=== PATIENT | male | born 1940 | race Caucasian/White ===

== ENCOUNTER → 2018-11-25 19:00 | Outpatient (REF) | payer MEDICARE, SELFPAY ==
[2018-11-26 09:03] LABS: Color, Urine Yellow (Yellow); Glucose, Dipstick Normal (Normal); Ketone-Dipstick Negative (Negative); Leukocyte Esterase-Dipstick 100 /ul (Negative); Nitrite-Dipstick Negative (Negative); Occult Blood-Urine 25 /ul (Negative); Protein-Dipstick 15 mg/dl (Negative); Urine Bilirubin Dipstick Negative (Negative); Urine Clarity Sl. Cloudy (Clear); Urine Urobilinogen Normal (Normal)
== END ==
LOC: OLS.DANBUR 19:00
PROVIDERS: Visit Provider Family Medicine
DX: N40.0 Benign prostatic hyperplasia without lower urinary tract symptoms (principal); I10 Essential (primary) hypertension; R73.03 Prediabetes
CPT/HCPCS: 81002; 87077; 87086; 87088; 87186

== ENCOUNTER 2018-11-27 10:45 | Inpatient (IN) | payer MEDICARE, SELFPAY ==
[2018-11-27] VITALS (15 sets, daily range): BP systolic 103–140; BP diastolic 56–79; PULSE 64–86; RESP 15–30; TEMP 36.7–37.3; O2SAT 91–95; BMI 39.3; BMI 37.3; BMI 37.4
--- NOTE | 2018-11-27 11:10 | EKG12_ITS ---
Test Reason : SOB Blood Pressure : / mmHG Vent. Rate : 075 BPM Atrial Rate : 088 BPM P-R Int : 000 ms QRS Dur : 078 ms QT Int : 382 ms P-R-T Axes : 000 009 034 degrees QTc Int : 426 ms Sinus vs. Ectopic Atrial Rhythm Low voltage QRS Borderline ECG Confirmed by NITA GLEASON, DAYSI ([id number]), supervising editor news reel AZAM MONTALVO [id number]) on 11/29/2018 3:05:07 PM Referred By: Mae Galan Confirmed By:DAYSI MOYA MD
--- NOTE | 2018-11-27 11:10 | RAD_ITS ---
STUDY: X-RAY CHEST REASON FOR EXAM: Male, 78 years old. Cough. TECHNIQUE: AP upright portable view. COMPARISON: None. FINDINGS: Markedly limited inspiratory effort. No suspicious pulmonary nodules or infiltrates. There is no demonstrated pleural abnormality. Mild cardiomegaly. Normal mediastinum and latoya. Normal visualized pulmonary arteries. Normal visualized aortic arch and descending thoracic aorta. Normal visualized thoracic spine. Normal visualized ribs, clavicles, and shoulders. There is no demonstrated abnormality of the visualized soft tissue structures of the upper abdomen. RAD/Chest 1 View (Portable) IMPRESSION: No acute cardiopulmonary pathology despite markedly limited inspiratory effort. Electronically Signed: Grzegorz Alfaro MD at 12:21 EDT , Service support ,
[2018-11-27] MEDS: 0.9% Normal Saline 1,000 ML 999 ML IV (11:25)
[2018-11-27 11:31] LABS: Absolute Lymphocyte Count 0.83 X10^3/uL (0.83-4.51); Absolute Neutrophil Count 6.9 X10^3/uL (2.0-7.7); Basophil# 0.03 X10^3/uL; Basophil% 0.3 % (0-1); Eosinophil# 0.05 X10^3/uL; Eosinophils% 0.5 % (0-5); Hematocrit 40.3 % (40-54); Hemoglobin 12.3 g/dL (13.0-16.5); Lymphocyte # 0.83 X10^3/ul (4.0); Lymphocyte % 9.1 % (19-41); Mean Corp Hgb Conc 30.5 g/dL (32-36); Mean Corpuscular Hgb 32.3 pg (27.0-32.0); Mean Corpuscular Volume 105.8 fL (80-94); Mean Platelet Vol. 11.3 fl (6.2-12.0); Monocyte# 1.32 X10^3/uL; Monocyte% 14.4 % (0-10); NRBC Flagged by Analyzer 0 % (0-5); Neutrophil # 6.87 X10^3/uL (2.7-7.7); Platelet Count 192 K/mm3 (150-450); RBC Distribution Width CV 12.4 % (11.6-14.6); RBC Distribution Width SD 48.8 fl (35.1-43.9); Red Blood Count 3.81 M/mm3 (4.6-6.2); White Blood Count 9.2 K/mm3 (4.4-11.0)
[2018-11-27 11:36] LABS: International Normalized Ratio 2.1; Prothrombin Time (Protime)PT. 23.5 SECONDS (11.7-14.9)
[2018-11-27 11:37] LABS: Partial Thromboplast Time 44.3 Seconds (24.1-36.2)
[2018-11-27 11:46] LABS: ALB/GLOB Ratio 0.5 RATIO (0.9-2.4); AST(SGOT) 17 U/L (15-37); Alanine Aminotransfer ALT/SGPT 11 U/L (16-61); Albumin, Serum 2.8 g/dL (3.2-5.0); Alkaline Phosphatase 123 U/L (45-117); Anion Gap 4 (5-15); BUN 34 mg/dL (7-18); BUN/Creat Ratio 16.6 RATIO (10-20); Calcium,Total 8.9 mg/dL (8.5-10.1); Chloride 109 mmol/L (98-107); Creatinine, Serum 2.05 mg/dL (0.70-1.30); EST Glomerular Filtration Rate 34 mL/min (>60); Est Glom Filt Rate - Afr Amer 41 mL/min (>60); Estimated Creatinine Clearance 31.63 ml/min; Globulin 5.2 g/dL (2.2-4.2); Glucose 108 mg/dL (74-106); Lactic Acid 1.1 mmol/L (0.4-2.0); Potassium 4.7 mmol/L (3.5-5.1); Sodium Level 144 mmol/L (136-145)
[2018-11-27] MEDS: 0.9% Normal Saline 1,000 ML 150 ML IV ×2 (12:22→17:02)
[2018-11-27 12:27] LABS: Mucous, Urine 0 SEEN /hpf (<or=2+)
[2018-11-27 12:28] LABS: Color, Urine Yellow (Yellow); Glucose, Dipstick Normal (Normal); Ketone-Dipstick Negative (Negative); Leukocyte Esterase-Dipstick 100 /ul (Negative); Nitrite-Dipstick Negative (Negative); Occult Blood-Urine 25 /ul (Negative); Protein-Dipstick 30 mg/dl (Negative); Urine Bilirubin Dipstick Negative (Negative); Urine Clarity Clear (Clear); Urine Urobilinogen Normal (Normal)
--- NOTE | 2018-11-27 12:28 | CT_ITS ---
STUDY: CT BRAIN WITHOUT CONTRAST REASON FOR EXAM: Male, 78 years old. Confusion RADIATION DOSAGE (If Supplied By Facility): CTDIvol = ( 44.99 ) mGy, DLP = ( 829.85 ) mGycm TECHNIQUE: Transaxial CT imaging of the brain was performed without administration of intravenous contrast material. Individualized dose optimization techniques were used for this CT. COMPARISON: 04/10/2016 FINDINGS: There are stable postsurgical changes from a right posterior parietal craniotomy with subjacent encephalomalacia. There is no acute bleed or infarct. There are stable chronic ischemic and atrophic changes. There is stable ex vacuo dilatation of the ventricles. The visualized paranasal sinuses are clear. The mastoid air cells are well aerated. There is no skull fracture. CT/Brain/Head without Contrast IMPRESSION: Stable postsurgical changes from a right posterior parietal craniotomy with subjacent encephalomalacia. Stable chronic ischemic and atrophic changes. No acute intracranial abnormality. Electronically Signed: Marcelino Madera, at 13:15 EDT Tel , Service support ,
[2018-11-27 12:36] LABS: Bacteria 1+ /hpf (None Seen); Red Blood Cells-Urine 0-5 SEEN /hpf (0-5); Squamous Epithelial Cells - UA 0-5 SEEN /hpf (0-5); White Blood Cells 0-5 SEEN /hpf (0-5)
--- NOTE | 2018-11-27 13:35 | CT_ITS ---
STUDY: CT CHEST WITHOUT CONTRAST REASON FOR EXAM: Male, 78 years old. Cough. Dementia. RADIATION DOSAGE (If Supplied By Facility): CTDIvol = ( 20.15 ) mGy, DLP = ( 704.86 ) mGycm TECHNIQUE: Transaxial imaging was performed without the administration of intravenous contrast material. Coronal and sagittal reformatted images were created. Individualized dose optimization techniques were used for this CT. COMPARISON: None FINDINGS: The study is limited by patient motion, lack of contrast and streak artifact due to the patient's arms being at his sides. There is elevation of the left hemidiaphragm. There are trace bilateral pleural effusions. There is bibasilar consolidation which is likely due to a combination of the infiltrate and atelectasis. The upper lung kenny are clear. There is no pneumothorax. The heart and pericardium are within normal limits. There are coronary artery calcifications. There is no thoracic lymphadenopathy. There is no evidence of thoracic aortic aneurysm. Images through the upper abdomen demonstrate no significant abnormality. There are no destructive osseous lesions. CT/Chest without Contrast IMPRESSION: Limited study. Trace bilateral pleural effusions. Bibasilar consolidation which is likely due to a combination of atelectasis and infiltrate. Coronary artery disease. Electronically Signed: Marcelino Madera, at 14:58 EDT Tel , Service support ,
--- NOTE | 2018-11-27 13:41 | NURSING ---
DR ALEXIA FRANCIS
--- NOTE | 2018-11-27 13:47 | NURSING ---
PCU ALTERED MENTAL STATUS, ACUTE RESP INSUFFICIENCY SEMENTI
--- NOTE | 2018-11-27 15:56 | HP.PCM_ITS ---
Problem List (1) HCAP (healthcare-associated pneumonia) Status: Acute (2) Lewy body dementia Status: Chronic (3) Obesity Status: Chronic (4) Parkinsons disease Status: Chronic (5) HTN (hypertension) Status: Chronic (6) BPH (benign prostatic hyperplasia) Status: Chronic (7) Hx of recurrent transient ischemic attacks Status: Chronic (8) Chronic renal failure, stage 3 (moderate) Status: Chronic (9) Chronic anticoagulation Status: Chronic (10) Macrocytic anemia Status: Chronic History of Present Illness Date of Admission: 11/27/18 Chief Complaint: cough for 2 weeks, lethargy, no appetite The patient is a 78 year old M who resides at [facility] and has a past medical history of Lewy body dementia, obesity, Parkinson's disease, hypertension, BPH, history of transient ischemic attacks, chronic renal failure stage III, chronic anticoagulation with Xarelto and macrocytic anemia who presented to the emergency department at [facility] on 11/27/2018 with a cough for the preceding 2 weeks associated with increased lethargy, increased confusion and poor appetite. Vital signs in the emergency department were temperature 99.1, pulse rate 72, blood pressure 103/79, respiratory rate 30 and he was 94% saturated on a 4 L nasal cannula. White blood cell count was 9.2 with 75% neutrophils. Hemoglobin was low at 12.3 with an MCV of 105.8. Platelets were within normal limits. PT and PTT are inaccurate due to the fact that he is on Xarelto. The BUN was 34 and the creatinine was 2.05 with an estimated creatinine clearance of 31. Troponin was less than 0.015. LFTs were unremarkable. UA showed 0-5 WBCs per high-power field with 1+ bacteria and it was nitrite negative. Chest x-ray was poor due to a poor inspiratory effort. CT of the chest was obtained and showed trace bilateral pleural effusions and bibasilar consolidation. He is being admitted to the hospital with a diagnosis of healthcare acquired pneumonia due to the fact that he lives in a [facility]. He gets a rash with penicillin so will treat with meropenem and vancomycin. Family tells me he is unable to swallow pills although they feel that he swallows otherwise okay. Bedside swallowing evaluation failed secondary to gurgling in the back of his throat. Cannot rule out aspiration at this point. Past Medical History Past Medical History (Chronic Problems): Chronic Problems Lewy body dementia (Chronic) Obesity (Chronic) Parkinsons disease (Chronic) HTN (hypertension) (Chronic) BPH (benign prostatic hyperplasia) (Chronic) Hx of recurrent transient ischemic attacks (Chronic) Chronic renal failure, stage 3 (moderate) (Chronic) Chronic anticoagulation (Chronic) Macrocytic anemia (Chronic) Allergies Penicillins Allergy (Verified 11/27/18 10:53) Rash Home Medications: Ambulatory Orders Medication Instructions Recorded Albuterol IH (ProAir) [Proair Hfa 2 puff INHALATION Q4H PRN PRN 11/27/18 (SP)Vent Pts] Carbidopa/Levodopa 50/200 [Sinemet 2 tab PO DAILY 11/27/18 CR 50/200] Cholecalciferol (Vitamin D3) 5,000 unit PO DAILY 11/27/18 [Vitamin D3] Cyanocobalamin (Vitamin B-12) 1,000 mcg PO DAILY 11/27/18 [Vitamin B-12] Finasteride [Proscar] 5 mg PO DAILY 11/27/18 Furosemide [Lasix] 20 mg PO DAILY 11/27/18 Gabapentin [Neurontin] 400 mg PO TID 11/27/18 Glucosamine/D3/Boswellia Brenda 1 ea PO DAILY 11/27/18 [Glucosamine Complex-Vit D3 Cpt] Lidocaine [Lidocaine Pain Relief] 1 ea TP Q12H PRN PRN 11/27/18 Lisinopril 40 mg PO DAILY 11/27/18 Memantine HCl [Namenda] 20 mg PO DAILY 11/27/18 Oxybutynin Chloride [Oxybutynin 10 mg PO DAILY 11/27/18 Chloride ER] Potassium Citrate [Potassium 30 meq PO BID 11/27/18 Citrate ER] Rivaroxaban [Xarelto] 20 mg PO DAILY 11/27/18 Sennosides/Docusate Sodium 2 ea PO BID 11/27/18 [Senna-S Tablet] Tamsulosin HCl [Flomax] 0.8 mg PO DAILY 11/27/18 Verapamil HCl [Verapamil ER] 240 mg PO DAILY 11/27/18 traMADol [Ultram] 50 mg PO TID 11/27/18 Surgical History: noncontributory Psychiatric History: No pertinent psych hx Lives: Senior Living Smoking Status: Former smoker Tobacco Use: Non-smoker Alcohol: None Drugs: None - *Family History Maternal History Items: No pertinent history Paternal History Items: No pertinent history Review of Systems Constitutional: Reports: Malaise, Weakness, - - increased confusion. Denies: Chills, Fever, Weight Change HEENT: Reports: Difficulty Swallowing - pills.....must be ground and mixed with applesauce. Meats must be chopped or ground, Nasal Congestion. Denies: Head Aches, Sinus Congestion, Sinus Drainage, Sore Throat Cardiovascular: Denies: Chest Pain, Edema, Palpitations Respiratory: Reports: Shortness of breath at rest, Shortness of breath upon exertion. Denies: Cough, Sputum production Gastrointestinal: Denies: Abdominal Pain, Diarrhea, Nausea, Vomiting Genitourinary: Denies: Dysuria Musculoskeletal: Denies: Joint Pain, Joint Tenderness Skin: Denies: Rash, Wounds Neurological: Reports: Confusion, - - Generalized weakness. Denies: Focal weakness, Numbness, Tingling Psychiatric: Denies: Anxiety, Depression, Homicidal Ideations, Suicidal Ideations Endocrine: Denies: Change in Body Habitus Hematologic/ Lymphatic: Reports: Hx of blood clot. Denies: Easy Bruising, Easy Bleeding VTE Information - Inpt Only VTE Present on Admission: No VTE Mechan Device Prophylaxis: None - his is anticoagulated with Xarelto VTE Pharm Prophylaxis ordered?: Yes Patient Problems: Active and Suspected Problems HCAP (healthcare-associated pneumonia) (Acute) - Physical Exam General: Alert, Cooperative, - - he is having a lot of respiratory sounds/gurgling HEENT: Atraumatic, PERRLA, EOMI, Normocephalic Oral: Dry Mucosa Neck: Supple, No Nodes, Trachea Midline, - - very thick neck. He has brisk carotid upstroke and good pulse volume Lungs: No wheeze, No rales - in the bases, Diminished, Rhonchi, Tachypneic, - - no accessory muscle use Cardiovascular: Regular rate, Regular Rhythm, Normal S1, Normal S2, - - systolic MM at the apex, soft. Distant heart sounds Abdomen: Bowel Sounds Present, Soft, Non Tender, Non-Distended Extremities: No clubbing, No cyanosis, No edema, Peripheral Pulses Normal Skin: No rashes, - - small scab on the medial left ankle.....no erythema and no increased warmth to touch Neurological: Cranial nerves II-XII grossly intact, - - he is non-ambulatory Psych/Mental Status: Appropriate Vital Signs Temp Pulse Resp BP Pulse Ox 98.8 F 86 20 H 140/65 H 94 11/27/18 14:52 11/27/18 14:52 11/27/18 14:52 11/27/18 14:52 11/27/18 14:52 Oxygen Flow Rate (L/min) 4 Oxygen Delivery Method Nasal Cannula Weight: 275 lb 9.245 oz Body Mass Index (BMI) 37.3 Intake and Output for Last 24 Hours 11/25/18 11/26/18 11/27/18 23:59 23:59 23:59 Intake Total 1000 / 1000 Balance 1000 / 1000 Laboratory Tests Past 24 Hrs 11/27/18 11/27/18 11/27/18 10:55 10:55 10:55 WBC 9.2 RBC 3.81 L Hgb 12.3 L Hct 40.3 MCV 105.8 H MCH 32.3 H MCHC 30.5 L RDW Std Deviation 48.8 H RDW Coeff of [place] 12.4 Plt Count 192 MPV 11.3 Immature Gran % (Auto) 0.700 Neut % (Auto) 75.0 H Lymph % (Auto) 9.1 L [place] % (Auto) 14.4 H Eos % (Auto) 0.5 Baso % (Auto) 0.3 Absolute Neuts (auto) 6.9 Absolute Lymphs (auto) 0.83 Nucleated RBC % 0 PT 23.5 H INR 2.1 APTT 44.3 H Sodium 144 Potassium 4.7 Chloride 109 H Carbon Dioxide 31.0 Anion Gap 4 L BUN 34 H Creatinine 2.05 H Estim Creat Clear Calc 31.63 Est GFR (MDRD) Af Amer 41 L Est GFR (MDRD) Non-Af 34 L BUN/Creatinine Ratio 16.6 Glucose 108 H Lactic Acid Calcium 8.9 Total Bilirubin 0.50 AST 17 ALT 11 L Alkaline Phosphatase 123 H Troponin I < 0.015 Total Protein 8.0 Albumin 2.8 L Globulin 5.2 H Albumin/Globulin Ratio 0.5 L Urine Color Urine Clarity Urine pH Ur Specific [place] Urine Protein Urine Glucose (UA) Urine Ketones Urine Occult Blood Urine Nitrite Urine Bilirubin Urine Urobilinogen Ur Leukocyte Esterase Urine RBC Urine WBC Ur Squamous Epith Cells Urine Bacteria Urine Mucus 11/27/18 11/27/18 10:55 12:20 WBC RBC Hgb Hct MCV MCH MCHC RDW Std Deviation RDW Coeff of [place] Plt Count MPV Immature Gran % (Auto) Neut % (Auto) Lymph % (Auto) [place] % (Auto) Eos % (Auto) Baso % (Auto) Absolute Neuts (auto) Absolute Lymphs (auto) Nucleated RBC % PT INR APTT Sodium Potassium Chloride Carbon Dioxide Anion Gap BUN Creatinine Estim Creat Clear Calc Est GFR (MDRD) Af Amer Est GFR (MDRD) Non-Af BUN/Creatinine Ratio Glucose Lactic Acid 1.1 Calcium Total Bilirubin AST ALT Alkaline Phosphatase Troponin I Total Protein Albumin Globulin Albumin/Globulin Ratio Urine Color Yellow Urine Clarity Clear Urine pH 7.0 Ur Specific [place] 1.010 Urine Protein 30 H Urine Glucose (UA) Normal Urine Ketones Negative Urine Occult Blood 25 H Urine Nitrite Negative Urine Bilirubin Negative Urine Urobilinogen Normal Ur Leukocyte Esterase 100 H Urine RBC 0-5 SEEN Urine WBC 0-5 SEEN Ur Squamous Epith Cells 0-5 SEEN Urine Bacteria 1+ Urine Mucus 0 SEEN Assessment/Plan All Active Problems HCAP (healthcare-associated pneumonia) (Acute) Impressions 1. HCAP - lives at [facility]. Has dysphagia with bread, meat, pilss. Failed swallowing eval at the bedside. Will start broad spectrum antibiotics. Check MRSA and if it is negative can likely DC the Vanco. 2. acute respiratory insufficiency - requiring 4 LPM of nasal O2 at this time. Likely due to the combined effects of atelectasis and PNA 3. Hx of recurrent DVT's and PE's. On Xarelto but the creat clearance is only 31.......will use Eliquis for now since the CREAT is increased in case the renal function worsens with infection.....if it improves he can go back to Xarelto 4. SAMMI - suspect due to poor intake and dehydration. IV fluids ordered. Will recheck the lab in the AM 5. macrocytic anemia - etiology unclear. Will check a TSH, folate, B12 and retic count. Also check a hemoccult stool 6. Lewy body dementia, Parkinson's disease, hypertension, BPH, history of TIAs complicate care, management and prognosis. Continue his home medications. Code Visit Inpatient E&M: 09240 Init Hosp L3
--- NOTE | 2018-11-27 16:27 | ED.DCSUM_ITS ---
- ER Visit Summary Date of Service: 11/27/18 Chief Complaint: Altered mental status History of Present Illness: The patient is a 78 M who has a history of Lewy body dementia as well as pulmonary embolism is on Coumadin. [facility]. His brings a man telling me that on Thursday she noticed that he seemed a little bit more confused than normal. By Thursday this was significantly more pronounced and she was worried he was getting a urinary tract infection. On she tells me that a urine specimen was obtained which she was told on Thursday that it was positive for infection. She tells me that he really has not been eating or drinking much he has not been as responsive as he normally is. She also notes a cough for the past 2 weeks but not producing any phlegm. Physical Examination: Afebrile vital signs are stable Gen: Well-nourished well-developed Head: Normocephalic atraumatic Eyes: Perrl EOMI ENT: TMs clear no rhinorrhea moist mucous membranes Neck: Supple no lymphadenopathy no JVD nontender CVS: Regular rate rhythm no murmurs normal S1-S2 Respiratory: No distress I hear rhonchi but this could be upper airway. Chest nontender Abdomen: Soft nontender nondistended normal bowel sounds no masses Back: Nontender Extremity: Nontender no edema Skin: Normal color no rash Neuro: Patient is lethargic he will respond with simple words. Test Results: White count 9.2. Creatinine 2.05 BUN is 34. INR 2.1. Urinalysis 1+ bacteria but overtly infected negative nitrates. Troponin is negative. CT brain negative. Chest x-ray showed chronic changes. Emergency Department Course and Treatment: She received IV fluids. I completely agree with that the patient deftly does not seem at his baseline. Our plan would be admission. I spoke with Dr. Galan who is requested a noncontrasted chest CT to help further evaluate the lungs. Patient was transferred to the floor before the findings of the CT were obtained. This showed probable pneumonia which would go along with his altered mental status and his [address] Galan has ordered antibiotics. Impression: 1. Altered mental status This note was generated with [employer] dictation software. It may contain incorrect words, spelling, and punctuation that were not noted in review of the chart prior to signing ED Disposition - Plan for ED Patient: Disposition: Acute Care Hospital [facility]
[2018-11-27 16:52] LABS: Platelet Count 194 K/mm3 (150-450); RET-HE 29.5 pg (30-35); Reticulocyte Count 0.86 % (0.5-1.5)
[2018-11-27 17:09] LABS: Magnesium 2.4 mg/dL (1.6-2.6); Phosphorus 4.1 mg/dL (2.5-4.9); Thyroid Stim Hormone (TSH) 0.95 uIU/mL (0.358-3.74)
--- NOTE | 2018-11-27 17:51 | PCM.RX.CS ---
Consult Pharmacy has been consulted to manage selected antiobiotic: Vancomycin Type of Consult: New start Suspected Infection: Pneumonia Prior Doses of Antibiotics Received/Current Regimen: none Labs: Sodium 144 mmol/L (136-145) 11/27/18 10:55 Potassium 4.7 mmol/L (3.5-5.1) 11/27/18 10:55 Chloride 109 mmol/L (98-107) H 11/27/18 10:55 Carbon Dioxide 31.0 mmol/L (21.0-32.0) 11/27/18 10:55 Anion Gap 4 (5-15) L 11/27/18 10:55 BUN 34 mg/dL (7-18) H 11/27/18 10:55 Creatinine 2.05 mg/dL (0.70-1.30) H 11/27/18 10:55 Est GFR (MDRD) Af Amer 41 mL/min (>60) L 11/27/18 10:55 Est GFR (MDRD) Non-Af 34 mL/min (>60) L 11/27/18 10:55 BUN/Creatinine Ratio 16.6 RATIO (10-20) 11/27/18 10:55 Glucose 108 mg/dL (74-106) H 11/27/18 10:55 Microbiology: Microbiology 11/27/18 12:20 Urine, Clean Catch Legionella Antigen - Final 11/27/18 12:20 Urine, Clean Catch Streptococcus pneumoniae Antigen (M - Final Weight used for dosin kg Estimated Creatinine Clearance: 40ml/min Goal Trough: 15-20 mcg/mL Pharmacy Plan for Drug Dosing: Pt admitted for HCAP. New start of Vancomycin ordered trough of 15-20. Pt will be loaded with 2000mg IV x1 to start 11/27/18 at 1830. Initial recommendation is for pt to receive Vancomycin 1000mg IV q12h starting 12 hours after the loading dose. CrCl is estimated to be 40ml/min based off an adjusted body weight of 96kg Pharmacy Service will continue to monitor and adjust dosing as required. Follow-Up Labs: Trough Vancomycin - before 4th total dose
[2018-11-27 18:08] LABS: M R Staph aureus DNA By PCR Negative (Negative); Probe Check PASS; Specimen Processing Control PASS
[2018-11-27] MEDS: Ipratropium/Albuterol Sulfate 3 ML AMPUL.NEB INHALATION (20:31)
[2018-11-28] VITALS (13 sets, daily range): BP systolic 121–148; BP diastolic 47–84; PULSE 66–94; RESP 16–20; TEMP 36.6–37; O2SAT 94–96
[2018-11-28] MEDS: 0.9% Normal Saline 1,000 ML 100 ML IV ×3 (00:54→23:26)
[2018-11-28] MEDS: Ipratropium/Albuterol Sulfate 3 ML AMPUL.NEB INHALATION ×4 (01:06→19:16)
[2018-11-28 05:48] LABS: Absolute Lymphocyte Count 0.89 X10^3/uL (0.83-4.51); Basophil# 0.02 X10^3/uL; Basophil% 0.3 % (0-1); Eosinophil# 0.06 X10^3/uL; Eosinophils% 0.9 % (0-5); Hematocrit 33.5 % (40-54); Lymphocyte # 0.89 X10^3/ul (4.0); Lymphocyte % 12.8 % (19-41); Mean Corp Hgb Conc 29.9 g/dL (32-36); Mean Corpuscular Hgb 31.7 pg (27.0-32.0); Mean Corpuscular Volume 106.3 fL (80-94); Mean Platelet Vol. 11.5 fl (6.2-12.0); Monocyte% 14.3 % (0-10); NRBC Flagged by Analyzer 0 % (0-5); Neutrophil # 4.96 X10^3/uL (2.7-7.7); Neutrophil % 71.1 % (47-70); Platelet Count 158 K/mm3 (150-450); RBC Distribution Width CV 12.4 % (11.6-14.6); RBC Distribution Width SD 48.9 fl (35.1-43.9); Red Blood Count 3.15 M/mm3 (4.6-6.2)
[2018-11-28 06:03] LABS: Anion Gap 7 (5-15); BUN 24 mg/dL (7-18); BUN/Creat Ratio 18.3 RATIO (10-20); Calcium,Total 8.5 mg/dL (8.5-10.1); Chloride 116 mmol/L (98-107); Creatinine, Serum 1.31 mg/dL (0.70-1.30); EST Glomerular Filtration Rate 56 mL/min (>60); Est Glom Filt Rate - Afr Amer 68 mL/min (>60); Estimated Creatinine Clearance 51.01 ml/min; Glucose 96 mg/dL (74-106); Potassium 4.3 mmol/L (3.5-5.1); Sodium Level 148 mmol/L (136-145)
[2018-11-28] MEDS: Vancomycin IV 1,000 MG/200 ML BAG 200 MG IV (06:54)
[2018-11-28] MEDS: Cyanocobalamin 500 MCG Tablet 1000 MCG PO (10:25)
[2018-11-28] MEDS: guaiFENesin 1,200 MG Tablet 1200 MG PO ×2 (10:26→21:49)
[2018-11-28] MEDS: CARBIDOPA/LEVODOPA CR 50/200 Tablet PO (10:26)
[2018-11-28] MEDS: Lisinopril 40 MG Tablet PO (10:26)
[2018-11-28] MEDS: Tolterodine Tartrate 2 MG CAP.SA PO ×2 (10:26→10:27)
[2018-11-28] MEDS: Memantine Hydrochloride 10 MG Tablet 20 MG PO (10:26)
[2018-11-28] MEDS: APIXABAN 5 MG TABLET PO ×2 (10:26→21:49)
[2018-11-28] MEDS: Finasteride 5 MG Tablet PO (10:26)
[2018-11-28] MEDS: Verapamil SR 240 MG Tablet PO (10:26)
[2018-11-28] MEDS: Senna/Docusate Sodium 1 Tablet 2 TABLET PO ×2 (10:26→21:49)
[2018-11-28] MEDS: Menthol/Lanolin/Calamine/Znox 113 GM Tube 1 APPLIC TOPICAL ×2 (10:27→21:50)
[2018-11-28] MEDS: Tamsulosin HCl 0.4 MG Capsule 0.8 MG PO (10:27)
--- NOTE | 2018-11-28 11:06 | PN_ITS ---
Patient Problems: Active and Suspected Problems HCAP (healthcare-associated pneumonia) (Acute) Subjective: Feeling a little bit better today, but still confused Vitals/I&O's: Vital Signs Temp Pulse Resp BP Pulse Ox 98.0 F 86 18 148/84 H 94 11/28/18 08:50 11/28/18 08:50 11/28/18 08:50 11/28/18 08:50 11/28/18 08:50 Oxygen Flow Rate (L/min) 4 Oxygen Delivery Method Nasal Cannula Weight: 275 lb 9.245 oz Body Mass Index (BMI) 37.3 Intake and Output for Last 24 Hours 11/26/18 11/27/18 11/28/18 23:59 23:59 23:59 Intake Total 3140 / 3140 1138.33 / 1138.33 Balance 3140 / 3140 1138.33 / 1138.33 General: Alert, Cooperative, No apparent distress HEENT: Atraumatic, PERRLA, EOMI, Normocephalic Oral: Dry Mucosa Neck: Supple, No JVD Lungs: Normal air movement, Diminished, - - Basilar crackles Cardiovascular: Regular rate, Regular Rhythm, Normal S1, Normal S2, No murmurs Abdomen: Soft, Non Tender, Non-Distended, No Hepato-splenomegaly Extremities: No edema, Capillary Refill Less than 3 Seconds Skin: No rashes, No breakdown Neurological: Neuro grossly intact, Sensory exam intact to light touch and pain Psych/Mental Status: Normal Affect, Appropriate Microbiology Past 72 Hours 11/27/18 12:20 Urine, Clean Catch Legionella Antigen - Final 11/27/18 12:20 Urine, Clean Catch Streptococcus pneumoniae Antigen (M - Final Laboratory Results 11/27/18 10:55: WBC 9.2, RBC 3.81 L, Hgb 12.3 L, Hct 40.3, MCV 105.8 H, MCH 32.3 H, MCHC 30.5 L, RDW Std Deviation 48.8 H, RDW Coeff of [place] 12.4, Plt Count 192, MPV 11.3, Immature Gran % (Auto) 0.700, Neut % (Auto) 75.0 H, Lymph % (Auto) 9.1 L, Meagher % (Auto) 14.4 H, Eos % (Auto) 0.5, Baso % (Auto) 0.3, Absolute Neuts (auto) 6.9, Absolute Lymphs (auto) 0.83, Nucleated RBC % 0 11/27/18 10:55: PT 23.5 H, INR 2.1, APTT 44.3 H 11/27/18 10:55: Sodium 144, Potassium 4.7, Chloride 109 H, Carbon Dioxide 31.0, Anion Gap 4 L, BUN 34 H, Creatinine 2.05 H, Estim Creat Clear Calc 31.63, Est GF R (MDRD) Af Amer 41 L, Est GFR (MDRD) Non-Af 34 L, BUN/Creatinine Ratio 16.6, Glucose 108 H, Calcium 8.9, Total Bilirubin 0.50, AST 17, ALT 11 L, Alkaline Phosphatase 123 H, Troponin I < 0.015, Total Protein 8.0, Albumin 2.8 L, Globulin 5.2 H, Albumin/Globulin Ratio 0.5 L 11/27/18 10:55: Lactic Acid 1.1 11/27/18 10:55: Phosphorus 4.1, Magnesium 2.4, Folate 19.10, TSH 0.95 11/27/18 10:55: Retic Count 0.86, Immature Retic Fraction 13.00, Retic Hgb Equivalent 29.5 L 11/27/18 12:20: Urine Color Yellow, Urine Clarity Clear, Urine pH 7.0, Ur Specific [place] 1.010, Urine Protein 30 H, Urine Glucose (UA) Normal, Urine Ketones Negative, Urine Occult Blood 25 H, Urine Nitrite Negative, Urine Bilirubin Negative, Urine Urobilinogen Normal, Ur Leukocyte Esterase 100 H, Urine RBC 0-5 SEEN, Urine WBC 0-5 SEEN, Ur Squamous Epith Cells 0-5 SEEN, Urine Bacteria 1+, Urine Mucus 0 SEEN 11/27/18 16:30: MRSA (PCR) Negative 11/28/18 05:15: WBC 7.0, RBC 3.15 L, Hgb 10.0 L, Hct 33.5 L, MCV 106.3 H, MCH 31.7, MCHC 29.9 L, RDW Std Deviation 48.9 H, RDW Coeff of [place] 12.4, Plt Count 158, MPV 11.5, Immature Gran % (Auto) 0.600, Neut % (Auto) 71.1 H, Lymph % (Auto) 12.8 L, Meagher % (Auto) 14.3 H, Eos % (Auto) 0.9, Baso % (Auto) 0.3, Absolute Neuts (auto) 5.0, Absolute Lymphs (auto) 0.89, Nucleated RBC % 0 11/28/18 05:15: Sodium 148 H, Potassium 4.3, Chloride 116 H, Carbon Dioxide 25.0, Anion Gap 7, BUN 24 H, Creatinine 1.31 H, Estim Creat Clear Calc 51.01, Est GFR (MDRD) Af Amer 68, Est GFR (MDRD) Non-Af 56 L, BUN/Creatinine Ratio 18.3, Glucose 96, Calcium 8.5 11/28/18 05:15: Vitamin B12 Pending Current Medications Acetaminophen (Tylenol) 650 mg PO Q6H PRN PRN PRN Reason: Mild pain 1-3/Temp > 100.7 F Albuterol Sulfate (Ventolin Aerosols) 2.5 mg INHALATION Q2H PRN PRN PRN Reason: SHORTNESS OF BREATH Albuterol/Ipratropium (Duoneb) 3 ml INHALATION Q6H.RT [facility] Last Admin: 11/28/18 07:08 Dose: 3 ml Documented by: Apixaban (Eliquis) 5 mg PO BID [facility] Last Admin: 11/28/18 10:26 Dose: 5 mg Documented by: Calamine/Phenol (Calmoseptine Ointment) 1 applic TOPICAL BID [facility]; Protocol Last Admin: 11/28/18 10:27 Dose: 1 applicatio Documented by: Carbidopa/Levodopa (Sinemet Cr) 2 tablet PO DAILY [facility] Last Admin: 11/28/18 10:26 Dose: 2 tablet Documented by: Cholecalciferol (Vitamin D) 5,000 unit PO DAILY [facility] Last Admin: 11/28/18 10:25 Dose: 5,000 unit Documented by: Cyanocobalamin (Vitamin B12) 1,000 mcg PO DAILY [facility] Last Admin: 11/28/18 10:25 Dose: 1,000 mcg Documented by: Finasteride (Proscar) 5 mg PO DAILY [facility] Last Admin: 11/28/18 10:26 Dose: 5 mg Documented by: Gabapentin (Neurontin) 400 mg PO TID [facility] Last Admin: 11/28/18 05:13 Dose: Not Given Documented by: Guaifenesin (Mucinex) 1,200 mg PO BID [facility] Last Admin: 11/28/18 10:26 Dose: 1,200 mg Documented by: Hydralazine HCl (Apresoline Iv) 10 mg IV Q4H PRN PRN PRN Reason: sys>150 diast>85 Sodium Chloride () 1,000 mls @ 100 mls/hr IV .Q10H [facility] Last Infusion: 11/28/18 10:18 Dose: 0 mls/hr Documented by: Vancomycin IV Pharmacy to Dose (1 ea/ Sodium Chloride) 500 mls @ 250 mls/hr IV X1 PRN; Protocol PRN Reason: Rx to Dose Meropenem 1 gm/ Sodium (Chloride) 120 mls @ 100 mls/hr IV Q12 [facility] Last Admin: 11/28/18 10:18 Dose: 100 mls/hr Documented by: Vancomycin HCl (Vancomycin) 1,000 mg in 200 mls @ 200 mls/hr IV Q12H [facility] Last Infusion: 11/28/18 08:00 Dose: Infused Documented by: Lidocaine (Lidoderm Patch) 1 patch TOPICAL Q12H PRN [facility] Lisinopril (Zestril) 40 mg PO DAILY [facility] Last Admin: 11/28/18 10:26 Dose: 40 mg Documented by: Memantine (Namenda) 20 mg PO DAILY [facility] Last Admin: 11/28/18 10:26 Dose: 20 mg Documented by: Ondansetron HCl (Zofran) 4 mg IV Q8H PRN PRN PRN Reason: NAUSEA/VOMITING Senna/Docusate Sodium (Senokot-S, Chela-Colace) 2 tablet PO BID [facility] Last Admin: 11/28/18 10:26 Dose: 2 tablet Documented by: Sodium Chloride () 10 - 40 ml IV UD PRN PRN Reason: SALINE FLUSH Tamsulosin HCl (Flomax) 0.8 mg PO DAILY [facility] Last Admin: 11/28/18 10:27 Dose: 0.8 mg Documented by: Tolterodine Tartrate (Detrol La) 2 mg PO DAILY [facility] Last Admin: 11/28/18 10:27 Dose: 2 mg Documented by: Tramadol HCl (Ultram) 50 mg PO TID PRN PRN PRN Reason: Pain Score 1-10/10 Verapamil HCl (Calan Sr) 240 mg PO DAILY [facility] Last Admin: 11/28/18 10:26 Dose: 240 mg Documented by: Medical Necessity - Tobacco Use Smoking Status: Former smoker Assessment/Plan All Active Problems HCAP (healthcare-associated pneumonia) (Acute) 1. Community-acquired pneumonia from gram-positive organism/metabolic encephalopathy from pneumonia -We will continue with IV antibiotics he is on meropenem and vancomycin, will discontinue the vancomycin since he is MRSA negative and start Rocephin and azithromycin -Encephalopathy does appear to be improving -Strep and Legionella antigens are negative -Blood cultures are pending -We will wean oxygen as able, he is not on any home O2 2. Macrocytic anemia -He has had a macrocytic anemia since about 2014 -No signs or folate or B12 level in his past -B12 is pending however folic acid was 19.10, he is currently on B12 supplementation -TSH is 0.95 3. Lewy body dementia/Parkinson's -Continue with Sinemet and Namenda -Stable 4. HTN -Blood pressures have been stable -Continue with his lisinopril, verapamil, and Lasix 5. History of PE -He is maintained on Xarelto for his anticoagulation -Transition to Oliva here on admission, but will discharge him back on his Xarelto 6. BPH/urinary incontinence -Continue with his Flomax -He is on Detrol LA here in the hospital on discharge we will resume his home medications DVT: Oliva Code Visit Inpatient E&M: 59219 Subs Hosp L2
[2018-11-28] MEDS: Gabapentin 400 MG Capsule PO ×2 (12:41→21:49)
[2018-11-29] VITALS (13 sets, daily range): BP systolic 139–146; BP diastolic 56–65; PULSE 67–81; RESP 16–20; TEMP 36.5–37.3; O2SAT 93–97
[2018-11-29] MEDS: Gabapentin 400 MG Capsule PO ×3 (05:42→22:37)
[2018-11-29 06:51] LABS: Vancomycin, Trough Level 9.4 ug/mL (5.0-15.0)
[2018-11-29] MEDS: Ipratropium/Albuterol Sulfate 3 ML AMPUL.NEB INHALATION ×3 (07:01→19:33)
[2018-11-29 08:26] LABS: Vitamin B12 979 pg/mL (211-911)
[2018-11-29] MEDS: 0.9% Normal Saline 1,000 ML 100 ML IV ×2 (09:00→18:27)
--- NOTE | 2018-11-29 09:24 | PN_ITS ---
Patient Problems: Active and Suspected Problems HCAP (healthcare-associated pneumonia) (Acute) Subjective: States that he is feeling a little bit better, knows that he is in [facility] but thinks it is 2008 Vitals/I&O's: Vital Signs Temp Pulse Resp BP Pulse Ox 98.6 F 73 16 146/56 H 97 11/29/18 08:40 11/29/18 08:40 11/29/18 08:40 11/29/18 08:40 11/29/18 08:40 Oxygen Flow Rate (L/min) 4 Oxygen Delivery Method Nasal Cannula Weight: 275 lb 9.245 oz Body Mass Index (BMI) 37.3 Intake and Output for Last 24 Hours 11/27/18 11/28/18 11/29/18 23:59 23:59 23:59 Intake Total 3140 / 3140 3585.00 / 3585.00 1076.67 / 1076.67 Output Total 300 / 300 Balance 3140 / 3140 3285.00 / 3285.00 1076.67 / 1076.67 General: Alert, Cooperative, No apparent distress HEENT: Atraumatic, PERRLA, EOMI, Normocephalic Oral: Dry Mucosa Neck: Supple, No JVD Lungs: Normal air movement, Diminished, - - Basilar crackles Cardiovascular: Regular rate, Regular Rhythm, Normal S1, Normal S2, No murmurs Abdomen: Soft, Non Tender, Non-Distended, No Hepato-splenomegaly Extremities: No edema, Capillary Refill Less than 3 Seconds Skin: No rashes, No breakdown Neurological: Neuro grossly intact, Sensory exam intact to light touch and pain Psych/Mental Status: Normal Affect, Appropriate Microbiology Past 72 Hours 11/27/18 12:20 Urine Catheter - Catheter Urine Culture - Final Enterococcus faecalis 11/28/18 10:55 Stool Stool Occult Blood (MICHELLE) - Final 11/27/18 12:20 Urine, Clean Catch Legionella Antigen - Final 11/27/18 12:20 Urine, Clean Catch Streptococcus pneumoniae Antigen (M - Final Laboratory Results 11/28/18 05:15: Vitamin B12 979 H 11/29/18 06:12: Vancomycin Trough 9.4 Current Medications Acetaminophen (Tylenol) 650 mg PO Q6H PRN PRN PRN Reason: Mild pain 1-3/Temp > 100.7 F Albuterol Sulfate (Ventolin Aerosols) 2.5 mg INHALATION Q2H PRN PRN PRN Reason: SHORTNESS OF BREATH Albuterol/Ipratropium (Duoneb) 3 ml INHALATION Q6H.RT [facility] Last Admin: 11/29/18 07:01 Dose: 3 ml Documented by: Apixaban (Eliquis) 5 mg PO BID [facility] Last Admin: 11/28/18 21:49 Dose: 5 mg Documented by: Calamine/Phenol (Calmoseptine Ointment) 1 applic TOPICAL BID [facility]; Protocol Last Admin: 11/28/18 21:50 Dose: 1 applicatio Documented by: Carbidopa/Levodopa (Sinemet Cr) 2 tablet PO DAILY [facility] Last Admin: 11/28/18 10:26 Dose: 2 tablet Documented by: Cholecalciferol (Vitamin D) 5,000 unit PO DAILY [facility] Last Admin: 11/28/18 10:25 Dose: 5,000 unit Documented by: Cyanocobalamin (Vitamin B12) 1,000 mcg PO DAILY [facility] Last Admin: 11/28/18 10:25 Dose: 1,000 mcg Documented by: Finasteride (Proscar) 5 mg PO DAILY [facility] Last Admin: 11/28/18 10:26 Dose: 5 mg Documented by: Gabapentin (Neurontin) 400 mg PO TID [facility] Last Admin: 11/29/18 05:42 Dose: 400 mg Documented by: Guaifenesin (Mucinex) 1,200 mg PO BID [facility] Last Admin: 11/28/18 21:49 Dose: 1,200 mg Documented by: Hydralazine HCl (Apresoline Iv) 10 mg IV Q4H PRN PRN PRN Reason: sys>150 diast>85 Sodium Chloride () 1,000 mls @ 100 mls/hr IV .Q10H [facility] Last Admin: 11/29/18 09:00 Dose: 100 mls/hr Documented by: Azithromycin 500 mg/ Dextrose 255 mls @ 250 mls/hr IV Q24 [facility] Ceftriaxone Sodium 2 gm/ (Sodium Chloride) 50 mls @ 100 mls/hr IV Q24 [facility] Lidocaine (Lidoderm Patch) 1 patch TOPICAL Q12H PRN [facility] Lisinopril (Zestril) 40 mg PO DAILY [facility] Last Admin: 11/28/18 10:26 Dose: 40 mg Documented by: Memantine (Namenda) 20 mg PO DAILY [facility] Last Admin: 11/28/18 10:26 Dose: 20 mg Documented by: Nutritional Formula (Lactose Free) (Ensure Enlive) 120 ml PO 4X/DAY [facility] Ondansetron HCl (Zofran) 4 mg IV Q8H PRN PRN PRN Reason: NAUSEA/VOMITING Senna/Docusate Sodium (Senokot-S, Chela-Colace) 2 tablet PO BID [facility] Last Admin: 11/28/18 21:49 Dose: 2 tablet Documented by: Sodium Chloride () 10 - 40 ml IV UD PRN PRN Reason: SALINE FLUSH Tamsulosin HCl (Flomax) 0.8 mg PO DAILY [facility] Last Admin: 11/28/18 10:27 Dose: 0.8 mg Documented by: Tolterodine Tartrate (Detrol La) 2 mg PO DAILY [facility] Last Admin: 11/28/18 10:27 Dose: 2 mg Documented by: Tramadol HCl (Ultram) 50 mg PO TID PRN PRN PRN Reason: Pain Score 1-10/10 Verapamil HCl (Calan Sr) 240 mg PO DAILY [facility] Last Admin: 11/28/18 10:26 Dose: 240 mg Documented by: Medical Necessity - Tobacco Use Smoking Status: Former smoker Tobacco Use: Non-smoker Assessment/Plan All Active Problems HCAP (healthcare-associated pneumonia) (Acute) 1. Community-acquired pneumonia from gram-positive organism/metabolic encephalopathy from pneumonia and UTI -We will continue with IV antibiotics Rocephin and azithromycin -Encephalopathy does appear to be improving -Strep and Legionella antigens are negative -Blood cultures are pending -We will wean oxygen as able, he is not on any home O2 -Urine culture with gram-positive cocci, will continue to monitor and adjust antibiotics as necessary 2. Macrocytic anemia -He has had a macrocytic anemia since about 2014 -No signs of folate or B12 level in his past -B12 is pending however folic acid was 19.10, he is currently on B12 supplementation -TSH is 0.95 3. Lewy body dementia/Parkinson's -Continue with Sinemet and Namenda -Stable 4. HTN -Blood pressures have been stable -Continue with his lisinopril, verapamil, and Lasix 5. History of PE -He is maintained on Xarelto for his anticoagulation -Transition to [facility] here on admission, but will discharge him back on his Xarelto 6. BPH/urinary incontinence -Continue with his Flomax -He is on Detrol LA here in the hospital on discharge we will resume his home m edications DVT: Eliquis Code Visit Inpatient E&M: 30026 Subs Hosp L2
[2018-11-29] MEDS: Verapamil SR 240 MG Tablet PO (10:00)
[2018-11-29] MEDS: Tamsulosin HCl 0.4 MG Capsule 0.8 MG PO (10:02)
[2018-11-29] MEDS: APIXABAN 5 MG TABLET PO ×2 (10:02→22:36)
[2018-11-29] MEDS: Memantine Hydrochloride 10 MG Tablet 20 MG PO (10:03)
[2018-11-29] MEDS: guaiFENesin 1,200 MG Tablet 1200 MG PO ×2 (10:03→22:37)
[2018-11-29] MEDS: Finasteride 5 MG Tablet PO (10:04)
[2018-11-29] MEDS: Cyanocobalamin 500 MCG Tablet 1000 MCG PO (10:05)
[2018-11-29] MEDS: Senna/Docusate Sodium 1 Tablet 2 TABLET PO ×2 (10:05→22:37)
[2018-11-29] MEDS: CARBIDOPA/LEVODOPA CR 50/200 Tablet PO (10:06)
[2018-11-29] MEDS: Lisinopril 40 MG Tablet PO (10:07)
[2018-11-29] MEDS: Menthol/Lanolin/Calamine/Znox 113 GM Tube 1 APPLIC TOPICAL ×2 (10:08→23:28)
--- NOTE | 2018-11-29 11:14 | CASEMGMT ---
SANJANA noted patient is from [place]. SANJANA met with patient, introduced self and role at [facility]. Patient said he is from [place] and he plans to return there at discharge. SANJANA called Liliana at [place] and she said patient is normally a total assist for them at the facility. SANJANA faxed her updates. Cady LARSEN MSW
[2018-11-29] MEDS: Nitrofurantoin Macrocrystals 100 MG Capsule PO ×2 (12:35→22:37)
[2018-11-30] VITALS (16 sets, daily range): BP systolic 143–166; BP diastolic 71–86; PULSE 62–82; RESP 14–24; TEMP 36.6–37.2; O2SAT 92–96
[2018-11-30] MEDS: Ipratropium/Albuterol Sulfate 3 ML AMPUL.NEB INHALATION ×4 (00:32→18:54)
[2018-11-30] MEDS: 0.9% Normal Saline 1,000 ML 100 ML IV ×2 (04:35→15:26)
[2018-11-30] MEDS: Gabapentin 400 MG Capsule PO ×2 (05:35→21:25)
[2018-11-30 05:43] LABS: Absolute Lymphocyte Count 1.09 X10^3/uL (0.83-4.51); Absolute Neutrophil Count 4.8 X10^3/uL (2.0-7.7); Basophil# 0.01 X10^3/uL; Basophil% 0.1 % (0-1); Eosinophils% 1.5 % (0-5); Hematocrit 31.9 % (40-54); Lymphocyte # 1.09 X10^3/ul (4.0); Lymphocyte % 15.9 % (19-41); Mean Corp Hgb Conc 31.3 g/dL (32-36); Mean Corpuscular Hgb 32.3 pg (27.0-32.0); Mean Corpuscular Volume 102.9 fL (80-94); Mean Platelet Vol. 11.4 fl (6.2-12.0); Monocyte# 0.79 X10^3/uL; Monocyte% 11.5 % (0-10); NRBC Flagged by Analyzer 0 % (0-5); Neutrophil # 4.79 X10^3/uL (2.7-7.7); Neutrophil % 69.8 % (47-70); Platelet Count 169 K/mm3 (150-450); RBC Distribution Width CV 12.3 % (11.6-14.6); RBC Distribution Width SD 46.3 fl (35.1-43.9); White Blood Count 6.9 K/mm3 (4.4-11.0)
[2018-11-30 06:09] LABS: Anion Gap 5 (5-15); BUN 16 mg/dL (7-18); Calcium,Total 7.9 mg/dL (8.5-10.1); Chloride 115 mmol/L (98-107); Creatinine, Serum 0.94 mg/dL (0.70-1.30); EST Glomerular Filtration Rate 83 mL/min (>60); Est Glom Filt Rate - Afr Amer 100 mL/min (>60); Estimated Creatinine Clearance 71.09 ml/min; Glucose 100 mg/dL (74-106); Potassium 3.9 mmol/L (3.5-5.1); Sodium Level 148 mmol/L (136-145)
[2018-11-30] MEDS: predniSONE 20 MG Tablet 40 MG PO (08:22)
[2018-11-30] MEDS: APIXABAN 5 MG TABLET PO ×2 (08:23→21:24)
[2018-11-30] MEDS: Lisinopril 40 MG Tablet PO (08:23)
[2018-11-30] MEDS: Nitrofurantoin Macrocrystals 100 MG Capsule PO ×2 (08:23→21:25)
[2018-11-30] MEDS: Senna/Docusate Sodium 1 Tablet 2 TABLET PO ×2 (08:23→21:25)
[2018-11-30] MEDS: Cyanocobalamin 500 MCG Tablet 1000 MCG PO (08:23)
[2018-11-30] MEDS: Memantine Hydrochloride 10 MG Tablet 20 MG PO (08:23)
[2018-11-30] MEDS: CARBIDOPA/LEVODOPA CR 50/200 Tablet PO (08:23)
[2018-11-30] MEDS: Tolterodine Tartrate 2 MG CAP.SA PO (08:23)
[2018-11-30] MEDS: Tamsulosin HCl 0.4 MG Capsule 0.8 MG PO (08:23)
[2018-11-30] MEDS: guaiFENesin 1,200 MG Tablet 1200 MG PO ×2 (08:23→21:25)
[2018-11-30] MEDS: Verapamil SR 240 MG Tablet PO (08:23)
[2018-11-30] MEDS: Finasteride 5 MG Tablet PO (08:23)
[2018-11-30] MEDS: Menthol/Lanolin/Calamine/Znox 113 GM Tube 1 APPLIC TOPICAL ×2 (08:23→21:59)
--- NOTE | 2018-11-30 11:30 | PCM.PN.HOSP ---
Patient Problems: Active and Suspected Problems HCAP (healthcare-associated pneumonia) (Acute) Subjective: States that he had a bloody nose today, though it stopped very quickly. No issues overnight Vitals/I&O's: Vital Signs Temp Pulse Resp BP Pulse Ox 98.4 F 66 18 166/86 H 93 11/30/18 08:30 11/30/18 08:30 11/30/18 08:38 11/30/18 08:30 11/30/18 08:38 Oxygen Flow Rate (L/min) 2 Oxygen Delivery Method Room Air Weight: 275 lb 9.245 oz Body Mass Index (BMI) 37.3 Intake and Output for Last 24 Hours 11/28/18 11/29/18 11/30/18 23:59 23:59 23:59 Intake Total 3585.00 / 3585.00 2566.67 / 2566.67 1728.34 / 1728.34 Output Total 300 / 300 Balance 3285.00 / 3285.00 2566.67 / 2566.67 1728.34 / 1728.34 General: Alert, Cooperative, No apparent distress HEENT: Atraumatic, PERRLA, EOMI, Normocephalic Oral: Dry Mucosa Neck: Supple, No JVD Lungs: Normal air movement, clear to auscultation bilaterally, diminished, no wheezes, no rales, no rhonchi Cardiovascular: Regular rate, Regular Rhythm, Normal S1, Normal S2, No murmurs Abdomen: Soft, Non Tender, Non-Distended, No Hepato-splenomegaly Extremities: No edema, Capillary Refill Less than 3 Seconds Skin: No rashes, No breakdown Neurological: Neuro grossly intact, Sensory exam intact to light touch and pain Psych/Mental Status: Normal Affect, Appropriate Microbiology Past 72 Hours 11/27/18 11:23 Blood Culture (Wb) - Anticubital Right Blood Culture - Preliminary No growth in 48 hours. 11/27/18 10:55 Blood Culture (Wb) - Anticubital Left Blood Culture - Preliminary No growth in 48 hours. 11/27/18 12:20 Urine Catheter - Catheter Urine Culture - Final Enterococcus faecalis 11/28/18 10:55 Stool Stool Occult Blood (MICHELLE) - Final 11/27/18 12:20 Urine, Clean Catch Legionella Antigen - Final 11/27/18 12:20 Urine, Clean Catch Streptococcus pneumoniae Antigen (M - Final Laboratory Results 11/30/18 05:16: WBC 6.9, RBC 3.10 L, Hgb 10.0 L, Hct 31.9 L, MCV 102.9 H, MCH 32.3 H, MCHC 31.3 L, RDW Std Deviation 46.3 H, RDW Coeff of [place] 12.3, Plt Count 169, MPV 11.4, Immature Gran % (Auto) 1.200 H, Neut % (Auto) 69.8, Lymph % (Auto) 15.9 L, [place] % (Auto) 11.5 H, Eos % (Auto) 1.5, Baso % (Auto) 0.1, Absolute Neuts (auto) 4.8, Absolute Lymphs (auto) 1.09, Nucleated RBC % 0 11/30/18 05:16: Sodium 148 H, Potassium 3.9, Chloride 115 H, Carbon Dioxide 28.0, Anion Gap 5, BUN 16, Creatinine 0.94, Estim Creat Clear Calc 71.09, Est GFR (MDRD) Af Amer 100, Est GFR (MDRD) Non-Af 83, BUN/Creatinine Ratio 17.0, Glucose 100, Calcium 7.9 L Current Medications Acetaminophen (Tylenol) 650 mg PO Q6H PRN PRN PRN Reason: Mild pain 1-3/Temp > 100.7 F Albuterol Sulfate (Ventolin Aerosols) 2.5 mg INHALATION Q2H PRN PRN PRN Reason: SHORTNESS OF BREATH Albuterol/Ipratropium (Duoneb) 3 ml INHALATION Q6H.RT [facility] Last Admin: 11/30/18 07:12 Dose: 3 ml Documented by: Apixaban (Eliquis) 5 mg PO BID [facility] Last Admin: 11/30/18 08:23 Dose: 5 mg Documented by: Calamine/Phenol (Calmoseptine Ointment) 1 applic TOPICAL BID [facility]; Protocol Last Admin: 11/30/18 08:23 Dose: 1 applicatio Documented by: Carbidopa/Levodopa (Sinemet Cr) 2 tablet PO DAILY [facility] Last Admin: 11/30/18 08:23 Dose: 2 tablet Documented by: Cholecalciferol (Vitamin D) 5,000 unit PO DAILY [facility] Last Admin: 11/30/18 08:22 Dose: 5,000 unit Documented by: Cyanocobalamin (Vitamin B12) 1,000 mcg PO DAILY [facility] Last Admin: 11/30/18 08:23 Dose: 1,000 mcg Documented by: Finasteride (Proscar) 5 mg PO DAILY [facility] Last Admin: 11/30/18 08:23 Dose: 5 mg Documented by: Gabapentin (Neurontin) 400 mg PO TID [facility] Last Admin: 11/30/18 05:35 Dose: 400 mg Documented by: Guaifenesin (Mucinex) 1,200 mg PO BID [facility] Last Admin: 11/30/18 08:23 Dose: 1,200 mg Documented by: Hydralazine HCl (Apresoline Iv) 10 mg IV Q4H PRN PRN PRN Reason: sys>150 diast>85 Sodium Chloride () 1,000 mls @ 100 mls/hr IV .Q10H [facility] Last Infusion: 11/30/18 10:45 Dose: 100 mls/hr Documented by: Azithromycin 500 mg/ Dextrose 255 mls @ 250 mls/hr IV Q24 [facility] Last Infusion: 11/30/18 09:23 Dose: Infused Documented by: Ceftriaxone Sodium 2 gm/ (Sodium Chloride) 50 mls @ 100 mls/hr IV Q24 [facility] Last Infusion: 11/30/18 10:45 Dose: Infused Documented by: Lidocaine (Lidoderm Patch) 1 patch TOPICAL Q12H PRN [facility] Lisinopril (Zestril) 40 mg PO DAILY [facility] Last Admin: 11/30/18 08:23 Dose: 40 mg Documented by: Memantine (Namenda) 20 mg PO DAILY [facility] Last Admin: 11/30/18 08:23 Dose: 20 mg Documented by: Nitrofurantoin Macrocrystals (Macrobid) 100 mg PO BID [facility] Stop: 12/03/18 22:01 Last Admin: 11/30/18 08:23 Dose: 100 mg Documented by: Nutritional Formula (Lactose Free) (Ensure Enlive) 120 ml PO 4X/DAY [facility] Last Admin: 11/30/18 08:31 Dose: Not Given Documented by: Ondansetron HCl (Zofran) 4 mg IV Q8H PRN PRN PRN Reason: NAUSEA/VOMITING Prednisone () 40 mg PO DAILY@0800 [facility] Last Admin: 11/30/18 08:22 Dose: 40 mg Documented by: Senna/Docusate Sodium (Senokot-S, Chela-Colace) 2 tablet PO BID [facility] Last Admin: 11/30/18 08:23 Dose: 2 tablet Documented by: Sodium Chloride () 10 - 40 ml IV UD PRN PRN Reason: SALINE FLUSH Tamsulosin HCl (Flomax) 0.8 mg PO DAILY [facility] Last Admin: 11/30/18 08:23 Dose: 0.8 mg Documented by: Tolterodine Tartrate (Detrol La) 2 mg PO DAILY [facility] Last Admin: 11/30/18 08:23 Dose: 2 mg Documented by: Tramadol HCl (Ultram) 50 mg PO TID PRN PRN PRN Reason: Pain Score 1-12/09 Verapamil HCl (Calan Sr) 240 mg PO DAILY [facility] Last Admin: 11/30/18 08: Dose: 240 mg Documented by: Medical Necessity - Tobacco Use Smoking Status: Former smoker Tobacco Use: Non-smoker Assessment/Plan All Active Problems HCAP (healthcare-associated pneumonia) (Acute) 1. Community-acquired pneumonia from gram-positive organism/metabolic encephalopathy from pneumonia and UTI -We will continue with IV antibiotics Rocephin and azithromycin -Encephalopathy does appear to be improving -Strep and Legionella antigens are negative -Blood cultures are negative -We will wean oxygen as able, he is currently off of O2 but his pulse ox tends to be around 90-91, therefore will start oral steroid therapy -Urine culture with enterococcus, we will continue with Macrobid for 5 days total 2. 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 Lewy body dementia/Parkinson's -Continue with Sinemet and Namenda -Stable 4. HTN -Blood pressures have been stable -Continue with his lisinopril, verapamil, and Lasix 5. History of PE -He is maintained on Xarelto for his anticoagulation -Transition to Eliquis here on admission, but will discharge him back on his Xarelto 6. BPH/urinary incontinence -Continue with his Flomax -He is on Detrol LA here in the hospital on discharge we will resume his home medications DVT: Oliva Code Visit Inpatient E&M: 79725 Subs Hosp L2
--- NOTE | 2018-11-30 15:24 | CASEMGMT ---
SW spoke with patient's . Introduced self and role at [facility]. SW asked if the plan is to return to [place]. She said she would like patient to go somewhere for rehab. SW offered her a list of SNF's and she said she wants him to go to [facility] [place]. SW told her SW will work on this. SW called [facility] with referral and also faxed over information. Await response. Plan: [facility] pending their acceptance and insurance approval. Cady LARSEN MSW
[2018-11-30] MEDS: Ondansetron 4 MG/2 ML Vial IV (17:08)
[2018-12-01] VITALS (18 sets, daily range): BP systolic 138–175; BP diastolic 72–89; PULSE 64–83; RESP 16–22; TEMP 36.4–36.7; O2SAT 88–93
[2018-12-01] MEDS: Gabapentin 400 MG Capsule PO ×2 (05:46→22:38)
[2018-12-01] MEDS: Ipratropium/Albuterol Sulfate 3 ML AMPUL.NEB INHALATION ×3 (06:43→19:22)
--- NOTE | 2018-12-01 07:23 | CASEMGMT ---
SANJANA received a message from [facility]. She said they can accept patient. She asked when to start the pre-cert. SANJANA will call her back and let her know to start the pre-cert. Plan: [facility] pending insurance approval. Cady SANCHEZ
[2018-12-01] MEDS: Menthol/Lanolin/Calamine/Znox 113 GM Tube 1 APPLIC TOPICAL ×2 (08:26→22:33)
[2018-12-01] MEDS: CARBIDOPA/LEVODOPA CR 50/200 Tablet PO (08:27)
[2018-12-01] MEDS: Nitrofurantoin Macrocrystals 100 MG Capsule PO ×2 (08:27→22:35)
[2018-12-01] MEDS: Memantine Hydrochloride 10 MG Tablet 20 MG PO (08:27)
[2018-12-01] MEDS: Senna/Docusate Sodium 1 Tablet 2 TABLET PO ×2 (08:28→22:38)
[2018-12-01] MEDS: guaiFENesin 1,200 MG Tablet 1200 MG PO ×2 (08:28→22:37)
[2018-12-01] MEDS: Finasteride 5 MG Tablet PO (08:28)
[2018-12-01] MEDS: APIXABAN 5 MG TABLET PO ×2 (08:28→22:34)
[2018-12-01] MEDS: Tolterodine Tartrate 2 MG CAP.SA PO (08:29)
[2018-12-01] MEDS: Tamsulosin HCl 0.4 MG Capsule 0.8 MG PO (08:29)
[2018-12-01] MEDS: Cyanocobalamin 500 MCG Tablet 1000 MCG PO (08:29)
[2018-12-01] MEDS: Verapamil SR 240 MG Tablet PO (08:30)
[2018-12-01] MEDS: Lisinopril 40 MG Tablet PO (08:30)
[2018-12-01] MEDS: predniSONE 20 MG Tablet 40 MG PO (08:32)
--- NOTE | 2018-12-01 08:57 | CASEMGMT ---
LW/POA forms in james, Almita Cisneros listed as POA. SW printed forms and will be placed in paper chart to be scanned into summary tab of e-chart by medical records upon discharge. DARRICK Garcia
--- NOTE | 2018-12-01 09:16 | PCM.PN.HOSP ---
Patient Problems: Active and Suspected Problems HCAP (healthcare-associated pneumonia) (Acute) Subjective: No issues overnight, he was on room air all day yesterday and he was placed on oxygen last night while sleeping. Vitals/I&O's: Vital Signs Temp Pulse Resp BP Pulse Ox 97.6 F L 79 22 H 175/89 H 92 12/01/18 08:24 12/01/18 08:24 12/01/18 08:24 12/01/18 08:24 12/01/18 08:24 Oxygen Flow Rate (L/min) 2 Oxygen Delivery Method Room Air Weight: 275 lb 9.245 oz Body Mass Index (BMI) 37.3 Intake and Output for Last 24 Hours 11/29/18 11/30/18 12/01/18 23:59 23:59 23:59 Intake Total 2566.67 / 2566.67 3398.34 / 3398.34 Output Total 200 / 200 Balance 2566.67 / 2566.67 3198.34 / 3198.34 General: Alert, Cooperative, No apparent distress HEENT: Atraumatic, PERRLA, EOMI, Normocephalic Oral: Dry Mucosa Neck: Supple, No JVD Lungs: Normal air movement, clear to auscultation bilaterally, diminished, no wheezes, no rales, no rhonchi Cardiovascular: Regular rate, Regular Rhythm, Normal S1, Normal S2, No murmurs Abdomen: Soft, Non Tender, Non-Distended, No Hepato-splenomegaly Extremities: No edema, Capillary Refill Less than 3 Seconds Skin: No rashes, No breakdown Neurological: Neuro grossly intact, Sensory exam intact to light touch and pain Psych/Mental Status: Normal Affect, Appropriate Microbiology Past 72 Hours 11/27/18 11:23 Blood Culture (Wb) - Anticubital Right Blood Culture - Preliminary No growth in 48 hours. 11/27/18 10:55 Blood Culture (Wb) - Anticubital Left Blood Culture - Preliminary No growth in 48 hours. 11/27/18 12:20 Urine Catheter - Catheter Urine Culture - Final Enterococcus faecalis 11/28/18 10:55 Stool Stool Occult Blood (MICHELLE) - Final Current Medications Acetaminophen (Tylenol) 650 mg PO Q6H PRN PRN PRN Reason: Mild pain 1-3/Temp > 100.7 F Albuterol Sulfate (Ventolin Aerosols) 2.5 mg INHALATION Q2H PRN PRN PRN Reason: SHORTNESS OF BREATH Albuterol/Ipratropium (Duoneb) 3 ml INHALATION Q6H.RT [facility] Last Admin: 12/01/18 06:43 Dose: 3 ml Documented by: Apixaban (Eliquis) 5 mg PO BID [facility] Last Admin: 12/01/18 08:28 Dose: 5 mg Documented by: Calamine/Phenol (Calmoseptine Ointment) 1 applic TOPICAL BID [facility]; Protocol Last Admin: 12/01/18 08:26 Dose: 1 applicatio Documented by: Carbidopa/Levodopa (Sinemet Cr) 2 tablet PO DAILY [facility] Last Admin: 12/01/18 08:27 Dose: 2 tablet Documented by: Cholecalciferol (Vitamin D) 5,000 unit PO DAILY [facility] Last Admin: 12/01/18 08:27 Dose: 5,000 unit Documented by: Cyanocobalamin (Vitamin B12) 1,000 mcg PO DAILY [facility] Last Admin: 12/01/18 08:29 Dose: 1,000 mcg Documented by: Finasteride (Proscar) 5 mg PO DAILY [facility] Last Admin: 12/01/18 08:28 Dose: 5 mg Documented by: Gabapentin (Neurontin) 400 mg PO TID [facility] Last Admin: 12/01/18 05:46 Dose: 400 mg Documented by: Guaifenesin (Mucinex) 1,200 mg PO BID [facility] Last Admin: 12/01/18 08:28 Dose: 1,200 mg Documented by: Hydralazine HCl (Apresoline Iv) 10 mg IV Q4H PRN PRN PRN Reason: sys>150 diast>85 Azithromycin 500 mg/ Dextrose 255 mls @ 250 mls/hr IV Q24 [facility] Last Infusion: 11/30/18 09:23 Dose: Infused Documented by: Ceftriaxone Sodium 2 gm/ (Sodium Chloride) 50 mls @ 100 mls/hr IV Q24 [facility] Last Infusion: 11/30/18 10:45 Dose: Infused Documented by: Lidocaine (Lidoderm Patch) 1 patch TOPICAL Q12H PRN [facility] Lisinopril (Zestril) 40 mg PO DAILY [facility] Last Admin: 12/01/18 08:30 Dose: 40 mg Documented by: Memantine (Namenda) 20 mg PO DAILY [facility] Last Admin: 12/01/18 08:27 Dose: 20 mg Documented by: Nitrofurantoin Macrocrystals (Macrobid) 100 mg PO BID [facility] Stop: 12/03/18 22:01 Last Admin: 12/01/18 08:27 Dose: 100 mg Documented by: Nutritional Formula (Lactose Free) (Ensure Enlive) 120 ml PO 4X/DAY [facility] Last Admin: 12/01/18 08:14 Dose: Not Given Documented by: Ondansetron HCl (Zofran) 4 mg IV Q8H PRN PRN PRN Reason: NAUSEA/VOMITING Last Admin: 11/30/18 17:08 Dose: 4 mg Documented by: Prednisone () 40 mg PO DAILY@0800 [facility] Last Admin: 12/01/18 08:32 Dose: 40 mg Documented by: Senna/Docusate Sodium (Senokot-S, Chela-Colace) 2 tablet PO BID [facility] Last Admin: 12/01/18 08:28 Dose: 2 tablet Documented by: Sodium Chloride () 10 - 40 ml IV UD PRN PRN Reason: SALINE FLUSH Tamsulosin HCl (Flomax) 0.8 mg PO DAILY [facility] Last Admin: 12/01/18 08:29 Dose: 0.8 mg Documented by: Tolterodine Tartrate (Detrol La) 2 mg PO DAILY [facility] Last Admin: 12/01/18 08:29 Dose: 2 mg Documented by: Tramadol HCl (Ultram) 50 mg PO TID PRN PRN PRN Reason: Pain Score 1-10/10 Verapamil HCl (Calan Sr) 240 mg PO DAILY [facility] Last Admin: 12/01/18 08:30 Dose: 240 mg Documented by: Medical Necessity - Tobacco Use Smoking Status: Former smoker Tobacco Use: Non-smoker Assessment/Plan All Active Problems HCAP (healthcare-associated pneumonia) (Acute) 1. Community-acquired pneumonia from gram-positive organism/metabolic encephalopathy from pneumonia and UTI -We will continue with IV antibiotics Rocephin and azithromycin -Encephalopathy is resolved -Strep and Legionella antigens are negative -Blood cultures are negative -We will wean oxygen as able, he is currently off of O2 but his pulse ox tends to be around 90-91, continue with steroids -Urine culture with enterococcus, we will continue with Macrobid for 5 days total 2. 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 Lewy body dementia/Parkinson's -Continue with Sinemet and Namenda -Stable 4. HTN -Blood pressures have been stable -Continue with his lisinopril, verapamil, and Lasix 5. History of PE -He is maintained on Xarelto for his anticoagulation -Transition to [facility] here on admission, but will discharge him back on his Xarelto 6. BPH/urinary incontinence -Continue with his Flomax -He is on Detrol LA here in the hospital on discharge we will resume his home medications DVT: Oliva Code Visit Inpatient E&M: 49984 Subs Hosp L2
[2018-12-01] MEDS: traMADol 50 MG Tablet PO ×2 (09:42→17:50)
--- NOTE | 2018-12-01 10:43 | CASEMGMT ---
SW received a call from patient's granddaughter. She said she knows SW sent a referral to [facility], but if something happens and that does not work out they would like [facility]. SW told her [facility] can take patient and they started the pre-cert. Cady LARSEN MSW
[2018-12-01] MEDS: hydrALAZINE 20 MG/ML Vial 10 MG IV (14:50)
[2018-12-01] MEDS: 0.9% NaCl Peripheral Flush Adult/Peds IV (14:51)
--- NOTE | 2018-12-01 19:25 | CPS ---
pt sleeping breathing shallow, spo2 88%while sleeping aerosol tx given via mask
[2018-12-02] VITALS (8 sets, daily range): BP systolic 141–153; BP diastolic 74–88; PULSE 70–90; RESP 16–20; TEMP 36.6–37; O2SAT 92–96
--- NOTE | 2018-12-02 01:02 | NURSING ---
Handoff given to Sneha Ochoa RN she is now continuing care for patient
[2018-12-02] MEDS: Gabapentin 400 MG Capsule PO ×2 (05:10→13:23)
[2018-12-02] MEDS: Ipratropium/Albuterol Sulfate 3 ML AMPUL.NEB INHALATION ×2 (07:21→13:08)
[2018-12-02] MEDS: predniSONE 20 MG Tablet 40 MG PO (09:03)
[2018-12-02] MEDS: Senna/Docusate Sodium 1 Tablet 2 TABLET PO (09:03)
[2018-12-02] MEDS: Finasteride 5 MG Tablet PO (09:03)
[2018-12-02] MEDS: guaiFENesin 1,200 MG Tablet 1200 MG PO (09:03)
[2018-12-02] MEDS: Tolterodine Tartrate 2 MG CAP.SA PO (09:04)
[2018-12-02] MEDS: Cyanocobalamin 500 MCG Tablet 1000 MCG PO (09:04)
[2018-12-02] MEDS: CARBIDOPA/LEVODOPA CR 50/200 Tablet PO (09:04)
[2018-12-02] MEDS: Lisinopril 40 MG Tablet PO (09:04)
[2018-12-02] MEDS: Verapamil SR 240 MG Tablet PO (09:04)
[2018-12-02] MEDS: Memantine Hydrochloride 10 MG Tablet 20 MG PO (09:04)
[2018-12-02] MEDS: Nitrofurantoin Macrocrystals 100 MG Capsule PO (09:05)
[2018-12-02] MEDS: Menthol/Lanolin/Calamine/Znox 113 GM Tube 1 APPLIC TOPICAL (09:05)
[2018-12-02] MEDS: Tamsulosin HCl 0.4 MG Capsule 0.8 MG PO (09:05)
[2018-12-02] MEDS: APIXABAN 5 MG TABLET PO (09:05)
--- NOTE | 2018-12-02 09:57 | CASEMGMT ---
Received call from Vicki at [facility] and patient was approved. SW notified physician, patient's RN, and left a message for patient's . Cady SANCHEZ
--- NOTE | 2018-12-02 11:06 | PCM.TXEXTCAR ---
- Diet 12/02/18 10:23 Diet: Regular Diet Food consistency:: Soft Liquid Consistency:: Regular/Thin Is pt able to select menu?: No Diet Comments: regular-soft diet; supervised - Routine Orders/Code Status Code Status: [facility] - Wound(s) right ankle Wound Type: scabbed over Left inner ankle Wound Type: scabbed area right buttock Wound Type: Abrasion - Therapies Physical Therapy: Eval and Treat Occupational Therapy: Eval and Treat - Allergies/Procedures Done in Hospital Allergies/Adverse Reactions: Allergies Penicillins Allergy (Verified 11/27/18 10:53) Rash - Type of Care/Length of Stay Estimated LOS: Convalescent Care Less Than 30 days Type of Care Needed: Skilled Rehab Potential: Good Prognosis: Good - Additional Orders/Day of Discharge Day of Discharge: 12/02/18 - Dietary and Speech Recommendations Dietitian Recommendations/Changes: Continue regular diet- consistency per [employer] PRO[employer]NAGER. Will provide ONS w/ meals as pt does not like Ensure Enlive. - Follow Up Care Primary Care Physician: Omar Peña MD [Primary Care Provider] - Please follow up with your Primary Care Physician in: 3-5 days
--- NOTE | 2018-12-02 11:12 | DS.PCM_ITS ---
Discharge Date and Diagnosis - Problem List Patient Problems: Active and Suspected Problems HCAP (healthcare-associated pneumonia) (Acute) Date of Admission: 11/27/18 Date of Discharge: 12/02/18 - Primary Discharge Diagnosis Active and Suspected Problems HCAP (healthcare-associated pneumonia) (Acute) - Secondary Discharge Diagnosis Chronic Problems Lewy body dementia (Chronic) Obesity (Chronic) Parkinsons disease (Chronic) HTN (hypertension) (Chronic) BPH (benign prostatic hyperplasia) (Chronic) Hx of recurrent transient ischemic attacks (Chronic) Chronic renal failure, stage 3 (moderate) (Chronic) Chronic anticoagulation (Chronic) Macrocytic anemia (Chronic) Hospital Course and Treatment Imaging Results: CXR: IMPRESSION: No acute cardiopulmonary pathology despite markedly limited inspiratory effort CT Brain: IMPRESSION: Stable postsurgical changes from a right posterior parietal craniotomy with subjacent encephalomalacia. Stable chronic ischemic and atrophic changes. No acute intracranial abnormality. CT Chest: IMPRESSION: Limited study. Trace bilateral pleural effusions. Bibasilar consolidation which is likely due to a combination of atelectasis and infiltrate. Coronary artery disease. Consults: None Operations: None Procedures: None Summary of Care Provided: Per HPI: The patient is a 78 year old M who resides at [facility] and has a past medical history of Lewy body dementia, obesity, Parkinson's disease, hypertension, BPH, history of transient ischemic attacks, chronic renal failure stage III, chronic anticoagulation with Xarelto and macrocytic anemia who presented to the emergency department at [facility] on 11/27/2018 with a cough for the preceding 2 weeks associated with increased lethargy, increased confusion and poor appetite. Vital signs in the emergency department were temperature 99.1, pulse rate 72, blood pressure 103/79, respiratory rate 30 and he was 94% saturated on a 4 L nasal cannula. White blood cell count was 9.2 with 75% neutrophils. Hemoglobin was low at 12.3 with an MCV of 105.8. Platelets were within normal limits. PT and PTT are inaccurate due to the fact that he is on Xarelto. The BUN was 34 and the creatinine was 2.05 with an estimated creatinine clearance of 31. Troponin was less than 0.015. LFTs were unremarkable. UA showed 0-5 WBCs per high-power field with 1+ bacteria and it was nitrite negative. Chest x-ray was poor due to a poor inspiratory effort. CT of the chest was obtained and showed trace bilateral pleural effusions and bibasilar consolidation. He is being admitted to the hospital with a diagnosis of healthcare acquired pneumonia due to the fact that [facility] [place]. He gets a rash with penicillin so will treat with meropenem and vancomycin. Family tells me he is unable to swallow pills although they feel that he swallows otherwise okay. Bedside swallowing evaluation failed secondary to gurgling in the back of his throat. Cannot rule out aspiration at this point. Hospital Course: 1. Community-acquired pneumonia from gram-positive organism/metabolic encephalopathy from pneumonia and BTV-46-ppan-old male with a history of Lewy body dementia and Parkinson's presented with increased confusion, cough for about 2 weeks as well as lethargy and a decrease in appetite from his assisted living in [facility]. On admission he was found to have pneumonia as well as a UA that was somewhat indicative of a UTI. He was started on vancomycin and meropenem and switched to than Rocephin and azithromycin for a more community- acquired coverage. Also his GONZALO urine culture ended up coming back with an enterococcus and he was started on Macrobid as well. With continuation of these 3 antibiotics he improved significantly in both appetite and cognition. And appeared to be back to baseline on the day of discharge. His had seen him and felt that he might need to go to a detention facility which she was discharged to. He will need to take 1 more dose of azithromycin as well as 2 more days of Omnicef twice daily for his pneumonia and he has 3 doses total left of his Macrobid for a 5-day course. He has remained afebrile without a leukocytosis since admission, he was continued on oxygen during his stay because his oxygenation was borderline and he was not on oxygen at home. Because we had some difficulty weaning him he was started on steroids a few days ago and he has since been able to be maintained on room air with sats in the low 90s. He will he also be discharged on prednisone daily for 5 more days to hopefully assure that he does not need to be on oxygen at the detention facility. 2. Macrocytic anemia-this appears to be chronic, his hemoglobin stable around 10. Folic acid level was obtained which was 19.10 and his B12 was obtained which was also very high. He is continued on his B12 supplementation. Of note TSH was also obtained and that was normal at 0.95. 3. His other medical diagnoses were evaluated and his home medications were continued where appropriate Patient Problems: Active and Suspected Problems HCAP (healthcare-associated pneumonia) (Acute) Objective: General: Alert, Cooperative, No apparent distress HEENT: Atraumatic, PERRLA, EOMI, Normocephalic Oral: Dry Mucosa Neck: Supple, No JVD Lungs: Normal air movement, clear to auscultation bilaterally, diminished, no wheezes, no rales, no rhonchi Cardiovascular: Regular rate, Regular Rhythm, Normal S1, Normal S2, No murmurs Abdomen: Soft, Non Tender, Non-Distended, No Hepato-splenomegaly Extremities: No edema, Capillary Refill Less than 3 Seconds Skin: No rashes, No breakdown Neurological: Neuro grossly intact, Sensory exam intact to light touch and pain Psych/Mental Status: Normal Affect, Appropriate - Physical Exam Vital Signs Temp Pulse Resp BP Pulse Ox 98.6 F 83 18 153/88 H 94 12/02/18 08:05 12/02/18 08:05 12/02/18 08:05 12/02/18 08:05 12/02/18 08:05 Oxygen Flow Rate (L/min) 2 Oxygen Delivery Method Room Air Weight: 275 lb 9.245 oz Body Mass Index (BMI) 37.3 Intake and Output for Last 24 Hours 11/30/18 12/01/18 12/02/18 23:59 23:59 23:59 Intake Total 3398.34 / 3398.34 1055 / 1055 425 / 425 Output Total 200 / 200 Balance 3198.34 / 3198.34 1055 / 1055 425 / 425 Microbiology Past 72 Hours 11/27/18 11:23 Blood Culture - Preliminary Blood Culture (Wb) - Anticubital Right No growth in 48 hours. 11/27/18 10:55 Blood Culture - Preliminary Blood Culture (Wb) - Anticubital Left No growth in 48 hours. 11/27/18 12:20 Urine Culture - Final Urine Catheter - Catheter Enterococcus faecalis Home Medications: Medications to take at Discharge Albuterol IH (ProAir) [Proair Hfa] 2 puff INHALATION Q4H PRN PRN 11/27/18 Carbidopa/Levodopa 50/200 [Sinemet CR 50/200] 2 tab PO DAILY 11/27/18 Cholecalciferol (Vitamin D3) [Vitamin D3] 5,000 unit PO DAILY 11/27/18 Cyanocobalamin (Vitamin B-12) [Vitamin B-12] 1,000 mcg PO DAILY 11/27/18 Finasteride [Proscar] 5 mg PO DAILY 11/27/18 Furosemide [Lasix] 20 mg PO DAILY 11/27/18 Gabapentin [Neurontin] 400 mg PO TID 11/27/18 Glucosamine/D3/Boswellia Brenda [Glucosamine Complex-Vit D3 Cpt] 1 ea PO DAILY 11/27/18 Lidocaine [Lidocaine Pain Relief] 1 ea TP Q12H PRN PRN 11/27/18 Lisinopril 40 mg PO DAILY 11/27/18 Memantine HCl [Namenda] 20 mg PO DAILY 11/27/18 Oxybutynin Chloride [Oxybutynin Chloride ER] 10 mg PO DAILY 11/27/18 Potassium Citrate [Potassium Citrate ER] 30 meq PO BID 11/27/18 Rivaroxaban [Xarelto] 20 mg PO DAILY 11/27/18 Sennosides/Docusate Sodium [Senna-S Tablet] 2 ea PO BID 11/27/18 Tamsulosin HCl [Flomax] 0.8 mg PO DAILY 11/27/18 Verapamil HCl [Verapamil ER] 240 mg PO DAILY 11/27/18 traMADol [Ultram] 50 mg PO TID 11/27/18 Azithromycin 500 mg PO DAILY #1 tab 12/02/18 Cefdinir [Omnicef [equiv]] 300 mg PO Q12H #4 cap 12/02/18 Nitrofurantoin Macrocrystals [Macrobid] 100 mg PO BID #0 cap 12/02/18 predniSONE tablet 40 mg PO DAILY@0800 tab 12/02/18 Following Prescrptions Were Given to Patient: Azithromycin 500 mg PO DAILY #1 tab Cefdinir [Omnicef [equiv]] 300 mg PO Q12H #4 cap Primary Care Physician: Omar Peña MD [Primary Care Provider] - Please follow up with your Primary Care Physician in: 3-5 days Disposition: Group Home facility Minutes spent on discharge:: 35 Patient Condition:: Stable Medical Necessity - Tobacco Use Smoking Status: Former smoker Tobacco Use: Non-smoker Meaningful Use Info Meaningful Use Diagnoses (Choose all that apply): None applicable Code Visit Inpatient E&M: 79842 Disch Hosp
--- NOTE | 2018-12-02 12:04 | CASEMGMT ---
SANJANA called [facility] and arranged for patient to get picked up at 2p. SANJANA called patient's and left her a message letting her know. SANJANA faxed orders to [facility]. SANJANA completed convalescent on HENS. SANJANA notified patient, RN, nursing secretary, and Vicki at [facility] of olive picker time. Patient's did show up so SANJANA was able to let her know in person. SANJANA also called [facility] and let them know patient's plan. Plan: d/c to [facility] under skilled level of care on a convalescent stay. [facility] transported patient via cot. Cady LARSEN VELOCITY SHOOTER
--- NOTE | 2018-12-02 13:15 | NURSING ---
Called report to Saadia PEREZ at [facility]
== END 2018-12-02 14:11 | disposition skilled nursing facility (03) | DRG 193 ==
LOC: ED 11:31 → PCU 14:15
PROVIDERS: Admitting Provider Internal Medicine; Emergency Provider Emergency Medicine; Family Provider Family Medicine; PCP Family Medicine; Referring Provider Internal Medicine; Visit Provider Family Medicine
DX: J15.9 Unspecified bacterial pneumonia (principal); G93.41 Metabolic encephalopathy; N17.9 Acute kidney failure, unspecified; N39.0 Urinary tract infection, site not specified; R06.89 Other abnormalities of breathing; D53.9 Nutritional anemia, unspecified; Y95 Nosocomial condition; N40.1 Benign prostatic hyperplasia with lower urinary tract symptoms; N39.498 Other specified urinary incontinence; B95.2 Enterococcus as the cause of diseases classified elsewhere; G31.83 Neurocognitive disorder with Lewy bodies; F02.80 Dementia in other diseases classified elsewhere, unspecified severity, without behavioral disturbance, psychotic disturbance, mood disturbance, and anxiety; G20 Parkinson's disease; I12.9 Hypertensive chronic kidney disease with stage 1 through stage 4 chronic kidney disease, or unspecified chronic kidney disease; N18.3 Chronic kidney disease, stage 3 (moderate); E66.9 Obesity, unspecified; Z68.37 Body mass index [BMI] 37.0-37.9, adult; Z86.711 Personal history of pulmonary embolism; Z87.891 Personal history of nicotine dependence; Z79.01 Long term (current) use of anticoagulants; Z86.73 Personal history of transient ischemic attack (TIA), and cerebral infarction without residual deficits
CPT/HCPCS: 36415; 70450; 71045; 71250; 80048; 80053; 80202; 81001; 81002; 82274; 82607; 82746; 83605; 83735; 84100; 84443; 84484; 85025; 85045; 85610; 85730; 87040; 87077; 87086; 87088; 87186; 87449; 87641; 92526; 92610; 93005; 94640; 94667; 94668; 94762; 97162; 97166; 97530; 97535; 97802; 99285; J2185; J7030; J7040; P9612; A4216; J0696; J2405

== ENCOUNTER → 2019-10-31 14:54 | Outpatient (CLI) | payer MEDICARE, SELFPAY ==
[2018-11-27 14:47] VITALS: BMI 37.3
--- NOTE | 2019-10-31 14:59 | RAD_ITS ---
STUDY: X-RAY - LUMBAR SPINE REASON FOR EXAM: Male, 79 years old. Lower back pain on and off x many years TECHNIQUE: 3 view(s) of the lumbar spine were obtained. COMPARISON: None FINDINGS: Normal lumbar lordosis. There is no substantial scoliosis. There is a normal alignment of the vertebrae. Degenerative changes of the vertebral bodies with spurring at the endplates. Narrowed disc space heights with vacuum phenomenon. Gaseous distended bowel loops are noted. Calcified aorta. There is a left hip prosthesis. RAD/Lumbar Spine 2 or 3 Views IMPRESSION: Degenerative changes of the lumbar spine. Gaseous distended bowel loops. Electronically Signed: Roberto Gonzalez DO at 23:11 EDT Tel [phone], Service support ,
--- NOTE | 2019-10-31 14:59 | RAD_ITS ---
STUDY: X-RAY - LEFT SHOULDER REASON FOR EXAM: Male, 79 years old. Left shoulder pain on and off x many years TECHNIQUE: 4 view(s) of the shoulder. COMPARISON: None. FINDINGS: Mild degenerative changes at the glenohumeral articulation. Degenerative hypertrophy at the acromioclavicular joint. Normal acromion. Normal humeral head and visualized proximal humerus. The soft tissue structures are unremarkable. Normal visualized pulmonary apex. RAD/Shoulder min 2 Views IMPRESSION: Degenerative changes of the shoulder. Electronically Signed: Roberto Gonzalez DO at 22:58 EDT Tel [phone], Service support ,
--- NOTE | 2019-10-31 15:05 | RAD_ITS ---
STUDY: X-RAY - RIGHT SHOULDER REASON FOR EXAM: Male, 79 years old. Right shoulder pain worse on and off x many years TECHNIQUE: 4 view(s) of the shoulder. COMPARISON: None. FINDINGS: Degenerative changes and narrowing at the glenohumeral articulation. Degenerative hypertrophy at the acromioclavicular joint. Normal acromion. Normal humeral head and visualized proximal humerus. The soft tissue structures are unremarkable. Normal visualized pulmonary apex. RAD/Shoulder min 2 Views IMPRESSION: Degenerative changes of the shoulder. Electronically Signed: Roberto Gonzalez DO at 23:03 EDT Tel [phone], Service support ,
== END ==
PROVIDERS: PCP Family Medicine; Referring Provider Anesthesiology Pain Medicine; Visit Provider Anesthesiology Pain Medicine
DX: M54.9 Dorsalgia, unspecified (principal); M25.519 Pain in unspecified shoulder
CPT/HCPCS: 72100; 73030

== ENCOUNTER → 2019-11-28 14:47 | Outpatient (CLI) | payer MEDICARE, SELFPAY ==
[2018-11-27 14:47] VITALS: BMI 37.3
--- NOTE | 2019-11-28 14:52 | RAD_ITS ---
STUDY: X-RAY - RIGHT SHOULDER REASON FOR EXAM: Constant right shoulder pain for 2 years. TECHNIQUE: 2 view(s) of the shoulder. COMPARISON: Radiographs 10/31/2019. FINDINGS: There is joint space narrowing and subchondral sclerosis of the glenohumeral articulation. There is joint space narrowing of the acromioclavicular joint. Normal acromion. Normal humeral head and visualized proximal humerus. The soft tissue structures are unremarkable. Normal visualized pulmonary apex. RAD/Shoulder min 2 Views IMPRESSION: Glenohumeral arthrosis. Acromioclavicular arthrosis. Electronically Signed: Guillermo Marsh MD at 15:16 EDT Tel , Service support ,
== END ==
PROVIDERS: PCP Family Medicine; Referring Provider Anesthesiology Pain Medicine; Visit Provider Anesthesiology Pain Medicine
DX: M25.511 Pain in right shoulder (principal)
CPT/HCPCS: 73030

== ENCOUNTER 2020-01-16 21:24 | Inpatient (IN) | payer MEDICARE, SELFPAY ==
[2018-11-27 14:47] VITALS: BMI 37.3
[2020-01-16 21:25] VITALS: BP 135/118; PULSE 71; RESP 16; TEMP 37.1; O2SAT 95; BMI 40.4
--- NOTE | 2020-01-16 21:46 | EKG12_ITS ---
Test Reason : DYSRHYTHMIA Blood Pressure : / mmHG Vent. Rate : 073 BPM Atrial Rate : 073 BPM P-R Int : 172 ms QRS Dur : 080 ms QT Int : 378 ms P-R-T Axes : 110 -03 036 degrees QTc Int : 416 ms Sinus rhythm with marked sinus arrhythmia Low voltage QRS Borderline ECG Confirmed by NITA GLEASON, DAYSI ([id number]), photograph editor AGUSTIN FUNES ([id number]) on 01/17/2020 1:09:05 PM Referred By: LG Confirmed By:DAYSI MOYA MD
--- NOTE | 2020-01-16 21:46 | ED.VIS.GEN ---
History of Present Illness Chief Complaint: Abn Labs Detail of Chief Complaint: High potassium Informant: SNF Onset: Today Narrative: Patient sent in from the [facility] secondary to high potassium. Patient has no complaints he does not know why he is here. - Past Medical History (1) BPH (benign prostatic hyperplasia) Status: Chronic (2) Chronic anticoagulation Status: Chronic (3) Chronic renal failure, stage 3 (moderate) Status: Chronic (4) HTN (hypertension) Status: Chronic (5) Hx of recurrent transient ischemic attacks Status: Chronic (6) Lewy body dementia Status: Chronic (7) Parkinsons disease Status: Chronic Past Medical History - Allergies and Home Meds Allergies/Adverse Reactions: Allergies Penicillins Allergy (Verified 01/16/20 21:30) Rash Primary Care Physician: Omar Peña MD [Primary Care Provider] - Surgical History: noncontributory Smoking Status: Former smoker - Family History Maternal Family History: Reports: No pertinent history Paternal Family History: Reports: No pertinent history Review of Systems ROS: Unable to Obtain - Patient does have dementia at baseline. He has no current complaints. Physical Exam Vital Signs/Narrative: Vital Signs Temp Pulse Resp BP Pulse Ox 01/16/20 21:25 98.7 F 71 16 135/118 H 95 Inital Vital Signs reviewed: Yes General: Well nourished, Well developed Head: Normocephalic ENT: Moist mucous membranes Neck: Supple Cardiovascular: Irregular Respiratory: No distress, CTA bilaterally Abdomen: Soft, Nontender Extremities: Nontender Skin: Normal color Neurological: Alert Psychological: Normal affect Diagnostic/Tx/Re-eval Laboratory Results 01/16/20 01/16/20 22:30 22:30 WBC 4.9 RBC 3.47 L Hgb 11.3 L Hct 38.0 L MCV 109.5 H MCH 32.6 H MCHC 29.7 L RDW Std Deviation 51.9 H RDW Coeff of [place] 12.9 Plt Count 187 MPV 11.6 Immature Gran % (Auto) 0.200 Neut % (Auto) 57.3 Lymph % (Auto) 23.1 [place] % (Auto) 12.3 H Eos % (Auto) 6.7 H Baso % (Auto) 0.4 Absolute Neuts (auto) 2.8 Absolute Lymphs (auto) 1.14 Nucleated RBC % 0 Sodium 146 H Potassium 5.9 H Chloride 111 H Carbon Dioxide 32.0 Anion Gap 3 L BUN 54 H Creatinine 3.15 H Estim Creat Clear Calc 18.40 Est GFR (MDRD) Af Amer 25 L Est GFR (MDRD) Non-Af 20 L BUN/Creatinine Ratio 17.1 Glucose 97 Calcium 9.1 - EKG Initial EKG Interpretation: Sinus Rhythm - Sinus at 73 with no acute ischemia. - Medical Decision Making Patient was observed on site monitor throughout his ED stay. Lab work is reviewed. Potassium is elevated at 5.9. Creatinine is 3.15 tonight. Labs from 13 months ago here at the hospital showed creatinine 1.94. Labs obtained earlier today at the [facility] indicated a creatinine of 2.8. I do not know what his creatinine function has been like over the past year. It is noted that the patient is currently on Bactrim twice daily for urinary tract infection. At this time patient be given insulin and glucose along with Kayexalate. We will speak with hospitalist regarding admission. ED Disposition - Plan for ED Patient: Disposition: Acute Care Hospital [facility] Diagnosis: Hyperkalemia Referrals: Omar Peña MD [Primary Care Provider] -
[2020-01-16 22:50] LABS: Absolute Lymphocyte Count 1.14 X10^3/uL (0.83-4.51); Absolute Neutrophil Count 2.8 X10^3/uL (2.0-7.7); Basophil# 0.02 X10^3/uL; Basophil% 0.4 % (0-1); Eosinophil# 0.33 X10^3/uL; Eosinophils% 6.7 % (0-5); Hemoglobin 11.3 g/dL (13.0-16.5); Lymphocyte # 1.14 X10^3/ul (4.0); Lymphocyte % 23.1 % (19-41); Mean Corp Hgb Conc 29.7 g/dL (32-36); Mean Corpuscular Hgb 32.6 pg (27.0-32.0); Mean Corpuscular Volume 109.5 fL (80-94); Mean Platelet Vol. 11.6 fl (6.2-12.0); Monocyte# 0.61 X10^3/uL; Monocyte% 12.3 % (0-10); NRBC Flagged by Analyzer 0 % (0-5); Neutrophil # 2.83 X10^3/uL (2.7-7.7); Neutrophil % 57.3 % (47-70); Platelet Count 187 K/mm3 (150-450); RBC Distribution Width CV 12.9 % (11.6-14.6); RBC Distribution Width SD 51.9 fl (35.1-43.9); Red Blood Count 3.47 M/mm3 (4.6-6.2); White Blood Count 4.9 K/mm3 (4.4-11.0)
[2020-01-16 23:05] LABS: Anion Gap 3 (5-15); BUN 54 mg/dL (7-18); BUN/Creat Ratio 17.1 RATIO (10-20); Calcium,Total 9.1 mg/dL (8.5-10.1); Chloride 111 mmol/L (98-107); Creatinine, Serum 3.15 mg/dL (0.70-1.30); EST Glomerular Filtration Rate 20 mL/min (>60); Est Glom Filt Rate - Afr Amer 25 mL/min (>60); Glucose 97 mg/dL (74-106); Potassium 5.9 mmol/L (3.5-5.1); Sodium Level 146 mmol/L (136-145)
--- NOTE | 2020-01-16 23:22 | PCM.HP.STD ---
Problem List (1) Hyperkalemia Status: Acute (2) Acute kidney injury superimposed on CKD Status: Acute (3) History of venous thromboembolism Status: Chronic (4) Lewy body dementia Status: Chronic Qualifiers: Dementia behavioral disturbance: without behavioral disturbance Qualified Code(s): G31.83 - Dementia with Lewy bodies; F02.80 - Dementia in other diseases classified elsewhere without behavioral disturbance (5) Obesity Status: Chronic Qualifiers: Obesity type: due to excess calories Obesity classification: adult class 1 (BMI 30 - 34.9) Serious obesity comorbidity presence: unspecified whether serious comorbidity present Body mass index: BMI 34.0-34.9 Qualified Code(s): E66.09 - Other obesity due to excess calories; Z68.34 - Body mass index [BMI] 34.0-34.9, adult (6) Parkinsons disease Status: Chronic (7) HTN (hypertension) Status: Chronic Qualifiers: Hypertension type: essential hypertension Qualified Code(s): I10 - Essential (primary) hypertension (8) BPH (benign prostatic hyperplasia) Status: Chronic Qualifiers: Lower urinary tract symptom presence: unspecified whether lower urinary tract symptoms present Qualified Code(s): N40.0 - Benign prostatic hyperplasia without lower urinary tract symptoms (9) Hx of recurrent transient ischemic attacks Status: Chronic (10) Chronic renal failure, stage 3 (moderate) Status: Chronic Qualifiers: Chronic kidney disease stage 3 subtype: unspecified whether 3a or 3b Qualified Code(s): N18.30 - Chronic kidney disease, stage 3 unspecified (11) Macrocytic anemia Status: Chronic History of Present Illness Date of Admission: 01/16/20 Chief Complaint: Abnormal labs, sent per SNF The patient is a 79 y/o M living in SNF care home w/ PMHx: Hx DVT/PE, Depression, BPH, Chronic anemia, HTN, HLD, Hx TIA/CVA, CKD stage III, Lewy Body Dementia, Parkinson's disease who presents to the [facility] ED on 01/16/20 with history of K 6.2 at facility with worsening renal function concurrently with recent diagnosis per records of UTI with culture obtained on 01/08 and resulted on 01/11 with noted greater than 100,000 Proteus and 50-100,000 Morganella, unclear if patient was symptomatic or not but per records was placed on twice daily Bactrim with only noted susceptibilities including Unasyn, Zosyn and Bactrim is the only oral option prompting skilled facility transfer to ED for evaluation. Patient denies any dysuria, frequency, urgency but he is a poor historian. He denies any suprapubic discomfort or difficulties urinating. Work-up in the ED included T 98.7, heart rate 71, BP 135/118, respiratory rate 16, 95% on 2 L nasal cannula, CBC with WC 4.9, hemoglobin 11.3, platelet 187 without marked shift, BMP with sodium 146, potassium 5.9, chloride 111, BUN/creatinine 54/3.18 with noted Cr at facility 2.8, glucose 97. In the ED patient administered Kayexalate 30 g p.o. x1, 5 unit IV insulin x1, dextrose 25 g IV x1. Past Medical History Past Medical History (Chronic Problems): Chronic Problems Lewy body dementia (Chronic) Obesity (Chronic) Parkinsons disease (Chronic) HTN (hypertension) (Chronic) BPH (benign prostatic hyperplasia) (Chronic) Hx of recurrent transient ischemic attacks (Chronic) Chronic renal failure, stage 3 (moderate) (Chronic) Chronic anticoagulation (Chronic) Macrocytic anemia (Chronic) History of venous thromboembolism (Chronic) Allergies Penicillins Allergy (Verified 01/16/20 21:30) Rash Home Medications: Ambulatory Orders Medication Instructions Recorded Albuterol IH (ProAir) [Proair Hfa] 2 puff INHALATION Q4H PRN PRN 11/27/18 Carbidopa/Levodopa 50/200 [Sinemet 2 tab PO DAILY 11/27/18 CR 50/200] Cholecalciferol (Vitamin D3) 5,000 unit PO DAILY 11/27/18 [Vitamin D3] Cyanocobalamin (Vitamin B-12) 1,000 mcg PO DAILY 11/27/18 [Vitamin B-12] Finasteride [Proscar] 5 mg PO DAILY 11/27/18 Furosemide [Lasix] 20 mg PO DAILY 11/27/18 Gabapentin [Neurontin] 400 mg PO TID 11/27/18 Glucosamine/D3/Boswellia Brenda 1 ea PO DAILY 11/27/18 [Glucosamine Complex-Vit D3 Cpt] Lidocaine [Lidocaine Pain Relief] 1 ea TP Q12H 11/27/18 Lisinopril 40 mg PO DAILY 11/27/18 Memantine HCl [Namenda] 20 mg PO DAILY 11/27/18 Oxybutynin Chloride [Oxybutynin 10 mg PO QHS 11/27/18 Chloride ER] Potassium Citrate [Potassium 30 meq PO BID 11/27/18 Citrate ER] Rivaroxaban [Xarelto] 20 mg PO DAILY 11/27/18 Sennosides/Docusate Sodium 2 ea PO BID PRN 11/27/18 [Senna-S Tablet] Tamsulosin HCl [Flomax] 0.8 mg PO DAILY 11/27/18 Verapamil HCl [Verapamil ER] 240 mg PO DAILY 11/27/18 Nitrofurantoin Macrocrystals 100 mg PO BID #0 cap 12/02/18 [Macrobid] predniSONE tablet 40 mg PO DAILY@0800 tab 12/02/18 traMADol [Ultram] 50 mg PO TID 3 Days #10 tab 12/02/18 Bisacodyl 10 mg RC DAILY PRN PRN 01/16/20 Smz/Tmp Ds [Bactrim Ds] 1 tab PO DAILY 01/16/20 Polyethylene Glycol 3350 [Miralax] 17 gm PO DAILY PRN 01/17/20 Surgical History: - - Status post craniotomy. Psychiatric History: Depression Lives: Retirement Smoking Status: Former smoker Tobacco Use: Non-smoker Alcohol: None Drugs: None - *Family History Maternal History Items: - - Patient with severe underlying dementia, unable to give any maternal or paternal family history. Paternal History Items: - - Patient with severe underlying dementia, unable to give any maternal or paternal family history. Review of Systems Constitutional: Denies: Chills, Fever, Weight Change HEENT: Reports: Difficulty Hearing. Denies: Head Aches, Sinus Congestion, Sinus Drainage Cardiovascular: Denies: Chest Pain, Palpitations Respiratory: Denies: Cough, Shortness of breath at rest, Sputum production Gastrointestinal: Denies: Abdominal Pain, Nausea, Vomiting Genitourinary: Denies: Dysuria, Frequency, Retention Musculoskeletal: Reports: Joint Pain. Denies: Joint Tenderness Skin: Denies: Rash, Wounds Neurological: Reports: Confusion. Denies: Focal weakness, Numbness, Tingling Psychiatric: Reports: Depression. Denies: Anxiety, Homicidal Ideations, Suicidal Ideations Hematologic/ Lymphatic: Reports: Anemia, Easy Bruising, Easy Bleeding Unable to obtain accurate/complete ROS d/t: Patient has severe dementia and is not best historian. VTE Information - Inpt Only VTE Present on Admission: No VTE Mechan Device Prophylaxis: SCD's VTE Pharm Prophylaxis ordered?: No Reason prophylaxis not ordered:: Treatment Not Indicated - Patient will be continued on his home Xarelto regimen, altered to renal dose. Patient Problems: Active and Suspected Problems Hyperkalemia (Acute) Hyperkalemia (Acute) Acute kidney injury superimposed on CKD (Acute) Subjective: Patient seated upright in ED bed, mildly fatigued parents otherwise no acute distress, denies any acute complaints, not know why he is here at the hospital and states he feels well. Objective: Physical Examination: General: awake, alert, oriented to self, states place as the avenues, unable to give year, month, president, remains cooperative, seated upright in the ED bed in no apparent distress. Skin: normal color, turgor, no icterus, cyanosis. HEENT: AT/NC, EOMI, PERRLA, MMM, no carotid bruits or JVD noted. Lungs: CTA bilaterally, moderate effort, mild decrease BL bases, no rales, ronchi or wheezing. Heart: Regular rate and rhythm; no gallop, rub audible. Abdomen: soft, obese, NTTP, ND, normal BS, no HSM. Extremities: no cyanosis, clubbing, or edema. Neurological: patient awake, alert, oriented as noted; cognitive function significantly reduced baseline with severe dementia, suspect currently baseline intact; pupils equally reactive to light and accomodation; cranial nerves II-XII grossly normal, moving all 4 extremities, no focal deficits, strength mildly to moderately global decrease. Psychiatric: affect appears normal, no acute evidence of depressive or anxiety feelings. - Physical Exam Vitals/I&O's: Vital Signs Temp Pulse Resp BP Pulse Ox 98.7 F 71 16 135/118 H 95 01/16/20 21:25 01/16/20 21:25 01/16/20 21:25 01/16/20 21:25 01/16/20 21:25 Oxygen Flow Rate (L/min) 2 Oxygen Delivery Method Nasal Cannula Weight: 266 lb 5.094 oz Body Mass Index (BMI) 40.4 Laboratory Results 01/16/20 22:30: WBC 4.9, RBC 3.47 L, Hgb 11.3 L, Hct 38.0 L, MCV 109.5 H, MCH 32.6 H, MCHC 29.7 L, RDW Std Deviation 51.9 H, RDW Coeff of [place] 12.9, Plt Count 187, MPV 11.6, Immature Gran % (Auto) 0.200, Neut % (Auto) 57.3, Lymph % (Auto) 23.1, [place] % (Auto) 12.3 H, Eos % (Auto) 6.7 H, Baso % (Auto) 0.4, Absolute Neuts (auto) 2.8, Absolute Lymphs (auto) 1.14, Nucleated RBC % 0 01/16/20 22:30: Sodium 146 H, Potassium 5.9 H, Chloride 111 H, Carbon Dioxide 32.0, Anion Gap 3 L, BUN 54 H, Creatinine 3.15 H, Estim Creat Clear Calc 18.40, Est GFR (MDRD) Af Amer 25 L, Est GFR (MDRD) Non-Af 20 L, BUN/Creatinine Ratio 17.1, Glucose 97, Calcium 9.1 Assessment/Plan All Active Problems HCAP (healthcare-associated pneumonia) (Acute) Hyperkalemia (Acute) Hyperkalemia (Acute) Acute kidney injury superimposed on CKD (Acute) The patient is a 79 y/o M living in SNF care home w/ PMHx: BPH, Chronic anemia, HTN, HLD, Hx TIA, CKD stage III, Lewy Body Dementia, Parkinson's disease who presents to the [facility] ED on 01/16/20 with history of K 6.2 at facility with worsening renal function concurrently with recent diagnosis per records of UTI placed on twice daily Bactrim. 1. Hyperkalemia, unclear etiology: Admission potassium 5.9, referred from intermediate facility secondary to elevated level, administered Kayexalate, insulin, dextrose in the emergency room, will admit to PCU, maintain on cardiac telemetry, holding patient potassium supplementation, trend EKG as needed, repeat BMP serially as needed to assure levels improving 2. Acute kidney injury on CKD stage III: Secondary to unclear etiology with associated hyperkalemia as noted. Admission BUN/Cr 54/3.15, prior baseline creatinine noted to be 0.9 on 11/30/2018 thus unclear renal function in between. Will judiciously hydrate, hold nephrotoxic medications and repeat chemistry as noted serially for elevated potassium concurrently, obtain FeNa assessment in addition to renal ultrasound and nephrology consultation. 3. Recent Acute complicated Proteus and Morganella UTI versus possible chronic colonization, unclear history: Unclear if patient had been symptomatic or specifically what prompted urinalysis to be obtained, currently on bactrim BID which was initiated per records on 01/13/2020, likely contributing to his acute renal failure, will obtain UA/UCx, assure no retention and if appropriate we will add back antibiotic therapies although patient does of note have penicillin allergy but only listed reaction is rash. May need assist per pharmacy. 4. Chronic macrocytic anemia: Admission hemoglobin 11.3, prior baseline noted 12-10, will obtain TSh, folace, B12 levels. 5. Parkinson's disease: We will maintain on fall precautions, will continue patient home Sinemet regimen. 6. Lewy Body Dementia: Unclear if lights out phenomenon associated, maintain on fall precautions, continue Namenda regimen. 7. Hypertension: Continue home regimen including verapamil, holding lisinopril and Lasix given SAMMI, PRN hydralazine. 8. BPH: We will continue patient home Flomax and Proscar regimen. 9. Chronic back pain: Given current renal function will need to reduce patient chronic gabapentin regimen, maintain on fall precautions, frequent positional changes. 10. History of PE and DVTs: We will hold patient Xarelto regimen given renal function changes, transition to renally dosed Eliquis in interim given significantly reduced creatinine clearance. 11. History of CVA/TIA: We will transition to Eliquis regimen given renal function changes, continue verapamil, holding lisinopril and Lasix given SAMMI, not on statin regimen. Possibly prediabetic, monitor blood sugars and add insulin sliding scale and Accu-Cheks if appropriate. 12. DVT prophylaxis: Given severity of renal function will transition to Eliquis renally dosed regimen. 13. CODE STATUS: DNR CCA, no intubation status. Inpatient E&M: 45961 Init Hosp L3
[2020-01-16] MEDS: Sodium Polystyrene Sulfonate 15 GM/60 ML UDC 30 GM PO (23:37)
[2020-01-16] MEDS: Dextrose 50%-Water 25 GM/50 ML DISP.SYRIN IV (23:37)
[2020-01-16] MEDS: Insulin Lispro 5 UNIT in Syringe 0 ML 3 UNIT IV (23:38)
[2020-01-16 23:42] VITALS: BP 167/101; PULSE 74; RESP 17; TEMP 36.8; O2SAT 94
[2020-01-17] VITALS (17 sets, daily range): BP systolic 88–140; BP diastolic 50–108; PULSE 69–77; RESP 16–20; TEMP 36.7–37.2; O2SAT 91–96; BMI 34.4
--- NOTE | 2020-01-17 00:09 | US_ITS ---
STUDY: RENAL ULTRASOUND - COMPLETE REASON FOR EXAM: Male, 79 years old. SAMMI ON CKD TECHNIQUE: Ultrasound evaluation of the kidneys was performed with real-time and static ward-scale imaging. The study is limited due to the patient''s condition and obesity. COMPARISON: None. FINDINGS: RIGHT KIDNEY: Normal location of the right kidney, which is normal in size. The right kidney measures 11.5 cm x 5.4 cm x 7.2 cm. There is a normal cortex of the right kidney. The renal cortex measures 1.3 cm. Multiple cysts are seen. The largest measures 6.8 cm by 5.5 cm x 6.2 cm. There are no right renal calculi. There is no right hydronephrosis. DISTAL RIGHT URETER: There is non-visualization of the distal right ureter. There is no demonstrated right ureterovesical junction calculus. There is no demonstrated right ureteral jet. LEFT KIDNEY: Normal location of the left kidney, which is normal in size. The left kidney measures 13 cm x 6.1 cm x 7.0 cm. There is a normal cortex of the left kidney. The renal cortex measures 1.9 cm. Multiple cysts are seen. The largest measures 9.4 cm x 6.9 cm x 7.7 cm. There are no left renal calculi. There is no left hydronephrosis. DISTAL LEFT URETER: There is non-visualization of the distal left ureter. There is no demonstrated left ureterovesical junction calculus. There is no demonstrated left ureteral jet. BLADDER: The bladder is not adequately distended for assessment at this time. US/Kidney and Bladder IMPRESSION: Multiple bilateral renal cysts. Electronically Signed: Richard Verma, at 8:27 EST , Service support ,
[2020-01-17] MEDS: 0.9% Normal Saline 1,000 ML 125 ML IV ×2 (00:21→08:31)
[2020-01-17 01:33] LABS: Mucous, Urine 0 SEEN /hpf (<or=2+); Red Blood Cells-Urine 0 SEEN /hpf (0-5)
[2020-01-17 01:34] LABS: Color, Urine Yellow (Yellow); Glucose, Dipstick Normal (Normal); Ketone-Dipstick Negative (Negative); Leukocyte Esterase-Dipstick 500 /ul (Negative); Nitrite-Dipstick Negative (Negative); Occult Blood-Urine 10 /ul (Negative); Protein-Dipstick 30 mg/dl (Negative); Urine Bilirubin Dipstick Negative (Negative); Urine Clarity Sl. Cloudy (Clear); Urine Urobilinogen Normal (Normal)
[2020-01-17 01:45] LABS: Urine Sodium 53 mmol/L (Not Establ.)
[2020-01-17 01:58] LABS: White Blood Cells >100 SEEN /hpf (0-5)
[2020-01-17 01:59] LABS: Bacteria RARE /hpf (None Seen); Squamous Epithelial Cells - UA 0-5 SEEN /hpf (0-5); Transitional Epithelial - Ur 0-5 SEEN /hpf (0-5)
[2020-01-17 03:28] LABS: Anion Gap 3 (5-15); BUN 54 mg/dL (7-18); BUN/Creat Ratio 17.6 RATIO (10-20); Calcium,Total 8.7 mg/dL (8.5-10.1); Chloride 113 mmol/L (98-107); Creatinine, Serum 3.07 mg/dL (0.70-1.30); EST Glomerular Filtration Rate 21 mL/min (>60); Est Glom Filt Rate - Afr Amer 25 mL/min (>60); Estimated Creatinine Clearance 21.42 ml/min; Glucose 94 mg/dL (74-106); Potassium 5.3 mmol/L (3.5-5.1); Sodium Level 146 mmol/L (136-145)
[2020-01-17] MEDS: Sodium Polystyrene Sulfonate 15 GM/60 ML UDC 30 GM PO (04:09)
[2020-01-17 06:18] LABS: Absolute Lymphocyte Count 1.05 X10^3/uL (0.83-4.51); Basophil# 0.03 X10^3/uL; Basophil% 0.6 % (0-1); Eosinophils% 5.9 % (0-5); Hematocrit 36.3 % (40-54); Hemoglobin 10.8 g/dL (13.0-16.5); Lymphocyte # 1.05 X10^3/ul (4.0); Lymphocyte % 20.6 % (19-41); Mean Corp Hgb Conc 29.8 g/dL (32-36); Mean Corpuscular Hgb 32.4 pg (27.0-32.0); Mean Platelet Vol. 11.5 fl (6.2-12.0); Monocyte# 0.68 X10^3/uL; Monocyte% 13.4 % (0-10); NRBC Flagged by Analyzer 0 % (0-5); Neutrophil # 3.02 X10^3/uL (2.7-7.7); Neutrophil % 59.3 % (47-70); Platelet Count 178 K/mm3 (150-450); RBC Distribution Width CV 12.9 % (11.6-14.6); RBC Distribution Width SD 52.4 fl (35.1-43.9); Red Blood Count 3.33 M/mm3 (4.6-6.2); White Blood Count 5.1 K/mm3 (4.4-11.0)
[2020-01-17 06:56] LABS: ALB/GLOB Ratio 0.8 RATIO (0.9-2.4); AST(SGOT) 19 U/L (15-37); Alanine Aminotransfer ALT/SGPT 11 U/L (16-61); Alkaline Phosphatase 117 U/L (45-117); Anion Gap 3 (5-15); BUN 52 mg/dL (7-18); BUN/Creat Ratio 17.6 RATIO (10-20); Calcium,Total 8.3 mg/dL (8.5-10.1); Chloride 113 mmol/L (98-107); Creatinine, Serum 2.95 mg/dL (0.70-1.30); EST Glomerular Filtration Rate 22 mL/min (>60); Est Glom Filt Rate - Afr Amer 27 mL/min (>60); Estimated Creatinine Clearance 22.29 ml/min; Globulin 3.9 g/dL (2.2-4.2); Glucose 83 mg/dL (74-106); Protein, Total 6.9 g/dL (6.4-8.2); Sodium Level 145 mmol/L (136-145)
[2020-01-17] MEDS: Gabapentin 100 MG Capsule PO ×2 (08:25→16:25)
[2020-01-17] MEDS: Tolterodine Tartrate 2 MG CAP.SA PO (08:25)
[2020-01-17] MEDS: APIXABAN 2.5 MG TABLET PO ×2 (08:26→22:45)
[2020-01-17] MEDS: Verapamil SR 240 MG Tablet PO (08:26)
[2020-01-17] MEDS: CARBIDOPA/LEVODOPA CR 50/200 Tablet PO (08:27)
[2020-01-17] MEDS: Senna/Docusate Sodium 1 Tablet 2 TABLET PO ×2 (08:32→22:45)
[2020-01-17] MEDS: Finasteride 5 MG Tablet PO (08:32)
[2020-01-17] MEDS: Memantine Hydrochloride 10 MG Tablet PO ×2 (08:38→22:45)
--- NOTE | 2020-01-17 09:47 | CASEMGMT ---
Addendum entered by Cady Hunt 01/17/20 10:50: SANJANA spoke with Vicki at [facility] and patient is there private pay so he does not need a pre-cert to return. They will probably try and skill him, but it will not hold up his discharge. Cady SANCHEZ Original Note: Patient is from [facility] at [place]. SANJANA faxed information to [facility]. SANJANA also called Vicki at [facility] and left her a voice mail requesting a return call. Cady LARSEN MSW
[2020-01-17] MEDS: Tamsulosin HCl 0.4 MG Capsule 0.8 MG PO (10:09)
[2020-01-17] MEDS: traMADol 50 MG Tablet PO ×2 (11:43→22:46)
--- NOTE | 2020-01-17 11:47 | PN_ITS ---
Patient Problems: Active and Suspected Problems Hyperkalemia (Acute) Hyperkalemia (Acute) Acute kidney injury superimposed on CKD (Acute) Reason for Visit: Worsening renal function, abnormal labs Subjective: Pt A/Ox1. Denies pain, nausea, vomiting, sob/cough, fever chills, SOB, CP, palp. Vitals/I&O's: Vital Signs Temp Pulse Resp BP Pulse Ox 98.1 F 69 18 103/62 94 01/17/20 10:12 01/17/20 11:42 01/17/20 11:42 01/17/20 11:42 01/17/20 11:42 Oxygen Flow Rate (L/min) 2 Oxygen Delivery Method Nasal Cannula Weight: 256 lb 6.362 oz Body Mass Index (BMI) 34.4 Intake and Output for Last 24 Hours 01/15/20 01/16/20 01/17/20 23:59 23:59 23:59 Intake Total 0.05 / 0.05 1162.09 / 1162.09 Output Total 250 / 250 Balance 0.05 / 0.05 912.09 / 912.09 General: Alert, Confused, Disoriented HEENT: Atraumatic, PERRLA, EOMI, Normocephalic Neck: Supple, No JVD, Negative Carotid Bruits Lungs: Clear to auscultation, Normal air movement Cardiovascular: Regular rate, No murmurs Abdomen: Bowel Sounds Present, Soft, Non Tender, Obese Extremities: No edema, Capillary Refill Less than 3 Seconds Skin: No rashes, No breakdown Musculoskeletal: No Tenderness to Palpation of Joints or Extremities Neurological: Cranial nerves II-XII grossly intact Psych/Mental Status: Restless Laboratory Results 01/16/20 22:30: WBC 4.9, RBC 3.47 L, Hgb 11.3 L, Hct 38.0 L, MCV 109.5 H, MCH 32.6 H, MCHC 29.7 L, RDW Std Deviation 51.9 H, RDW Coeff of [place] 12.9, Plt Count 187, MPV 11.6, Immature Gran % (Auto) 0.200, Neut % (Auto) 57.3, Lymph % (Auto) 23.1, [place] % (Auto) 12.3 H, Eos % (Auto) 6.7 H, Baso % (Auto) 0.4, Absolute Neuts (auto) 2.8, Absolute Lymphs (auto) 1.14, Nucleated RBC % 0 01/16/20 22:30: Sodium 146 H, Potassium 5.9 H, Chloride 111 H, Carbon Dioxide 32.0, Anion Gap 3 L, BUN 54 H, Creatinine 3.15 H, Estim Creat Clear Calc 18.40, Est GFR (MDRD) Af Amer 25 L, Est GFR (MDRD) Non-Af 20 L, BUN/Creatinine Ratio 17.1, Glucose 97, Calcium 9.1 01/17/20 01:20: Urine Color Yellow, Urine Clarity Sl. Cloudy, Urine pH 8.0, Ur Specific [place] 1.010, Urine Protein 30 H, Urine Glucose (UA) Normal, Urine Ketones Negative, Urine Occult Blood 10 H, Urine Nitrite Negative, Urine Bilirubin Negative, Urine Urobilinogen Normal, Ur Leukocyte Esterase 500 H, Urine RBC 0 SEEN, Urine WBC >100 SEEN, Ur Squamous Epith Cells 0-5 SEEN, Ur Transition Epith Cell 0-5 SEEN, Urine Bacteria RARE, Urine Mucus 0 SEEN 01/17/20 01:20: Ur Random Sodium 53, Urine Creatinine 104.00 01/17/20 03:08: Sodium 146 H, Potassium 5.3 H, Chloride 113 H, Carbon Dioxide 30.0, Anion Gap 3 L, BUN 54 H, Creatinine 3.07 H, Estim Creat Clear Calc 21.42, Est GFR (MDRD) Af Amer 25 L, Est GFR (MDRD) Non-Af 21 L, BUN/Creatinine Ratio 17.6, Glucose 94, Calcium 8.7 01/17/20 05:52: WBC 5.1, RBC 3.33 L, Hgb 10.8 L, Hct 36.3 L, MCV 109.0 H, MCH 32.4 H, MCHC 29.8 L, RDW Std Deviation 52.4 H, RDW Coeff of [place] 12.9, Plt Count 178, MPV 11.5, Immature Gran % (Auto) 0.200, Neut % (Auto) 59.3, Lymph % (Auto) 20.6, [place] % (Auto) 13.4 H, Eos % (Auto) 5.9 H, Baso % (Auto) 0.6, Absolute Neuts (auto) 3.0, Absolute Lymphs (auto) 1.05, Nucleated RBC % 0 01/17/20 05:52: Sodium 145, Potassium 5.0, Chloride 113 H, Carbon Dioxide 29.0, Anion Gap 3 L, BUN 52 H, Creatinine 2.95 H, Estim Creat Clear Calc 22.29, Est GFR (MDRD) Af Amer 27 L, Est GFR (MDRD) Non-Af 22 L, BUN/Creatinine Ratio 17.6, Glucose 83, Calcium 8.3 L, Total Bilirubin 0.30, AST 19, ALT 11 L, Alkaline Phosphatase 117, Total Protein 6.9, Albumin 3.0 L, Globulin 3.9, Albumin/Globulin Ratio 0.8 L Current Medications Acetaminophen (Acetaminophen 325 Mg Tablet) 650 mg PO Q6H PRN PRN PRN Reason: Pain Score 1-10/Temp > 100.7 F Apixaban (Apixaban 2.5 Mg Tablet) 2.5 mg PO BID [facility] Last Admin: 01/17/20 08:26 Dose: 2.5 mg Documented by: Carbidopa/Levodopa (Carbidopa/Levodopa Cr 50/200 Tablet) 2 tablet PO DAILY [facility] Last Admin: 01/17/20 08:27 Dose: 2 tablet Documented by: Finasteride (Finasteride 5 Mg Tablet) 5 mg PO DAILY [facility] Last Admin: 01/17/20 08:32 Dose: 5 mg Documented by: Gabapentin (Gabapentin 100 Mg Capsule) 100 mg PO BIDCM [facility] Last Admin: 01/17/20 08:25 Dose: 100 mg Documented by: Sodium Chloride () 1,000 mls @ 125 mls/hr IV .Q8H [facility] Last Admin: 01/17/20 08:31 Dose: 125 mls/hr Documented by: Sodium Chloride () 250 mls @ 15 mls/hr IV .[id number] PRN PRN Reason: Saline Flush Sodium Chloride () 250 mls @ 15 mls/hr IV .[id number] PRN PRN Reason: Additional IVPB Infusion Lidocaine (Lidocaine 5% Patch) 1 patch TOPICAL DAILY PRN PRN PRN Reason: rt shoulder pain Memantine (Memantine Hydrochloride 10 Mg Tablet) 10 mg PO BID [facility] Last Admin: 01/17/20 08:38 Dose: 10 mg Documented by: Ondansetron HCl (Ondansetron 4 Mg/2 Ml Vial) 4 mg IV Q8H PRN PRN PRN Reason: NAUSEA/VOMITING Polyethylene Glycol (Polyethylene Glycol 3350 17 Gm Packet) 17 gm PO DAILY PRN PRN PRN Reason: CONSTIPATION Senna/Docusate Sodium (Senna/Docusate Sodium 1 Tablet) 2 tablet PO BID [facility] Last Admin: 01/17/20 08:32 Dose: 2 tablet Documented by: Sodium Chloride (0.9% Saline Lock 10 Ml Syringe) 10 - 40 ml IV UD PRN PRN Reason: SALINE FLUSH Tamsulosin HCl (Tamsulosin Hcl 0.4 Mg Capsule) 0.8 mg PO DAILY [facility] Last Admin: 01/17/20 10:09 Dose: 0.8 mg Documented by: Tolterodine Tartrate (Tolterodine Tartrate 2 Mg Cap.Sa) 2 mg PO DAILY [facility] Last Admin: 01/17/20 08:25 Dose: 2 mg Documented by: Tramadol HCl (Tramadol 50 Mg Tablet) 50 mg PO BID [facility] Last Admin: 01/17/20 11:43 Dose: 50 mg Documented by: Verapamil HCl (Verapamil Sr 240 Mg Tablet) 240 mg PO DAILY [facility] Last Admin: 01/17/20 08:26 Dose: 240 mg Documented by: STROKE Vital Signs/Narrative: Vital Signs Temp Pulse Resp BP BP Pulse Ox 01/17/20 11:42 69 18 103/62 94 01/17/20 10:12 98.1 F 72 18 98/62 96 01/17/20 08:09 74 Medical Necessity - Tobacco Use Smoking Status: Former smoker Tobacco Use: Non-smoker Assessment/Plan All Active Problems HCAP (healthcare-associated pneumonia) (Resolved) Hyperkalemia (Acute) Hyperkalemia (Acute) Acute kidney injury superimposed on CKD (Acute) 1. SAMMI on CKDIII - nephro consulted. requested SNF prior labs for comparison. hyperkalemia resolved. BUN/Cr improved slightly. Renal US with multiple BL cysts. Recently on bactrim for UTI. UA negative for infectious process. Li sinopril, lasix, potassium held. 2. Dementia with lewy bodies, parkinson disease - significant confusion and weakness at baseline. will need to return to SNF at [place]. History obtained from pt is not reliable. Continue namenda, sinemet 3. Hx TIA - not on asa/statin 4. Hx DVT - xarelto changed to eliquis given worsening renal function 5. BPH - flomax 6. HTN - verapamil [place] planning: return to SNF. This patient was seen by Tomer Roe PA-C under the supervision of Doctor Wetzel.
--- NOTE | 2020-01-17 11:51 | PCM.CONS.R ---
Consultation - Renal 01/17/20 PCP/ Referring MD: Requesting physician: Yoly Fofana MD Primary care physician: Dr. Omar Peña MD Reason for Consultation:: SAMMI, hyperkalemia - History of Present Illness History of Present Illness: The patient is a 79 year old M [facility] resident with history of Lewy Body dementia, parkinson's disease, HTN, HLD, CVA, BPH, depression and Hx DVT/PE admitted for SAMMI, hyperkalemia. Creatinine 3.15 on admit with baseline 0.9 in November 2018. Creatinine 2.9 today with iv hydration overnight. Potassium 6.2 on admit improved with medical management to 5.0 today. Patient is a poor historian. Chart reviewed. He is on diuretics, potassium supplements at [facility]. He was on bactrim for UTI. Patient denies any dysuria, frequency, urgency but he is a poor historian with dysarthria. Work-up in the ED included T 98.7, heart rate 71, BP 135/118, respiratory rate 16, 95% on 2 L nasal cannula, CBC with WC 4.9, hemoglobin 11.3. Urine sodium 53 urine creatinine 104. - Allergies Allergies: Allergies Penicillins Allergy (Verified 01/17/20 00:14) Rash - Current Medications Current Medications: Current Medications Acetaminophen (Acetaminophen 325 Mg Tablet) 650 mg PO Q6H PRN PRN PRN Reason: Pain Score 1-10/Temp > 100.7 F Apixaban (Apixaban 2.5 Mg Tablet) 2.5 mg PO BID [facility] Last Admin: 01/17/20 08:26 Dose: 2.5 mg Documented by: Carbidopa/Levodopa (Carbidopa/Levodopa Cr 50/200 Tablet) 2 tablet PO DAILY [facility] Last Admin: 01/17/20 08:27 Dose: 2 tablet Documented by: Finasteride (Finasteride 5 Mg Tablet) 5 mg PO DAILY [facility] Last Admin: 01/17/20 08:32 Dose: 5 mg Documented by: Gabapentin (Gabapentin 100 Mg Capsule) 100 mg PO BIDCM [facility] Last Admin: 01/17/20 08:25 Dose: 100 mg Documented by: Sodium Chloride () 1,000 mls @ 125 mls/hr IV .Q8H [facility] Last Admin: 01/17/20 08:31 Dose: 125 mls/hr Documented by: Sodium Chloride () 250 mls @ 15 mls/hr IV .[id number] PRN PRN Reason: Saline Flush Sodium Chloride () 250 mls @ 15 mls/hr IV .[id number] PRN PRN Reason: Additional IVPB Infusion Lidocaine (Lidocaine 5% Patch) 1 patch TOPICAL DAILY PRN PRN PRN Reason: rt shoulder pain Memantine (Memantine Hydrochloride 10 Mg Tablet) 10 mg PO BID [facility] Last Admin: 01/17/20 08:38 Dose: 10 mg Documented by: Ondansetron HCl (Ondansetron 4 Mg/2 Ml Vial) 4 mg IV Q8H PRN PRN PRN Reason: NAUSEA/VOMITING Polyethylene Glycol (Polyethylene Glycol 3350 17 Gm Packet) 17 gm PO DAILY PRN PRN PRN Reason: CONSTIPATION Senna/Docusate Sodium (Senna/Docusate Sodium 1 Tablet) 2 tablet PO BID [facility] Last Admin: 01/17/20 08:32 Dose: 2 tablet Documented by: Sodium Chloride (0.9% Saline Lock 10 Ml Syringe) 10 - 40 ml IV UD PRN PRN Reason: SALINE FLUSH Tamsulosin HCl (Tamsulosin Hcl 0.4 Mg Capsule) 0.8 mg PO DAILY [facility] Last Admin: 01/17/20 10:09 Dose: 0.8 mg Documented by: Tolterodine Tartrate (Tolterodine Tartrate 2 Mg Cap.Sa) 2 mg PO DAILY [facility] Last Admin: 01/17/20 08:25 Dose: 2 mg Documented by: Tramadol HCl (Tramadol 50 Mg Tablet) 50 mg PO BID [facility] Last Admin: 01/17/20 11:43 Dose: 50 mg Documented by: Verapamil HCl (Verapamil Sr 240 Mg Tablet) 240 mg PO DAILY [facility] Last Admin: 01/17/20 08:26 Dose: 240 mg Documented by: - Past Medical History Past Medical History (Chronic Problems): Chronic Problems Lewy body dementia (Chronic) Obesity (Chronic) Parkinsons disease (Chronic) HTN (hypertension) (Chronic) BPH (benign prostatic hyperplasia) (Chronic) Hx of recurrent transient ischemic attacks (Chronic) Chronic renal failure, stage 3 (moderate) (Chronic) Chronic anticoagulation (Chronic) Macrocytic anemia (Chronic) History of venous thromboembolism (Chronic) - Past Surgical History Surgical History: - - Status post craniotomy. - Social History Smoking Status: Former smoker Alcohol: None Drugs: None - Family History Maternal History Items: - - Patient with severe underlying dementia, unable to give any maternal or paternal family history. Paternal History Items: - - Patient with severe underlying dementia, unable to give any maternal or paternal family history. Review of Systems Constitutional: Reports: - - thirst Cardiovascular: Denies: Chest Pain Respiratory: Denies: Cough, Shortness of Breath Gastrointestinal: Denies: Nausea, Vomiting Unable to obtain accurate/complete ROS d/t: poor historian, dysarthric, confused with dementia Patient Problems: Active and Suspected Problems Hyperkalemia (Acute) Hyperkalemia (Acute) Acute kidney injury superimposed on CKD (Acute) - Physical Exam Vitals/I&O's: Vital Signs Temp Pulse Resp BP Pulse Ox 98.1 F 69 18 103/62 94 01/17/20 10:12 01/17/20 11:42 01/17/20 11:42 01/17/20 11:42 01/17/20 11:42 Oxygen Flow Rate (L/min) 2 Oxygen Delivery Method Nasal Cannula Weight: 116.3 kg Body Mass Index (BMI) 34.4 Intake and Output for Last 24 Hours 01/15/20 01/16/20 01/17/20 23:59 23:59 23:59 Intake Total 0.05 / 0.05 1162.09 / 1162.09 Output Total 250 / 250 Balance 0.05 / 0.05 912.09 / 912.09 General: Confused, Disoriented Oral: Dry Mucosa Neck: No JVD Lungs: Clear to auscultation Cardiovascular: Regular rate, No rub noted Abdomen: Bowel Sounds Present, Soft, Non Tender, Obese Extremities: No edema Skin: No rashes Musculoskeletal: - - debilitated, Parkinsons, ECF resident Neurological: - - resting tremor Psych/Mental Status: - - confused, poor historian Laboratory Results 01/16/20 22:30: WBC 4.9, RBC 3.47 L, Hgb 11.3 L, Hct 38.0 L, MCV 109.5 H, MCH 32.6 H, MCHC 29.7 L, RDW Std Deviation 51.9 H, RDW Coeff of [place] 12.9, Plt Count 187, MPV 11.6, Immature Gran % (Auto) 0.200, Neut % (Auto) 57.3, Lymph % (Auto) 23.1, [place] % (Auto) 12.3 H, Eos % (Auto) 6.7 H, Baso % (Auto) 0.4, Absolute Neuts (auto) 2.8, Absolute Lymphs (auto) 1.14, Nucleated RBC % 0 01/16/20 22:30: Sodium 146 H, Potassium 5.9 H, Chloride 111 H, Carbon Dioxide 32.0, Anion Gap 3 L, BUN 54 H, Creatinine 3.15 H, Estim Creat Clear Calc 18.40, Est GFR (MDRD) Af Amer 25 L, Est GFR (MDRD) Non-Af 20 L, BUN/Creatinine Ratio 17.1, Glucose 97, Calcium 9.1 01/17/20 01:20: Urine Color Yellow, Urine Clarity Sl. Cloudy, Urine pH 8.0, Ur Specific [place] 1.010, Urine Protein 30 H, Urine Glucose (UA) Normal, Urine Ketones Negative, Urine Occult Blood 10 H, Urine Nitrite Negative, Urine Bilirubin Negative, Urine Urobilinogen Normal, Ur Leukocyte Esterase 500 H, Urine RBC 0 SEEN, Urine WBC >100 SEEN, Ur Squamous Epith Cells 0-5 SEEN, Ur Transition Epith Cell 0-5 SEEN, Urine Bacteria RARE, Urine Mucus 0 SEEN 01/17/20 01:20: Ur Random Sodium 53, Urine Creatinine 104.00 01/17/20 03:08: Sodium 146 H, Potassium 5.3 H, Chloride 113 H, Carbon Dioxide 30.0, Anion Gap 3 L, BUN 54 H, Creatinine 3.07 H, Estim Creat Clear Calc 21.42, Est GFR (MDRD) Af Amer 25 L, Est GFR (MDRD) Non-Af 21 L, BUN/Creatinine Ratio 17.6, Glucose 94, Calcium 8.7 01/17/20 05:52: WBC 5.1, RBC 3.33 L, Hgb 10.8 L, Hct 36.3 L, MCV 109.0 H, MCH 32.4 H, MCHC 29.8 L, RDW Std Deviation 52.4 H, RDW Coeff of [place] 12.9, Plt Count 178, MPV 11.5, Immature Gran % (Auto) 0.200, Neut % (Auto) 59.3, Lymph % (Auto) 20.6, [place] % (Auto) 13.4 H, Eos % (Auto) 5.9 H, Baso % (Auto) 0.6, Absolute Neuts (auto) 3.0, Absolute Lymphs (auto) 1.05, Nucleated RBC % 0 01/17/20 05:52: Sodium 145, Potassium 5.0, Chloride 113 H, Carbon Dioxide 29.0, Anion Gap 3 L, BUN 52 H, Creatinine 2.95 H, Estim Creat Clear Calc 22.29, Est GFR (MDRD) Af Amer 27 L, Est GFR (MDRD) Non-Af 22 L, BUN/Creatinine Ratio 17.6, Glucose 83, Calcium 8.3 L, Total Bilirubin 0.30, AST 19, ALT 11 L, Alkaline Phosphatase 117, Total Protein 6.9, Albumin 3.0 L, Globulin 3.9, Albumin/Globulin Ratio 0.8 L Clinical Impression(s) from Imaging Studies Renal Ultrasound 01/17/20 00:09 IMPRESSION: Multiple bilateral renal cysts. Electronically Signed: Richard Bayron, at 8:27 EST , Service support , Current Medications Acetaminophen (Acetaminophen 325 Mg Tablet) 650 mg PO Q6H PRN PRN PRN Reason: Pain Score 1-10/Temp > 100.7 F Apixaban (Apixaban 2.5 Mg Tablet) 2.5 mg PO BID [facility] Last Admin: 01/17/20 08:26 Dose: 2.5 mg Documented by: Carbidopa/Levodopa (Carbidopa/Levodopa Cr 50/200 Tablet) 2 tablet PO DAILY [facility] Last Admin: 01/17/20 08:27 Dose: 2 tablet Documented by: Finasteride (Finasteride 5 Mg Tablet) 5 mg PO DAILY [facility] Last Admin: 01/17/20 08:32 Dose: 5 mg Documented by: Gabapentin (Gabapentin 100 Mg Capsule) 100 mg PO BIDCM [facility] Last Admin: 01/17/20 08:25 Dose: 100 mg Documented by: Sodium Chloride () 1,000 mls @ 125 mls/hr IV .Q8H [facility] Last Admin: 01/17/20 08:31 Dose: 125 mls/hr Documented by: Sodium Chloride () 250 mls @ 15 mls/hr IV .[id number] PRN PRN Reason: Saline Flush Sodium Chloride () 250 mls @ 15 mls/hr IV .[id number] PRN PRN Reason: Additional IVPB Infusion Lidocaine (Lidocaine 5% Patch) 1 patch TOPICAL DAILY PRN PRN PRN Reason: rt shoulder pain Memantine (Memantine Hydrochloride 10 Mg Tablet) 10 mg PO BID [facility] Last Admin: 01/17/20 08:38 Dose: 10 mg Documented by: Ondansetron HCl (Ondansetron 4 Mg/2 Ml Vial) 4 mg IV Q8H PRN PRN PRN Reason: NAUSEA/VOMITING Polyethylene Glycol (Polyethylene Glycol 3350 17 Gm Packet) 17 gm PO DAILY PRN PRN PRN Reason: CONSTIPATION Senna/Docusate Sodium (Senna/Docusate Sodium 1 Tablet) 2 tablet PO BID [facility] Last Admin: 01/17/20 08:32 Dose: 2 tablet Documented by: Sodium Chloride (0.9% Saline Lock 10 Ml Syringe) 10 - 40 ml IV UD PRN PRN Reason: SALINE FLUSH Tamsulosin HCl (Tamsulosin Hcl 0.4 Mg Capsule) 0.8 mg PO DAILY [facility] Last Admin: 01/17/20 10:09 Dose: 0.8 mg Documented by: Tolterodine Tartrate (Tolterodine Tartrate 2 Mg Cap.Sa) 2 mg PO DAILY [facility] Last Admin: 01/17/20 08:25 Dose: 2 mg Documented by: Tramadol HCl (Tramadol 50 Mg Tablet) 50 mg PO BID [facility] Last Admin: 01/17/20 11:43 Dose: 50 mg Documented by: Verapamil HCl (Verapamil Sr 240 Mg Tablet) 240 mg PO DAILY [facility] Last Admin: 01/17/20 08:26 Dose: 240 mg Documented by: Assessment/Plan All Active Problems HCAP (healthcare-associated pneumonia) (Resolved) Hyperkalemia (Acute) Hyperkalemia (Acute) Acute kidney injury superimposed on CKD (Acute) 1. Acute kidney injury with creatinine 3.1 to 2.95 today due to diuretics, ACEI, sulfa drug, UTI. Baseline creatinine 0.9 in November 2018. COntinue with iv hydration. Agree with holding bactrim, lasix, ACEI. Renal US no hydronephrosis. Needs strict I/O's with browning if creatinine does not improve with iv fluids. Hx BPH 2. Acute hyperkalemia due to SAMMI, supplements, ACEI. 3. UTI urine c/s sent 4. Dementia 5. Parkinsons disease 6. ECF resident 7. HTN stable BP, hold BP meds for hypotension. 8. Hypernatremia may need to change to 1/2NSS
--- NOTE | 2020-01-17 15:36 | CASEMGMT ---
SANJANA faxed PT/OT evaluations and progress notes to [facility]. Plan: Return to [facility] at [facility] LARSEN MSW
[2020-01-17] MEDS: Dext 5%-0.45% NS 1,000 ML 125 ML IV (16:23)
[2020-01-18] VITALS (10 sets, daily range): BP systolic 96–141; BP diastolic 55–87; PULSE 64–77; RESP 18–19; TEMP 36.5–37.3; O2SAT 92–97
[2020-01-18] MEDS: Dext 5%-0.45% NS 1,000 ML 125 ML IV ×3 (00:02→16:27)
[2020-01-18 05:57] LABS: Absolute Lymphocyte Count 1.03 X10^3/uL (0.83-4.51); Absolute Neutrophil Count 2.3 X10^3/uL (2.0-7.7); Basophil# 0.02 X10^3/uL; Basophil% 0.5 % (0-1); Eosinophil# 0.42 X10^3/uL; Eosinophils% 9.7 % (0-5); Hemoglobin 9.8 g/dL (13.0-16.5); Lymphocyte # 1.03 X10^3/ul (4.0); Lymphocyte % 23.8 % (19-41); Mean Corp Hgb Conc 30.6 g/dL (32-36); Mean Corpuscular Hgb 33.2 pg (27.0-32.0); Mean Corpuscular Volume 108.5 fL (80-94); Mean Platelet Vol. 11.5 fl (6.2-12.0); Monocyte# 0.53 X10^3/uL; Monocyte% 12.3 % (0-10); NRBC Flagged by Analyzer 0 % (0-5); Neutrophil # 2.31 X10^3/uL (2.7-7.7); Neutrophil % 53.5 % (47-70); Platelet Count 170 K/mm3 (150-450); RBC Distribution Width CV 12.9 % (11.6-14.6); RBC Distribution Width SD 51.4 fl (35.1-43.9); Red Blood Count 2.95 M/mm3 (4.6-6.2); White Blood Count 4.3 K/mm3 (4.4-11.0)
[2020-01-18 06:27] LABS: Anion Gap 4 (5-15); BUN 34 mg/dL (7-18); Calcium,Total 8.4 mg/dL (8.5-10.1); Chloride 114 mmol/L (98-107); EST Glomerular Filtration Rate 34 mL/min (>60); Est Glom Filt Rate - Afr Amer 42 mL/min (>60); Estimated Creatinine Clearance 32.87 ml/min; Glucose 101 mg/dL (74-106); Potassium 4.4 mmol/L (3.5-5.1); Sodium Level 145 mmol/L (136-145)
[2020-01-18] MEDS: Menthol/Lanolin/Calamine/Znox 113 GM Tube 1 APPLIC TOPICAL (07:10)
--- NOTE | 2020-01-18 08:55 | PCM.PN.REN ---
Patient Problems: Active and Suspected Problems Hyperkalemia (Acute) Hyperkalemia (Acute) Acute kidney injury superimposed on CKD (Acute) Subjective: remains confused, disoriented. Poor historian. Renal fxn improving with iv fluids. - Physical Exam Vitals/I&O's: Vital Signs Temp Pulse Resp BP Pulse Ox 97.7 F L 64 18 109/64 94 01/18/20 03:55 01/18/20 07:03 01/18/20 03:55 01/18/20 03:55 01/18/20 07:48 Oxygen Flow Rate (L/min) 2 Oxygen Delivery Method Nasal Cannula Weight: 117.6 kg Body Mass Index (BMI) 34.4 Intake and Output for Last 24 Hours 01/16/20 01/17/20 01/18/20 23:59 23:59 23:59 Intake Total 0.05 / 0.05 2945.42 / 2945.42 1955. / 1955. Output Total 250 / 250 Balance 0.05 / 0.05 2695.42 / 2695.42 1955. / General: Confused, Disoriented Lungs: Clear to auscultation Cardiovascular: Regular rate Abdomen: Bowel Sounds Present, Soft, Non Tender, Non-Distended Extremities: No edema Laboratory Results 01/18/20 05:30: WBC 4.3 L, RBC 2.95 L, Hgb 9.8 L, Hct 32.0 L, MCV 108.5 H, MCH 33.2 H, MCHC 30.6 L, RDW Std Deviation 51.4 H, RDW Coeff of [place] 12.9, Plt Count 170, MPV 11.5, Immature Gran % (Auto) 0.200, Neut % (Auto) 53.5, Lymph % (Auto) 23.8, [place] % (Auto) 12.3 H, Eos % (Auto) 9.7 H, Baso % (Auto) 0.5, Absolute Neuts (auto) 2.3, Absolute Lymphs (auto) 1.03, Nucleated RBC % 0 01/18/20 05:30: Sodium 145, Potassium 4.4, Chloride 114 H, Carbon Dioxide 27.0, Anion Gap 4 L, BUN 34 H, Creatinine 2.00 H, Estim Creat Clear Calc 32.87, Est GFR (MDRD) Af Amer 42 L, Est GFR (MDRD) Non-Af 34 L, BUN/Creatinine Ratio 17.0, Glucose 101, Calcium 8.4 L Current Medications Acetaminophen (Acetaminophen 325 Mg Tablet) 650 mg PO Q6H PRN PRN PRN Reason: Pain Score 1-10/Temp > 100.7 F Apixaban (Apixaban 2.5 Mg Tablet) 2.5 mg PO BID [facility] Last Admin: 01/17/20 22:45 Dose: 2.5 mg Documented by: Calamine/Phenol (Menthol/Lanolin/Calamine/Znox 113 Gm Tube) 1 applic TOPICAL BID PRN; Protocol PRN Reason: Diaper Rash Last Admin: 01/18/20 07:10 Dose: 1 applicatio Documented by: Carbidopa/Levodopa (Carbidopa/Levodopa Cr 50/200 Tablet) 2 tablet PO DAILY [facility] Last Admin: 01/17/20 08:27 Dose: 2 tablet Documented by: Finasteride (Finasteride 5 Mg Tablet) 5 mg PO DAILY [facility] Last Admin: 01/17/20 08:32 Dose: 5 mg Documented by: Gabapentin (Gabapentin 100 Mg Capsule) 100 mg PO BIDCM [facility] Last Admin: 01/17/20 16:25 Dose: 100 mg Documented by: Sodium Chloride () 250 mls @ 15 mls/hr IV .[id number] PRN PRN Reason: Saline Flush Sodium Chloride () 250 mls @ 15 mls/hr IV .[id number] PRN PRN Reason: Additional IVPB Infusion Dextrose/Sodium Chloride () 1,000 mls @ 125 mls/hr IV .Q8H [facility] Last Admin: 01/18/20 08:08 Dose: 125 mls/hr Documented by: Lidocaine (Lidocaine 5% Patch) 1 patch TOPICAL DAILY PRN PRN PRN Reason: rt shoulder pain Memantine (Memantine Hydrochloride 10 Mg Tablet) 10 mg PO BID [facility] Last Admin: 01/17/20 22:45 Dose: 10 mg Documented by: Ondansetron HCl (Ondansetron 4 Mg/2 Ml Vial) 4 mg IV Q8H PRN PRN PRN Reason: NAUSEA/VOMITING Polyethylene Glycol (Polyethylene Glycol 3350 17 Gm Packet) 17 gm PO DAILY PRN PRN PRN Reason: CONSTIPATION Senna/Docusate Sodium (Senna/Docusate Sodium 1 Tablet) 2 tablet PO BID [facility] Last Admin: 01/17/20 22:45 Dose: 2 tablet Documented by: Sodium Chloride (0.9% Saline Lock 10 Ml Syringe) 10 - 40 ml IV UD PRN PRN Reason: SALINE FLUSH Tamsulosin HCl (Tamsulosin Hcl 0.4 Mg Capsule) 0.8 mg PO DAILY [facility] Last Admin: 01/17/20 10:09 Dose: 0.8 mg Documented by: Tolterodine Tartrate (Tolterodine Tartrate 2 Mg Cap.Sa) 2 mg PO DAILY [facility] Last Admin: 01/17/20 08:25 Dose: 2 mg Documented by: Tramadol HCl (Tramadol 50 Mg Tablet) 50 mg PO BID [facility] Last Admin: 01/17/20 22:46 Dose: 50 mg Documented by: Verapamil HCl (Verapamil Sr 240 Mg Tablet) 240 mg PO DAILY [facility] Last Admin: 01/17/20 08:26 Dose: 240 mg Documented by: Medical Necessity - Tobacco Use Smoking Status: Former smoker Tobacco Use: Non-smoker Assessment/Plan All Active Problems HCAP (healthcare-associated pneumonia) (Resolved) Hyperkalemia (Acute) Hyperkalemia (Acute) Acute kidney injury superimposed on CKD (Acute) 1. Acute kidney injury with creatinine improved to 2.0. continue to hold diuretics, ACEI, sulfa drug, UTI. Baseline creatinine 0.9 in November 2018. COntinue with iv hydration. Needs strict I/O's 2. Acute hyperkalemia due to SAMMI, supplements, ACEI. replaced 3. UTI urine c/s sent 4. Dementia 5. Parkinsons disease 6. ECF resident 7. HTN stable BP, hold BP meds for hypotension. 8. Hypernatremia may need to change to D51/2NSS
[2020-01-18] MEDS: Tamsulosin HCl 0.4 MG Capsule 0.8 MG PO (09:23)
[2020-01-18] MEDS: CARBIDOPA/LEVODOPA CR 50/200 Tablet PO (09:23)
[2020-01-18] MEDS: Gabapentin 100 MG Capsule PO ×2 (09:23→16:27)
[2020-01-18] MEDS: Senna/Docusate Sodium 1 Tablet 2 TABLET PO ×2 (09:23→21:16)
[2020-01-18] MEDS: Tolterodine Tartrate 2 MG CAP.SA PO (09:23)
[2020-01-18] MEDS: Memantine Hydrochloride 10 MG Tablet PO ×2 (09:23→21:16)
[2020-01-18] MEDS: Finasteride 5 MG Tablet PO (09:23)
[2020-01-18] MEDS: Verapamil SR 240 MG Tablet 120 MG PO (09:23)
[2020-01-18] MEDS: APIXABAN 2.5 MG TABLET PO ×2 (09:23→21:16)
[2020-01-18] MEDS: traMADol 50 MG Tablet PO ×2 (09:23→21:18)
--- NOTE | 2020-01-18 13:18 | PN_ITS ---
Patient Problems: Active and Suspected Problems Hyperkalemia (Acute) Hyperkalemia (Acute) Acute kidney injury superimposed on CKD (Acute) Reason for Visit: SAMMI Subjective: Pt had >300 cc in bladder on bladder scan and has been incontinent with hx BPH. Browning started for retention. Pt is pleasantly confused, A/Ox1. No complaints at this time. Denies fever/chills, abdominal discomfort, dysuria, SOB/cough. Vitals/I&O's: Vital Signs Temp Pulse Resp BP Pulse Ox 98.0 F 65 18 96/55 L 96 01/18/20 09:20 01/18/20 09:20 01/18/20 09:20 01/18/20 09:20 01/18/20 09:20 Oxygen Flow Rate (L/min) 2 Oxygen Delivery Method Nasal Cannula Weight: 259 lb 4.218 oz Body Mass Index (BMI) 34.4 Intake and Output for Last 24 Hours 01/16/20 01/17/20 01/18/20 23:59 23:59 23:59 Intake Total 0.05 / 0.05 2945.42 / 2945.42 2196.25 / 2196.25 Output Total 250 / 250 300 / 300 Balance 0.05 / 0.05 2695.42 / 2695.42 1896.25 / 1896.25 General: Alert, Cooperative, Confused HEENT: Atraumatic, PERRLA, EOMI, Normocephalic Neck: Supple, No JVD, Negative Carotid Bruits Lungs: Clear to auscultation, Normal air movement Cardiovascular: Regular rate, No murmurs Abdomen: Bowel Sounds Present, Soft, Non Tender, Obese Extremities: No edema, Capillary Refill Less than 3 Seconds Skin: No rashes, No breakdown Musculoskeletal: No Tenderness to Palpation of Joints or Extremities Neurological: Cranial nerves II-XII grossly intact Psych/Mental Status: Normal Affect, Appropriate, Alert and oriented to time, place, person, mood and affect Microbiology Past 72 Hours 01/17/20 01:20 Urine, Clean Catch Urine Culture - Preliminary GNR 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 Poss Enterococcus sp Laboratory Results 01/18/20 05:30: WBC 4.3 L, RBC 2.95 L, Hgb 9.8 L, Hct 32.0 L, MCV 108.5 H, MCH 33.2 H, MCHC 30.6 L, RDW Std Deviation 51.4 H, RDW Coeff of [place] 12.9, Plt Count 170, MPV 11.5, Immature Gran % (Auto) 0.200, Neut % (Auto) 53.5, Lymph % (Auto) 23.8, [place] % (Auto) 12.3 H, Eos % (Auto) 9.7 H, Baso % (Auto) 0.5, Absolute Neuts (auto) 2.3, Absolute Lymphs (auto) 1.03, Nucleated RBC % 0 01/18/20 05:30: Sodium 145, Potassium 4.4, Chloride 114 H, Carbon Dioxide 27.0, Anion Gap 4 L, BUN 34 H, Creatinine 2.00 H, Estim Creat Clear Calc 32.87, Est GFR (MDRD) Af Amer 42 L, Est GFR (MDRD) Non-Af 34 L, BUN/Creatinine Ratio 17.0, Glucose 101, Calcium 8.4 L Current Medications Acetaminophen (Acetaminophen 325 Mg Tablet) 650 mg PO Q6H PRN PRN PRN Reason: Pain Score 1-10/Temp > 100.7 F Apixaban (Apixaban 2.5 Mg Tablet) 2.5 mg PO BID [facility] Last Admin: 01/18/20 09:23 Dose: 2.5 mg Documented by: Calamine/Phenol (Menthol/Lanolin/Calamine/Znox 113 Gm Tube) 1 applic TOPICAL BID PRN; Protocol PRN Reason: Diaper Rash Last Admin: 01/18/20 07:10 Dose: 1 applicatio Documented by: Carbidopa/Levodopa (Carbidopa/Levodopa Cr 50/200 Tablet) 2 tablet PO DAILY [facility] Last Admin: 01/18/20 09:23 Dose: 2 tablet Documented by: Finasteride (Finasteride 5 Mg Tablet) 5 mg PO DAILY [facility] Last Admin: 01/18/20 09:23 Dose: 5 mg Documented by: [facility] ([facility] Last Admin: 01/18/20 09:23 Dose: 100 mg Documented by: Sodium Chloride () 250 mls @ 15 mls/hr IV .[id number] PRN PRN Reason: Saline Flush Sodium Chloride () 250 mls @ 15 mls/hr IV .[id number] PRN PRN Reason: Additional IVPB Infusion Dextrose/Sodium Chloride () 1,000 mls @ 125 mls/hr IV .Q8H [facility] Last Admin: 01/18/20 08:08 Dose: 125 mls/hr Documented by: Lidocaine (Lidocaine 5% Patch) 1 patch TOPICAL DAILY PRN PRN PRN Reason: rt shoulder pain Memantine (Memantine Hydrochloride 10 Mg Tablet) 10 mg PO BID [facility] Last Admin: 01/18/20 09:23 Dose: 10 mg Documented by: Ondansetron HCl (Ondansetron 4 Mg/2 Ml Vial) 4 mg IV Q8H PRN PRN PRN Reason: NAUSEA/VOMITING Polyethylene Glycol (Polyethylene Glycol 3350 17 Gm Packet) 17 gm PO DAILY PRN PRN PRN Reason: CONSTIPATION Senna/Docusate Sodium (Senna/Docusate Sodium 1 Tablet) 2 tablet PO BID [facility] Last Admin: 01/18/20 09:23 Dose: 2 tablet Documented by: Sodium Chloride (0.9% Saline Lock 10 Ml Syringe) 10 - 40 ml IV UD PRN PRN Reason: SALINE FLUSH Tamsulosin HCl (Tamsulosin Hcl 0.4 Mg Capsule) 0.8 mg PO DAILY [facility] Last Admin: 01/18/20 09:23 Dose: 0.8 mg Documented by: Tolterodine Tartrate (Tolterodine Tartrate 2 Mg Cap.Sa) 2 mg PO DAILY [facility] Last Admin: 01/18/20 09:23 Dose: 2 mg Documented by: Tramadol HCl (Tramadol 50 Mg Tablet) 50 mg PO BID [facility] Last Admin: 01/18/20 09:23 Dose: 50 mg Documented by: Verapamil HCl (Verapamil Sr 240 Mg Tablet) 120 mg PO DAILY [facility] Last Admin: 01/18/20 09:23 Dose: 120 mg Documented by: STROKE Vital Signs/Narrative: Vital Signs Temp Pulse Resp BP Pulse Ox 01/18/20 09:20 98.0 F 65 18 96/55 L 96 Medical Necessity - Tobacco Use Smoking Status: Former smoker Tobacco Use: Non-smoker Assessment/Plan All Active Problems HCAP (healthcare-associated pneumonia) (Resolved) Hyperkalemia (Acute) Hyperkalemia (Acute) Acute kidney injury superimposed on CKD (Acute) 1. SAMMI on CKDIII - nephro following. continue IVF. Renal function is markedly improving. Likely 2/2 diuretic, melchor-i, bactrim as well as some retention from BPH. Browning placed and will continue flomax. 2. Dementia with lewy bodies, parkinson disease - significant confusion and weakness at baseline. will need to return to SNF at [place]. History obtained from pt is not reliable. Continue namenda, sinemet 3. Hx TIA - not on asa/statin 4. Hx DVT - xarelto changed to eliquis given worsening renal function 5. BPH - flomax. will maintain browning and attempt voiding trial later this week. 6. HTN - verapamil - decreased for low bp. DC planning: return to SNF when appropriate. This patient was seen by Tomer Roe PA-C under the supervision of Doctor Wetzel.
--- NOTE | 2020-01-18 13:45 | CASEMGMT ---
Updates faxed to [facility] and SANJANA also wrote on fax face sheet that patient may be discharged tomorrow. Cady LARSEN MSW
[2020-01-19] VITALS (10 sets, daily range): BP systolic 128–155; BP diastolic 64–74; PULSE 62–69; RESP 12–19; TEMP 36.5–37; O2SAT 91–97
[2020-01-19] MEDS: Dext 5%-0.45% NS 1,000 ML 125 ML IV ×2 (00:32→07:42)
[2020-01-19 05:41] LABS: Anion Gap 3 (5-15); BUN 25 mg/dL (7-18); BUN/Creat Ratio 16.1 RATIO (10-20); Calcium,Total 8.3 mg/dL (8.5-10.1); Chloride 110 mmol/L (98-107); Creatinine, Serum 1.55 mg/dL (0.70-1.30); EST Glomerular Filtration Rate 46 mL/min (>60); Est Glom Filt Rate - Afr Amer 56 mL/min (>60); Estimated Creatinine Clearance 42.42 ml/min; Glucose 103 mg/dL (74-106); Potassium 4.1 mmol/L (3.5-5.1); Sodium Level 140 mmol/L (136-145)
[2020-01-19] MEDS: Gabapentin 100 MG Capsule PO (07:41)
--- NOTE | 2020-01-19 08:57 | NURSING ---
mg within normal range at 2.0, will notify dr cash
[2020-01-19] MEDS: CARBIDOPA/LEVODOPA CR 50/200 Tablet PO (09:33)
[2020-01-19] MEDS: traMADol 50 MG Tablet PO (09:33)
[2020-01-19] MEDS: Senna/Docusate Sodium 1 Tablet 2 TABLET PO (09:33)
[2020-01-19] MEDS: Memantine Hydrochloride 10 MG Tablet PO (09:33)
[2020-01-19] MEDS: Verapamil SR 240 MG Tablet 120 MG PO (09:33)
[2020-01-19] MEDS: Tolterodine Tartrate 2 MG CAP.SA PO (09:33)
[2020-01-19] MEDS: Tamsulosin HCl 0.4 MG Capsule 0.8 MG PO (09:33)
[2020-01-19] MEDS: Finasteride 5 MG Tablet PO (09:34)
[2020-01-19] MEDS: APIXABAN 2.5 MG TABLET PO (09:34)
--- NOTE | 2020-01-19 10:12 | PCM.EXTCARCO ---
- Diet 01/17/20 00:10 Diet: Cardiac - Heart Healthy Food consistency:: Regular Liquid Consistency:: Regular/Thin Is pt able to select menu?: No - Routine Orders/Code Status Enema Type: Fleetz Enema Frequency: Daily PRN Suppository Type: Dulcolax 10mg Suppository Frequency: Daily PRN O2 Liters per Minute: 2 O2 Frequency: PRN Keep PO Greater than or Equal to (%): 90 Routine Lab Work: CBC, BMP, - - In 3 days then Q Week Code Status: DNRCC-A - No intubation - Suggestions for Active Care Change Position every (hours): 2 Times a day to sit in chair: 3 - Therapies Physical Therapy: Eval and Treat Occupational Therapy: Eval and Treat - Problem/Diagnosis (1) Lewy body dementia Status: Chronic (2) Obesity Status: Chronic (3) HTN (hypertension) Status: Chronic (4) BPH (benign prostatic hyperplasia) Status: Chronic (5) Hx of recurrent transient ischemic attacks Status: Chronic (6) Chronic anticoagulation Status: Chronic (7) Macrocytic anemia Status: Chronic (8) Hyperkalemia Status: Acute (9) Acute kidney injury superimposed on CKD Status: Acute - Allergies/Procedures Done in Hospital Allergies/Adverse Reactions: Allergies Penicillins Allergy (Verified 01/17/20 00:14) Rash Procedures: None - Type of Care/Length of Stay Estimated LOS: More Than 30 Days Type of Care Needed: Intermediate Rehab Potential: Fair Prognosis: Fair - Additional Orders/Day of Discharge H&P will serve as current which was dated: 01/16/20 Day of Discharge: 01/19/20 - Dietary and Speech Recommendations Dietitian Recommendations/Changes: Continue cardiac diet. - Follow Up Care Primary Care Physician: Omar Peña MD [Primary Care Provider] - Please follow up with your Primary Care Physician in: 1 Week
--- NOTE | 2020-01-19 10:17 | CASEMGMT ---
SANJANA spoke with Vicki at [facility] and let her know patient will be returning today. A COVID test was ordered. Await orders. Cady LARSEN MSW
--- NOTE | 2020-01-19 10:17 | PCM.DC.SUM ---
Discharge Date and Diagnosis - Problem List Patient Problems: Active and Suspected Problems Hyperkalemia (Acute) Hyperkalemia (Acute) Acute kidney injury superimposed on CKD (Acute) Date of Admission: 01/16/20 Date of Discharge: 01/19/20 - Primary Discharge Diagnosis Acute Problems: Active Problems 1. Acute kidney injury with hyperkalemia on chronic kidney disease stage III 2. Recent UTI-resolved 3. Dementia with Lewy bodies, Parkinson's disease 4. History of recurrent TIA 5. History of DVT 6. BPH 7. Hypertension - Secondary Discharge Diagnosis Chronic Problems: Chronic Problems Lewy body dementia (Chronic) Obesity (Chronic) Parkinsons disease (Chronic) HTN (hypertension) (Chronic) BPH (benign prostatic hyperplasia) (Chronic) Hx of recurrent transient ischemic attacks (Chronic) Chronic renal failure, stage 3 (moderate) (Chronic) Chronic anticoagulation (Chronic) Macrocytic anemia (Chronic) History of venous thromboembolism (Chronic) Hospital Course and Treatment Imaging Results: Diagnostic Data Renal Ultrasound 01/17/20 00:09 IMPRESSION: Multiple bilateral renal cysts. Electronically Signed: Richard Verma, at 8:27 EST , Service support , Dr. Vernon- Nephrology Operations: None Procedures: None Summary of Care Provided: The patient is a 79 year old M admitted 01/16/2020 due to abnormal labs. 1. Acute kidney injury with hyperkalemia on chronic kidney disease stage III-hyperkalemia resolved. SAMMI improved. Suspect secondary to diuretic, VIANNEY inhibitor and Bactrim as well as urinary retention from BPH. Mays placed, will need voiding trial at [facility]. Continue Flomax and Proscar. Continue to hold diuretic and VIANNEY inhibitor at discharge. Repeat BMP in 3 days at [facility]. Follow-up with primary care physician in 1 week. 2. Recent UTI-resolved. Recently on Bactrim which was discontinued. Repeat urine culture shows GNR less than thousand colony count. Further antibiotics discontinued. 3. Dementia with Lewy bodies, Parkinson's disease-resides at [facility]. 4. History of recurrent TIA-not on aspirin, statin. Continue anticoagulation. 5. History of DVT-transitioned from Xarelto to Eliquis due to worsening renal function. 6. BPH-continue Proscar, Flomax. Patient was noted to have retention during admission. Mays placed 01/18/2020. Recommend removing Mays catheter at SNF in the next 24 to 48 hours and monitoring for further retention. 7. Hypertension-lisinopril, Lasix discontinued. Continue verapamil regimen. Patient seen and examined prior to discharge. Physical assessment as noted below. Patient is stable for discharge with follow up recommendations as noted above. This patient was seen by JARVIS Fernandez under the supervision of Dr. Wetzel. Patient Problems: Active and Suspected Problems Hyperkalemia (Acute) Hyperkalemia (Acute) Acute kidney injury superimposed on CKD (Acute) - Physical Exam Vitals/I&O's: Vital Signs Temp Pulse Resp BP Pulse Ox 98.0 F 65 12 137/64 H 94 01/19/20 08:38 01/19/20 08:38 01/19/20 08:38 01/19/20 08:38 01/19/20 10:03 Oxygen Flow Rate (L/min) 2 Oxygen Delivery Method Room Air Weight: 263 lb 0.183 oz Body Mass Index (BMI) 34.4 Intake and Output for Last 24 Hours 01/17/20 01/18/20 01/19/20 23:59 23:59 23:59 Intake Total 2945.42 / 2945.42 3436.25 / 3436.25 1895.83 / 1895.83 Output Total 250 / 250 750 / 1150 850 / 850 Balance 2695.42 / 2695.42 2686.25 / 2286.25 1045.83 / 1045.83 General: Alert, Cooperative, No apparent distress HEENT: Atraumatic, PERRLA, EOMI, Normocephalic Neck: Supple, No JVD, Negative Carotid Bruits Lungs: Clear to auscultation, Normal air movement Cardiovascular: Regular rate, No murmurs Abdomen: Bowel Sounds Present, Soft, Non Tender Extremities: No clubbing, No cyanosis, No edema, Capillary Refill Less than 3 Seconds Skin: No rashes, No breakdown Musculoskeletal: No Tenderness to Palpation of Joints or Extremities Neurological: Cranial nerves II-XII grossly intact, Neuro grossly intact Psych/Mental Status: Normal Affect, Appropriate Microbiology Past 72 Hours 01/17/20 01:20 Urine, Clean Catch 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 [facility] Poss Enterococcus sp Laboratory Results 01/19/20 05:04: Sodium 140, Potassium 4.1, Chloride 110 H, Carbon Dioxide 27.0, Anion Gap 3 L, BUN 25 H, Creatinine 1.55 H, Estim Creat Clear Calc 42.42, Est GFR (MDRD) Af Amer 56 L, Est GFR (MDRD) Non-Af 46 L, BUN/Creatinine Ratio 16.1, Glucose 103, Calcium 8.3 L 01/19/20 05:04: Magnesium 2.0 Current Medications Acetaminophen (Acetaminophen 325 Mg Tablet) 650 mg PO Q6H PRN PRN PRN Reason: Pain Score 1-10/Temp > 100.7 F Apixaban (Apixaban 2.5 Mg Tablet) 2.5 mg PO BID [facility] Last Admin: 01/19/20 09:34 Dose: 2.5 mg Documented by: Calamine/Phenol (Menthol/Lanolin/Calamine/Znox 113 Gm Tube) 1 applic TOPICAL BID PRN; Protocol PRN Reason: Diaper Rash Last Admin: 01/18/20 07:10 Dose: 1 applicatio Documented by: Carbidopa/Levodopa (Carbidopa/Levodopa Cr 50/200 Tablet) 2 tablet PO DAILY [facility] Last Admin: 01/19/20 09:33 Dose: 2 tablet Documented by: Finasteride (Finasteride 5 Mg Tablet) 5 mg PO DAILY [facility] Last Admin: 01/19/20 09:34 Dose: 5 mg Documented by: Gabapentin (Gabapentin 100 Mg Capsule) 100 mg PO BIDCM [facility] Last Admin: 01/19/20 07:41 Dose: 100 mg Documented by: Sodium Chloride () 250 mls @ 15 mls/hr IV .[id number] PRN PRN Reason: Saline Flush Sodium Chloride () 250 mls @ 15 mls/hr IV .[id number] PRN PRN Reason: Additional IVPB Infusion Dextrose/Sodium Chloride () 1,000 mls @ 125 mls/hr IV .Q8H [facility] Last Admin: 01/19/20 07:42 Dose: 125 mls/hr Documented by: Lidocaine (Lidocaine 5% Patch) 1 patch TOPICAL DAILY PRN PRN PRN Reason: rt shoulder pain Memantine (Memantine Hydrochloride 10 Mg Tablet) 10 mg PO BID [facility] Last Admin: 01/19/20 09:33 Dose: 10 mg Documented by: Ondansetron HCl (Ondansetron 4 Mg/2 Ml Vial) 4 mg IV Q8H PRN PRN PRN Reason: NAUSEA/VOMITING Polyethylene Glycol (Polyethylene Glycol 3350 17 Gm Packet) 17 gm PO DAILY PRN PRN PRN Reason: CONSTIPATION Senna/Docusate Sodium (Senna/Docusate Sodium 1 Tablet) 2 tablet PO BID [facility] Last Admin: 01/19/20 09:33 Dose: 2 tablet Documented by: Sodium Chloride (0.9% Saline Lock 10 Ml Syringe) 10 - 40 ml IV UD PRN PRN Reason: SALINE FLUSH Tamsulosin HCl (Tamsulosin Hcl 0.4 Mg Capsule) 0.8 mg PO DAILY [facility] Last Admin: 01/19/20 09:33 Dose: 0.8 mg Documented by: Tolterodine Tartrate (Tolterodine Tartrate 2 Mg Cap.Sa) 2 mg PO DAILY [facility] Last Admin: 01/19/20 09:33 Dose: 2 mg Documented by: Tramadol HCl (Tramadol 50 Mg Tablet) 50 mg PO BID [facility] Last Admin: 01/19/20 09:33 Dose: 50 mg Documented by: Verapamil HCl (Verapamil Sr 240 Mg Tablet) 120 mg PO DAILY [facility] Last Admin: 01/19/20 09:33 Dose: 120 mg Documented by: Home Medications: Medications to take at Discharge Albuterol IH (ProAir) [Proair Hfa] 2 puff INHALATION Q4H PRN PRN 11/27/18 Carbidopa/Levodopa 50/200 [Sinemet CR 50/200] 2 tab PO DAILY 11/27/18 Cholecalciferol (Vitamin D3) [Vitamin D3] 5,000 unit PO DAILY 11/27/18 Cyanocobalamin (Vitamin B-12) [Vitamin B-12] 1,000 mcg PO DAILY 11/27/18 Finasteride [Proscar] 5 mg PO DAILY 11/27/18 Gabapentin [Neurontin] 400 mg PO TID 11/27/18 Glucosamine/D3/Boswellia Brenda [Glucosamine Complex-Vit D3 Cpt] 1 ea PO DAILY 11/27/18 Lidocaine [Lidocaine Pain Relief] 1 ea TP Q12H 11/27/18 Oxybutynin Chloride [Oxybutynin Chloride ER] 10 mg PO QHS 11/27/18 Sennosides/Docusate Sodium [Senna-S Tablet] 2 ea PO BID PRN 11/27/18 Tamsulosin HCl [Flomax] 0.8 mg PO DAILY 11/27/18 Verapamil HCl [Verapamil ER] 240 mg PO DAILY 11/27/18 traMADol [Ultram] 50 mg PO TID 3 Days #10 tab 12/02/18 Bisacodyl 10 mg RC DAILY PRN PRN 01/16/20 Polyethylene Glycol 3350 [Miralax] 17 gm PO DAILY PRN 01/17/20 Apixaban [Eliquis] 2.5 mg PO BID tab 01/19/20 Memantine Hydrochloride [Namenda] 10 mg PO BID tab 01/19/20 Primary Care Physician: Omar Peña MD [Primary Care Provider] - Please follow up with your Primary Care Physician in: 1 Week Disposition: Halfway facility Minutes spent on discharge:: 35 Patient Condition:: Stable Medical Necessity - Tobacco Use Smoking Status: Former smoker Tobacco Use: Non-smoker Meaningful Use Info Meaningful Use Diagnoses (Choose all that apply): None applicable
--- NOTE | 2020-01-19 11:11 | PHA.DC.MR ---
Pharmacy Service has performed discharge medication reconciliation for this patient. The patient's discharge medication list was reviewed for discrepancies and discrepancies were resolved. Home Medications Albuterol IH (ProAir) [Proair Hfa] 2 puff INHALATION Q4H PRN PRN 11/27/18 Carbidopa/Levodopa 50/200 [Sinemet CR 50/200] 2 tab PO DAILY 11/27/18 Cholecalciferol (Vitamin D3) [Vitamin D3] 5,000 unit PO DAILY 11/27/18 Cyanocobalamin (Vitamin B-12) [Vitamin B-12] 1,000 mcg PO DAILY 11/27/18 Finasteride [Proscar] 5 mg PO DAILY 11/27/18 Glucosamine/D3/Boswellia Brenda [Glucosamine Complex-Vit D3 Cpt] 1 ea PO DAILY 11/27/18 Lidocaine [Lidocaine Pain Relief] 1 ea TP Q12H 11/27/18 Oxybutynin Chloride [Oxybutynin Chloride ER] 10 mg PO QHS 11/27/18 Sennosides/Docusate Sodium [Senna-S Tablet] 2 ea PO BID PRN 11/27/18 Tamsulosin HCl [Flomax] 0.8 mg PO DAILY 11/27/18 Verapamil HCl [Verapamil ER] 240 mg PO DAILY 11/27/18 traMADol [Ultram] 50 mg PO TID 3 Days #10 tab 12/02/18 Bisacodyl 10 mg RC DAILY PRN PRN 01/16/20 Polyethylene Glycol 3350 [Miralax] 17 gm PO DAILY PRN 01/17/20 Apixaban [Eliquis] 5 mg PO BID tab 01/19/20 Gabapentin [Neurontin] 100 mg PO BIDCM cap 01/19/20 Memantine Hydrochloride [Namenda] 10 mg PO BID tab 01/19/20
--- NOTE | 2020-01-19 11:29 | CASEMGMT ---
Patient is ready for discharge back to [facility]. He had a COVID test today and it was negative. SANJANA faxed orders and the negative COVID test to [facility]. SANJANA called [facility] and arranged for patient to get picked up at via cot. SW notified patient's , RN, medical secretary receptionist, and Vicki at [facility]. Patient has Dementia. All in agreement with d/c plan. Plan: d/c back to [facility] under intermediate level of care. [facility] transported patient via cot. Cady LARSEN MSW
== END 2020-01-19 13:16 | disposition skilled nursing facility (03) | DRG 683 ==
LOC: ED 23:14 → PCU 01-17 01:24
PROVIDERS: Physician Assistant; Admitting Provider Family Medicine; Emergency Provider Emergency Medicine; PCP Family Medicine; Visit Provider Internal Medicine
DX: N17.9 Acute kidney failure, unspecified (principal); E87.0 Hyperosmolality and hypernatremia; E87.5 Hyperkalemia; I12.9 Hypertensive chronic kidney disease with stage 1 through stage 4 chronic kidney disease, or unspecified chronic kidney disease; N18.30 Chronic kidney disease, stage 3 unspecified; N40.1 Benign prostatic hyperplasia with lower urinary tract symptoms; R33.8 Other retention of urine; N39.498 Other specified urinary incontinence; I95.9 Hypotension, unspecified; G31.83 Neurocognitive disorder with Lewy bodies; F02.80 Dementia in other diseases classified elsewhere, unspecified severity, without behavioral disturbance, psychotic disturbance, mood disturbance, and anxiety; E78.5 Hyperlipidemia, unspecified; T46.4X5A Adverse effect of angiotensin-converting-enzyme inhibitors, initial encounter; T50.2X5A Adverse effect of carbonic-anhydrase inhibitors, benzothiadiazides and other diuretics, initial encounter; T37.0X5A Adverse effect of sulfonamides, initial encounter; Y92.9 Unspecified place or not applicable; F32.9 Major depressive disorder, single episode, unspecified; E66.09 Other obesity due to excess calories; Z68.34 Body mass index [BMI] 34.0-34.9, adult; Z79.01 Long term (current) use of anticoagulants; Z79.899 Other long term (current) drug therapy; Z86.73 Personal history of transient ischemic attack (TIA), and cerebral infarction without residual deficits; Z87.440 Personal history of urinary (tract) infections; Z86.718 Personal history of other venous thrombosis and embolism; Z87.891 Personal history of nicotine dependence; Z86.711 Personal history of pulmonary embolism
CPT/HCPCS: 36415; 76770; 80048; 80053; 81001; 82570; 83735; 84300; 85025; 87086; 87088; 87426; 93005; 97110; 97162; 97166; 97530; 97535; 99251; 99285; J7030; A4216; G0463; J7799

== ENCOUNTER 2020-02-29 14:48 | Inpatient (IN) | payer MEDICARE, SELFPAY ==
[2020-01-17 00:12] VITALS: BMI 34.4
[2020-02-29] VITALS (7 sets, daily range): BP systolic 101–132; BP diastolic 62–86; PULSE 68–80; RESP 18–24; TEMP 2.2–36.5; O2SAT 91–97; BMI 35.6; BMI 33.7
--- NOTE | 2020-02-29 15:03 | EKG12_ITS ---
Test Reason : Blood Pressure : / mmHG Vent. Rate : 071 BPM Atrial Rate : 071 BPM P-R Int : 142 ms QRS Dur : 066 ms QT Int : 400 ms P-R-T Axes : 025 017 -07 degrees QTc Int : 434 ms Normal sinus rhythm Cannot rule out Inferior infarct , age undetermined Abnormal ECG Confirmed by UZIEL GLEASON, CHRISTIE ([id number]), editor publications AGUSTIN FUNES ([id number]) on 03/05/2020 9:28:39 AM Referred By: ISHAN Confirmed By:SANJUANITA TRIPLETT MD
[2020-02-29 15:16] LABS: Bacteria 0 SEEN /hpf (None Seen); Mucous, Urine 0 SEEN /hpf (<or=2+); Red Blood Cells-Urine 0 SEEN /hpf (0-5); Squamous Epithelial Cells - UA 0 SEEN /hpf (0-5)
[2020-02-29 15:18] LABS: Color, Urine Brown (Yellow); Glucose, Dipstick Normal (Normal); Ketone-Dipstick 5 mg/dl (Negative); Leukocyte Esterase-Dipstick 500 /ul (Negative); Nitrite-Dipstick Positive (Negative); Occult Blood-Urine 250 /ul (Negative); Protein-Dipstick 100 mg/dl (Negative); Specific Gravity, Urine 1.025 (1.002-1.030); Urine Bilirubin Dipstick 1 mg/dL (Negative); Urine Clarity Turbid (Clear); Urine Urobilinogen Normal (Normal)
[2020-02-29] MEDS: Ceftriaxone 1 GM/50 ML BAG IV (15:19)
[2020-02-29] MEDS: 0.9% Normal Saline 1,000 ML 150 ML IV ×2 (15:20→21:07)
--- NOTE | 2020-02-29 15:25 | RAD_ITS ---
STUDY: X-RAY CHEST REASON FOR EXAM: Male, 79 years old. urinary retention, catheter inserted. pt has increased confusion since onset of sx TECHNIQUE: Single AP portable view of the chest. COMPARISON: None. FINDINGS: The lungs are underexpanded. There is no demonstrated pleural abnormality. Normal size heart. Normal mediastinum and latoya. Normal visualized pulmonary arteries. Normal visualized aortic arch and descending thoracic aorta. There are diffuse degenerative changes of the visualized thoracic spine. There is degenerative osteoarthritis of the bilateral shoulders. There is no demonstrated abnormality of the visualized soft tissue structures of the upper abdomen. RAD/Chest 1 View (Portable) IMPRESSION: Degenerative changes, as described above. No demonstrated acute cardiopulmonary process. Electronically Signed: Efrain Frye, at 15:37 EST Tel , Service support ,
--- NOTE | 2020-02-29 15:38 | ED.DCSUM_ITS ---
History of Present Illness Chief Complaint: Complaint Informant: Patient Narrative: 79-year-old male from [place] long-term presents with increased confusion. Apparently he had urinary retention yesterday and a Mays catheter was placed. He was started on Cipro. Today was noted to be more confused and was sent to the hospital. Patient is responsive and answers questions. Chart reports code status is [id number] no intubation. - Past Medical History (1) BPH (benign prostatic hyperplasia) Status: Chronic (2) Chronic anticoagulation Status: Chronic (3) Chronic renal failure, stage 3 (moderate) Status: Chronic (4) HTN (hypertension) Status: Chronic (5) History of venous thromboembolism Status: Chronic (6) Hx of recurrent transient ischemic attacks Status: Chronic (7) Lewy body dementia Status: Chronic (8) Macrocytic anemia Status: Chronic (9) Obesity Status: Chronic (10) Parkinsons disease Status: Chronic (11) HCAP (healthcare-associated pneumonia) Status: Resolved Past Medical History - Allergies and Home Meds Allergies/Adverse Reactions: Allergies Penicillins Allergy (Verified 01/17/20 00:14) Rash Surgical History: - - Status post craniotomy. Lives: Intermediate Smoking Status: Former smoker Drugs: None - Family History Maternal Family History: Reports: - - Patient with severe underlying dementia, unable to give any maternal or paternal family history. Paternal Family History: Reports: - - Patient with severe underlying dementia, unable to give any maternal or paternal family history. Review of Systems General: Reports: Chills, Malaise. Denies: Fever, Sweats Eyes: Denies: Visual changes - bilaterally, Diplopia ENT: Denies: Rhinorrhea, Sore throat Cardiovascular: Denies: Chest pain, Palpitations Respiratory: Denies: Dyspnea, Cough, Dyspnea on exertion Gastrointestinal: Reports: Abdominal pain, Nausea. Denies: Vomiting, Diarrhea, Melena, Hematochezia Genitourinary: Reports: - - Urinary retention. Denies: Dysuria, Hematuria, Frequency Musculoskeletal: Denies: Back pain, Extremity Pain Skin: Denies: Rash, Wounds Neurological: Denies: Headache, Weakness, Numbness Physical Exam Vital Signs/Narrative: Vital Signs Temp Pulse Resp BP Pulse Ox 02/29/20 15:34 36 F L 02/29/20 15:07 91 02/29/20 14:50 97.7 F L 79 21 H 132/76 H 92 Inital Vital Signs reviewed: Yes General: Well nourished, Well developed, Obese, No Acute Distress Head: Normocephalic, Atraumatic Eyes: Perrl, EOMI ENT: Moist mucous membranes, No rhinorrhea Neck: Supple, Nontender Cardiovascular: Regular rate, Regular rhythm, No murmurs Respiratory: No distress, CTA bilaterally, Chest nontender Abdomen: Soft, Nontender, Nondistended, Normal bowel sounds : - - The drainage from the Mays looks like a light shade of mud Back: Nontender, Normal Inspection Extremities: Nontender, No edema Skin: Normal color, No rash Neurological: Alert, Oriented x3, Cranial nerves II-XII grossly intact, Normal Strength, Normal Sensation Psychological: Normal affect, Normal Mood Diagnostic/Tx/Re-eval Laboratory Last Values WBC 6.0 K/mm3 (4.4-11.0) 02/29/20 15:10 RBC 3.35 M/mm3 (4.6-6.2) L 02/29/20 15:10 Hgb 10.8 g/dL (13.0-16.5) L 02/29/20 15:10 Hct 35.3 % (40-54) L 02/29/20 15:10 MCV 105.4 fL (80-94) H 02/29/20 15:10 MCH 32.2 pg (27.0-32.0) H 02/29/20 15:10 MCHC 30.6 g/dL (32-36) L 02/29/20 15:10 RDW Std Deviation 52.3 fl (35.1-43.9) H 02/29/20 15:10 RDW Coeff of [place] 13.7 % (11.6-14.6) 02/29/20 15:10 Plt Count 211 K/mm3 (150-450) 02/29/20 15:10 MPV 12.3 fl (6.2-12.0) H 02/29/20 15:10 Immature Gran % (Auto) 0.500 % (0.0-0.9) 02/29/20 15:10 Neut % (Auto) 77.5 % (47-70) H 02/29/20 15:10 Lymph % (Auto) 11.2 % (19-41) L 02/29/20 15:10 [place] % (Auto) 9.4 % (0-10) 02/29/20 15:10 Eos % (Auto) 1.2 % (0-5) 02/29/20 15:10 Baso % (Auto) 0.2 % (0-1) 02/29/20 15:10 Absolute Neuts (auto) 4.6 X10^3/uL (2.0-7.7) 02/29/20 15:10 Absolute Lymphs (auto) 0.67 X10^3/uL (0.83-4.51) L 02/29/20 15:10 Nucleated RBC % 0 % (0-5) 02/29/20 15:10 PT 22.2 SECONDS (11.7-14.9) H 02/29/20 15:10 INR 2.0 02/29/20 15:10 APTT 43.4 Seconds (24.1-36.2) H 02/29/20 15:10 Sodium 146 mmol/L (136-145) H 02/29/20 15:10 Potassium 5.2 mmol/L (3.5-5.1) H 02/29/20 15:10 Chloride 117 mmol/L (98-107) H 02/29/20 15:10 Carbon Dioxide 24.0 mmol/L (21.0-32.0) 02/29/20 15:10 Anion Gap 5 (5-15) 02/29/20 15:10 BUN 82 mg/dL (7-18) H 02/29/20 15:10 Creatinine 8.29 mg/dL (0.70-1.30) H* 02/29/20 15:10 Estim Creat Clear Calc 7.46 ml/min 02/29/20 15:10 Est GFR (MDRD) Af Amer 8 mL/min (>60) L 02/29/20 15:10 Est GFR (MDRD) Non-Af 7 mL/min (>60) L 02/29/20 15:10 BUN/Creatinine Ratio 9.9 RATIO (10-20) L 02/29/20 15:10 Glucose 110 mg/dL (74-106) H 02/29/20 15:10 Lactic Acid 1.6 mmol/L (0.4-1.9) 02/29/20 15:10 Calcium 8.4 mg/dL (8.5-10.1) L 02/29/20 15:10 Total Bilirubin 0.40 mg/dL (0.20-1.00) 02/29/20 15:10 AST 7 U/L (15-37) L 02/29/20 15:10 ALT < 6 U/L (16-61) L 02/29/20 15:10 Alkaline Phosphatase 128 U/L (45-117) H 02/29/20 15:10 Troponin I < 0.015 ng/mL (<0.045) 02/29/20 15:10 Total Protein 7.2 g/dL (6.4-8.2) 02/29/20 15:10 Albumin 3.2 g/dL (3.2-5.0) 02/29/20 15:10 Globulin 4.0 g/dL (2.2-4.2) 02/29/20 15:10 Albumin/Globulin Ratio 0.8 RATIO (0.9-2.4) L 02/29/20 15:10 Urine Color Brown (Yellow) 02/29/20 14:55 Urine Clarity Turbid (Clear) 02/29/20 14:55 Urine pH 5.0 (5.0 - 8.0) 02/29/20 14:55 Ur Specific [place] 1.025 (1.002-1.030) 02/29/20 14:55 Urine Protein 100 mg/dl (Negative) H 02/29/20 14:55 Urine Glucose (UA) Normal mg/dl (Normal) 02/29/20 14:55 Urine Ketones 5 mg/dl (Negative) H 02/29/20 14:55 Urine Occult Blood 250 /ul (Negative) H 02/29/20 14:55 Urine Nitrite Positive (Negative) H 02/29/20 14:55 Urine Bilirubin 1 mg/dL (Negative) H 02/29/20 14:55 Urine Urobilinogen Normal mg/dl (Normal) 02/29/20 14:55 Ur Leukocyte Esterase 500 /ul (Negative) H 02/29/20 14:55 Urine RBC 0 SEEN /hpf (0-5) 02/29/20 14:55 Urine WBC >100 SEEN /hpf (0-5) 02/29/20 14:55 Ur Squamous Epith Cells 0 SEEN /hpf (0-5) 02/29/20 14:55 Urine Bacteria 0 SEEN /hpf (None Seen) 02/29/20 14:55 Urine Mucus 0 SEEN /hpf (<or=2+) 02/29/20 14:55 Clinical Impression(s) from Imaging Studies Chest X-Ray 02/29/20 15:25 IMPRESSION: Degenerative changes, as described above. No demonstrated acute cardiopulmonary process. Electronically Signed: Efrain Davidan, at 15:37 EST Tel , Service support , Abdomen/Pelvis CT 02/29/20 15:59 IMPRESSION: Bilateral abnormal kidney showing numerous renal cysts and renal stones but no evidence for hydronephrosis. No gross acute abnormalities. Electronically Signed: Rosales Rankin MD at 17:02 EST , Service support , - EKG Initial EKG Interpretation: Sinus Rhythm - EKG demonstrates a normal sinus rhythm at a rate of 71. Baseline is limited due to his Parkinson's. I do not see any obvious hyperkalemic changes. - Medical Decision Making My interpretation of the single view portable chest x-ray is no acute disease. Later read by radiology with concurrence. Patient received IV fluids. His creatinine is substantially elevated represent acute renal failure. Potassium 5.2. No obvious EKG changes associated with hyperkalemia. Rapid Covid antigen negative. Urinalysis is grossly infected. Cultures were obtained and the patient received Rocephin. A CT of the abdomen pelvis was performed to rule out obstructive uropathy. Please see radiologist read above for details. Plan is admission into the hospital. ED Disposition - Plan for ED Patient: Disposition: Acute Care Hospital [facility] Diagnosis: Acute renal failure, Acute urinary retention, UTI (urinary tract infection), Hyperkalemia
[2020-02-29 15:39] LABS: White Blood Cells >100 SEEN /hpf (0-5)
[2020-02-29 15:40] LABS: Absolute Lymphocyte Count 0.67 X10^3/uL (0.83-4.51); Absolute Neutrophil Count 4.6 X10^3/uL (2.0-7.7); Basophil# 0.01 X10^3/uL; Basophil% 0.2 % (0-1); Eosinophil# 0.07 X10^3/uL; Eosinophils% 1.2 % (0-5); Hematocrit 35.3 % (40-54); Hemoglobin 10.8 g/dL (13.0-16.5); Lymphocyte # 0.67 X10^3/ul (4.0); Lymphocyte % 11.2 % (19-41); Mean Corp Hgb Conc 30.6 g/dL (32-36); Mean Corpuscular Hgb 32.2 pg (27.0-32.0); Mean Corpuscular Volume 105.4 fL (80-94); Mean Platelet Vol. 12.3 fl (6.2-12.0); Monocyte# 0.56 X10^3/uL; Monocyte% 9.4 % (0-10); NRBC Flagged by Analyzer 0 % (0-5); Neutrophil # 4.63 X10^3/uL (2.7-7.7); Neutrophil % 77.5 % (47-70); Platelet Count 211 K/mm3 (150-450); RBC Distribution Width CV 13.7 % (11.6-14.6); RBC Distribution Width SD 52.3 fl (35.1-43.9); Red Blood Count 3.35 M/mm3 (4.6-6.2)
[2020-02-29 15:56] LABS: Lactic Acid 1.6 mmol/L (0.4-1.9)
[2020-02-29 15:58] LABS: ALB/GLOB Ratio 0.8 RATIO (0.9-2.4); AST(SGOT) 7 U/L (15-37); Alanine Aminotransfer ALT/SGPT < 6 U/L (16-61); Albumin, Serum 3.2 g/dL (3.2-5.0); Alkaline Phosphatase 128 U/L (45-117); Anion Gap 5 (5-15); BUN 82 mg/dL (7-18); BUN/Creat Ratio 9.9 RATIO (10-20); Calcium,Total 8.4 mg/dL (8.5-10.1); Chloride 117 mmol/L (98-107); Creatinine, Serum 8.29 mg/dL (0.70-1.30); EST Glomerular Filtration Rate 7 mL/min (>60); Est Glom Filt Rate - Afr Amer 8 mL/min (>60); Estimated Creatinine Clearance 7.46 ml/min; Glucose 110 mg/dL (74-106); Potassium 5.2 mmol/L (3.5-5.1); Protein, Total 7.2 g/dL (6.4-8.2); Sodium Level 146 mmol/L (136-145)
--- NOTE | 2020-02-29 15:59 | CT_ITS ---
STUDY: CT ABDOMEN AND PELVIS WITHOUT CONTRAST REASON FOR EXAM: Male, 79 years old. ACUTE RENAL FAILURE. CKD. HISTORY OF TBI/LEWY BODY DEMENTIA / PARKINSONS. CURRENT UTI RADIATION DOSAGE (If Supplied By Facility): CTDIvol = ( 32.56 ) mGy, DLP = ( 1850.63 ) mGycm TECHNIQUE: Transaxial images were obtained from the dome of the diaphragm to the symphysis pubis without oral contrast, and without intravenous contrast. Sagittal and coronal images were reconstructed. Individualized dose optimization techniques were used for this CT. COMPARISON: None. FINDINGS: Elevated left hemidiaphragm. Atelectasis and/or scarring in the adjacent right lung base. Images through the abdomen and pelvis are limited by improper positioning of the arms. This causes streak artifact. Normal liver. Normal gallbladder and extrahepatic biliary system. Normal spleen. There is diffuse atrophy of the pancreas. Normal bilateral adrenal glands. Numerous bilateral renal cysts are seen measuring as much as 9 cm. Numerous bilateral renal calcifications are seen some which are nonobstructing renal stones including a 3 cm staghorn calculus in the left upper pole. Other calcifications appear to be parenchymal in nature. No hydronephrosis. Evaluation of the GI tract is limited by absence of oral contrast. Cannot exclude stomach wall thickening. No dilated loops of bowel or evidence for obstruction. Cannot exclude segmental thickening of the miranda of the small or large bowel. Cannot exclude enteritis or colitis. Moderate diffuse fecal retention. Appendix within normal limits. There is diffuse atherosclerotic calcification of the abdominal aorta, without a demonstrated aneurysm. Normal inferior vena cava. Normal retroperitoneum. There is a Mays catheter emptying the bladder. Normal abdominal wall. There are diffuse degenerative changes of the visualized lumbar spine. CT/Abdomen/Pelvis without Cont IMPRESSION: Bilateral abnormal kidney showing numerous renal cysts and renal stones but no evidence for hydronephrosis. No gross acute abnormalities. Electronically Signed: Rosales Rankin MD at 17:02 EST , Service support ,
[2020-02-29 16:04] LABS: Prothrombin Time (Protime)PT. 22.2 SECONDS (11.7-14.9)
[2020-02-29 16:05] LABS: Partial Thromboplast Time 43.4 Seconds (24.1-36.2)
[2020-02-29] MEDS: 0.9% Normal Saline 1,000 ML 999 ML IV (16:42)
--- NOTE | 2020-02-29 17:24 | PCS.PANDOC ---
PANDEMIC DOCUMENTATION INITIATED: Date: 02/29/2020 Time: 0664
--- NOTE | 2020-02-29 17:30 | HP.PCM_ITS ---
<Tomer Roe - Last Filed: 02/29/20 17:30> Problem List (1) UTI (urinary tract infection) Status: Acute (2) Acute renal failure Status: Acute (3) Acute urinary retention Status: Acute (4) Hyperkalemia Status: Acute (5) BPH (benign prostatic hyperplasia) Status: Chronic Qualifiers: Lower urinary tract symptom presence: unspecified whether lower urinary tract symptoms present Qualified Code(s): N40.0 - Benign prostatic hyperplasia without lower urinary tract symptoms (6) Chronic renal failure, stage 3 (moderate) Status: Chronic Qualifiers: Chronic kidney disease stage 3 subtype: unspecified whether 3a or 3b Qualified Code(s): N18.30 - Chronic kidney disease, stage 3 unspecified (7) HTN (hypertension) Status: Chronic Qualifiers: Hypertension type: essential hypertension Qualified Code(s): I10 - Essential (primary) hypertension (8) History of venous thromboembolism Status: Chronic (9) Hx of recurrent transient ischemic attacks Status: Chronic (10) Lewy body dementia Status: Chronic Qualifiers: Dementia behavioral disturbance: without behavioral disturbance Qualified Code(s): G31.83 - Dementia with Lewy bodies; F02.80 - Dementia in other diseases classified elsewhere without behavioral disturbance (11) Hyperkalemia Status: Acute History of Present Illness Date of Admission: 02/29/20 Chief Complaint: confusion The patient is a 79 year old M with pmhx of dementia with lewy bodies, parkinsons, CKDIII, HTN, BPH, DVTs on eliquis, who presented to the ER from assisted living. Yesterday he had urinary retention and found to have UTI. A browning was placed and he was started on cipro. Reportedly he had increased confusion and was sent to the hospital. He has a browning currently that has brown urine in it. The patient does not remember why he is in the ER or recent events. He does answer questions. He denies flank pain, abd pain, fever, chills, cough, sob, nausea, vomiting, diarrhea. He is resting comfortably in bed NAD. He has constant upper ext movements likely 2/2 parkinsons. [] Past Medical History Past Medical History (Chronic Problems): Chronic Problems Lewy body dementia (Chronic) Obesity (Chronic) Parkinsons disease (Chronic) HTN (hypertension) (Chronic) BPH (benign prostatic hyperplasia) (Chronic) Hx of recurrent transient ischemic attacks (Chronic) Chronic renal failure, stage 3 (moderate) (Chronic) Chronic anticoagulation (Chronic) Macrocytic anemia (Chronic) History of venous thromboembolism (Chronic) Allergies Penicillins Allergy (Verified 01/17/20 00:14) Rash Home Medications: Ambulatory Orders Medication Instructions Recorded Cholecalciferol (Vitamin D3) 5,000 unit PO DAILY 11/27/18 [Vitamin D3] Cyanocobalamin (Vitamin B-12) 1,000 mcg PO DAILY 11/27/18 [Vitamin B-12] Finasteride [Proscar] 5 mg PO DAILY 11/27/18 Glucosamine/D3/Boswellia Brenda 1 ea PO DAILY 11/27/18 [Glucosamine Complex-Vit D3 Cpt] Lidocaine [Lidocaine Pain Relief] 1 ea TP Q12H 11/27/18 Tamsulosin HCl [Flomax] 0.8 mg PO DAILY 11/27/18 Verapamil HCl [Verapamil ER] 240 mg PO DAILY 11/27/18 traMADol [Ultram] 50 mg PO TID 3 Days #10 tab 12/02/18 Apixaban [Eliquis] 5 mg PO BID 02/29/20 Carbidopa/Levodopa/Entacapone 2 tab PO DAILY 02/29/20 [Carbidopa-Levodopa 200 mg-Enta] Ciprofloxacin [Cipro] 500 mg PO BID 02/29/20 Gabapentin [Neurontin] 100 mg PO BIDCM 02/29/20 Lactose-Reduced Food [Boost Breeze] 237 ml PO TID 02/29/20 Memantine Hydrochloride [Namenda] 10 mg PO BID 02/29/20 Oxybutynin Chloride [Oxybutynin 10 mg PO QHS 02/29/20 Chloride ER] Surgical History: - - Status post craniotomy. Psychiatric History: Depression Lives: Correction Smoking Status: Former smoker Drugs: None - *Family History Maternal History Items: - - Patient with severe underlying dementia, unable to give any maternal or paternal family history. Paternal History Items: - - Patient with severe underlying dementia, unable to give any maternal or paternal family history. Review of Systems Constitutional: Denies: Chills, Fever, Weight Change HEENT: Denies: Head Aches, Sinus Congestion, Sinus Drainage Cardiovascular: Denies: Chest Pain, Palpitations Respiratory: Denies: Cough, Shortness of breath at rest, Sputum production Gastrointestinal: Denies: Abdominal Pain, Nausea, Vomiting Genitourinary: Reports: Retention. Denies: Dysuria, Frequency Musculoskeletal: Denies: Joint Pain, Joint Tenderness, Muscle pain Skin: Denies: Lesions, Rash, Wounds Neurological: Reports: Confusion. Denies: Focal weakness, Numbness, Tingling Psychiatric: Denies: Anxiety, Depression, Homicidal Ideations, Suicidal Ideations Hematologic/ Lymphatic: Denies: Easy Bruising, Easy Bleeding VTE Information - Inpt Only VTE Present on Admission: No VTE Mechan Device Prophylaxis: None VTE Pharm Prophylaxis ordered?: Yes Patient Problems: Active and Suspected Problems Acute renal failure (Acute) Acute urinary retention (Acute) UTI (urinary tract infection) (Acute) Hyperkalemia (Acute) Hyperkalemia (Acute) - Physical Exam Vitals/I&O's: Vital Signs Temp Pulse Resp BP Pulse Ox 96.4 F L 78 24 H 101/62 93 02/29/20 17:24 02/29/20 17:24 02/29/20 17:24 02/29/20 17:24 02/29/20 17:24 Oxygen Flow Rate (L/min) 2 Oxygen Delivery Method Nasal Cannula Weight: 248 lb 3.848 oz Body Mass Index (BMI) 35.6 Intake and Output for Last 24 Hours 02/27/20 02/28/20 02/29/20 23:59 23:59 23:59 Intake Total 50 / 50 Balance 50 / 50 General: Alert, Cooperative HEENT: Atraumatic, PERRLA, EOMI, Normocephalic Neck: Supple, No JVD, Negative Carotid Bruits Lungs: Clear to auscultation, Normal air movement Cardiovascular: Regular rate, No murmurs Abdomen: Bowel Sounds Present, Soft, Non Tender Extremities: No edema, Capillary Refill Less than 3 Seconds Skin: No rashes, No breakdown Musculoskeletal: No Tenderness to Palpation of Joints or Extremities Neurological: Cranial nerves II-XII grossly intact, - - upper extremity tremor, constant movement Psych/Mental Status: Normal Affect, Appropriate Comment: browning brown cloudy urine Laboratory Results 02/29/20 14:55: Urine Color Brown, Urine Clarity Turbid, Urine pH 5.0, Ur Specific [place] 1.025, Urine Protein 100 H, Urine Glucose (UA) Normal, Urine Ketones 5 H, Urine Occult Blood 250 H, Urine Nitrite Positive H, Urine Bilirubin 1 H, Urine Urobilinogen Normal, Ur Leukocyte Esterase 500 H, Urine RBC 0 SEEN, Urine WBC >100 SEEN, Ur Squamous Epith Cells 0 SEEN, Urine Bacteria 0 SEEN, Urine Mucus 0 SEEN 02/29/20 15:10: WBC 6.0, RBC 3.35 L, Hgb 10.8 L, Hct 35.3 L, MCV 105.4 H, MCH 32.2 H, MCHC 30.6 L, RDW Std Deviation 52.3 H, RDW Coeff of [place] 13.7, Plt Count 211, MPV 12.3 H, Immature Gran % (Auto) 0.500, Neut % (Auto) 77.5 H, Lymph % (Auto) 11.2 L, [place] % (Auto) 9.4, Eos % (Auto) 1.2, Baso % (Auto) 0.2, Absolute Neuts (auto) 4.6, Absolute Lymphs (auto) 0.67 L, Nucleated RBC % 0 02/29/20 15:10: PT 22.2 H, INR 2.0, APTT 43.4 H 02/29/20 15:10: Sodium 146 H, Potassium 5.2 H, Chloride 117 H, Carbon Dioxide 24.0, Anion Gap 5, BUN 82 H, Creatinine 8.29 H*, Estim Creat Clear Calc 7.46, Est GFR (MDRD) Af Amer 8 L, Est GFR (MDRD) Non-Af 7 L, BUN/Creatinine Ratio 9.9 L, Glucose 110 H, Calcium 8.4 L, Total Bilirubin 0.40, AST 7 L, ALT < 6 L, Alkaline Phosphatase 128 H, Troponin I < 0.015, Total Protein 7.2, Albumin 3.2, Globulin 4.0, Albumin/Globulin Ratio 0.8 L 02/29/20 15:10: Lactic Acid 1.6 02/29/20 15:10: Total Creatine Kinase Pending Current Medications Sodium Chloride () 1,000 mls @ 150 mls/hr IV .Q6H40M HARDIK Last Admin: 02/29/20 15:20 Dose: 150 mls/hr Documented by: Sodium Chloride () 1,000 mls @ 999 mls/hr IV .Q1H1M ONE Stop: 02/29/20 17:41 Last Admin: 02/29/20 16:42 Dose: 999 mls/hr Documented by: Sodium Chloride (0.9% Saline Lock 10 Ml Syringe) 10 - 40 ml IV UD PRN PRN Reason: SALINE FLUSH Assessment/Plan All Active Problems Acute renal failure (Acute) Acute urinary retention (Acute) UTI (urinary tract infection) (Acute) HCAP (healthcare-associated pneumonia) (Resolved) Hyperkalemia (Acute) Hyperkalemia (Acute) Acute kidney injury superimposed on CKD (Acute) 1. UTI - recurrent - hx Enterococcus faecalis UTI. Susceptible to ampicillin, zyvox, vanco, macrobid, tetracycline. stop cipro. start vanco/cefepime while awaiting cx results. Lactate neg, afebrile. CT abdomen with renal stones and cysts, no hydronephrosis, no flank tenderness or abd pain. CXR negative. Culture blood and urine. 2. SAMMI 2/2 above, dehydration, and urinary retention - markedly elevated BUN/Cr. Bun/Cr ration low, will check FeNa. Urine very dark brown initially. Mild hyperkalemia - hydrate with IVF and recheck. Will also check CPK, may have some degree of rhabdo contributing. 3. Acute metabolic encephalopathy - reportedly increased confusion at assisted living, however he is also very confused at baseline. This is likely related to SAMMI and UTI. Hold gabapentin 4. Dementia with lewy bodies - continue namenda 5. Hx DVT - eliquis --> renal dose 6. Chronic macrocytic anemia - not significantly below baseline - trend. 7. Chronic hypernatremia - unclear etiology - hydrate with IVF, if this remains increased switch to hypotonic crystalloid. 8. Hx BPH - continue flomax and proscar. 9. Parkinson - upper extremity tremor. continue carbidopa/levodopa/entacapone. 10. HTN - verapamil DVT ppx: eliquis, also inr is 2.0 for unclear reasons. platelets normal DC planning: SNF vs return to [place] This patient was seen by Tomer Roe PA-C under the supervision of Dr. Vernon <Radha Vernon - Last Filed: 02/29/20 20:39> History of Present Illness I agree with the above and the following is a reflection of my independent history and exam Mr Cisneros is a 79 year old M presented to the ED from the [facility] today with increased confusion. He had urinary retention yesterday and a browning was placed. He was started on CIPRO at that time. Today he was more confused so he was sent to the ED. He has a browning in place that is putting out very concentrated murky urine. He is not able to give much history and answers no to all ROS. COVID was negative in the ED. His VS are stable. His lab show a chronic stable macrocytic anemia, and INR of 2 an Na of 146, K of 5.2, Cl of 117 with a normal AG and HCO3 but a sCr of 8.29. His baseline sCr is 1.5-2 per review of lab work. CT of his abdomen does not show hydro on pyelo. UA shows + nitrites and leuk esterase with > 100 WBC noted. Past Medical History Allergies Penicillins Allergy (Verified 01/17/20 00:14) Rash Alcohol: None Review of Systems Unable to obtain accurate/complete ROS d/t: pt unable to give a reliable history and answers no to all questions asked VTE Information - Inpt Only VTE Pharm Prophylaxis ordered?: Yes - Physical Exam Vitals/I&O's: Vital Signs Temp Pulse Resp BP Pulse Ox 96.4 F L 80 24 H 101/62 93 02/29/20 17:24 02/29/20 18:26 02/29/20 17:24 02/29/20 17:24 02/29/20 17:24 Oxygen Flow Rate (L/min) 2 Oxygen Delivery Method Room Air Weight: 106.8 kg Body Mass Index (BMI) 33.7 Intake and Output for Last 24 Hours 02/27/20 02/28/20 02/29/20 23:59 23:59 23:59 Intake Total 1050 / 1050 Output Total 500 / 500 Balance 550 / 550 General: Alert, Oriented x3, Cooperative, No apparent distress, Well developed, Well nourished HEENT: Atraumatic, PERRLA, EOMI, Normocephalic Oral: No Gingival or Mucosal Lesions/ Ulcerations, Dry Mucosa Neck: Supple, No JVD, Negative Carotid Bruits, Trachea Midline, Thyroid Normal Size and Texture Lungs: Clear to auscultation, Normal air movement, No rhonchi, No wheeze, No rales Cardiovascular: Regular rate, Regular Rhythm, Normal S1, Normal S2, No murmurs, No Ectopic Activity, No rub noted, No Gallop Abdomen: Bowel Sounds Present, Soft, Non Tender, Non-Distended Extremities: No clubbing, No cyanosis, No edema, Capillary Refill Less than 3 Seconds, Peripheral Pulses Normal Skin: No rashes, No breakdown, - - pale Musculoskeletal: No Tenderness to Palpation of Joints or Extremities, Muscle Wasting Neurological: Deep Tendon Reflexes 2+/4 and Symmetrical, - - upper extremity tremor, constant movement, difficult to do a good eval 2/2 MS Microbiology Past 72 Hours 02/29/20 16:25 Mucosa - Nasopharyngeal SARS-CoV-2 Antigen (Rapid) - Final Laboratory Results 02/29/20 14:55: Urine Color Brown, Urine Clarity Turbid, Urine pH 5.0, Ur Specific [place] 1.025, Urine Protein 100 H, Urine Glucose (UA) Normal, Urine Ketones 5 H, Urine Occult Blood 250 H, Urine Nitrite Positive H, Urine Bilirubin 1 H, Urine Urobilinogen Normal, Ur Leukocyte Esterase 500 H, Urine RBC 0 SEEN, Urine WBC >100 SEEN, Ur Squamous Epith Cells 0 SEEN, Urine Bacteria 0 SEEN, Urine Mucus 0 SEEN 02/29/20 15:10: WBC 6.0, RBC 3.35 L, Hgb 10.8 L, Hct 35.3 L, MCV 105.4 H, MCH 32.2 H, MCHC 30.6 L, RDW Std Deviation 52.3 H, RDW Coeff of [place] 13.7, Plt Count 211, MPV 12.3 H, Immature Gran % (Auto) 0.500, Neut % (Auto) 77.5 H, Lymph % (Auto) 11.2 L, [place] % (Auto) 9.4, Eos % (Auto) 1.2, Baso % (Auto) 0.2, Absolute Neuts (auto) 4.6, Absolute Lymphs (auto) 0.67 L, Nucleated RBC % 0 02/29/20 15:10: PT 22.2 H, INR 2.0, APTT 43.4 H 02/29/20 15:10: Sodium 146 H, Potassium 5.2 H, Chloride 117 H, Carbon Dioxide 24.0, Anion Gap 5, BUN 82 H, Creatinine 8.29 H*, Estim Creat Clear Calc 7.46, Est GFR (MDRD) Af Amer 8 L, Est GFR (MDRD) Non-Af 7 L, BUN/Creatinine Ratio 9.9 L, Glucose 110 H, Calcium 8.4 L, Total Bilirubin 0.40, AST 7 L, ALT < 6 L, Alkaline Phosphatase 128 H, Troponin I < 0.015, Total Protein 7.2, Albumin 3.2, Globulin 4.0, Albumin/Globulin Ratio 0.8 L 02/29/20 15:10: Lactic Acid 1.6 02/29/20 15:10: Total Creatine Kinase 86 Current Medications Calamine/Phenol (Menthol/Lanolin/Calamine/Znox 113 Gm Tube) 1 applic TOPICAL BID HARDIK; Protocol Sodium Chloride () 1,000 mls @ 150 mls/hr IV .Q6H40M HARDIK Last Admin: 02/29/20 15:20 Dose: 150 mls/hr Documented by: Nutritional Formula (Lactose Free) (Ensure Enlive 120 Ml Liquid) 120 ml PO 4X/DAY HARDIK Sodium Chloride (0.9% Saline Lock 10 Ml Syringe) 10 - 40 ml IV UD PRN PRN Reason: SALINE FLUSH Assessment/Plan ASSESSMENT UTI Metabolic Encephalopathy-multifactorial SAMMI on CKD stage 3 Dehydration H/O DVT Chronic Macrocytic Anemia Hypernatremia Hyperchloremia Parkinson's Lewy Body Dementia BPH HTN Obesity PLAN Admit to [place] Cefepime and Vanc x 1 dose since from [facility] -random vanc level in am IVF at 150 cc/hr -if renal function not improving with hydration would work up further and consult Nephro Urine cx/Blood cx pending D/C eliquis--> will use heparin ggt for now with h/o DVT until renal function is better Maintain Browning MS should return to baseline once infection improved and sCr improved DNR-CCA no ETT Inpatient E&M: [id number] Init Hosp L3
[2020-02-29 18:08] LABS: CPK Total, Creatine Kinase 86 U/L (39-308)
[2020-02-29] MEDS: Menthol/Lanolin/Calamine/Znox 113 GM Tube 1 APPLIC TOPICAL (21:43)
[2020-02-29] MEDS: 0.9% Saline Lock 10 ML Syringe IV ×2 (22:13→22:26)
[2020-02-29] MEDS: Heparin Injection (Vial) 5,000 UNIT/ML VIAL 8000 UNIT IV (22:21)
[2020-02-29] MEDS: HEPARIN/D5w 25,000 UNITS 25,000 UNITS/250 ML IV.SOLN. 15 UNITS IV (22:22)
[2020-02-29] MEDS: Memantine Hydrochloride 10 MG Tablet PO (22:37)
[2020-02-29] MEDS: Tolterodine Tartrate 2 MG CAP.SA PO (22:37)
[2020-03-01] VITALS (7 sets, daily range): BP systolic 97–123; BP diastolic 58–71; PULSE 63–72; RESP 16–18; TEMP 36.6; O2SAT 94–97
[2020-03-01 04:48] LABS: Absolute Lymphocyte Count 0.98 X10^3/uL (0.83-4.51); Absolute Neutrophil Count 3.5 X10^3/uL (2.0-7.7); Basophil# 0.02 X10^3/uL; Basophil% 0.4 % (0-1); Eosinophil# 0.26 X10^3/uL; Eosinophils% 4.8 % (0-5); Hematocrit 32.2 % (40-54); Hemoglobin 9.8 g/dL (13.0-16.5); Lymphocyte # 0.98 X10^3/ul (4.0); Lymphocyte % 17.9 % (19-41); Mean Corp Hgb Conc 30.4 g/dL (32-36); Mean Corpuscular Hgb 31.8 pg (27.0-32.0); Mean Corpuscular Volume 104.5 fL (80-94); Monocyte# 0.73 X10^3/uL; Monocyte% 13.4 % (0-10); NRBC Flagged by Analyzer 0 % (0-5); Neutrophil # 3.45 X10^3/uL (2.7-7.7); Neutrophil % 63.1 % (47-70); Platelet Count 183 K/mm3 (150-450); RBC Distribution Width CV 13.7 % (11.6-14.6); RBC Distribution Width SD 52.9 fl (35.1-43.9); Red Blood Count 3.08 M/mm3 (4.6-6.2); White Blood Count 5.5 K/mm3 (4.4-11.0)
[2020-03-01 05:12] LABS: Partial Thromboplast Time > 250.0 Seconds (24.1-36.2)
[2020-03-01 05:16] LABS: Vancomycin, Random Level 18.7 ug/mL (0.0-15.0)
[2020-03-01 05:32] LABS: ALB/GLOB Ratio 0.8 RATIO (0.9-2.4); AST(SGOT) 10 U/L (15-37); Alanine Aminotransfer ALT/SGPT < 6 U/L (16-61); Albumin, Serum 2.7 g/dL (3.2-5.0); Alkaline Phosphatase 106 U/L (45-117); Anion Gap 4 (5-15); BUN 75 mg/dL (7-18); BUN/Creat Ratio 11.1 RATIO (10-20); Calcium,Total 7.7 mg/dL (8.5-10.1); Chloride 123 mmol/L (98-107); Creatinine, Serum 6.75 mg/dL (0.70-1.30); EST Glomerular Filtration Rate 8 mL/min (>60); Est Glom Filt Rate - Afr Amer 10 mL/min (>60); Estimated Creatinine Clearance 9.16 ml/min; Globulin 3.5 g/dL (2.2-4.2); Glucose 76 mg/dL (74-106); Magnesium 2.4 mg/dL (1.6-2.6); Phosphorus 4.6 mg/dL (2.5-4.9); Potassium 4.7 mmol/L (3.5-5.1); Protein, Total 6.2 g/dL (6.4-8.2); Sodium Level 148 mmol/L (136-145)
--- NOTE | 2020-03-01 08:48 | CASEMGMT ---
Addendum entered by Alexandra Louis 03/01/20 16:22: SANJANA updated Charge Nurse that pt's COVID test will need to be done within 72 hours of discharge. Pt had COVID test done yesterday. Addendum entered by Alexandra Louis 03/01/20 12:20: Pt has increased confusion, confused at baseline. SANJANA placed a call to pt's Almita. Almita confirms pt is from [facility] and plan is for pt to return at discharge. SANJANA updated Almita that pt is not medically ready for discharge today. SANJANA faxed updated clinicals to [facility], wrote on fax coversheet pt is not ready for discharge today. SANJANA placed green sheet, COVID screening tool and transport form on pt's chart. Plan: Return to [facility] when medically cleared Original Note: Social Work Note Pt is listed as being from [facility]. SANJANA placed a call to Annika at [facility]. 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 Plan: Return to [facility] Alexandra Louis VERIFICATION SPECIALIST, SUPERVISING CHEF
[2020-03-01] MEDS: Menthol/Lanolin/Calamine/Znox 113 GM Tube 1 APPLIC TOPICAL ×2 (09:38→21:57)
[2020-03-01] MEDS: Lidocaine 5% Patch 1 PATCH TOPICAL (12:26)
[2020-03-01] MEDS: 0.9% Saline Lock 10 ML Syringe IV ×2 (12:27→13:57)
[2020-03-01] MEDS: 0.9% Normal Saline 1,000 ML 150 ML IV (13:50)
[2020-03-01 14:24] LABS: Partial Thromboplast Time 176.2 Seconds (24.1-36.2)
--- NOTE | 2020-03-01 16:18 | PCM.PN.HOSP ---
Patient Problems: Active and Suspected Problems Acute renal failure (Acute) Acute urinary retention (Acute) UTI (urinary tract infection) (Acute) Hyperkalemia (Acute) Hyperkalemia (Acute) Reason for Visit: Follow-up for confusion, hypernatremia and acute kidney injury. Objective: Seen and examined. Patient has history of Lewy body dementia and alertness and awareness level fluctuates. To me he seems on his baseline mental function but as per nursing staff he was confused in the morning and yesterday. Patient said he is admitted with Mays catheter. Physical exam General: Mild lethargic, disoriented to date but aware of month, place, person. HEENT: Atraumatic, PERRLA, EOMI, Normocephalic Oral: No Gingival or Mucosal Lesions/ Ulcerations Neck: Supple, No JVD, Negative Carotid Bruits Lungs: Air entry diminished in bilateral lung bases. No crepitation/rhonchi Cardiovascular: Regular rate, Regular Rhythm, Normal S1, Normal S2, No murmurs Abdomen: Bowel Sounds Present, Soft, Non Tender, Non-Distended : Indwelling Mays catheter. Urine is dark yellow. No renal angle tenderness. No suprapubic tenderness. Extremities: No edema, Capillary Refill Less than 3 Seconds Skin: No rashes, No breakdown Musculoskeletal: No Tenderness to Palpation of Joints or Extremities Neurological: Cranial nerves II-XII grossly intact, Deep Tendon Reflexes 2+/4 and Symmetrical, Neuro grossly intact Psych/Mental Status: Normal Affect, Appropriate. Vitals/I&O's: Vital Signs Temp Pulse Resp BP Pulse Ox 97.9 F 70 16 97/63 94 03/01/20 14:03 03/01/20 14:07 03/01/20 14:03 03/01/20 14:03 03/01/20 14:03 Oxygen Flow Rate (L/min) 2 Oxygen Delivery Method Nasal Cannula Weight: 235 lb 7.259 oz Body Mass Index (BMI) 33.7 Intake and Output for Last 24 Hours 02/28/20 02/29/20 03/01/20 23:59 23:59 23:59 Intake Total 2267.5 / 2267.5 1648.95 / 1648.95 Output Total 500 / 500 1175 / 1175 Balance 1767.5 / 1767.5 473.95 / 473.95 Microbiology Past 72 Hours 02/29/20 14:55 Urine Catheter - Mays Urine Culture - Preliminary GNR lactose ornament setter 02/29/20 16:25 Mucosa - Nasopharyngeal SARS-CoV-2 Antigen (Rapid) - Final Laboratory Results 02/29/20 14:55: Urine Color Brown, Urine Clarity Turbid, Urine pH 5.0, Ur Specific [place] 1.025, Urine Protein 100 H, Urine Glucose (UA) Normal, Urine Ketones 5 H, Urine Occult Blood 250 H, Urine Nitrite Positive H, Urine Bilirubin 1 H, Urine Urobilinogen Normal, Ur Leukocyte Esterase 500 H, Urine RBC 0 SEEN, Urine WBC >100 SEEN, Ur Squamous Epith Cells 0 SEEN, Urine Bacteria 0 SEEN, Urine Mucus 0 SEEN 02/29/20 15:10: Total Creatine Kinase 86 03/01/20 04:26: WBC 5.5, RBC 3.08 L, Hgb 9.8 L, Hct 32.2 L, MCV 104.5 H, MCH 31.8, MCHC 30.4 L, RDW Std Deviation 52.9 H, RDW Coeff of [place] 13.7, Plt Count 183, MPV 12.0, Immature Gran % (Auto) 0.400, Neut % (Auto) 63.1, Lymph % (Auto) 17.9 L, [place] % (Auto) 13.4 H, Eos % (Auto) 4.8, Baso % (Auto) 0.4, Absolute Neuts (auto) 3.5, Absolute Lymphs (auto) 0.98, Nucleated RBC % 0 03/01/20 04:26: Sodium 148 H, Potassium 4.7, Chloride 123 H, Carbon Dioxide 21.0, Anion Gap 4 L, BUN 75 H, Creatinine 6.75 H, Estim Creat Clear Calc 9.16, Est GFR (MDRD) Af Amer 10 L, Est GFR (MDRD) Non-Af 8 L, BUN/Creatinine Ratio 11.1, Glucose 76, Calcium 7.7 L, Phosphorus 4.6, Magnesium 2.4, Total Bilirubin 0.40, AST 10 L, ALT < 6 L, Alkaline Phosphatase 106, Total Protein 6.2 L, Albumin 2.7 L, Globulin 3.5, Albumin/Globulin Ratio 0.8 L 03/01/20 04:26: Random Vancomycin 18.7 H 03/01/20 04:26: APTT > 250.0 H* 03/01/20 14:05: APTT 176.2 H* Current Medications Acetaminophen (Acetaminophen 325 Mg Tablet) 650 mg PO Q6H PRN PRN PRN Reason: Pain Score 1-10/Temp > 100.7 F Calamine/Phenol (Menthol/Lanolin/Calamine/Znox 113 Gm Tube) 1 applic TOPICAL BID [facility]; Protocol Last Admin: 03/01/20 09:38 Dose: 1 applic Documented by: Carbidopa/Levodopa/Entacapone (Carbidopa/Levodopa/Entacapone 200) 2 tab PO DAILY [facility] Last Admin: 03/01/20 09:39 Dose: Not Given Documented by: Finasteride (Finasteride 5 Mg Tablet) 5 mg PO DAILY [facility] Last Admin: 03/01/20 09:39 Dose: Not Given Documented by: Gabapentin (Gabapentin 100 Mg Capsule) 100 mg PO BIDCM [facility] Last Admin: 03/01/20 09:08 Dose: Not Given Documented by: Heparin Sodium (Porcine) (Heparin Injection (Vial) 5,000 Unit/Ml Vial) 0 unit IV UD PRN; Protocol PRN Reason: dose adjustment Cefepime HCl 2 gm/ Sodium (Chloride) 100 mls @ 200 mls/hr IV QHS [facility] Last Infusion: 02/29/20 22:41 Dose: Infused Documented by: Heparin Sodium/Dextrose () 25,000 units in 250 mls @ 15 mls/hr IV .[id number] [facility]; Protocol Last Admin: 03/01/20 14:40 Dose: Not Given Documented by: Sodium Chloride () 1,000 mls @ 150 mls/hr IV .[id number] [facility] Stop: 03/01/20 19:39 Last Admin: 03/01/20 13:50 Dose: 150 mls/hr Documented by: Lidocaine (Lidocaine 5% Patch) 1 patch TOPICAL DAILY [facility]; Protocol Last Admin: 03/01/20 12:26 Dose: 1 patch Documented by: Memantine (Memantine Hydrochloride 10 Mg Tablet) 10 mg PO BID [facility] Last Admin: 03/01/20 09:39 Dose: Not Given Documented by: Nutritional Formula (Lactose Free) (Ensure Enlive 120 Ml Liquid) 120 ml PO 4X/DAY [facility] Last Admin: 03/01/20 13:57 Dose: Not Given Documented by: Ondansetron HCl (Ondansetron 4 Mg/2 Ml Vial) 4 mg IV Q8H PRN PRN PRN Reason: NAUSEA/VOMITING Sodium Chloride (0.9% Saline Lock 10 Ml Syringe) 10 - 40 ml IV UD PRN PRN Reason: SALINE FLUSH Last Admin: 03/01/20 13:57 Dose: 10 ml Documented by: Tamsulosin HCl (Tamsulosin Hcl 0.4 Mg Capsule) 0.8 mg PO DAILY [facility] Last Admin: 03/01/20 09:39 Dose: Not Given Documented by: Tolterodine Tartrate (Tolterodine Tartrate 2 Mg Cap.Sa) 2 mg PO QHS [facility] Last Admin: 02/29/20 22:37 Dose: 2 mg Documented by: Verapamil HCl (Verapamil Sr 240 Mg Tablet) 240 mg PO DAILY [facility] Last Admin: 03/01/20 09:38 Dose: Not Given Documented by: STROKE Vital Signs/Narrative: Vital Signs Temp Pulse Resp BP Pulse Ox 03/01/20 14:07 70 03/01/20 14:03 97.9 F 63 16 97/63 94 Medical Necessity - Tobacco Use Smoking Status: Former smoker Assessment/Plan All Active Problems Acute renal failure (Acute) Acute urinary retention (Acute) UTI (urinary tract infection) (Acute) HCAP (healthcare-associated pneumonia) (Resolved) Hyperkalemia (Acute) Hyperkalemia (Acute) Acute kidney injury superimposed on CKD (Acute) This is a 79-year-old with history of dementia with Lewy body, Parkinson's disease, CKD stage III, hypertension of BPH and DVT on Eliquis was admitted from assisted living for urine retention, confusion, labs consistent with SAMMI on CKD stage III. 1. Bacterial colonization- hx Enterococcus faecalis UTI. Patient is being admitted on MedSurg floor. Previous urine culture reviewed patient has history of Enterococcus faecalis UTI in October 2018 and then GNR lactose ornament setter and Enterococcus colonization. This time urine culture preliminary shows gram-negative amirah lactose ornament setter 50,000 20,000 colonies. She does not have fever chills, nausea, vomiting or diarrhea. UA shows more than a WBC, pyuria and LE 500, positive nitrite. Prickly patient on antibiotic cefepime and will wait for final culture. Her score with 2 antigen negative. Blood cultures x2 are pending. Patient was on Cipro in assisted facility. 2. SAMMI on CKD stage III secondary to dehydration urine retention. Patient has indwelling Mays catheter. Dark urine./Creatinine shows improvement. Continue IV fluid normal saline. Repeat BMP in the evening and adjust IV fluid accordingly. Clinically, patient is still dehydrated. CT abdomen shows bilateral abnormal kidneys showing numerous cysts, largest mid measuring 9 cm and bilateral nephrolithiasis, nonobstructive renal stone, 3 cm staghorn calculus in left upper pole but no evidence of hydronephrosis. Allergy consult. 3. Acute metabolic encephalopathy -seems most likely metabolic encephalopathy. Continue IV fluid hydration and treat the underlying disorder. 4. Dementia with lewy bodies - continue namenda 5. Hx DVT -currently patient is on IV heparin drip secondary to kidney failure. When kidney function returns normal will be back on Eliquis. 6. Chronic macrocytic anemia - not significantly below baseline - trend. 7. Chronic hypernatremia, unclear etiology was most likely dehydration. 8. Hx BPH - continue flomax and proscar. 9. Parkinson - upper extremity tremor. continue carbidopa/levodopa/entacapone. 10. HTN - verapamil DVT ppx: As mentioned above DC planning: SNF vs return to assisted living Inpatient E&M: [id number] Subs Hosp L2
--- NOTE | 2020-03-01 16:36 | NURSING ---
Heparin rate change verified by Nicole Quintero RN.
[2020-03-01] MEDS: Gabapentin 100 MG Capsule PO (17:19)
--- NOTE | 2020-03-01 18:14 | CON.PCM_ITS ---
Consultation - Renal 03/01/20 PCP/ Referring MD: Requesting physician: [] Primary care physician: Dr. Omar Peña MD Reason for Consultation:: sammi - History of Present Illness History of Present Illness: The patient is a 79 year old M with a past medical history of dementia with Lewy bodies Parkinson CKD stage III hypertension BPH DVTs on Eliquis who presented to the emergency room from the assisted living facilities. He also had some urinary retention and was started on treatment for UTI with ciprofloxacin and a Mays catheter was placed. The patient is mumbling and we cannot obtain any review of systems. The Mays catheter is in place. The patient serum creatinine was 1.55 in December from initial creatinine of 3 on that admission. His serum creatinine yesterday was 8.2 but it improved to 6 range with IV fluids. - Allergies Allergies: Allergies Penicillins Allergy (Verified 01/17/20 00:14) Rash - Current Medications Current Medications: Current Medications Acetaminophen (Acetaminophen 325 Mg Tablet) 650 mg PO Q6H PRN PRN PRN Reason: Pain Score 1-10/Temp > 100.7 F Calamine/Phenol (Menthol/Lanolin/Calamine/Znox 113 Gm Tube) 1 applic TOPICAL BID [facility]; Protocol Last Admin: 03/01/20 09:38 Dose: 1 applic Documented by: Carbidopa/Levodopa/Entacapone (Carbidopa/Levodopa/Entacapone 200) 2 tab PO DAILY [facility] Last Admin: 03/01/20 09:39 Dose: Not Given Documented by: Finasteride (Finasteride 5 Mg Tablet) 5 mg PO DAILY [facility] Last Admin: 03/01/20 09:39 Dose: Not Given Documented by: Gabapentin (Gabapentin 100 Mg Capsule) 100 mg PO BIDCM [facility] Last Admin: 03/01/20 17:19 Dose: 100 mg Documented by: Heparin Sodium (Porcine) (Heparin Injection (Vial) 5,000 Unit/Ml Vial) 0 unit IV UD PRN; Protocol PRN Reason: dose adjustment Cefepime HCl 2 gm/ Sodium (Chloride) 100 mls @ 200 mls/hr IV QHS [facility] Last Infusion: 02/29/20 22:41 Dose: Infused Documented by: Heparin Sodium/Dextrose () 25,000 units in 250 mls @ 15 mls/hr IV .[id number] [facility]; Protocol Last Titration: 03/01/20 16:32 Dose: 900 units/hr, 9 mls/hr Documented by: Sodium Chloride () 1,000 mls @ 150 mls/hr IV .[id number] [facility] Stop: 03/01/20 19:39 Last Admin: 03/01/20 13:50 Dose: 150 mls/hr Documented by: Lidocaine (Lidocaine 5% Patch) 1 patch TOPICAL DAILY [facility]; Protocol Last Admin: 03/01/20 12:26 Dose: 1 patch Documented by: Memantine (Memantine Hydrochloride 10 Mg Tablet) 10 mg PO BID [facility] Last Admin: 03/01/20 09:39 Dose: Not Given Documented by: Nutritional Formula (Lactose Free) (Ensure Enlive 120 Ml Liquid) 120 ml PO 4X/DAY [facility] Last Admin: 03/01/20 17:41 Dose: 120 ml Documented by: Ondansetron HCl (Ondansetron 4 Mg/2 Ml Vial) 4 mg IV Q8H PRN PRN PRN Reason: NAUSEA/VOMITING Sodium Chloride (0.9% Saline Lock 10 Ml Syringe) 10 - 40 ml IV UD PRN PRN Reason: SALINE FLUSH Last Admin: 03/01/20 13:57 Dose: 10 ml Documented by: Tamsulosin HCl (Tamsulosin Hcl 0.4 Mg Capsule) 0.8 mg PO DAILY [facility] Last Admin: 03/01/20 09:39 Dose: Not Given Documented by: Tolterodine Tartrate (Tolterodine Tartrate 2 Mg Cap.Sa) 2 mg PO QHS [facility] Last Admin: 02/29/20 22:37 Dose: 2 mg Documented by: Verapamil HCl (Verapamil Sr 240 Mg Tablet) 240 mg PO DAILY [facility] Last Admin: 03/01/20 09:38 Dose: Not Given Documented by: - Past Medical History Past Medical History (Chronic Problems): Chronic Problems Lewy body dementia (Chronic) Obesity (Chronic) Parkinsons disease (Chronic) HTN (hypertension) (Chronic) BPH (benign prostatic hyperplasia) (Chronic) Hx of recurrent transient ischemic attacks (Chronic) Chronic renal failure, stage 3 (moderate) (Chronic) Chronic anticoagulation (Chronic) Macrocytic anemia (Chronic) History of venous thromboembolism (Chronic) - Past Surgical History Surgical History: - - Status post craniotomy. - Social History Smoking Status: Former smoker Alcohol: None Drugs: None - Family History Maternal History Items: - - Patient with severe underlying dementia, unable to give any maternal or paternal family history. Paternal History Items: - - Patient with severe underlying dementia, unable to give any maternal or paternal family history. Patient Problems: Active and Suspected Problems Acute renal failure (Acute) Acute urinary retention (Acute) UTI (urinary tract infection) (Acute) Hyperkalemia (Acute) Hyperkalemia (Acute) - Physical Exam Vitals/I&O's: Vital Signs Temp Pulse Resp BP Pulse Ox 97.9 F 70 16 97/63 94 03/01/20 14:03 03/01/20 14:07 03/01/20 14:03 03/01/20 14:03 03/01/20 17:33 Oxygen Flow Rate (L/min) 2 Oxygen Delivery Method Nasal Cannula Weight: 106.8 kg Body Mass Index (BMI) 33.7 Intake and Output for Last 24 Hours 02/28/20 02/29/20 03/01/20 23:59 23:59 23:59 Intake Total 2267.5 / 2267.5 1648.95 / 1648.95 Output Total 500 / 500 1175 / 1175 Balance 1767.5 / 1767.5 473.95 / 473.95 General: No apparent distress, Well developed HEENT: Atraumatic, Normocephalic Neck: Supple, Trachea Midline Lungs: Clear to auscultation, Normal air movement Cardiovascular: Regular rate, Regular Rhythm, Normal S1, Normal S2 Abdomen: Bowel Sounds Present, Obese Extremities: No edema Microbiology Past 72 Hours 02/29/20 14:55 Urine Catheter - Mays Urine Culture - Preliminary GNR lactose care transition mgr 02/29/20 16:25 Mucosa - Nasopharyngeal SARS-CoV-2 Antigen (Rapid) - Final Laboratory Results 02/29/20 14:55: Urine Color Brown, Urine Clarity Turbid, Urine pH 5.0, Ur Specific [place] 1.025, Urine Protein 100 H, Urine Glucose (UA) Normal, Urine Ketones 5 H, Urine Occult Blood 250 H, Urine Nitrite Positive H, Urine Bilirubin 1 H, Urine Urobilinogen Normal, Ur Leukocyte Esterase 500 H, Urine RBC 0 SEEN, Urine WBC >100 SEEN, Ur Squamous Epith Cells 0 SEEN, Urine Bacteria 0 SEEN, Urine Mucus 0 SEEN 03/01/20 04:26: WBC 5.5, RBC 3.08 L, Hgb 9.8 L, Hct 32.2 L, MCV 104.5 H, MCH 31.8, MCHC 30.4 L, RDW Std Deviation 52.9 H, RDW Coeff of [place] 13.7, Plt Count 183, MPV 12.0, Immature Gran % (Auto) 0.400, Neut % (Auto) 63.1, Lymph % (Auto) 17.9 L, [place] % (Auto) 13.4 H, Eos % (Auto) 4.8, Baso % (Auto) 0.4, Absolute Neuts (auto) 3.5, Absolute Lymphs (auto) 0.98, Nucleated RBC % 0 03/01/20 04:26: Sodium 148 H, Potassium 4.7, Chloride 123 H, Carbon Dioxide 21.0, Anion Gap 4 L, BUN 75 H, Creatinine 6.75 H, Estim Creat Clear Calc 9.16, Est GFR (MDRD) Af Amer 10 L, Est GFR (MDRD) Non-Af 8 L, BUN/Creatinine Ratio 11.1, Glucose 76, Calcium 7.7 L, Phosphorus 4.6, Magnesium 2.4, Total Bilirubin 0.40, AST 10 L, ALT < 6 L, Alkaline Phosphatase 106, Total Protein 6.2 L, Albumin 2.7 L, Globulin 3.5, Albumin/Globulin Ratio 0.8 L 03/01/20 04:26: Random Vancomycin 18.7 H 03/01/20 04:26: APTT > 250.0 H* 03/01/20 14:05: APTT 176.2 H* Current Medications Acetaminophen (Acetaminophen 325 Mg Tablet) 650 mg PO Q6H PRN PRN PRN Reason: Pain Score 1-10/Temp > 100.7 F Calamine/Phenol (Menthol/Lanolin/Calamine/Znox 113 Gm Tube) 1 applic TOPICAL BID [facility]; Protocol Last Admin: 03/01/20 09:38 Dose: 1 applic Documented by: Carbidopa/Levodopa/Entacapone (Carbidopa/Levodopa/Entacapone 200) 2 tab PO DAILY [facility] Last Admin: 03/01/20 09:39 Dose: Not Given Documented by: Finasteride (Finasteride 5 Mg Tablet) 5 mg PO DAILY [facility] Last Admin: 03/01/20 09:39 Dose: Not Given Documented by: [facility] ([facility]) [facility] Last Admin: 03/01/20 17:19 Dose: 100 mg Documented by: Heparin Sodium (Porcine) (Heparin Injection (Vial) 5,000 Unit/Ml Vial) 0 unit IV UD PRN; Protocol PRN Reason: dose adjustment Cefepime HCl 2 gm/ Sodium (Chloride) 100 mls @ 200 mls/hr IV QHS [facility] Last Infusion: 02/29/20 22:41 Dose: Infused Documented by: Heparin Sodium/Dextrose () 25,000 units in 250 mls @ 15 mls/hr IV .[id number] [facility]; Protocol Last Titration: 03/01/20 16:32 Dose: 900 units/hr, 9 mls/hr Documented by: Sodium Chloride () 1,000 mls @ 150 mls/hr IV .Q6H40M [facility] Stop: 03/01/20 19:39 Last Admin: 03/01/20 13:50 Dose: 150 mls/hr Documented by: Lidocaine (Lidocaine 5% Patch) 1 patch TOPICAL DAILY [facility]; Protocol Last Admin: 03/01/20 12:26 Dose: 1 patch Documented by: Memantine (Memantine Hydrochloride 10 Mg Tablet) 10 mg PO BID [facility] Last Admin: 03/01/20 09:39 Dose: Not Given Documented by: Nutritional Formula (Lactose Free) (Ensure Enlive 120 Ml Liquid) 120 ml PO 4X/DAY [facility] Last Admin: 03/01/20 17:41 Dose: 120 ml Documented by: Ondansetron HCl (Ondansetron 4 Mg/2 Ml Vial) 4 mg IV Q8H PRN PRN PRN Reason: NAUSEA/VOMITING Sodium Chloride (0.9% Saline Lock 10 Ml Syringe) 10 - 40 ml IV UD PRN PRN Reason: SALINE FLUSH Last Admin: 03/01/20 13:57 Dose: 10 ml Documented by: Tamsulosin HCl (Tamsulosin Hcl 0.4 Mg Capsule) 0.8 mg PO DAILY [facility] Last Admin: 03/01/20 09:39 Dose: Not Given Documented by: Tolterodine Tartrate (Tolterodine Tartrate 2 Mg Cap.Sa) 2 mg PO QHS [facility] Last Admin: 02/29/20 22:37 Dose: 2 mg Documented by: Verapamil HCl (Verapamil Sr 240 Mg Tablet) 240 mg PO DAILY [facility] Last Admin: 03/01/20 09:38 Dose: Not Given Documented by: Assessment/Plan All Active Problems Acute renal failure (Acute) Acute urinary retention (Acute) UTI (urinary tract infection) (Acute) HCAP (healthcare-associated pneumonia) (Resolved) Hyperkalemia (Acute) Hyperkalemia (Acute) Acute kidney injury superimposed on CKD (Acute) SAMMI likely prerenal Hypernatremia CKD Bilateral multiple renal cysts Nephrolithiasis The patient will need evaluation by urology for staghorn calculus and bilateral nephrolithiasis After the holidays will order renal ultrasound Serum creatinine is improving continue IV fluids but switch to half-normal saline Follow-up sensitivities dose vancomycin per pharmacy. check bmp in am Thanks for consult.Will f/u.
[2020-03-01] MEDS: 0.45% Normal Saline 1,000 ML 125 ML IV (19:04)
[2020-03-01 21:13] LABS: Anion Gap 2 (5-15); BUN 66 mg/dL (7-18); BUN/Creat Ratio 11.7 RATIO (10-20); Chloride 122 mmol/L (98-107); Creatinine, Serum 5.63 mg/dL (0.70-1.30); EST Glomerular Filtration Rate 10 mL/min (>60); Est Glom Filt Rate - Afr Amer 13 mL/min (>60); Estimated Creatinine Clearance 10.99 ml/min; Glucose 112 mg/dL (74-106); Sodium Level 147 mmol/L (136-145)
[2020-03-01] MEDS: Memantine Hydrochloride 10 MG Tablet PO (21:56)
[2020-03-01] MEDS: Tolterodine Tartrate 2 MG CAP.SA PO (21:56)
[2020-03-01 22:16] LABS: Partial Thromboplast Time 54.6 Seconds (24.1-36.2)
--- NOTE | 2020-03-01 22:50 | NURSING ---
Spoke to pharmacist Manish about PTT result of 54.6. Stated to round up to 55 for protocol.
[2020-03-01] MEDS: HEPARIN/D5w 25,000 UNITS 25,000 UNITS/250 ML IV.SOLN. 9 UNITS IV (22:56)
[2020-03-02 02:50] VITALS: BP 140/78; PULSE 72; RESP 18; TEMP 37.1; O2SAT 98
[2020-03-02 03:00] LABS: Absolute Lymphocyte Count 0.72 X10^3/uL (0.83-4.51); Absolute Neutrophil Count 2.5 X10^3/uL (2.0-7.7); Basophil# 0.02 X10^3/uL; Basophil% 0.5 % (0-1); Eosinophil# 0.15 X10^3/uL; Eosinophils% 3.9 % (0-5); Hematocrit 31.2 % (40-54); Hemoglobin 9.6 g/dL (13.0-16.5); Lymphocyte # 0.72 X10^3/ul (4.0); Lymphocyte % 18.7 % (19-41); Mean Corp Hgb Conc 30.8 g/dL (32-36); Monocyte# 0.46 X10^3/uL; Monocyte% 11.9 % (0-10); NRBC Flagged by Analyzer 0 % (0-5); Neutrophil # 2.49 X10^3/uL (2.7-7.7); Neutrophil % 64.7 % (47-70); Platelet Count 161 K/mm3 (150-450); RBC Distribution Width CV 13.7 % (11.6-14.6); RBC Distribution Width SD 52.3 fl (35.1-43.9); White Blood Count 3.9 K/mm3 (4.4-11.0)
[2020-03-02 03:08] LABS: Partial Thromboplast Time 66.4 Seconds (24.1-36.2)
[2020-03-02 03:36] LABS: Anion Gap 3 (5-15); BUN 64 mg/dL (7-18); BUN/Creat Ratio 12.7 RATIO (10-20); Calcium,Total 7.9 mg/dL (8.5-10.1); Chloride 120 mmol/L (98-107); Creatinine, Serum 5.04 mg/dL (0.70-1.30); EST Glomerular Filtration Rate 12 mL/min (>60); Est Glom Filt Rate - Afr Amer 14 mL/min (>60); Estimated Creatinine Clearance 12.27 ml/min; Glucose 97 mg/dL (74-106); Potassium 4.4 mmol/L (3.5-5.1); Sodium Level 147 mmol/L (136-145)
[2020-03-02] MEDS: 0.45% Normal Saline 1,000 ML 125 ML IV (05:56)
[2020-03-02 09:10] VITALS: BP 117/52; PULSE 69; RESP 18; TEMP 36.7; O2SAT 99
[2020-03-02 09:16] LABS: Partial Thromboplast Time 65.4 Seconds (24.1-36.2)
[2020-03-02] MEDS: Tamsulosin HCl 0.4 MG Capsule 0.8 MG PO (09:36)
[2020-03-02] MEDS: Lidocaine 5% Patch 1 PATCH TOPICAL (09:36)
[2020-03-02] MEDS: Verapamil SR 240 MG Tablet PO (09:37)
[2020-03-02] MEDS: Gabapentin 100 MG Capsule PO ×2 (09:37→18:44)
[2020-03-02] MEDS: Menthol/Lanolin/Calamine/Znox 113 GM Tube 1 APPLIC TOPICAL ×2 (09:37→23:05)
[2020-03-02] MEDS: Memantine Hydrochloride 10 MG Tablet PO ×2 (09:37→23:07)
[2020-03-02] MEDS: Carbidopa/Levodopa/Entacapone 200 2 TAB PO (09:38)
[2020-03-02] MEDS: Finasteride 5 MG Tablet PO (09:38)
[2020-03-02 14:50] VITALS: BP 126/51; PULSE 74; RESP 16; TEMP 36.3; O2SAT 100
--- NOTE | 2020-03-02 15:20 | PCM.PN.HOSP ---
Patient Problems: Active and Suspected Problems Acute renal failure (Acute) Acute urinary retention (Acute) UTI (urinary tract infection) (Acute) Hyperkalemia (Acute) Hyperkalemia (Acute) Reason for Visit: Follow-up for hypernatremia and acute kidney injury Objective: And heart rate and blood pressure controlled. Sodium still high, 147. BUN/creatinine 64/5.04. Positive fluid balance of about 3 L. Urine output 1500 normal yesterday and 1850 mL today since midnight. Physical exam General: Awake, Oriented x3, Cooperative. HEENT: Atraumatic, PERRLA, EOMI, Normocephalic Oral: No Gingival or Mucosal Lesions/ Ulcerations Neck: Supple, No JVD, Negative Carotid Bruits Lungs: Air entry diminished in bilateral lung bases. No crepitation/rhonchi Cardiovascular: Regular rate, Regular Rhythm, Normal S1, Normal S2, No murmurs Abdomen: Bowel Sounds Present, Soft, Non Tender, Non-Distended : No renal angle tenderness. No suprapubic tenderness. Extremities: Mild ankle edema, Capillary Refill Less than 3 Seconds Skin: No rashes, No breakdown Musculoskeletal: No Tenderness to Palpation of Joints or Extremities Neurological: Cranial nerves II-XII grossly intact, Deep Tendon Reflexes 2+/4 and Symmetrical, Neuro grossly intact Psych/Mental Status: Flat affect. Vitals/I&O's: Vital Signs Temp Pulse Resp BP Pulse Ox 98.0 F 69 18 117/52 L 99 03/02/20 09:10 03/02/20 09:10 03/02/20 09:10 03/02/20 09:10 03/02/20 09:10 Oxygen Flow Rate (L/min) 2 Oxygen Delivery Method Nasal Cannula Weight: 235 lb 7.259 oz Body Mass Index (BMI) 33.7 Intake and Output for Last 24 Hours 02/29/20 03/01/20 03/02/20 23:59 23:59 23:59 Intake Total 2267.5 / 2267.5 2591.55 / 2591.55 2178.37 / 2178.37 Output Total 500 / 500 1525 / 1525 1850 / 1850 Balance 1767.5 / 1767.5 1066.55 / 1066.55 328.37 / 328.37 Microbiology Past 72 Hours 02/29/20 15:10 Blood Culture (Wb) - Left Forearm Blood Culture - Preliminary No growth in 48 hours. 02/29/20 14:55 Urine Catheter - Mays Urine Culture - Preliminary Klebsiella pneumoniae sp pneum 02/29/20 16:25 Mucosa - Nasopharyngeal SARS-CoV-2 Antigen (Rapid) - Final Laboratory Results 03/01/20 20:43: Sodium 147 H, Potassium 5.0, Chloride 122 H, Carbon Dioxide 23.0, Anion Gap 2 L, BUN 66 H, Creatinine 5.63 H, Estim Creat Clear Calc 10.99, Est GFR (MDRD) Af Amer 13 L, Est GFR (MDRD) Non-Af 10 L, BUN/Creatinine Ratio 11.7, Glucose 112 H, Calcium 8.0 L 03/01/20 20:43: APTT 54.6 H 03/02/20 02:50: WBC 3.9 L, RBC 3.00 L, Hgb 9.6 L, Hct 31.2 L, MCV 104.0 H, MCH 32.0, MCHC 30.8 L, RDW Std Deviation 52.3 H, RDW Coeff of [place] 13.7, Plt Count 161, MPV 12.0, Immature Gran % (Auto) 0.300, Neut % (Auto) 64.7, Lymph % (Auto) 18.7 L, [place] % (Auto) 11.9 H, Eos % (Auto) 3.9, Baso % (Auto) 0.5, Absolute Neuts (auto) 2.5, Absolute Lymphs (auto) 0.72 L, Nucleated RBC % 0 03/02/20 02:50: Sodium 147 H, Potassium 4.4, Chloride 120 H, Carbon Dioxide 24.0, Anion Gap 3 L, BUN 64 H, Creatinine 5.04 H, Estim Creat Clear Calc 12.27, Est GFR (MDRD) Af Amer 14 L, Est GFR (MDRD) Non-Af 12 L, BUN/Creatinine Ratio 12.7, Glucose 97, Calcium 7.9 L 03/02/20 02:50: APTT 66.4 H 03/02/20 08:50: APTT 65.4 H Current Medications Acetaminophen (Acetaminophen 325 Mg Tablet) 650 mg PO Q6H PRN PRN PRN Reason: Pain Score 1-10/Temp > 100.7 F Calamine/Phenol (Menthol/Lanolin/Calamine/Znox 113 Gm Tube) 1 applic TOPICAL BID [facility]; Protocol Last Admin: 03/02/20 09:37 Dose: 1 applic Documented by: Carbidopa/Levodopa/Entacapone (Carbidopa/Levodopa/Entacapone 200) 2 tab PO DAILY [facility] Last Admin: 03/02/20 09:38 Dose: 2 tab Documented by: Finasteride (Finasteride 5 Mg Tablet) 5 mg PO DAILY [facility] Last Admin: 03/02/20 09:38 Dose: 5 mg Documented by: Gabapentin (Gabapentin 100 Mg Capsule) 100 mg PO BIDCM [facility] Last Admin: 03/02/20 09:37 Dose: 100 mg Documented by: Heparin Sodium (Porcine) (Heparin Injection (Vial) 5,000 Unit/Ml Vial) 0 unit IV UD PRN; Protocol PRN Reason: dose adjustment Cefepime HCl 2 gm/ Sodium (Chloride) 100 mls @ 200 mls/hr IV QHS [facility] Last Infusion: 03/01/20 22:30 Dose: Infused Documented by: Heparin Sodium/Dextrose () 25,000 units in 250 mls @ 15 mls/hr IV .[id number] [facility]; Protocol Last Titration: 03/02/20 09:49 Dose: 900 units/hr, 9 mls/hr Documented by: Sodium Chloride () 1,000 mls @ 50 mls/hr IV .Q20H [facility] Last Infusion: 03/02/20 10:25 Dose: 50 mls/hr Documented by: Lidocaine (Lidocaine 5% Patch) 1 patch TOPICAL DAILY [facility]; Protocol Last Admin: 03/02/20 09:36 Dose: 1 patch Documented by: Memantine (Memantine Hydrochloride 10 Mg Tablet) 10 mg PO BID [facility] Last Admin: 03/02/20 09:37 Dose: 10 mg Documented by: Nutritional Formula (Lactose Free) (Ensure Enlive 120 Ml Liquid) 120 ml PO 4X/DAY [facility] Last Admin: 03/02/20 14:52 Dose: 120 ml Documented by: Ondansetron HCl (Ondansetron 4 Mg/2 Ml Vial) 4 mg IV Q8H PRN PRN PRN Reason: NAUSEA/VOMITING Sodium Chloride (0.9% Saline Lock 10 Ml Syringe) 10 - 40 ml IV UD PRN PRN Reason: SALINE FLUSH Last Admin: 03/01/20 13:57 Dose: 10 ml Documented by: Tamsulosin HCl (Tamsulosin Hcl 0.4 Mg Capsule) 0.8 mg PO DAILY [facility] Last Admin: 03/02/20 09:36 Dose: 0.8 mg Documented by: Tolterodine Tartrate (Tolterodine Tartrate 2 Mg Cap.Sa) 2 mg PO QHS [facility] Last Admin: 03/01/20 21:56 Dose: 2 mg Documented by: Verapamil HCl (Verapamil Sr 240 Mg Tablet) 240 mg PO DAILY [facility] Last Admin: 03/02/20 09:37 Dose: 240 mg Documented by: Medical Necessity - Tobacco Use Smoking Status: Former smoker Assessment/Plan All Active Problems Acute renal failure (Acute) Acute urinary retention (Acute) UTI (urinary tract infection) (Acute) HCAP (healthcare-associated pneumonia) (Resolved) Hyperkalemia (Acute) Hyperkalemia (Acute) Acute kidney injury superimposed on CKD (Acute) This is a 79-year-old with history of dementia with Lewy body, Parkinson's disease, CKD stage III, hypertension of BPH and DVT on Eliquis was admitted from assisted living for urine retention, confusion, labs consistent with SAMMI on CKD stage III. 1. Bacterial colonization- hx Enterococcus faecalis UTI. Patient is being admitted on MedSurg floor. Previous urine culture reviewed patient has history of Enterococcus faecalis UTI in October 2018 and then GNR lactose supervisor looping and Enterococcus colonization. This time urine culture preliminary shows gram-negative amirah lactose supervisor looping 50,000 20,000 colonies. She does not have fever chills, nausea, vomiting or diarrhea. UA shows more than a WBC, pyuria and LE 500, positive nitrite. Patient was on Cipro in assisted facility. 03/02: Urine culture shows [id number] colonies of Klebsiella pneumoniae, ESBL producing organism. The patient does not have fever. No leukocytosis. It is sensitive to cefepime will continue. SARS-CoV-2 antigen is negative. Blood cultures negative for more than 48 hours. 2. SAMMI on CKD stage III secondary to dehydration urine retention. Patient has indwelling Mays catheter. Dark urine./Creatinine shows improvement. Continue IV fluid normal saline. Repeat BMP in the evening and adjust IV fluid accordingly. Clinically, patient is still dehydrated. CT abdomen shows bilateral abnormal kidneys showing numerous cysts, largest mid measuring 9 cm and bilateral nephrolithiasis, nonobstructive renal stone, 3 cm staghorn calculus in left upper pole but no evidence of hydronephrosis. 03/02: Discussed with the computer game programmer. Sodium is stable at 147. Change IV fluid to D5 W at 60 mill per hour. Patient is +3 L fluid balance and has good urine output. Patient BUN/creatinine still elevated 64/5.04 3. Acute metabolic encephalopathy -seems most likely metabolic encephalopathy. 03/02: Acute encephalopathy has resolved. Patient on baseline mental status 4. Dementia with lewy bodies - continue namenda 5. Hx DVT -currently patient is on IV heparin drip secondary to kidney failure. When kidney function returns normal will be back on Eliquis. 6. Chronic macrocytic anemia - not significantly below baseline - trend. 7. Chronic hypernatremia, unclear etiology. 03/02: Patient still hyponatremic even though dehydration is corrected 8. Hx BPH - continue flomax and proscar. 9. Parkinson - upper extremity tremor. continue carbidopa/levodopa/entacapone. 10. HTN - verapamil DVT ppx: As mentioned above DC planning: SNF vs return to assisted living Inpatient E&M: [id number] Subs Hosp L2
--- NOTE | 2020-03-02 16:11 | PCM.PN.REN ---
Patient Problems: Active and Suspected Problems Acute renal failure (Acute) Acute urinary retention (Acute) UTI (urinary tract infection) (Acute) Hyperkalemia (Acute) Hyperkalemia (Acute) Subjective: nonverbal - Physical Exam Vitals/I&O's: Vital Signs Temp Pulse Resp BP Pulse Ox 97.4 F L 74 16 126/51 H 100 03/02/20 14:50 03/02/20 14:50 03/02/20 14:50 03/02/20 14:50 03/02/20 14:50 Oxygen Flow Rate (L/min) 2 Oxygen Delivery Method Nasal Cannula Weight: 106.8 kg Body Mass Index (BMI) 33.7 Intake and Output for Last 24 Hours 02/29/20 03/01/20 03/02/20 23:59 23:59 23:59 Intake Total 2267.5 / 2267.5 2591.55 / 2591.55 2178.37 / 2178.37 Output Total 500 / 500 1525 / 1525 1850 / 1850 Balance 1767.5 / 1767.5 1066.55 / 1066.55 328.37 / 328.37 General: Alert HEENT: Atraumatic, Normocephalic Neck: Supple Lungs: Clear to auscultation, Normal air movement Cardiovascular: Normal S1, Normal S2 Abdomen: Bowel Sounds Present, Soft Extremities: No edema Microbiology Past 72 Hours 02/29/20 15:10 Blood Culture (Wb) - Left Forearm Blood Culture - Preliminary No growth in 48 hours. 02/29/20 14:55 Urine Catheter - Mays Urine Culture - Preliminary Klebsiella pneumoniae sp pneum 02/29/20 16:25 Mucosa - Nasopharyngeal SARS-CoV-2 Antigen (Rapid) - Final Laboratory Results 03/01/20 20:43: Sodium 147 H, Potassium 5.0, Chloride 122 H, Carbon Dioxide 23.0, Anion Gap 2 L, BUN 66 H, Creatinine 5.63 H, Estim Creat Clear Calc 10.99, Est GFR (MDRD) Af Amer 13 L, Est GFR (MDRD) Non-Af 10 L, BUN/Creatinine Ratio 11.7, Glucose 112 H, Calcium 8.0 L 03/01/20 20:43: APTT 54.6 H 03/02/20 02:50: WBC 3.9 L, RBC 3.00 L, Hgb 9.6 L, Hct 31.2 L, MCV 104.0 H, MCH 32.0, MCHC 30.8 L, RDW Std Deviation 52.3 H, RDW Coeff of [place] 13.7, Plt Count 161, MPV 12.0, Immature Gran % (Auto) 0.300, Neut % (Auto) 64.7, Lymph % (Auto) 18.7 L, [place] % (Auto) 11.9 H, Eos % (Auto) 3.9, Baso % (Auto) 0.5, Absolute Neuts (auto) 2.5, Absolute Lymphs (auto) 0.72 L, Nucleated RBC % 0 03/02/20 02:50: Sodium 147 H, Potassium 4.4, Chloride 120 H, Carbon Dioxide 24.0, Anion Gap 3 L, BUN 64 H, Creatinine 5.04 H, Estim Creat Clear Calc 12.27, Est GFR (MDRD) Af Amer 14 L, Est GFR (MDRD) Non-Af 12 L, BUN/Creatinine Ratio 12.7, Glucose 97, Calcium 7.9 L 03/02/20 02:50: APTT 66.4 H 03/02/20 08:50: APTT 65.4 H Current Medications Acetaminophen (Acetaminophen 325 Mg Tablet) 650 mg PO Q6H PRN PRN PRN Reason: Pain Score 1-10/Temp > 100.7 F Calamine/Phenol (Menthol/Lanolin/Calamine/Znox 113 Gm Tube) 1 applic TOPICAL BID [facility]; Protocol Last Admin: 03/02/20 09:37 Dose: 1 applic Documented by: Carbidopa/Levodopa/Entacapone (Carbidopa/Levodopa/Entacapone 200) 2 tab PO DAILY [facility] Last Admin: 03/02/20 09:38 Dose: 2 tab Documented by: Finasteride (Finasteride 5 Mg Tablet) 5 mg PO DAILY [facility] Last Admin: 03/02/20 09:38 Dose: 5 mg Documented by: Gabapentin (Gabapentin 100 Mg Capsule) 100 mg PO BIDCM [facility] Last Admin: 03/02/20 09:37 Dose: 100 mg Documented by: Heparin Sodium (Porcine) (Heparin Injection (Vial) 5,000 Unit/Ml Vial) 0 unit IV UD PRN; Protocol PRN Reason: dose adjustment Cefepime HCl 2 gm/ Sodium (Chloride) 100 mls @ 200 mls/hr IV QHS [facility] Last Infusion: 03/01/20 22:30 Dose: Infused Documented by: Heparin Sodium/Dextrose () 25,000 units in 250 mls @ 15 mls/hr IV .[id number] [facility]; Protocol Last Titration: 03/02/20 09:49 Dose: 900 units/hr, 9 mls/hr Documented by: Dextrose () 1,000 mls @ 60 mls/hr IV .[id number] [facility] Lidocaine (Lidocaine 5% Patch) 1 patch TOPICAL DAILY [facility]; Protocol Last Admin: 03/02/20 09:36 Dose: 1 patch Documented by: Memantine (Memantine Hydrochloride 10 Mg Tablet) 10 mg PO BID [facility] Last Admin: 03/02/20 09:37 Dose: 10 mg Documented by: Nutritional Formula (Lactose Free) (Ensure Enlive 120 Ml Liquid) 120 ml PO 4X/DAY [facility] Last Admin: 03/02/20 14:52 Dose: 120 ml Documented by: Ondansetron HCl (Ondansetron 4 Mg/2 Ml Vial) 4 mg IV Q8H PRN PRN PRN Reason: NAUSEA/VOMITING Sodium Chloride (0.9% Saline Lock 10 Ml Syringe) 10 - 40 ml IV UD PRN PRN Reason: SALINE FLUSH Last Admin: 03/01/20 13:57 Dose: 10 ml Documented by: Tamsulosin HCl (Tamsulosin Hcl 0.4 Mg Capsule) 0.8 mg PO DAILY [facility] Last Admin: 03/02/20 09:36 Dose: 0.8 mg Documented by: Tolterodine Tartrate (Tolterodine Tartrate 2 Mg Cap.Sa) 2 mg PO QHS [facility] Last Admin: 03/01/20 21:56 Dose: 2 mg Documented by: Verapamil HCl (Verapamil Sr 240 Mg Tablet) 240 mg PO DAILY [facility] Last Admin: 03/02/20 09:37 Dose: 240 mg Documented by: Medical Necessity - Tobacco Use Smoking Status: Former smoker Assessment/Plan All Active Problems Acute renal failure (Acute) Acute urinary retention (Acute) UTI (urinary tract infection) (Acute) HCAP (healthcare-associated pneumonia) (Resolved) Hyperkalemia (Acute) Hyperkalemia (Acute) Acute kidney injury superimposed on CKD (Acute) SAMMI likely prerenal Hypernatremia CKD Bilateral multiple renal cysts Nephrolithiasis The patient will need evaluation by urology for staghorn calculus and bilateral nephrolithiasis After the holidays will order renal ultrasound Serum creatinine is improving continue IV fluids but switch to d5w SNa 147 should improve with ivf Scr 5.04 improving Follow-up sensitivities dose vancomycin per pharmacy. check bmp in am
--- NOTE | 2020-03-02 20:04 | NURSING ---
Covid 19 emergency charting in effect.
[2020-03-02 20:19] VITALS: BP 157/86; PULSE 74; RESP 16; TEMP 37; O2SAT 99
[2020-03-02] MEDS: Tolterodine Tartrate 2 MG CAP.SA PO (23:06)
[2020-03-03 02:42] VITALS: BP 132/45; PULSE 79; RESP 18; TEMP 36.4; O2SAT 94
[2020-03-03] MEDS: HEPARIN/D5w 25,000 UNITS 25,000 UNITS/250 ML IV.SOLN. 9 UNITS IV (02:56)
[2020-03-03 07:02] LABS: Absolute Lymphocyte Count 1.02 X10^3/uL (0.83-4.51); Basophil# 0.02 X10^3/uL; Basophil% 0.4 % (0-1); Eosinophil# 0.19 X10^3/uL; Eosinophils% 3.9 % (0-5); Hematocrit 33.1 % (40-54); Hemoglobin 10.3 g/dL (13.0-16.5); Lymphocyte # 1.02 X10^3/ul (4.0); Mean Corp Hgb Conc 31.1 g/dL (32-36); Mean Corpuscular Hgb 31.9 pg (27.0-32.0); Mean Corpuscular Volume 102.5 fL (80-94); Mean Platelet Vol. 12.3 fl (6.2-12.0); Monocyte# 0.55 X10^3/uL; Monocyte% 11.3 % (0-10); NRBC Flagged by Analyzer 0 % (0-5); Neutrophil # 3.04 X10^3/uL (2.7-7.7); Neutrophil % 62.8 % (47-70); Platelet Count 168 K/mm3 (150-450); RBC Distribution Width CV 13.3 % (11.6-14.6); RBC Distribution Width SD 50.2 fl (35.1-43.9); Red Blood Count 3.23 M/mm3 (4.6-6.2); White Blood Count 4.9 K/mm3 (4.4-11.0)
[2020-03-03 07:05] VITALS: O2SAT 97
[2020-03-03 07:35] LABS: Anion Gap 4 (5-15); BUN 54 mg/dL (7-18); BUN/Creat Ratio 16.2 RATIO (10-20); Calcium,Total 8.2 mg/dL (8.5-10.1); Chloride 117 mmol/L (98-107); Creatinine, Serum 3.33 mg/dL (0.70-1.30); EST Glomerular Filtration Rate 19 mL/min (>60); Est Glom Filt Rate - Afr Amer 23 mL/min (>60); Estimated Creatinine Clearance 18.57 ml/min; Glucose 112 mg/dL (74-106); Potassium 4.1 mmol/L (3.5-5.1); Sodium Level 145 mmol/L (136-145)
[2020-03-03 08:45] VITALS: BP 142/76; PULSE 68; RESP 16; TEMP 37; O2SAT 97
[2020-03-03 09:30] VITALS: PULSE 72
--- NOTE | 2020-03-03 09:47 | CT_ITS ---
STUDY: CT BRAIN WITHOUT CONTRAST REASON FOR EXAM: Male, 79 years old. ALTERED MENTAL STATUS, ACUTE RENAL FAILURE, UTI, HX-CRF STAGE 3, HTN, TIA''S, S/P CRANIOTOMY D/T RT TEMPORAL BRAIN TRAUMA, HX-PARKINSONS, LEWY BODY DEMENTIA RADIATION DOSAGE (If Supplied By Facility): CTDIvol = ( 44.99 ) mGy, DLP = ( 796.11 ) mGycm TECHNIQUE: Transaxial CT imaging of the brain was performed without administration of intravenous contrast material. Individualized dose optimization techniques were used for this CT. COMPARISON: 11/27/2018 FINDINGS: Normal soft tissue structures. Healed right parietal craniotomy with subjacent encephalomalacia. There is moderate cerebral atrophy with widening of the extra-axial spaces and ventricular dilatation. There are areas of decreased attenuation within the white matter tracts of the supratentorial brain, consistent with microvascular disease changes. Normal basal ganglia and thalami. Normal brainstem. Normal cerebellum. There is no intracranial hemorrhage. There are no findings of an acute ischemic infarction. Normal visualized paranasal sinuses. CT/Brain/Head without Contrast IMPRESSION: Chronic involutional changes of the brain. Electronically Signed: Gianni Reyes MD at 11:25 EST Tel , Service support ,
--- NOTE | 2020-03-03 10:04 | PCM.PN.HOSP ---
Patient Problems: Active and Suspected Problems Acute renal failure (Acute) Acute urinary retention (Acute) UTI (urinary tract infection) (Acute) Hyperkalemia (Acute) Hyperkalemia (Acute) Reason for Visit: Follow-up for hypernatremia, altered mental status, dementia and acute kidney injury Objective: Patient seems more sleepy and lethargic in the morning today. He hardly opens eyes and closes it. Discussed with the nursing staff and reported the same. CT head without contrast ordered. No fever or chills. Pulse ox 94% on room air. Physical exam General: Sleepy and lethargic. Confused HEENT: Atraumatic, PERRLA, EOMI, Normocephalic Oral: No Gingival or Mucosal Lesions/ Ulcerations Neck: Supple, No JVD, Negative Carotid Bruits Lungs: Air entry diminished in bilateral lung bases. No crepitation/rhonchi Cardiovascular: Regular rate, Regular Rhythm, Normal S1, Normal S2, No murmurs Abdomen: Bowel Sounds Present, Soft, Non Tender, Non-Distended : Mays catheter with turbid urine. No renal angle tenderness. No suprapubic tenderness. Extremities: Mild ankle edema, Capillary Refill Less than 3 Seconds Skin: No rashes, No breakdown Musculoskeletal: No Tenderness to Palpation of Joints or Extremities Neurological: Cranial nerves II-XII grossly intact, Deep Tendon Reflexes 2+/4 and Symmetrical, Neuro grossly intact Psych/Mental Status: Flat affect. Vitals/I&O's: Vital Signs Temp Pulse Resp BP Pulse Ox 98.6 F 68 16 142/76 H 97 03/03/20 08:45 03/03/20 08:45 03/03/20 08:45 03/03/20 08:45 03/03/20 08:45 Oxygen Flow Rate (L/min) 1 Oxygen Delivery Method Nasal Cannula Weight: 235 lb 7.259 oz Body Mass Index (BMI) 33.7 Intake and Output for Last 24 Hours 03/01/20 03/02/20 03/03/20 23:59 23:59 23:59 Intake Total 2591.55 / 2591.55 2708.70 / 3008.70 1650.05 / 1650.05 Output Total 1525 / 1525 2450 / 3100 1300 / 1300 Balance 1066.55 / 1066.55 258.70 / -91.30 350.05 / 350.05 Microbiology Past 72 Hours 02/29/20 14:55 Urine Catheter - Mays Urine Culture - Final Klebsiella pneumoniae sp pneum 02/29/20 15:10 Blood Culture (Wb) - Left Forearm Blood Culture - Preliminary No growth in 48 hours. 02/29/20 16:25 Mucosa - Nasopharyngeal SARS-CoV-2 Antigen (Rapid) - Final Laboratory Results 03/03/20 06:25: WBC 4.9, RBC 3.23 L, Hgb 10.3 L, Hct 33.1 L, MCV 102.5 H, MCH 31.9, MCHC 31.1 L, RDW Std Deviation 50.2 H, RDW Coeff of [place] 13.3, Plt Count 168, MPV 12.3 H, Immature Gran % (Auto) 0.600, Neut % (Auto) 62.8, Lymph % (Auto) 21.0, [place] % (Auto) 11.3 H, Eos % (Auto) 3.9, Baso % (Auto) 0.4, Absolute Neuts (auto) 3.0, Absolute Lymphs (auto) 1.02, Nucleated RBC % 0 03/03/20 06:25: Sodium 145, Potassium 4.1, Chloride 117 H, Carbon Dioxide 24.0, Anion Gap 4 L, BUN 54 H, Creatinine 3.33 H, Estim Creat Clear Calc 18.57, Est GFR (MDRD) Af Amer 23 L, Est GFR (MDRD) Non-Af 19 L, BUN/Creatinine Ratio 16.2, Glucose 112 H, Calcium 8.2 L 03/03/20 06:25: APTT 57.0 H Current Medications Acetaminophen (Acetaminophen 325 Mg Tablet) 650 mg PO Q6H PRN PRN PRN Reason: Pain Score 1-10/Temp > 100.7 F Calamine/Phenol (Menthol/Lanolin/Calamine/Znox 113 Gm Tube) 1 applic TOPICAL BID [facility]; Protocol Last Admin: 03/02/20 23:05 Dose: 1 applic Documented by: Carbidopa/Levodopa/Entacapone (Carbidopa/Levodopa/Entacapone 200) 2 tab PO DAILY [facility] Last Admin: 03/02/20 09:38 Dose: 2 tab Documented by: Finasteride (Finasteride 5 Mg Tablet) 5 mg PO DAILY [facility] Last Admin: 03/02/20 09:38 Dose: 5 mg Documented by: Gabapentin (Gabapentin 100 Mg Capsule) 100 mg PO BIDCM [facility] Last Admin: 03/02/20 18:44 Dose: 100 mg Documented by: Heparin Sodium (Porcine) (Heparin Injection (Vial) 5,000 Unit/Ml Vial) 0 unit IV UD PRN; Protocol PRN Reason: dose adjustment Heparin Sodium/Dextrose () 25,000 units in 250 mls @ 15 mls/hr IV .[id number] [facility]; Protocol Last Admin: 03/03/20 02:56 Dose: 900 units/hr, 9 mls/hr Documented by: Dextrose () 1,000 mls @ 75 mls/hr IV .[id number] [facility] Last Admin: 03/03/20 08:21 Dose: 75 mls/hr Documented by: Lidocaine (Lidocaine 5% Patch) 1 patch TOPICAL DAILY [facility]; Protocol Last Admin: 03/02/20 09:36 Dose: 1 patch Documented by: Memantine (Memantine Hydrochloride 10 Mg Tablet) 10 mg PO BID [facility] Last Admin: 03/02/20 23:07 Dose: 10 mg Documented by: Nutritional Formula (Lactose Free) (Ensure Enlive 120 Ml Liquid) 120 ml PO 4X/DAY [facility] Last Admin: 03/02/20 23:05 Dose: 120 ml Documented by: Ondansetron HCl (Ondansetron 4 Mg/2 Ml Vial) 4 mg IV Q8H PRN PRN PRN Reason: NAUSEA/VOMITING Sodium Chloride (0.9% Saline Lock 10 Ml Syringe) 10 - 40 ml IV UD PRN PRN Reason: SALINE FLUSH Last Admin: 03/01/20 13:57 Dose: 10 ml Documented by: Tamsulosin HCl (Tamsulosin Hcl 0.4 Mg Capsule) 0.8 mg PO DAILY [facility] Last Admin: 03/02/20 09:36 Dose: 0.8 mg Documented by: Tolterodine Tartrate (Tolterodine Tartrate 2 Mg Cap.Sa) 2 mg PO QHS [facility] Last Admin: 03/02/20 23:06 Dose: 2 mg Documented by: Verapamil HCl (Verapamil Sr 240 Mg Tablet) 240 mg PO DAILY [facility] Last Admin: 03/02/20 09:37 Dose: 240 mg Documented by: STROKE Vital Signs/Narrative: Vital Signs Temp Pulse Resp BP Pulse Ox 03/03/20 08:45 98.6 F 68 16 142/76 H 97 Medical Necessity - Tobacco Use Smoking Status: Former smoker Assessment/Plan All Active Problems Acute renal failure (Acute) Acute urinary retention (Acute) UTI (urinary tract infection) (Acute) HCAP (healthcare-associated pneumonia) (Resolved) Hyperkalemia (Acute) Hyperkalemia (Acute) Acute kidney injury superimposed on CKD (Acute) This is a 79-year-old with history of dementia with Lewy body, Parkinson's disease, CKD stage III, hypertension of BPH and DVT on Eliquis was admitted from assisted living for urine retention, confusion, labs consistent with SAMMI on CKD stage III. 1. Partially treated ESBL Klebsiella pneumoniae UTI, probably from Cipro given in retirement- hx Enterococcus faecalis UTI. Patient is being admitted on MedSurg floor. Previous urine culture reviewed patient has history of Enterococcus faecalis UTI in October 2018 and then GNR lactose [employer] and Enterococcus colonization. 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 She does not have fever chills, nausea, vomiting or diarrhea. UA shows more than a WBC, pyuria and LE 500, positive nitrite. Patient was on Cipro in assisted facility. Initially patient started on cefepime 1/2: Discussed with the ID, Dr. Raphael. It is sensitive to Cipro therefore started on Cipro 500 mg twice daily. Microbiology change in sensitivity of cefepime to intermediate therefore discontinued. Urine in Mays catheter is turbid with flecks. 2. SAMMI on CKD stage III secondary to dehydration urine retention. Patient has indwelling Mays catheter. Dark urine./Creatinine shows improvement. Continue IV fluid normal saline. Repeat BMP in the evening and adjust IV fluid accordingly. Clinically, patient is still dehydrated. CT abdomen shows bilateral abnormal kidneys showing numerous cysts, largest mid measuring 9 cm and bilateral nephrolithiasis, nonobstructive renal stone, 3 cm staghorn calculus in left upper pole but no evidence of hydronephrosis. /: Discussed with the photographic plate maker. Sodium is stable at 147. Change IV fluid to D5 W at 60 mill per hour. Patient is +3 L fluid balance and has good urine output. Patient BUN/creatinine still elevated 64/5.04 /2: BUN/creatinine is getting better. Sodium improving 145. A R Specialist recommended outpatient urology follow-up for bilateral renal cyst and renal stones and renal ultrasound 3. Acute metabolic encephalopathy -seems most likely metabolic encephalopathy. 03/02: Acute encephalopathy has resolved. Patient on baseline mental status 03/03: Deterioration in the mental status more lethargic and sleepy. CT head without contrast was done and shows no acute intracranial abnormality. 4. Dementia with lewy bodies - continue namenda 5. Hx DVT -currently patient is on IV heparin drip secondary to kidney failure. When kidney function returns normal will be back on Eliquis. 6. Chronic macrocytic anemia - not significantly below baseline - trend. 7. Chronic hypernatremia, unclear etiology. 03/02: Patient still hyponatremic even though dehydration is corrected 8. Hx BPH - continue flomax and proscar. 9. Parkinson - upper extremity tremor. continue carbidopa/levodopa/entacapone. 10. HTN - verapamil DVT ppx: As mentioned above DC planning: SNF vs return to assisted living Clinical Impression(s) from Imaging Studies Chest X-Ray 02/29/20 15:25 IMPRESSION: Degenerative changes, as described above. No demonstrated acute cardiopulmonary process. Abdomen/Pelvis CT 02/29/20 15:59 IMPRESSION: Bilateral abnormal kidney showing numerous renal cysts and renal stones but no evidence for hydronephrosis. No gross acute abnormalities. Brain CT 03/03/20 09:47 IMPRESSION: Chronic involutional changes of the brain. Electronically Signed: Gianni Reyes MD at 11:25 EST Tel , Service support , Inpatient E&M: [id number] Subs Hosp L2
[2020-03-03] MEDS: 0.9% Saline Lock 10 ML Syringe IV ×2 (10:41→11:26)
[2020-03-03] MEDS: Gabapentin 100 MG Capsule PO ×2 (11:29→17:46)
[2020-03-03] MEDS: Verapamil SR 240 MG Tablet PO (11:30)
[2020-03-03] MEDS: Tamsulosin HCl 0.4 MG Capsule 0.8 MG PO (11:31)
[2020-03-03] MEDS: Memantine Hydrochloride 10 MG Tablet PO ×2 (11:31→21:19)
[2020-03-03] MEDS: Carbidopa/Levodopa/Entacapone 200 2 TAB PO (11:33)
[2020-03-03] MEDS: Finasteride 5 MG Tablet PO (11:33)
[2020-03-03] MEDS: Ciprofloxacin 500 MG Tablet PO (11:34)
[2020-03-03] MEDS: Lidocaine 5% Patch 1 PATCH TOPICAL (11:35)
[2020-03-03] MEDS: Menthol/Lanolin/Calamine/Znox 113 GM Tube 1 APPLIC TOPICAL ×2 (11:35→21:22)
[2020-03-03 14:45] VITALS: BP 157/89; PULSE 73; RESP 18; TEMP 36.9; O2SAT 96
--- NOTE | 2020-03-03 18:02 | PCM.PN.REN ---
Patient Problems: Active and Suspected Problems Acute renal failure (Acute) Acute urinary retention (Acute) UTI (urinary tract infection) (Acute) Hyperkalemia (Acute) Hyperkalemia (Acute) Subjective: Nonverbal cannot do review of systems - Physical Exam Vitals/I&O's: Vital Signs Temp Pulse Resp BP Pulse Ox 98.5 F 73 18 157/89 H 96 03/03/20 14:45 03/03/20 14:45 03/03/20 14:45 03/03/20 14:45 03/03/20 14:45 Oxygen Flow Rate (L/min) 1 Oxygen Delivery Method Room Air Weight: 106.8 kg Body Mass Index (BMI) 33.7 Intake and Output for Last 24 Hours 03/01/20 03/02/20 03/03/20 23:59 23:59 23:59 Intake Total 2591.55 / 2591.55 2708.70 / 3008.70 1899.00 / 1899.00 Output Total 1525 / 1525 2450 / 3100 2150 / 2150 Balance 1066.55 / 1066.55 258.70 / -91.30 -251.00 / -251.00 General: No apparent distress HEENT: Atraumatic, Normocephalic Lungs: Clear to auscultation, Normal air movement Cardiovascular: Normal S1, Normal S2 Abdomen: Bowel Sounds Present, Soft, Obese Extremities: No clubbing, No cyanosis Microbiology Past 72 Hours 02/29/20 09:32 Blood Culture (Wb) - Left Hand Blood Culture - Preliminary No growth in 48 hours. 02/29/20 14:55 Urine Catheter - Mays Urine Culture - Final Klebsiella pneumoniae sp pneum 02/29/20 15:10 Blood Culture (Wb) - Left Forearm Blood Culture - Preliminary No growth in 48 hours. 02/29/20 16:25 Mucosa - Nasopharyngeal SARS-CoV-2 Antigen (Rapid) - Final Laboratory Results 03/03/20 06:25: WBC 4.9, RBC 3.23 L, Hgb 10.3 L, Hct 33.1 L, MCV 102.5 H, MCH 31.9, MCHC 31.1 L, RDW Std Deviation 50.2 H, RDW Coeff of [place] 13.3, Plt Count 168, MPV 12.3 H, Immature Gran % (Auto) 0.600, Neut % (Auto) 62.8, Lymph % (Auto) 21.0, [place] % (Auto) 11.3 H, Eos % (Auto) 3.9, Baso % (Auto) 0.4, Absolute Neuts (auto) 3.0, Absolute Lymphs (auto) 1.02, Nucleated RBC % 0 03/03/20 06:25: Sodium 145, Potassium 4.1, Chloride 117 H, Carbon Dioxide 24.0, Anion Gap 4 L, BUN 54 H, Creatinine 3.33 H, Estim Creat Clear Calc 18.57, Est GFR (MDRD) Af Amer 23 L, Est GFR (MDRD) Non-Af 19 L, BUN/Creatinine Ratio 16.2, Glucose 112 H, Calcium 8.2 L 03/03/20 06:25: APTT 57.0 H Current Medications Acetaminophen (Acetaminophen 325 Mg Tablet) 650 mg PO Q6H PRN PRN PRN Reason: Pain Score 1-10/Temp > 100.7 F Calamine/Phenol (Menthol/Lanolin/Calamine/Znox 113 Gm Tube) 1 applic TOPICAL BID [facility]; Protocol Last Admin: 03/03/20 11:35 Dose: 1 applic Documented by: Carbidopa/Levodopa/Entacapone (Carbidopa/Levodopa/Entacapone 200) 2 tab PO DAILY [facility] Last Admin: 03/03/20 11:33 Dose: 2 tab Documented by: Ciprofloxacin HCl (Ciprofloxacin 500 Mg Tablet) 500 mg PO Q18H [facility] Last Admin: 03/03/20 11:34 Dose: 500 mg Documented by: Finasteride (Finasteride 5 Mg Tablet) 5 mg PO DAILY [facility] Last Admin: 03/03/20 11:33 Dose: 5 mg Documented by: Gabapentin (Gabapentin 100 Mg Capsule) 100 mg PO BIDCM [facility] Last Admin: 03/03/20 17:46 Dose: 100 mg Documented by: Heparin Sodium (Porcine) (Heparin Injection (Vial) 5,000 Unit/Ml Vial) 0 unit IV UD PRN; Protocol PRN Reason: dose adjustment Heparin Sodium/Dextrose () 25,000 units in 250 mls @ 15 mls/hr IV .[id number] [facility]; Protocol Last Admin: 03/03/20 17:45 Dose: Not Given Documented by: Dextrose () 1,000 mls @ 75 mls/hr IV .[id number] [facility] Last Infusion: 03/03/20 11:26 Dose: 75 mls/hr Documented by: Lidocaine (Lidocaine 5% Patch) 1 patch TOPICAL DAILY [facility]; Protocol Last Admin: 03/03/20 11:35 Dose: 1 patch Documented by: Memantine (Memantine Hydrochloride 10 Mg Tablet) 10 mg PO BID [facility] Last Admin: 03/03/20 11:31 Dose: 10 mg Documented by: Nutritional Formula (Lactose Free) (Ensure Enlive 120 Ml Liquid) 120 ml PO 4X/DAY [facility] Last Admin: 03/03/20 17:45 Dose: 120 ml Documented by: Ondansetron HCl (Ondansetron 4 Mg/2 Ml Vial) 4 mg IV Q8H PRN PRN PRN Reason: NAUSEA/VOMITING Sodium Chloride (0.9% Saline Lock 10 Ml Syringe) 10 - 40 ml IV UD PRN PRN Reason: SALINE FLUSH Last Admin: 03/03/20 11:26 Dose: 10 ml Documented by: Tamsulosin HCl (Tamsulosin Hcl 0.4 Mg Capsule) 0.8 mg PO DAILY [facility] Last Admin: 03/03/20 11:31 Dose: 0.8 mg Documented by: Tolterodine Tartrate (Tolterodine Tartrate 2 Mg Cap.Sa) 2 mg PO QHS [facility] Last Admin: 03/02/20 23:06 Dose: 2 mg Documented by: Verapamil HCl (Verapamil Sr 240 Mg Tablet) 240 mg PO DAILY [facility] Last Admin: 03/03/20 11:30 Dose: 240 mg Documented by: Medical Necessity - Tobacco Use Smoking Status: Former smoker Assessment/Plan All Active Problems Acute renal failure (Acute) Acute urinary retention (Acute) UTI (urinary tract infection) (Acute) HCAP (healthcare-associated pneumonia) (Resolved) Hyperkalemia (Acute) Hyperkalemia (Acute) Acute kidney injury superimposed on CKD (Acute) SAMMI likely prerenal Hypernatremia CKD Bilateral multiple renal cysts Nephrolithiasis The patient will need evaluation by urology for staghorn calculus and bilateral nephrolithiasis after the holidays. After the holidays will order renal ultrasound SNa 145 should improve with ivf Scr 3.33 improving Follow-up sensitivities dose vancomycin per pharmacy. check bmp in am
[2020-03-03 21:09] VITALS: BP 163/74; PULSE 72; RESP 18; TEMP 36.6; O2SAT 98
[2020-03-03] MEDS: Tolterodine Tartrate 2 MG CAP.SA PO (21:19)
[2020-03-04 03:04] VITALS: BP 140/66; PULSE 73; RESP 18; TEMP 37; O2SAT 93
[2020-03-04] MEDS: Ciprofloxacin 500 MG Tablet PO (05:52)
[2020-03-04 07:20] VITALS: O2SAT 95
[2020-03-04 07:28] LABS: Partial Thromboplast Time 41.3 Seconds (24.1-36.2)
--- NOTE | 2020-03-04 07:37 | NURSING ---
This nurse is aware of morning ptt of 41.3. Per protocol, will increase to 10ml/hr and repeat ptt check in 6hrs.
[2020-03-04 07:44] VITALS: BP 168/88; PULSE 66; RESP 18; TEMP 36.8; O2SAT 95
[2020-03-04] MEDS: Verapamil SR 240 MG Tablet PO (07:55)
[2020-03-04] MEDS: Carbidopa/Levodopa/Entacapone 200 2 TAB PO (07:55)
[2020-03-04] MEDS: Memantine Hydrochloride 10 MG Tablet PO ×2 (07:55→22:13)
[2020-03-04] MEDS: Tamsulosin HCl 0.4 MG Capsule 0.8 MG PO (07:55)
[2020-03-04] MEDS: Gabapentin 100 MG Capsule PO ×2 (07:56→18:55)
[2020-03-04] MEDS: Menthol/Lanolin/Calamine/Znox 113 GM Tube 1 APPLIC TOPICAL ×2 (07:56→22:11)
[2020-03-04] MEDS: Lidocaine 5% Patch 1 PATCH TOPICAL (07:56)
[2020-03-04] MEDS: Finasteride 5 MG Tablet PO (07:57)
[2020-03-04] MEDS: HEPARIN/D5w 25,000 UNITS 25,000 UNITS/250 ML IV.SOLN. 10 UNITS IV (08:15)
[2020-03-04 09:20] LABS: ALB/GLOB Ratio 0.7 RATIO (0.9-2.4); AST(SGOT) 10 U/L (15-37); Alanine Aminotransfer ALT/SGPT 7 U/L (16-61); Albumin, Serum 2.4 g/dL (3.2-5.0); Alkaline Phosphatase 97 U/L (45-117); Anion Gap 1 (5-15); BUN 45 mg/dL (7-18); BUN/Creat Ratio 18.5 RATIO (10-20); Calcium,Total 8.3 mg/dL (8.5-10.1); Chloride 117 mmol/L (98-107); Creatinine, Serum 2.43 mg/dL (0.70-1.30); EST Glomerular Filtration Rate 28 mL/min (>60); Est Glom Filt Rate - Afr Amer 33 mL/min (>60); Estimated Creatinine Clearance 25.45 ml/min; Globulin 3.6 g/dL (2.2-4.2); Glucose 103 mg/dL (74-106); Potassium 4.2 mmol/L (3.5-5.1); Sodium Level 143 mmol/L (136-145)
[2020-03-04 09:21] LABS: Absolute Lymphocyte Count 0.99 X10^3/uL (0.83-4.51); Absolute Neutrophil Count 2.7 X10^3/uL (2.0-7.7); Basophil# 0.02 X10^3/uL; Basophil% 0.4 % (0-1); Eosinophil# 0.28 X10^3/uL; Eosinophils% 6.3 % (0-5); Hematocrit 33.3 % (40-54); Hemoglobin 10.5 g/dL (13.0-16.5); Lymphocyte # 0.99 X10^3/ul (4.0); Lymphocyte % 22.2 % (19-41); Mean Corp Hgb Conc 31.5 g/dL (32-36); Mean Corpuscular Hgb 32.1 pg (27.0-32.0); Mean Corpuscular Volume 101.8 fL (80-94); Mean Platelet Vol. 12.6 fl (6.2-12.0); Monocyte# 0.49 X10^3/uL; NRBC Flagged by Analyzer 0 % (0-5); Neutrophil # 2.65 X10^3/uL (2.7-7.7); Neutrophil % 59.4 % (47-70); Platelet Count 171 K/mm3 (150-450); RBC Distribution Width CV 13.2 % (11.6-14.6); RBC Distribution Width SD 49.3 fl (35.1-43.9); Red Blood Count 3.27 M/mm3 (4.6-6.2); White Blood Count 4.5 K/mm3 (4.4-11.0)
--- NOTE | 2020-03-04 11:50 | PN_ITS ---
Patient Problems: Active and Suspected Problems Acute renal failure (Acute) Acute urinary retention (Acute) UTI (urinary tract infection) (Acute) Hyperkalemia (Acute) Hyperkalemia (Acute) Reason for Visit: Follow-up for acute kidney injury, hypernatremia, altered mental status and dementia. Objective: Today, patient is awake and alert and oriented x2. He does not remember about yesterday. He does not know what is wrong with him, why he is in the hospital and his clinical diagnosis. I introduced myself again but does not remember me. But patient is conversant and follows simple command. Skull exam General: Alert, Oriented x2, Cooperative HEENT: Atraumatic, PERRLA, EOMI, Normocephalic Oral: No Gingival or Mucosal Lesions/ Ulcerations Neck: Supple, No JVD, Negative Carotid Bruits Lungs: Air entry diminished in bilateral lung bases. No crepitation/rhonchi Cardiovascular: Regular rate, Regular Rhythm, Normal S1, Normal S2, No murmurs Abdomen: Bowel Sounds Present, Soft, Non Tender, Non-Distended : Mays catheter, light yellow urine. No pus flecks. No renal angle tenderness. No suprapubic tenderness. Extremities: Mild ankle bilateral edema, Capillary Refill Less than 3 Seconds Skin: No rashes, No breakdown Musculoskeletal: No Tenderness to Palpation of Joints or Extremities Neurological: Cranial nerves II-XII grossly intact, Deep Tendon Reflexes 2+/4 and Symmetrical, Neuro grossly intact Psych/Mental Status: Normal Affect, Appropriate. Vitals/I&O's: Vital Signs Temp Pulse Resp BP Pulse Ox 98.2 F 66 18 168/88 H 95 03/04/20 07:44 03/04/20 07:44 03/04/20 07:44 03/04/20 07:44 03/04/20 07:44 Oxygen Flow Rate (L/min) 2 Oxygen Delivery Method Room Air Weight: 235 lb 7.259 oz Body Mass Index (BMI) 33.7 Intake and Output for Last 24 Hours 03/02/20 03/03/20 03/04/20 23:59 23:59 23:59 Intake Total 2708.70 / 3008.70 3160.25 / 3160.25 279.8 / 279.8 Output Total 2450 / 3100 2925 / 2925 700 / 700 Balance 258.70 / -91.30 235.25 / 235.25 -420.2 / -420.2 Microbiology Past 72 Hours 02/29/20 09:32 Blood Culture (Wb) - Left Hand Blood Culture - Preliminary No growth in 48 hours. 02/29/20 14:55 Urine Catheter - Mays Urine Culture - Final Klebsiella pneumoniae sp pneum 02/29/20 15:10 Blood Culture (Wb) - Left Forearm Blood Culture - Preliminary No growth in 48 hours. Laboratory Results 03/04/20 05:22: APTT 41.3 H 03/04/20 05:22: WBC 4.5, RBC 3.27 L, Hgb 10.5 L, Hct 33.3 L, MCV 101.8 H, MCH 32.1 H, MCHC 31.5 L, RDW Std Deviation 49.3 H, RDW Coeff of [place] 13.2, Plt Count 171, MPV 12.6 H, Immature Gran % (Auto) 0.700, Neut % (Auto) 59.4, Lymph % (Auto) 22.2, [place] % (Auto) 11.0 H, Eos % (Auto) 6.3 H, Baso % (Auto) 0.4, Absolute Neuts (auto) 2.7, Absolute Lymphs (auto) 0.99, Nucleated RBC % 0 03/04/20 05:22: Sodium 143, Potassium 4.2, Chloride 117 H, Carbon Dioxide 25.0, Anion Gap 1 L, BUN 45 H, Creatinine 2.43 H, Estim Creat Clear Calc 25.45, Est G FR (MDRD) Af Amer 33 L, Est GFR (MDRD) Non-Af 28 L, BUN/Creatinine Ratio 18.5, Glucose 103, Calcium 8.3 L, Total Bilirubin 0.30, AST 10 L, ALT 7 L, Alkaline Phosphatase 97, Total Protein 6.0 L, Albumin 2.4 L, Globulin 3.6, Al bumin/Globulin Ratio 0.7 L Current Medications Acetaminophen (Acetaminophen 325 Mg Tablet) 650 mg PO Q6H PRN PRN PRN Reason: Pain Score 1-10/Temp > 100.7 F Calamine/Phenol (Menthol/Lanolin/Calamine/Znox 113 Gm Tube) 1 applic TOPICAL BID [facility]; Protocol Last Admin: 03/04/20 07:56 Dose: 1 applic Documented by: Carbidopa/Levodopa/Entacapone (Carbidopa/Levodopa/Entacapone 200) 2 tab PO DAILY [facility] Last Admin: 03/04/20 07:55 Dose: 2 tab Documented by: Ciprofloxacin HCl (Ciprofloxacin 500 Mg Tablet) 500 mg PO Q18H [facility] Last Admin: 03/04/20 05:52 Dose: 500 mg Documented by: Finasteride (Finasteride 5 Mg Tablet) 5 mg PO DAILY [facility] Last Admin: 03/04/20 07:57 Dose: 5 mg Documented by: Gabapentin (Gabapentin 100 Mg Capsule) 100 mg PO BIDCM [facility] Last Admin: 03/04/20 07:56 Dose: 100 mg Documented by: Heparin Sodium (Porcine) (Heparin Injection (Vial) 5,000 Unit/Ml Vial) 0 unit IV UD PRN; Protocol PRN Reason: dose adjustment Heparin Sodium/Dextrose () 25,000 units in 250 mls @ 15 mls/hr IV .[id number] [facility]; Protocol Last Admin: 03/04/20 08:15 Dose: 1,000 units/hr, 10 mls/hr Documented by: Dextrose () 1,000 mls @ 50 mls/hr IV .Q20H [facility] Last Admin: 03/04/20 00:12 Dose: 75 mls/hr Documented by: Lidocaine (Lidocaine 5% Patch) 1 patch TOPICAL DAILY [facility]; Protocol Last Admin: 03/04/20 07:56 Dose: 1 patch Documented by: Memantine (Memantine Hydrochloride 10 Mg Tablet) 10 mg PO BID [facility] Last Admin: 03/04/20 07:55 Dose: 10 mg Documented by: Nutritional Formula (Lactose Free) (Ensure Enlive 120 Ml Liquid) 120 ml PO 4X/DAY [facility] Last Admin: 03/04/20 07:56 Dose: 120 ml Documented by: Ondansetron HCl (Ondansetron 4 Mg/2 Ml Vial) 4 mg IV Q8H PRN PRN PRN Reason: NAUSEA/VOMITING Sodium Chloride (0.9% Saline Lock 10 Ml Syringe) 10 - 40 ml IV UD PRN PRN Reason: SALINE FLUSH Last Admin: 03/03/20 11:26 Dose: 10 ml Documented by: Tamsulosin HCl (Tamsulosin Hcl 0.4 Mg Capsule) 0.8 mg PO DAILY [facility] Last Admin: 03/04/20 07:55 Dose: 0.8 mg Documented by: Tolterodine Tartrate (Tolterodine Tartrate 2 Mg Cap.Sa) 2 mg PO QHS [facility] Last Admin: 03/03/20 21:19 Dose: 2 mg Documented by: Verapamil HCl (Verapamil Sr 240 Mg Tablet) 240 mg PO DAILY [facility] Last Admin: 03/04/20 07:55 Dose: 240 mg Documented by: Medical Necessity - Tobacco Use Smoking Status: Former smoker Assessment/Plan All Active Problems Acute renal failure (Acute) Acute urinary retention (Acute) UTI (urinary tract infection) (Acute) HCAP (healthcare-associated pneumonia) (Resolved) Hyperkalemia (Acute) Hyperkalemia (Acute) Acute kidney injury superimposed on CKD (Acute) This is a 79-year-old with history of dementia with Lewy body, Parkinson's disease, CKD stage III, hypertension of BPH and DVT on Eliquis was admitted from assisted living for urine retention, confusion, labs consistent with SAMMI on CKD stage III. 1. Partially treated ESBL Klebsiella pneumoniae UTI, probably from Cipro given in senior living- hx Enterococcus faecalis UTI. Patient is being admitted on MedSurg floor. 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 She does not have fever chills, nausea, vomiting or diarrhea. UA shows more than a WBC, pyuria and LE 500, positive nitrite. Patient was on Cipro in assisted facility. Initially patient started on cefepime 1/2: Discussed with the ID, Dr. Raphael. It is sensitive to Cipro therefore started on Cipro 500 mg every 18 hours. Microbiology change in sensitivity of cefepime to intermediate therefore discontinued. Urine in Mays catheter is turbid with flecks. 1/3: Continue Cipro adjusted to the creatinine clearance. ID consult tomorrow probably will need total of 7 days of antibiotic. 2. SAMMI on CKD stage III secondary to dehydration urine retention. Patient has indwelling Mays catheter. Dark urine./Creatinine shows improvement. Continue IV fluid normal saline. Repeat BMP in the evening and adjust IV fluid accordingly. Clinically, patient is still dehydrated. CT abdomen shows bilateral abnormal kidneys showing numerous cysts, largest mid measuring 9 cm and bilateral nephrolithiasis, nonobstructive renal stone, 3 cm staghorn calculus in left upper pole but no evidence of hydronephrosis. 03/02: Discussed with the medical technician assistant. Sodium is stable at 147. Change IV fluid to D5 W at 60 mill per hour. Patient is +3 L fluid balance and has good urine output. Patient BUN/creatinine still elevated 64/5.04 03/03: BUN/creatinine is getting better. Sodium improving 145. Industrial Truck Mechanic recommended outpatient urology follow-up for bilateral renal cyst and renal stones and renal ultrasound 03/04: Patient having good urine output about 3 L yesterday. BUN/creatinine improving. Estimated creatinine clearance about 25 mL/min. 3. Acute metabolic encephalopathy -seems most likely metabolic encephalopathy. 03/02: Acute encephalopathy has resolved. Patient on baseline mental status 03/03: Deterioration in the mental status more lethargic and sleepy. CT head without contrast was done and shows no acute intracranial abnormality. 03/04: Patient mental status has improved. He fluctuates because of dementia. 4. Dementia with lewy bodies - continue namenda 5. Hx DVT -currently patient is on IV heparin drip secondary to kidney failure. When kidney function returns normal will be back on Eliquis. 6. Chronic macrocytic anemia - not significantly below baseline - trend. 7. Chronic hypernatremia, unclear etiology. 03/02: Patient still hyponatremic even though dehydration is corrected 8. Hx BPH - continue flomax and proscar. 9. Parkinson - upper extremity tremor. continue carbidopa/levodopa/entacapone. 10. HTN - verapamil DVT ppx: As mentioned above DC planning: SNF vs return to assisted living Clinical Impression(s) from Imaging Studies Chest X-Ray 02/29/20 15:25 IMPRESSION: Degenerative changes, as described above. No demonstrated acute cardiopulmonary process. Abdomen/Pelvis CT 02/29/20 15:59 IMPRESSION: Bilateral abnormal kidney showing numerous renal cysts and renal stones but no evidence for hydronephrosis. No gross acute abnormalities. Brain CT 03/03/20 09:47 IMPRESSION: Chronic involutional changes of the brain. Electronically Signed: Gianni Reyes MD at 11:25 EST Tel , Service support , Inpatient E&M: [id number] Subs Hosp L2
[2020-03-04 13:21] LABS: Partial Thromboplast Time 51.1 Seconds (24.1-36.2)
[2020-03-04 14:31] VITALS: BP 135/62; PULSE 66; RESP 18; TEMP 36.9; O2SAT 98
--- NOTE | 2020-03-04 14:57 | NURSING ---
This nurse aware of ptt of 51.1. Per heparin protocol, this nurse increased rate from 10ml/hr to 11ml/hr.
--- NOTE | 2020-03-04 18:03 | PCM.PN.REN ---
Patient Problems: Active and Suspected Problems Acute renal failure (Acute) Acute urinary retention (Acute) UTI (urinary tract infection) (Acute) Hyperkalemia (Acute) Hyperkalemia (Acute) Subjective: confused cannot do ROS - Physical Exam Vitals/I&O's: Vital Signs Temp Pulse Resp BP Pulse Ox 98.5 F 66 18 135/62 H 98 03/04/20 14:31 03/04/20 14:31 03/04/20 14:31 03/04/20 14:31 03/04/20 14:31 Oxygen Flow Rate (L/min) 2 Oxygen Delivery Method Room Air Weight: 106.8 kg Body Mass Index (BMI) 33.7 Intake and Output for Last 24 Hours 03/02/20 03/03/20 03/04/20 23:59 23:59 23:59 Intake Total 2708.70 / 3008.70 3160.25 / 3160.25 1741.14 / 1741.14 Output Total 2450 / 3100 2925 / 2925 1300 / 1300 Balance 258.70 / -91.30 235.25 / 235.25 441.14 / 441.14 General: Alert, No apparent distress HEENT: Atraumatic, Normocephalic Lungs: Clear to auscultation, Normal air movement Cardiovascular: Normal S1, Normal S2 Abdomen: Bowel Sounds Present, Soft, Obese Extremities: No edema Microbiology Past 72 Hours 02/29/20 09:32 Blood Culture (Wb) - Left Hand Blood Culture - Preliminary No growth in 48 hours. 02/29/20 14:55 Urine Catheter - Mays Urine Culture - Final Klebsiella pneumoniae sp pneum 02/29/20 15:10 Blood Culture (Wb) - Left Forearm Blood Culture - Preliminary No growth in 48 hours. Laboratory Results 03/04/20 05:22: APTT 41.3 H 03/04/20 05:22: WBC 4.5, RBC 3.27 L, Hgb 10.5 L, Hct 33.3 L, MCV 101.8 H, MCH 32.1 H, MCHC 31.5 L, RDW Std Deviation 49.3 H, RDW Coeff of [place] 13.2, Plt Count 171, MPV 12.6 H, Immature Gran % (Auto) 0.700, Neut % (Auto) 59.4, Lymph % (Auto) 22.2, [place] % (Auto) 11.0 H, Eos % (Auto) 6.3 H, Baso % (Auto) 0.4, Absolute Neuts (auto) 2.7, Absolute Lymphs (auto) 0.99, Nucleated RBC % 0 03/04/20 05:22: Sodium 143, Potassium 4.2, Chloride 117 H, Carbon Dioxide 25.0, Anion Gap 1 L, BUN 45 H, Creatinine 2.43 H, Estim Creat Clear Calc 25.45, Est GFR (MDRD) Af Amer 33 L, Est GFR (MDRD) Non-Af 28 L, BUN/Creatinine Ratio 18.5, Glucose 103, Calcium 8.3 L, Total Bilirubin 0.30, AST 10 L, ALT 7 L, Alkaline Phosphatase 97, Total Protein 6.0 L, Albumin 2.4 L, Globulin 3.6, Albumin/Globulin Ratio 0.7 L 03/04/20 13:00: APTT 51.1 H Current Medications Acetaminophen (Acetaminophen 325 Mg Tablet) 650 mg PO Q6H PRN PRN PRN Reason: Pain Score 1-10/Temp > 100.7 F Calamine/Phenol (Menthol/Lanolin/Calamine/Znox 113 Gm Tube) 1 applic TOPICAL BID [facility]; Protocol Last Admin: 03/04/20 07:56 Dose: 1 applic Documented by: Carbidopa/Levodopa/Entacapone (Carbidopa/Levodopa/Entacapone 200) 2 tab PO DAILY [facility] Last Admin: 03/04/20 07:55 Dose: 2 tab Documented by: Ciprofloxacin HCl (Ciprofloxacin 500 Mg Tablet) 500 mg PO Q18H [facility] Last Admin: 03/04/20 05:52 Dose: 500 mg Documented by: Finasteride (Finasteride 5 Mg Tablet) 5 mg PO DAILY [facility] Last Admin: 03/04/20 07:57 Dose: 5 mg Documented by: Gabapentin (Gabapentin 100 Mg Capsule) 100 mg PO BIDCM [facility] Last Admin: 03/04/20 07:56 Dose: 100 mg Documented by: Heparin Sodium (Porcine) (Heparin Injection (Vial) 5,000 Unit/Ml Vial) 0 unit IV UD PRN; Protocol PRN Reason: dose adjustment Heparin Sodium/Dextrose () 25,000 units in 250 mls @ 15 mls/hr IV .[id number] [facility]; Protocol Last Titration: 03/04/20 14:58 Dose: 1,100 units/hr, 11 mls/hr Documented by: Dextrose () 1,000 mls @ 50 mls/hr IV .Q20H [facility] Last Admin: 03/04/20 14:47 Dose: 50 mls/hr Documented by: Lidocaine (Lidocaine 5% Patch) 1 patch TOPICAL DAILY [facility]; Protocol Last Admin: 03/04/20 07:56 Dose: 1 patch Documented by: Memantine (Memantine Hydrochloride 10 Mg Tablet) 10 mg PO BID [facility] Last Admin: 03/04/20 07:55 Dose: 10 mg Documented by: Nutritional Formula (Lactose Free) (Ensure Enlive 120 Ml Liquid) 120 ml PO 4X/DAY [facility] Last Admin: 03/04/20 14:47 Dose: 120 ml Documented by: Nystatin (Nystatin Powder 15gm Bottle) 1 applic TOPICAL BID [facility]; Protocol Ondansetron HCl (Ondansetron 4 Mg/2 Ml Vial) 4 mg IV Q8H PRN PRN PRN Reason: NAUSEA/VOMITING Sodium Chloride (0.9% Saline Lock 10 Ml Syringe) 10 - 40 ml IV UD PRN PRN Reason: SALINE FLUSH Last Admin: 03/03/20 11:26 Dose: 10 ml Documented by: Tamsulosin HCl (Tamsulosin Hcl 0.4 Mg Capsule) 0.8 mg PO DAILY [facility] Last Admin: 03/04/20 07:55 Dose: 0.8 mg Documented by: Tolterodine Tartrate (Tolterodine Tartrate 2 Mg Cap.Sa) 2 mg PO QHS [facility] Last Admin: 03/03/20 21:19 Dose: 2 mg Documented by: Verapamil HCl (Verapamil Sr 240 Mg Tablet) 240 mg PO DAILY [facility] Last Admin: 03/04/20 07:55 Dose: 240 mg Documented by: Medical Necessity - Tobacco Use Smoking Status: Former smoker Assessment/Plan All Active Problems Acute renal failure (Acute) Acute urinary retention (Acute) UTI (urinary tract infection) (Acute) HCAP (healthcare-associated pneumonia) (Resolved) Hyperkalemia (Acute) Hyperkalemia (Acute) Acute kidney injury superimposed on CKD (Acute) SAMMI likely prerenal Hypernatremia CKD Bilateral multiple renal cysts Nephrolithiasis The patient will need evaluation by urology for staghorn calculus and bilateral nephrolithiasis after the holidays. After the holidays will order renal ultrasound SNa 143 should improve with ivf Scr 2.4 from 3.33 improving check bmp in am
[2020-03-04 20:36] VITALS: BP 132/62; PULSE 74; RESP 18; TEMP 36.9; O2SAT 97
[2020-03-04 20:47] LABS: Partial Thromboplast Time 46.2 Seconds (24.1-36.2)
[2020-03-04] MEDS: Heparin Injection (Vial) 5,000 UNIT/ML VIAL IV (21:02)
[2020-03-04] MEDS: Nystatin Powder 15gm Bottle 1 APPLIC TOPICAL (22:11)
[2020-03-04] MEDS: Tolterodine Tartrate 2 MG CAP.SA PO (22:12)
[2020-03-05] VITALS (7 sets, daily range): BP systolic 139–162; BP diastolic 64–97; PULSE 68–73; RESP 16–18; TEMP 36.4–37.1; O2SAT 93–97; BMI 33.7
[2020-03-05] MEDS: Ciprofloxacin 500 MG Tablet PO ×2 (00:24→18:18)
--- NOTE | 2020-03-05 00:50 | NURSING ---
Pts ptt @ 2009 came back at 46.2. This called for a 1000 unit bolus of heparin and an increase of 1 ml/hr of IV heparin raised to 12ml/hr up from 11 ml/hr. 0300 ppt blood draw ordered and all heparin interventions were verified with Mayte Sheriff RN.
[2020-03-05 03:37] LABS: Absolute Lymphocyte Count 1.07 X10^3/uL (0.83-4.51); Absolute Neutrophil Count 3.6 X10^3/uL (2.0-7.7); Basophil# 0.02 X10^3/uL; Basophil% 0.4 % (0-1); Eosinophil# 0.27 X10^3/uL; Eosinophils% 4.9 % (0-5); Hematocrit 32.3 % (40-54); Hemoglobin 10.5 g/dL (13.0-16.5); Lymphocyte # 1.07 X10^3/ul (4.0); Lymphocyte % 19.4 % (19-41); Mean Corp Hgb Conc 32.5 g/dL (32-36); Mean Corpuscular Hgb 32.4 pg (27.0-32.0); Mean Corpuscular Volume 99.7 fL (80-94); Mean Platelet Vol. 11.9 fl (6.2-12.0); Monocyte# 0.53 X10^3/uL; Monocyte% 9.6 % (0-10); NRBC Flagged by Analyzer 0 % (0-5); Neutrophil # 3.56 X10^3/uL (2.7-7.7); Neutrophil % 64.6 % (47-70); Platelet Count 175 K/mm3 (150-450); RBC Distribution Width CV 12.7 % (11.6-14.6); RBC Distribution Width SD 46.6 fl (35.1-43.9); Red Blood Count 3.24 M/mm3 (4.6-6.2); White Blood Count 5.5 K/mm3 (4.4-11.0)
[2020-03-05 03:51] LABS: Partial Thromboplast Time 76.2 Seconds (24.1-36.2)
[2020-03-05 04:33] LABS: Anion Gap 4 (5-15); BUN 42 mg/dL (7-18); BUN/Creat Ratio 21.1 RATIO (10-20); Calcium,Total 8.4 mg/dL (8.5-10.1); Chloride 109 mmol/L (98-107); Creatinine, Serum 1.99 mg/dL (0.70-1.30); EST Glomerular Filtration Rate 35 mL/min (>60); Est Glom Filt Rate - Afr Amer 42 mL/min (>60); Estimated Creatinine Clearance 31.08 ml/min; Glucose 108 mg/dL (74-106); Potassium 3.9 mmol/L (3.5-5.1); Sodium Level 139 mmol/L (136-145)
[2020-03-05] MEDS: Carbidopa/Levodopa/Entacapone 200 2 TAB PO (08:49)
[2020-03-05] MEDS: Memantine Hydrochloride 10 MG Tablet PO ×2 (08:49→20:49)
[2020-03-05] MEDS: Gabapentin 100 MG Capsule PO ×2 (08:50→16:53)
[2020-03-05] MEDS: Tamsulosin HCl 0.4 MG Capsule 0.8 MG PO (08:50)
[2020-03-05] MEDS: Verapamil SR 240 MG Tablet PO (08:50)
[2020-03-05] MEDS: Lidocaine 5% Patch 1 PATCH TOPICAL (08:51)
[2020-03-05] MEDS: Finasteride 5 MG Tablet PO (08:51)
[2020-03-05] MEDS: Nystatin Powder 15gm Bottle 1 APPLIC TOPICAL ×2 (08:51→20:41)
[2020-03-05] MEDS: Menthol/Lanolin/Calamine/Znox 113 GM Tube 1 APPLIC TOPICAL ×2 (08:52→20:40)
--- NOTE | 2020-03-05 09:17 | CASEMGMT ---
Social Work Note SW faxed updated clinicals to [facility]. Plan: Return to [facility] once medically cleared Alexandra Louis USER SUPPORT ANALYST SUPERVISOR, WORD PROCESSING SUPERVISOR
[2020-03-05 09:49] LABS: Partial Thromboplast Time 72.5 Seconds (24.1-36.2)
--- NOTE | 2020-03-05 10:07 | NURSING ---
Addendum entered by Gwendolyn Cheung 03/05/20 10:57: Time of lab draw was changed for tomorrow, however, later Dr. Wetzel cancelled it since discontinued the heparin and said to start the Eliquis now. Original Note: PTT is 72.5, maintain rate, ordered for repeat lab for 1524.
[2020-03-05] MEDS: APIXABAN 5 MG TABLET 10 MG PO ×2 (10:53→20:49)
[2020-03-05] MEDS: 0.9% Saline Lock 10 ML Syringe IV (10:54)
--- NOTE | 2020-03-05 11:51 | PN.RENAL_ITS ---
Patient Problems: Active and Suspected Problems Acute renal failure (Acute) Acute urinary retention (Acute) UTI (urinary tract infection) (Acute) Hyperkalemia (Acute) Hyperkalemia (Acute) Subjective: no new events - Physical Exam Vitals/I&O's: Vital Signs Temp Pulse Resp BP Pulse Ox 97.8 F 70 18 162/97 H 97 03/05/20 08:46 03/05/20 09:18 03/05/20 08:46 03/05/20 08:46 03/05/20 09:33 Oxygen Flow Rate (L/min) 2 Oxygen Delivery Method Room Air Weight: 106.8 kg Body Mass Index (BMI) 33.7 Intake and Output for Last 24 Hours 03/03/20 03/04/20 03/05/20 23:59 23:59 23:59 Intake Total 3160.25 / 3160.25 2168.24 / 2168.24 365.73 / 365.73 Output Total 2925 / 2925 1700 / 1700 1200 / 1200 Balance 235.25 / 235.25 468.24 / 468.24 -834.27 / -834.27 General: Alert HEENT: Atraumatic, PERRLA, EOMI, Normocephalic Neck: Supple, No JVD, Negative Carotid Bruits Lungs: Clear to auscultation, Normal air movement Cardiovascular: Regular rate, No murmurs Abdomen: Bowel Sounds Present, Soft, Non Tender Extremities: No edema, Capillary Refill Less than 3 Seconds Skin: No rashes, No breakdown Musculoskeletal: No Tenderness to Palpation of Joints or Extremities Neurological: Cranial nerves II-XII grossly intact Psych/Mental Status: Normal Affect, Appropriate Microbiology Past 72 Hours 02/29/20 09:32 Blood Culture (Wb) - Left Hand Blood Culture - Preliminary No growth in 48 hours. 02/29/20 14:55 Urine Catheter - Mays Urine Culture - Final Klebsiella pneumoniae sp pneum 02/29/20 15:10 Blood Culture (Wb) - Left Forearm Blood Culture - Preliminary No growth in 48 hours. Laboratory Results 03/04/20 13:00: APTT 51.1 H 03/04/20 20:10: APTT 46.2 H 03/05/20 03:24: WBC 5.5, RBC 3.24 L, Hgb 10.5 L, Hct 32.3 L, MCV 99.7 H, MCH 32.4 H, MCHC 32.5, RDW Std Deviation 46.6 H, RDW Coeff of [place] 12.7, Plt Count 175, MPV 11.9, Immature Gran % (Auto) 1.100 H, Neut % (Auto) 64.6, Lymph % (Auto) 19.4, [place] % (Auto) 9.6, Eos % (Auto) 4.9, Baso % (Auto) 0.4, Absolute Neuts (auto) 3.6, Absolute Lymphs (auto) 1.07, Nucleated RBC % 0 03/05/20 03:24: Sodium 139, Potassium 3.9, Chloride 109 H, Carbon Dioxide 26.0, Anion Gap 4 L, BUN 42 H, Creatinine 1.99 H, Estim Creat Clear Calc 31.08, Est GFR (MDRD) Af Amer 42 L, Est GFR (MDRD) Non-Af 35 L, BUN/Creatinine Ratio 21.1 H , Glucose 108 H, Calcium 8.4 L 03/05/20 03:24: APTT 76.2 H 03/05/20 09:25: APTT 72.5 H Current Medications Acetaminophen (Acetaminophen 325 Mg Tablet) 650 mg PO Q6H PRN PRN PRN Reason: Pain Score 1-10/Temp > 100.7 F Apixaban (Apixaban 5 Mg Tablet) 10 mg PO BID [facility] Last Admin: 03/05/20 10:53 Dose: 10 mg Documented by: Calamine/Phenol (Menthol/Lanolin/Calamine/Znox 113 Gm Tube) 1 applic TOPICAL BID [facility]; Protocol Last Admin: 03/05/20 08:52 Dose: 1 applic Documented by: Carbidopa/Levodopa/Entacapone (Carbidopa/Levodopa/Entacapone 200) 2 tab PO DAILY [facility] Last Admin: 03/05/20 08:49 Dose: 2 tab Documented by: Ciprofloxacin HCl (Ciprofloxacin 500 Mg Tablet) 500 mg PO Q18H [facility] Last Admin: 03/05/20 00:24 Dose: 500 mg Documented by: Finasteride (Finasteride 5 Mg Tablet) 5 mg PO DAILY [facility] Last Admin: 03/05/20 08:51 Dose: 5 mg Documented by: [facility]ap[facility] ([facility] 100 Mg [facility]apsule) [facility] Last Admin: 03/05/20 08:50 Dose: 100 mg Documented by: Dextrose () 1,000 mls @ 50 mls/hr IV .Q20H [facility] Last Admin: 03/04/20 14:47 Dose: 50 mls/hr Documented by: Lidocaine (Lidocaine 5% Patch) 1 patch TOPICAL DAILY [facility]; Protocol Last Admin: 03/05/20 08:51 Dose: 1 patch Documented by: Memantine (Memantine Hydrochloride 10 Mg Tablet) 10 mg PO BID [facility] Last Admin: 03/05/20 08:49 Dose: 10 mg Documented by: Nutritional Formula (Lactose Free) (Ensure Enlive 120 Ml Liquid) 120 ml PO 4X/DAY [facility] Last Admin: 03/05/20 08:55 Dose: 120 ml Documented by: Nystatin (Nystatin Powder 15gm Bottle) 1 applic TOPICAL BID [facility]; Protocol Last Admin: 03/05/20 08:51 Dose: 1 applicatio Documented by: Ondansetron HCl (Ondansetron 4 Mg/2 Ml Vial) 4 mg IV Q8H PRN PRN PRN Reason: NAUSEA/VOMITING Sodium Chloride (0.9% Saline Lock 10 Ml Syringe) 10 - 40 ml IV UD PRN PRN Reason: SALINE FLUSH Last Admin: 03/05/20 10:54 Dose: 10 ml Documented by: Tamsulosin HCl (Tamsulosin Hcl 0.4 Mg Capsule) 0.8 mg PO DAILY [facility] Last Admin: 03/05/20 08:50 Dose: 0.8 mg Documented by: Tolterodine Tartrate (Tolterodine Tartrate 2 Mg Cap.Sa) 2 mg PO QHS [facility] Last Admin: 03/04/20 22:12 Dose: 2 mg Documented by: Verapamil HCl (Verapamil Sr 240 Mg Tablet) 240 mg PO DAILY [facility] Last Admin: 03/05/20 08:50 Dose: 240 mg Documented by: Medical Necessity - Tobacco Use Smoking Status: Former smoker Assessment/Plan All Active Problems Acute renal failure (Acute) Acute urinary retention (Acute) UTI (urinary tract infection) (Acute) HCAP (healthcare-associated pneumonia) (Resolved) Hyperkalemia (Acute) Hyperkalemia (Acute) Acute kidney injury superimposed on CKD (Acute) SAMMI likely prerenal Hypernatremia CKD Bilateral multiple renal cysts Nephrolithiasis cr steadily improving Na is normal now will need outpatient evaluation for renal stones/staghorn calculus
--- NOTE | 2020-03-05 12:11 | PCM.NTREPORT ---
Nutrition Therapy Report - History Nutrition Services has been consulted to:: Manage nutrient details of diet order Current diet / nutrition support order:: Renal general; mech (minced/moist) with thin liquids--nonselect. Norris BID w/ meals. 120 ml ensure enlvie 4 times/day w/ medpass - Anthropometric Measurements Height:: 5 ft 10 in Weight:: 106.8 kg Body Mass Index (BMI):: 33.7 - Relevant Labs Relevant Labs:: WBC 3.9 K/mm3 (4.4-11.0) L 03/02/20 02:50 RBC 3.24 M/mm3 (4.6-6.2) L 03/05/20 03:24 Hgb 10.5 g/dL (13.0-16.5) L 03/05/20 03:24 Hct 32.3 % (40-54) L 03/05/20 03:24 MCV 99.7 fL (80-94) H 03/05/20 03:24 MCH 32.4 pg (27.0-32.0) H 03/05/20 03:24 MCHC 31.5 g/dL (32-36) L 03/04/20 05:22 RDW Std Deviation 46.6 fl (35.1-43.9) H 03/05/20 03:24 MPV 12.6 fl (6.2-12.0) H 03/04/20 05:22 Immature Gran % (Auto) 1.100 % (0.0-0.9) H 03/05/20 03:24 Neut % (Auto) 77.5 % (47-70) H 02/29/20 15:10 Lymph % (Auto) 18.7 % (19-41) L 03/02/20 02:50 [place] % (Auto) 11.0 % (0-10) H 03/04/20 05:22 Eos % (Auto) 6.3 % (0-5) H 03/04/20 05:22 Absolute Lymphs (auto) 0.72 X10^3/uL (0.83-4.51) L 03/02/20 02:50 PT 22.2 SECONDS (11.7-14.9) H 02/29/20 15:10 APTT 72.5 Seconds (24.1-36.2) H 03/05/20 09:25 Sodium 147 mmol/L (136-145) H 03/02/20 02:50 Potassium 5.2 mmol/L (3.5-5.1) H 02/29/20 15:10 Chloride 109 mmol/L (98-107) H 03/05/20 03:24 Anion Gap 4 (5-15) L 03/05/20 03:24 BUN 42 mg/dL (7-18) H 03/05/20 03:24 Creatinine 1.99 mg/dL (0.70-1.30) H 03/05/20 03:24 Est GFR (MDRD) Af Amer 42 mL/min (>60) L 03/05/20 03:24 Est GFR (MDRD) Non-Af 35 mL/min (>60) L 03/05/20 03:24 BUN/Creatinine Ratio 21.1 RATIO (10-20) H 03/05/20 03:24 Glucose 108 mg/dL (74-106) H 03/05/20 03:24 Calcium 8.4 mg/dL (8.5-10.1) L 03/05/20 03:24 AST 10 U/L (15-37) L 03/04/20 05:22 ALT 7 U/L (16-61) L 03/04/20 05:22 Alkaline Phosphatase 128 U/L (45-117) H 02/29/20 15:10 Total Protein 6.0 g/dL (6.4-8.2) L 03/04/20 05:22 Albumin 2.4 g/dL (3.2-5.0) L 03/04/20 05:22 Albumin/Globulin Ratio 0.7 RATIO (0.9-2.4) L 03/04/20 05:22 - Assessment Food / Nutrition-Related History:: Pt with overall poor intake ~25% since admit and previously calculated wt loss~21.1#/8.2% x 6 weeks (severe) which meet criteria for severe malnutrition. Pt seems overall accepting of ensure enlive w/ medpass--will continue as tolerated. BUN/creat improved and given ongoing poor intake at meals--will liberalize diet from renal as ordered. No new wt noted since initial assessment. Re-estimated nutrition needs~5323-4199 kcal and ~65-85 gm protein/day. - Nutrition Diagnosis Problem / Etiology / Signs & Symptoms (PES):: Severe pro/babita malnutrition in the context of acute illness related to chewing difficulty and ongoing poor appetite as evidenced by overall poor intake ~25% since admit x 5 days and severe wt loss~21.1#/8.2% x 6 weeks. Evidence of Malnutrition Exists:: Yes Severe PCM:: Acute Illness - Nutrition Intervention Nutrition Prescription:: Estimated nutrition needs~4868-3932 kcal and ~65-85 gm protein/day - Food / Nutrient Delivery Interventions Summary of nutrition intervention:: Will continue ensure enlive 120 ml w/ medpass 4 times per day; Norris BID for wound healing and will offer vanilla Ensure Pudding BID as tolerated. Will also liberalize diet from renal to regular/no added salt given improved renal status and ongoing poor intake at meals. Nutrition education provided?: No - MNT Monitoring Further MNT monitoring and evaluation required?: Yes MNT Follow-up in:: 3-5 days
--- NOTE | 2020-03-05 13:56 | CASEMGMT ---
Addendum entered by Alexandra Louis 03/05/20 15:16: SANJANA placed another call to [facility] and spoke with Amber in admissions. Amber states she spoke with pt's Almita and informed Almita that they would review referral but no guarantees they would be able to accept pt. SANJANA updated Amber that pt has [employer] insurance and per [employer] website, [facility] is not in network but informed Amber that pt was paying privately at [facility] and was made aware that [facility] would also likely be private pay. Amber states she will review referral. SANJANA faxed referral to [facility]. Plan: [facility] pending acceptance Original Note: Social Work Note SANJANA received note that pt's Almita is at [facility] and would like to speak to SW. Per note, Almita doesn't want pt to return to [facility] but would like pt to admit to [facility]. SANJANA placed a call to [facility] and left message for Alisia to call this worker back. Pt has [employer] insurance and [facility] is not listed on [employer] website as a in network SNF. SANJANA in to speak with Almita. SANJANA introduced self and role at [facility]. Almita confirms she doesn't want pt to return to [facility], would like [facility]. Almita states she spoke with [facility] who stated that they would need to speak to this worker. SANJANA informed Almita that [facility] is not listed as in network SNF for [employer] so pt would be private pay. Almita states pt was private pay at [facility]. Almita states she has applied for Medicaid and submitted the documents needed and she is waiting to hear back. SANJANA explained that this worker is waiting for call back from [facility] regarding bed availability. Almita states understanding. Plan: Pt's Almita would like pt to admit to [facility] now instead of returning to [facility]. Alexandra Louis BAKERY TEAM LEADER, BODS DEVELOPER
--- NOTE | 2020-03-05 15:28 | PCM.HP.ID ---
Problem List (1) UTI (urinary tract infection) Status: Acute Reason for Consult: uti Consulted by: Dr. Wolf History of Present Illness: The patient is a 79 year old M presented 03/01, dx with klebs esbl uti, abx changed to cipro. Pt unable to provide history, overall feeling better, does not remember what happened. Full ROS performed and neg except as noted above. - Medical History Past Medical History (Chronic Problems): Chronic Problems Lewy body dementia (Chronic) Obesity (Chronic) Parkinsons disease (Chronic) HTN (hypertension) (Chronic) BPH (benign prostatic hyperplasia) (Chronic) Hx of recurrent transient ischemic attacks (Chronic) Chronic renal failure, stage 3 (moderate) (Chronic) Chronic anticoagulation (Chronic) Macrocytic anemia (Chronic) History of venous thromboembolism (Chronic) Allergies/Adverse Reactions: Allergies Penicillins Allergy (Verified 01/17/20 00:14) Rash Home Medications: Ambulatory Orders Medication Instructions Recorded Cholecalciferol (Vitamin D3) 5,000 unit PO DAILY 11/27/18 [Vitamin D3] Cyanocobalamin (Vitamin B-12) 1,000 mcg PO DAILY 11/27/18 [Vitamin B-12] Finasteride [Proscar] 5 mg PO DAILY 11/27/18 Glucosamine/D3/Boswellia Brenda 1 ea PO DAILY 11/27/18 [Glucosamine Complex-Vit D3 Cpt] Lidocaine [Lidocaine Pain Relief] 1 ea TP DAILY 11/27/18 Tamsulosin HCl [Flomax] 0.8 mg PO DAILY 11/27/18 Verapamil HCl [Verapamil ER] 240 mg PO DAILY 11/27/18 traMADol [Ultram] 50 mg PO TID 3 Days #10 tab 12/02/18 Apixaban [Eliquis] 5 mg PO BID 02/29/20 Carbidopa/Levodopa/Entacapone 2 tab PO DAILY 02/29/20 [Carbidopa-Levodopa 200 mg-Enta] Ciprofloxacin [Cipro] 500 mg PO BID 02/29/20 Gabapentin [Neurontin] 100 mg PO BIDCM 02/29/20 Lactose-Reduced Food [Boost Breeze] 237 ml PO TID 02/29/20 Memantine Hydrochloride [Namenda] 10 mg PO BID 02/29/20 Oxybutynin Chloride [Oxybutynin 10 mg PO QHS 02/29/20 Chloride ER] - Social History SMOKING STATUS:: Former smoker Vital Signs Temp Pulse Resp BP Pulse Ox 98 F 71 18 139/64 H 95 03/05/20 14:01 03/05/20 14:01 03/05/20 14:01 03/05/20 14:01 03/05/20 14:01 Oxygen Flow Rate (L/min) 2 Oxygen Delivery Method Room Air Weight: 106.8 kg Body Mass Index (BMI) 33.7 Microbiology Past 72 Hours 02/29/20 09:32 Blood Culture - Preliminary Blood Culture (Wb) - Left Hand No growth in 48 hours. 02/29/20 14:55 Urine Culture - Final Urine Catheter - Mays Klebsiella pneumoniae sp pneum 02/29/20 15:10 Blood Culture - Preliminary Blood Culture (Wb) - Left Forearm No growth in 48 hours. Laboratory Tests Past 24 Hrs 03/04/20 03/05/20 03/05/20 20:10 03:24 03:24 WBC 5.5 RBC 3.24 L Hgb 10.5 L Hct 32.3 L MCV 99.7 H MCH 32.4 H MCHC 32.5 RDW Std Deviation 46.6 H RDW Coeff of [place] 12.7 Plt Count 175 MPV 11.9 Immature Gran % (Auto) 1.100 H Neut % (Auto) 64.6 Lymph % (Auto) 19.4 [place] % (Auto) 9.6 Eos % (Auto) 4.9 Baso % (Auto) 0.4 Absolute Neuts (auto) 3.6 Absolute Lymphs (auto) 1.07 Nucleated RBC % 0 APTT 46.2 H Sodium 139 Potassium 3.9 Chloride 109 H Carbon Dioxide 26.0 Anion Gap 4 L BUN 42 H Creatinine 1.99 H Estim Creat Clear Calc 31.08 Est GFR (MDRD) Af Amer 42 L Est GFR (MDRD) Non-Af 35 L BUN/Creatinine Ratio 21.1 H Glucose 108 H Calcium 8.4 L 03/05/20 03/05/20 03:24 09:25 WBC RBC Hgb Hct MCV MCH MCHC RDW Std Deviation RDW Coeff of [place] Plt Count MPV Immature Gran % (Auto) Neut % (Auto) Lymph % (Auto) [place] % (Auto) Eos % (Auto) Baso % (Auto) Absolute Neuts (auto) Absolute Lymphs (auto) Nucleated RBC % APTT 76.2 H 72.5 H Sodium Potassium Chloride Carbon Dioxide Anion Gap BUN Creatinine Estim Creat Clear Calc Est GFR (MDRD) Af Amer Est GFR (MDRD) Non-Af BUN/Creatinine Ratio Glucose Calcium - Other Studies Radiology: [] reviewed Other Studies: [] Route of nutrition/ use of supplements: [] Nutritional Intake: [] IV Site: [] Mays Catheter: [] - Physical Exam General: Alert, Cooperative, No apparent distress HEENT: Atraumatic, PERRLA, EOMI Neck: Supple, No Nodes Lungs: Clear to auscultation, Normal air movement Cardiovascular: Regular rate, Regular Rhythm Abdomen: Soft, Non Tender, Non-Distended Extremities: No edema Skin: No rashes IV Site: Peripheral, without redness Musculoskeletal: No Tenderness to Palpation of Joints or Extremities Neurological: Cranial nerves II-XII grossly intact - Assessment/Plan Antibiotics: [] Assessment/Plan: [] Active and Suspected Problems Acute renal failure (Acute) Acute urinary retention (Acute) UTI (urinary tract infection) (Acute) Hyperkalemia (Acute) Hyperkalemia (Acute) esbl klebs complicated uti - on cipro. Would give 7 days total course. Will follow as needed, thank you, d/w Dr. Wolf over the weekend.
--- NOTE | 2020-03-05 18:10 | PN_ITS ---
Patient Problems: Active and Suspected Problems Acute renal failure (Acute) Acute urinary retention (Acute) UTI (urinary tract infection) (Acute) Hyperkalemia (Acute) Hyperkalemia (Acute) Subjective: Patient was seen and examined today, he remains confused, he is alert and voices no complaints to this examiner. I got a call from speech therapy today stating that they could not perform the cookie swallow test today due to a mixup, and will be performed tomorrow. consumer services consultant states that the patient's requested a different long term for the patient at the time of discharge, we will be awaiting confirmation that they have a bed at the facility which she has chosen. - Physical Exam Vitals/I&O's: Vital Signs Temp Pulse Resp BP Pulse Ox 98 F 71 18 139/64 H 95 03/05/20 14:01 03/05/20 14:01 03/05/20 14:01 03/05/20 14:01 03/05/20 14:01 Oxygen Flow Rate (L/min) 2 Oxygen Delivery Method Room Air Weight: 106.8 kg Body Mass Index (BMI) 33.7 Intake and Output for Last 24 Hours 03/03/20 03/04/20 03/05/20 23:59 23:59 23:59 Intake Total 3160.25 / 3160.25 2168.24 / 2168.24 1715.73 / 1715.73 Output Total 2925 / 2925 1700 / 1700 1850 / 1850 Balance 235.25 / 235.25 468.24 / 468.24 -134.27 / -134.27 General: Alert, No apparent distress, Well developed HEENT: Atraumatic, PERRLA, EOMI, Normocephalic Oral: Moist Mucosa Neck: Supple, No JVD, Trachea Midline, Thyroid Normal Size and Texture Lungs: Clear to auscultation, Normal air movement, No rhonchi, No wheeze, No rales Cardiovascular: Regular rate, Regular Rhythm, Normal S1, Normal S2, No murmurs, PMI Normal Abdomen: Bowel Sounds Present, Soft, Non Tender Extremities: No clubbing, No cyanosis, No edema, Capillary Refill Less than 3 Seconds Skin: No rashes, No breakdown Musculoskeletal: No Tenderness to Palpation of Joints or Extremities Neurological: Cranial nerves II-XII grossly intact, Neuro grossly intact, Sensory exam intact to light touch and pain Psych/Mental Status: - - Patient is alert but confused Microbiology Past 72 Hours 02/29/20 09:32 Blood Culture (Wb) - Left Hand Blood Culture - Preliminary No growth in 48 hours. 02/29/20 14:55 Urine Catheter - Mays Urine Culture - Final Klebsiella pneumoniae sp pneum 02/29/20 15:10 Blood Culture (Wb) - Left Forearm Blood Culture - Preliminary No growth in 48 hours. Laboratory Results 03/04/20 20:10: APTT 46.2 H 03/05/20 03:24: WBC 5.5, RBC 3.24 L, Hgb 10.5 L, Hct 32.3 L, MCV 99.7 H, MCH 32.4 H, MCHC 32.5, RDW Std Deviation 46.6 H, RDW Coeff of [place] 12.7, Plt Count 175, MPV 11.9, Immature Gran % (Auto) 1.100 H, Neut % (Auto) 64.6, Lymph % (Auto) 19.4, [place] % (Auto) 9.6, Eos % (Auto) 4.9, Baso % (Auto) 0.4, Absolute Neuts (auto) 3.6, Absolute Lymphs (auto) 1.07, Nucleated RBC % 0 03/05/20 03:24: Sodium 139, Potassium 3.9, Chloride 109 H, Carbon Dioxide 26.0, Anion Gap 4 L, BUN 42 H, Creatinine 1.99 H, Estim Creat Clear Calc 31.08, Est GFR (MDRD) Af Amer 42 L, Est GFR (MDRD) Non-Af 35 L, BUN/Creatinine Ratio 21.1 H , Glucose 108 H, Calcium 8.4 L 03/05/20 03:24: APTT 76.2 H 03/05/20 09:25: APTT 72.5 H Current Medications Acetaminophen (Acetaminophen 325 Mg Tablet) 650 mg PO Q6H PRN PRN PRN Reason: Pain Score 1-10/Temp > 100.7 F Apixaban (Apixaban 5 Mg Tablet) 10 mg PO BID [facility] Last Admin: 03/05/20 10:53 Dose: 10 mg Documented by: Calamine/Phenol (Menthol/Lanolin/Calamine/Znox 113 Gm Tube) 1 applic TOPICAL BID [facility]; Protocol Last Admin: 03/05/20 08:52 Dose: 1 applic Documented by: Carbidopa/Levodopa/Entacapone (Carbidopa/Levodopa/Entacapone 200) 2 tab PO DAILY [facility] Last Admin: 03/05/20 08:49 Dose: 2 tab Documented by: Ciprofloxacin HCl (Ciprofloxacin 500 Mg Tablet) 500 mg PO Q18H [facility] Last Admin: 03/05/20 00:24 Dose: 500 mg Documented by: Finasteride (Finasteride 5 Mg Tablet) 5 mg PO DAILY [facility] Last Admin: 03/05/20 08:51 Dose: 5 mg Documented by: Gabapentin (Gabapentin 100 Mg Capsule) 100 mg PO BIDCM [facility] Last Admin: 03/05/20 16:53 Dose: 100 mg Documented by: Dextrose () 1,000 mls @ 50 mls/hr IV .Q20H [facility] Last Admin: 03/05/20 13:59 Dose: 50 mls/hr Documented by: Lidocaine (Lidocaine 5% Patch) 1 patch TOPICAL DAILY [facility]; Protocol Last Admin: 03/05/20 08:51 Dose: 1 patch Documented by: Memantine (Memantine Hydrochloride 10 Mg Tablet) 10 mg PO BID [facility] Last Admin: 03/05/20 08:49 Dose: 10 mg Documented by: Nutritional Formula (Lactose Free) (Ensure Enlive 120 Ml Liquid) 120 ml PO 4X/DAY [facility] Last Admin: 03/05/20 16:58 Dose: 120 ml Documented by: Nystatin (Nystatin Powder 15gm Bottle) 1 applic TOPICAL BID [facility]; Protocol Last Admin: 03/05/20 08:51 Dose: 1 applicatio Documented by: Ondansetron HCl (Ondansetron 4 Mg/2 Ml Vial) 4 mg IV Q8H PRN PRN PRN Reason: NAUSEA/VOMITING Sodium Chloride (0.9% Saline Lock 10 Ml Syringe) 10 - 40 ml IV UD PRN PRN Reason: SALINE FLUSH Last Admin: 03/05/20 10:54 Dose: 10 ml Documented by: Tamsulosin HCl (Tamsulosin Hcl 0.4 Mg Capsule) 0.8 mg PO DAILY [facility] Last Admin: 03/05/20 08:50 Dose: 0.8 mg Documented by: Tolterodine Tartrate (Tolterodine Tartrate 2 Mg Cap.Sa) 2 mg PO QHS [facility] Last Admin: 03/04/20 22:12 Dose: 2 mg Documented by: Verapamil HCl (Verapamil Sr 240 Mg Tablet) 240 mg PO DAILY [facility] Last Admin: 03/05/20 08:50 Dose: 240 mg Documented by: Medical Necessity - Tobacco Use Smoking Status: Former smoker Assessment/Plan All Active Problems Acute renal failure (Acute) Acute urinary retention (Acute) UTI (urinary tract infection) (Acute) HCAP (healthcare-associated pneumonia) (Resolved) Hyperkalemia (Acute) Hyperkalemia (Acute) Acute kidney injury superimposed on CKD (Acute) #1 acute kidney injury on a backdrop of chronic kidney disease stage III- patient's creatinine is improving, nephrology is participating in his care #2 ESBL Klebsiella pneumonia I am UTI-patient was seen by infectious diseases today, he will remain on Cipro for a total of 7 days #3 acute metabolic encephalopathy on a backdrop of Lewy body dementia-patient has had no behavioral disturbances today #4 Lewy body dementia-chronic #5 history of DVT-currently patient was on a heparin drip, I do not see the need for this and I have placed him back on Eliquis, unfortunately he will have to have a loading dose given-10 mg twice a day for 7 days. #6 Parkinson's disease #7 chronic anemia-etiology unclear #8 dysphagia-type unknown, patient will be scheduled for a cookie swallow test tomorrow #9 essential hypertension #10 acute urinary retention-probably secondary to BPH, Mays cath remains in place at this time, patient is on Flomax #11 BPH-patient is on Proscar and Flomax I talked with the patient's by phone today and discussed his care Inpatient E&M: 77089 Subs Hosp L2
--- NOTE | 2020-03-05 18:25 | NURSING ---
Lidoderm patch removed.
[2020-03-05] MEDS: Donepezil HCl 5 MG Tablet PO (20:49)
[2020-03-06 02:10] VITALS: BP 150/69; PULSE 71; RESP 18; TEMP 36.9; O2SAT 95
[2020-03-06] MEDS: Magnesium Hydroxide 30 ML UDC PO (04:41)
[2020-03-06] MEDS: 0.9% Saline Lock 10 ML Syringe IV ×2 (04:43→16:41)
[2020-03-06 06:21] LABS: Anion Gap 7 (5-15); BUN 39 mg/dL (7-18); Calcium,Total 8.4 mg/dL (8.5-10.1); Chloride 107 mmol/L (98-107); Creatinine, Serum 1.77 mg/dL (0.70-1.30); EST Glomerular Filtration Rate 40 mL/min (>60); Est Glom Filt Rate - Afr Amer 48 mL/min (>60); Estimated Creatinine Clearance 34.94 ml/min; Glucose 129 mg/dL (74-106); Potassium 3.7 mmol/L (3.5-5.1); Sodium Level 138 mmol/L (136-145)
[2020-03-06 07:02] VITALS: O2SAT 92
[2020-03-06 09:05] VITALS: BP 127/68; PULSE 64; RESP 16; TEMP 36.7; O2SAT 94
[2020-03-06] MEDS: Menthol/Lanolin/Calamine/Znox 113 GM Tube 1 APPLIC TOPICAL ×2 (09:21→20:59)
[2020-03-06] MEDS: Tamsulosin HCl 0.4 MG Capsule 0.8 MG PO (09:22)
[2020-03-06] MEDS: Carbidopa/Levodopa/Entacapone 200 2 TAB PO (09:22)
[2020-03-06] MEDS: APIXABAN 5 MG TABLET 10 MG PO ×2 (09:23→20:59)
[2020-03-06] MEDS: Finasteride 5 MG Tablet PO (09:24)
[2020-03-06] MEDS: Verapamil SR 240 MG Tablet PO (09:24)
[2020-03-06] MEDS: Ciprofloxacin 500 MG Tablet PO ×2 (09:24→20:59)
[2020-03-06] MEDS: Nystatin Powder 15gm Bottle 1 APPLIC TOPICAL ×2 (09:24→21:00)
[2020-03-06] MEDS: Memantine Hydrochloride 10 MG Tablet PO ×2 (09:24→20:59)
--- NOTE | 2020-03-06 10:58 | CASEMGMT ---
Addendum entered by Alexandra Louis 03/06/20 14:46: Almita updated this worker to try [facility]. SANJANA placed a call to Vicki at [facility], Vicki states she is not sure if [facility] has any beds available but will call and check and let this worker know. SW waiting for call back. Addendum entered by Alexandra Louis 03/06/20 13:49: Almita is at [facility]. SW in to speak with Almita. SW updated Almita that [facility] is not in network with pt's insurance either. SW provided Almita with list of SNF and Medicare ratings that do accept pt's insurance. Almita states she will review list and let this worker know other choices. Addendum entered by Alexandra Louis 03/06/20 13:29: SANJANA received update that pt's Almita was contacted that [facility] is not able to accept pt. Almita requested referral be sent to [facility]. SANJANA placed a call to Blank at [facility], they are not in network with pt's insurance. SANJANA placed a call to Almita and left message to call this worker back. Original Note: Social Work Note SANJANA placed a call to [facility] and spoke with Alisia in admissions. Alisia states because [facility] is not in network with pt's insurance ([employer]) they are not able to accept pt. SANJANA informed Alisia that pt was private pay at [facility] long term care administrator and pt's was made aware that pt would also be private pay at [facility] as they are not in network. Alisia states if pt were to admit and needed therapy or something, they couldn't even bill pt's Part B in [employer] as they are not in contract with [employer]. SANJANA again explained though that pt was [facility] resident, will be coming [facility] private pay. Alisia states they just feel that they cannot adequately care for pt and meet the needs of pt with pt's insurance not being in network. Alisia states pt has no out of network benefits. Alisia states she knows Amber was also going to call pt's to explain this as well. SANJANA will speak with pt's when she arrives at [facility]. Pt is to also have denise bazan done today. Plan: SNF Alexandra Louis DISPLAYER, SENIOR PREMIUM AUDITOR
[2020-03-06] MEDS: Lactulose 20 GM/30 ML UDC 30 GM PO ×2 (11:22→20:47)
--- NOTE | 2020-03-06 15:13 | ST.MBS ---
Modified Barium Swallow - Patient Information Study Date: 03/06/20 Study Time: 13:30 Direct Billable Minutes: 120 Total Minutes procedure & reportin Diagnosis: oropharyngeal dysphagia (R13.12) Referring Physician: Félix Wetzel Reason for Referral: concern for aspiration Medical History: The patient is a 79 year old M with PMHX of dementia with lewy bodies, parkinsons, CKDIII, HTN, BPH, DVTs on eliquis, who presented to the ER from assisted living ([facility]). Yesterday he had urinary retention and found to have UTI. A browning was placed and he was started on cipro. Reportedly he had increased confusion and was sent to the hospital. The patient does not remember why he is at [facility] or recent events. He is minimally responsive to questions and remains lethargic with concerns for aspiration. Current Diet Ordered: puree textures/thin liquids Dentition: Natural Teeth Mental Status: Impaired Respiratory Status: Oxygenating on Room Air - Study Findings Consistencies: Thin Liquid, [place] Thick Liquid, Honey Thick Liquid, Pudding, Cookie - Penetration-Aspiration Scale Penetration-Aspiration Scale: OBJECTIVE ASSESSMENT OF SWALLOW FUNCTION (QUANTITATIVE ? PER TRIAL): PENETRATION / ASPIRATION SCALE (JENKINS): 1 = does not enter airway 2 = enters airway/above vocal folds/ejected 3 = enters airway/above vocal folds/not ejected 4 = enters airway/contacts vocal folds/ejected 5 = enters airway/contacts vocal folds/not ejected 6 = enters airway/below vocal folds/ejected 7 = enters airway/below vocal folds/not ejected despite effort 8 = enters airway/below vocal folds/no effort - Penetration-Aspiration Scale Score Thin Liquid via teaspoon Result: 2= enter airway/above vocal folds/ejected Thin Liquid via teaspoon Trial 2 Result: 1= does not enter airway Thin Liquid via large single sip from cup Result: 1= does not enter airway Thin Liquid via sequential sips from straw Result: 7= enters airways/below vocal folds/not ejected despite effort Thin Liquid via single sip from straw Result: 1= does not enter airway Thin Liquid via single sip from straw Chin tuck Result: 2= enter airway/above vocal folds/ejected [place] Thick Liquid via single sip from straw Result: 1= does not enter airway Comment: cues to double swallow Honey Thick Liquid via single sip from straw Result: 1= does not enter airway Comment: cues to double swallow Pudding Result: 1= does not enter airway Cookie Result: 1= does not enter airway - disorganized, prolonged mastication Thin Liquid via single sip from straw Trial 2 Result: 1= does not enter airway Comment: Residue remaining on top of vocal cords (post prandial) - Oral Phase Labial Seal: Interlabial escape, no progression to anterior lip Tongue Control During Bolus Hold: Escape to lateral buccal cavity/floor of mouth Bolus Preparation/Mastication: Disorganized chewing/mashing with solid pieces of bolus unchewed Bolus Transport/Lingual Motion: Repetitive/disorganized tongue motion Oral Residue: Residue collection on oral structures - Pharyngeal Phase Initiation of Pharyngeal Swallow: Bolus head at posterior laryngeal surgace of epiglottis Soft Palate Elevation: No bolus between soft palate and pharyngeal wall Laryngeal Elevation: Partial superior movement thyroid cart/partial apprx aryt-epig petiole Anterior Hyoid Excursion: Partial anterior movement Epiglottic Movement: Partial inversion Laryngeal Vestibule Closure at Height of Swallow: Incomplete; narrow column of air/contrast in laryngeal vestibule Pharyngeal Stripping Wave: Present - complete Pharyngoesophageal Segment Opening: Parital distension and partial duration; parital obstruction of flow Tongue Base Retraction: Wide column of contrast between tongue base & post. pharyngeal wall Pharyngeal Residue: Collection of residue within or on pharyngeal structures - Treatment Strategies Effects of treatment strategies attemped:: Chin tuck ineffective. - Diagnosis/Impression Diagnosis: moderate oropharyngeal dysphagia (R13.12) Impression: The patient required frequent cuing throughout evaluation for a double swallow to clear pharyngeal residue. The patient required total feeding resulting in discoordination of sips fed by cup. Patient trialed thin liquid bairum via sequential sips via straw with aspiration with immediate coughing. CYLINDRICAL MIXER controlled sips via straw one at a time with improved tolerance. Chin tuck attempted, although not effective at protecting airway. Patient found to have post prandial residue at above vocal cords without aspiration. Will recommend thin liquids via single sips from straw with verbal cues as needed to use 2nd swallow, total feeding, upright 90 degrees 90 degrees during PO intake and 30-60 minutes after, and only eat when alert. Given patient diagnosis of Parkinsons and current state of swallowing function, it is recommended patient return for MBS study to continue to asses swallow function every 6 months. - Recommendations Diet: Puree Textures, Thin Liquids Compensatory Strategies: Small Bites, Small Sips, Sips by straw only, Slow Rate, Feed only when alert, Multiple Swallows, Sitting upright, Remain sitting upright for 30 minutes after PO intake Supervision: Total Feed Recommend Repeat Modified Barium Swallow: Yes Comment: Consider repeat MBS studies every 6 months given current presentation and dx of Parkinson's with lewy bodies Need for Skilled Speech Therapy Services: Yes Education Completed: 1. Described result of evaluation., 7. Pt requires further education on strategies & risks. - Status Active ST Patient: Active - Contact Information [facility] Speech Therapy:: Maya Christensen MA, CCC-CYLINDRICAL MIXER [address] [place], [place] [address] [email or web address]
[2020-03-06 16:35] VITALS: BP 161/89; PULSE 66; RESP 16; TEMP 37.2; O2SAT 94
--- NOTE | 2020-03-06 17:00 | CASEMGMT ---
Social Work Note SW received message from Vicki at [facility] stating she hasn't heard back yet from [facility] regarding bed availability, is going to say that at this time [facility] has no beds available. Vicki states that [facility] is going to call pt's chauncey to discuss concerns as to why pt is not returning to [facility] and will follow up with this worker tomorrow. Alexandra Louis TRADE SHOW MANAGER, SPEECH ASSISTANT
--- NOTE | 2020-03-06 18:02 | PCM.PROGNOTE ---
Patient Problems: Active and Suspected Problems Acute renal failure (Acute) Acute urinary retention (Acute) UTI (urinary tract infection) (Acute) Hyperkalemia (Acute) Hyperkalemia (Acute) Subjective: Patient was seen and examined today, he underwent a videofluoroscopic swallowing eval which indicated moderate oropharyngeal dysphagia, it was recommended the patient be on pur?ed texture diet with thin liquids. Patient is alert at this time, he does not complain of any discomfort to this examiner, he remains confused. Objective: General: Alert, No apparent distress, Well developed HEENT: Atraumatic, PERRLA, EOMI, Normocephalic Oral: Moist Mucosa Neck: Supple, No JVD, Trachea Midline, Thyroid Normal Size and Texture Lungs: Clear to auscultation, Normal air movement, No rhonchi, No wheeze, No rales Cardiovascular: Regular rate, Regular Rhythm, Normal S1, Normal S2, No murmurs, PMI Normal Abdomen: Bowel Sounds Present, Soft, Non Tender Extremities: No clubbing, No cyanosis, No edema, Capillary Refill Less than 3 Seconds Skin: No rashes, No breakdown Musculoskeletal: No Tenderness to Palpation of Joints or Extremities Neurological: Cranial nerves II-XII grossly intact, Neuro grossly intact, Sensory exam intact to light touch and pain Psych/Mental Status: - - Patient is alert but confused - Physical Exam Vitals/I&O's: Vital Signs Temp Pulse Resp BP Pulse Ox 98.0 F 64 16 127/68 H 94 03/06/20 09:05 03/06/20 09:05 03/06/20 09:05 03/06/20 09:05 03/06/20 09:05 Oxygen Flow Rate (L/min) 2 Oxygen Delivery Method Room Air Weight: 106.8 kg Body Mass Index (BMI) 33.7 Intake and Output for Last 24 Hours 03/04/20 03/05/20 03/06/20 23:59 23:59 23:59 Intake Total 2168.24 / 2168.24 1715.73 / 1865.73 1500 / 1500 Output Total 1700 / 1700 2300 / 2950 1550 / 1550 Balance 468.24 / 468.24 -584.27 / -1084.27 -50 / -50 Microbiology Past 72 Hours 02/29/20 09:32 Blood Culture (Wb) - Left Hand Blood Culture - Final No growth in 5 days. 02/29/20 15:10 Blood Culture (Wb) - Left Forearm Blood Culture - Final No growth in 5 days. Laboratory Results 03/06/20 05:30: Sodium 138, Potassium 3.7, Chloride 107, Carbon Dioxide 24.0, Anion Gap 7, BUN 39 H, Creatinine 1.77 H, Estim Creat Clear Calc 34.94, Est GFR (MDRD) Af Amer 48 L, Est GFR (MDRD) Non-Af 40 L, BUN/Creatinine Ratio 22.0 H, Glucose 129 H, Calcium 8.4 L Current Medications Acetaminophen (Acetaminophen 325 Mg Tablet) 650 mg PO Q6H PRN PRN PRN Reason: Pain Score 1-10/Temp > 100.7 F Apixaban (Apixaban 5 Mg Tablet) 10 mg PO BID [facility] Last Admin: 03/06/20 09:23 Dose: 10 mg Documented by: Bisacodyl (Bisacodyl 10 Mg Suppository) 10 mg RECTAL DAILY PRN PRN Reason: Constipation Calamine/Phenol (Menthol/Lanolin/Calamine/Znox 113 Gm Tube) 1 applic TOPICAL BID [facility]; Protocol Last Admin: 03/06/20 09:21 Dose: 1 applic Documented by: Carbidopa/Levodopa/Entacapone (Carbidopa/Levodopa/Entacapone 200) 2 tab PO DAILY [facility] Last Admin: 03/06/20 09:22 Dose: 2 tab Documented by: Ciprofloxacin HCl (Ciprofloxacin 500 Mg Tablet) 500 mg PO BID [facility] Last Admin: 03/06/20 09:24 Dose: 500 mg Documented by: Donepezil HCl (Donepezil Hcl 5 Mg Tablet) 5 mg PO QHS [facility] Last Admin: 03/05/20 20:49 Dose: 5 mg Documented by: Finasteride (Finasteride 5 Mg Tablet) 5 mg PO DAILY [facility] Last Admin: 03/06/20 09:24 Dose: 5 mg Documented by: Dextrose () 1,000 mls @ 50 mls/hr IV .Q20H [facility] Last Admin: 03/06/20 11:22 Dose: 50 mls/hr Documented by: Memantine (Memantine Hydrochloride 10 Mg Tablet) 10 mg PO BID [facility] Last Admin: 03/06/20 09:24 Dose: 10 mg Documented by: Nutritional Formula (Lactose Free) (Ensure Enlive 120 Ml Liquid) 120 ml PO 4X/DAY [facility] Last Admin: 03/06/20 16:40 Dose: 120 ml Documented by: Nystatin (Nystatin Powder 15gm Bottle) 1 applic TOPICAL BID [facility]; Protocol Last Admin: 03/06/20 09:24 Dose: 1 applicatio Documented by: Ondansetron HCl (Ondansetron 4 Mg/2 Ml Vial) 4 mg IV Q8H PRN PRN PRN Reason: NAUSEA/VOMITING Sodium Chloride (0.9% Saline Lock 10 Ml Syringe) 10 - 40 ml IV UD PRN PRN Reason: SALINE FLUSH Last Admin: 03/06/20 16:41 Dose: 10 ml Documented by: Tamsulosin HCl (Tamsulosin Hcl 0.4 Mg Capsule) 0.8 mg PO DAILY [facility] Last Admin: 03/06/20 09:22 Dose: 0.8 mg Documented by: Verapamil HCl (Verapamil Sr 240 Mg Tablet) 240 mg PO DAILY [facility] Last Admin: 03/06/20 09:24 Dose: 240 mg Documented by: Medical Necessity - Tobacco Use Smoking Status: Former smoker Assessment/Plan All Active Problems Acute renal failure (Acute) Acute urinary retention (Acute) UTI (urinary tract infection) (Acute) HCAP (healthcare-associated pneumonia) (Resolved) Hyperkalemia (Acute) Hyperkalemia (Acute) Acute kidney injury superimposed on CKD (Acute) #1 acute kidney injury on a backdrop of chronic kidney disease stage III-patient's creatinine is improving, nephrology is participating in his care, patient's creatinine has improved to 1.77 today #2 ESBL Klebsiella pneumonia I am UTI-patient was seen by infectious diseases today, he will remain on Cipro for a total of 7 days #3 acute metabolic encephalopathy on a backdrop of Lewy body dementia-patient has had no behavioral disturbances today #4 Lewy body dementia-chronic #5 history of DVT-patient is on Eliquis at this time #6 Parkinson's disease #7 chronic anemia-etiology unclear #8 Moderate oropharyngeal dysphagia-speech therapy is following the patient #9 essential hypertension #10 acute urinary retention-probably secondary to BPH, [place] cath remains in place at this time, patient is on Flomax #11 BPH-patient is on Proscar and Flomax Inpatient E&M: [id number] [facility] L2
[2020-03-06 20:46] VITALS: BP 128/64; PULSE 67; RESP 18; TEMP 36.7; O2SAT 97
[2020-03-06] MEDS: Donepezil HCl 5 MG Tablet PO (20:59)
[2020-03-07 02:43] VITALS: BP 148/65; PULSE 76; RESP 16; TEMP 36.9; O2SAT 96
[2020-03-07 07:15] VITALS: O2SAT 95
[2020-03-07 08:03] LABS: Anion Gap 5 (5-15); BUN 32 mg/dL (7-18); BUN/Creat Ratio 18.4 RATIO (10-20); Calcium,Total 8.8 mg/dL (8.5-10.1); Chloride 104 mmol/L (98-107); Creatinine, Serum 1.74 mg/dL (0.70-1.30); EST Glomerular Filtration Rate 40 mL/min (>60); Est Glom Filt Rate - Afr Amer 49 mL/min (>60); Estimated Creatinine Clearance 35.54 ml/min; Glucose 126 mg/dL (74-106); Sodium Level 137 mmol/L (136-145)
[2020-03-07 08:42] VITALS: BP 153/52; PULSE 92; RESP 16; TEMP 37.3; O2SAT 94
[2020-03-07] MEDS: Menthol/Lanolin/Calamine/Znox 113 GM Tube 1 APPLIC TOPICAL ×2 (08:43→21:52)
[2020-03-07] MEDS: Tamsulosin HCl 0.4 MG Capsule 0.8 MG PO (08:44)
[2020-03-07] MEDS: Nystatin Powder 15gm Bottle 1 APPLIC TOPICAL ×2 (08:44→21:52)
[2020-03-07] MEDS: Ciprofloxacin 500 MG Tablet PO ×2 (08:44→21:52)
[2020-03-07] MEDS: Carbidopa/Levodopa/Entacapone 200 2 TAB PO (08:45)
[2020-03-07] MEDS: Finasteride 5 MG Tablet PO (08:45)
[2020-03-07] MEDS: Verapamil SR 240 MG Tablet PO (08:45)
[2020-03-07] MEDS: APIXABAN 5 MG TABLET 10 MG PO ×2 (08:45→21:51)
[2020-03-07] MEDS: Memantine Hydrochloride 10 MG Tablet PO ×2 (08:45→21:52)
--- NOTE | 2020-03-07 09:07 | CASEMGMT ---
Addendum entered by Alexandra Louis 03/07/20 11:38: SANJANA received message from Winnie at [facility] stating that as of yesterday, [facility] is accepting SNF referrals as long as pt is COVID negative. Winnie states she does also have some snf beds available. SANJANA faxed referral to [facility]. Addendum entered by Alexandra Louis 03/07/20 10:54: SANJANA placed a call to Pt's Almita. Almita still states she doesn't want pt to return to [facility], would like to try [facility] or [facility], requests this worker to try [facility] first. SANJANA spoke with physician. Physician spoke with pt's Almita, plan has now changed to try [facility]. SANJANA placed a call to [facility] and left message for admission asking if they are accepting admissions yet and if they have beds available. SANJANA waiting for call back from [facility]. Addendum entered by Alexandra Louis 03/07/20 09:51: SANJANA received call from Vicki at [facility]. Vicki states ISRAEL did call pt's last night and discussed pt's concerns. Vicki states ISRAEL made it sound like pt's Almita was agreeable to bring pt back to [facility], but Almita never officially said she was going to bring pt back To [facility]. Vicki confirms that [facility] doesn't have any beds available at this time. SANJANA will speak with Almita. Original Note: Social Work Note SANJANA placed a call to Vicki at [facility] requesting call back regarding DON's conversation with pt's , also to confirm if [facility] has an update on bed availability. SANJANA waiting for call back. Alexandra Louis LOAN REVIEW OFFICER, HEALTH CLUB ATTENDANT
[2020-03-07 09:15] VITALS: O2SAT 98
[2020-03-07 14:49] VITALS: BP 121/50; PULSE 65; RESP 16; TEMP 37.2; O2SAT 96
--- NOTE | 2020-03-07 14:55 | CASEMGMT ---
Addendum entered by Alexandra Louis 03/07/20 15:29: SANJANA received update from [facility] that they finally received entire fax. Winnie states she will have [facility] clinical team review it today and if they are able to accept pt, will submit for pre-cert tomorrow. SANJANA in to speak with pt's Almita. SANJANA updated Almita that [facility] will review referral and let this worker know tomorrow if they can accept. SANJANA encouraged Almita to have back up plan, whether that be back to [facility] while she works on getting pt to [facility], or a different option. Almita states understanding. Plan: [facility] pending acceptance and pre-cert Original Note: Social Work Note SW has received multiple messages from Winnie at [facility] stating they are not getting the referral. SANJANA has faxed referral multiple times. SW still waiting to hear officially from [facility] if they are able to accept pt or not. SANJANA updated that pt's Almita is present at [facility] and requesting to speak to this worker. SANJANA in to speak with Almita. SANJANA updated Almita that [facility] hasn't got back to this worker yet. Almita asked about getting pt to [facility] with Hospice. SANJANA informed Almita that physician would need to agree pt was Hospice appropriate and also informed Almita that this worker is not able to arrange discharge to [facility] as [facility] is [facility] and it can take weeks to get papers signed and furniture moved in. SANJANA explained that medically pt is ready for discharge today. SANJANA asked Almita what the option will be if [facility] is not able to accept pt and Almita states she doesn't have another option yet, would like to think about, and would like to hear from [facility] first. Plan: SNF pending acceptance and pre-cert Alexandra Louis MENSWEAR SALESPERSON, WOOD GRAINER
--- NOTE | 2020-03-07 17:07 | PN.RENAL_ITS ---
Patient Problems: Active and Suspected Problems Acute renal failure (Acute) Acute urinary retention (Acute) UTI (urinary tract infection) (Acute) Hyperkalemia (Acute) Hyperkalemia (Acute) Subjective: Following for acute kidney injury on chronic kidney disease. The patient is resting comfortably. There is no significant complaints or issues over the last 24 hours. - Physical Exam Vitals/I&O's: Vital Signs Temp Pulse Resp BP Pulse Ox 99.0 F 65 16 121/50 H 96 03/07/20 14:49 03/07/20 14:49 03/07/20 14:49 03/07/20 14:49 03/07/20 14:49 Oxygen Flow Rate (L/min) 2 Oxygen Delivery Method Room Air Weight: 106.8 kg Body Mass Index (BMI) 33.7 Intake and Output for Last 24 Hours 03/05/20 03/06/20 03/07/20 23:59 23:59 23:59 Intake Total 1715.73 / 1865.73 2000 / 2200 1440 / 1440 Output Total 2300 / 2950 1950 / 2400 950 / 950 Balance -584.27 / -1084.27 50 / -200 490 / 490 General: No apparent distress HEENT: Atraumatic, PERRLA Oral: Moist Mucosa Neck: Supple Lungs: Clear to auscultation Cardiovascular: Normal S1, Normal S2 Abdomen: Bowel Sounds Present, Soft, Non Tender Extremities: No edema Microbiology Past 72 Hours 02/29/20 09:32 Blood Culture (Wb) - Left Hand Blood Culture - Final No growth in 5 days. 02/29/20 15:10 Blood Culture (Wb) - Left Forearm Blood Culture - Final No growth in 5 days. Laboratory Results 03/07/20 07:36: Sodium 137, Potassium 4.0, Chloride 104, Carbon Dioxide 28.0, Anion Gap 5, BUN 32 H, Creatinine 1.74 H, Estim Creat Clear Calc 35.54, Est GFR (MDRD) Af Amer 49 L, Est GFR (MDRD) Non-Af 40 L, BUN/Creatinine Ratio 18.4, Glucose 126 H, Calcium 8.8 Current Medications Acetaminophen (Acetaminophen 325 Mg Tablet) 650 mg PO Q6H PRN PRN PRN Reason: Pain Score 1-10/Temp > 100.7 F Apixaban (Apixaban 5 Mg Tablet) 10 mg PO BID [facility] Last Admin: 03/07/20 08:45 Dose: 10 mg Documented by: Bisacodyl (Bisacodyl 10 Mg Suppository) 10 mg RECTAL DAILY PRN PRN Reason: Constipation Calamine/Phenol (Menthol/Lanolin/Calamine/Znox 113 Gm Tube) 1 applic TOPICAL BID [facility]; Protocol Last Admin: 03/07/20 08:43 Dose: 1 applic Documented by: Carbidopa/Levodopa/Entacapone (Carbidopa/Levodopa/Entacapone 200) 2 tab PO DAILY [facility] Last Admin: 03/07/20 08:45 Dose: 2 tab Documented by: Ciprofloxacin HCl (Ciprofloxacin 500 Mg Tablet) 500 mg PO BID [facility] Last Admin: 03/07/20 08:44 Dose: 500 mg Documented by: Donepezil HCl (Donepezil Hcl 5 Mg Tablet) 5 mg PO QHS [facility] Last Admin: 03/06/20 20:59 Dose: 5 mg Documented by: Finasteride (Finasteride 5 Mg Tablet) 5 mg PO DAILY [facility] Last Admin: 03/07/20 08:45 Dose: 5 mg Documented by: Dextrose () 1,000 mls @ 50 mls/hr IV .Q20H [facility] Last Admin: 03/07/20 13:28 Dose: 50 mls/hr Documented by: Memantine (Memantine Hydrochloride 10 Mg Tablet) 10 mg PO BID [facility] Last Admin: 03/07/20 08:45 Dose: 10 mg Documented by: Nutritional Formula (Lactose Free) (Ensure Enlive 120 Ml Liquid) 120 ml PO 4X/DAY [facility] Last Admin: 03/07/20 15:37 Dose: Not Given Documented by: Nystatin (Nystatin Powder 15gm Bottle) 1 applic TOPICAL BID [facility]; Protocol Last Admin: 03/07/20 08:44 Dose: 1 applicatio Documented by: Ondansetron HCl (Ondansetron 4 Mg/2 Ml Vial) 4 mg IV Q8H PRN PRN PRN Reason: NAUSEA/VOMITING Sodium Chloride (0.9% Saline Lock 10 Ml Syringe) 10 - 40 ml IV UD PRN PRN Reason: SALINE FLUSH Last Admin: 03/06/20 16:41 Dose: 10 ml Documented by: Tamsulosin HCl (Tamsulosin Hcl 0.4 Mg Capsule) 0.8 mg PO DAILY [facility] Last Admin: 03/07/20 08:44 Dose: 0.8 mg Documented by: Verapamil HCl (Verapamil Sr 240 Mg Tablet) 240 mg PO DAILY [facility] Last Admin: 03/07/20 08:45 Dose: 240 mg Documented by: Medical Necessity - Tobacco Use Smoking Status: Former smoker Assessment/Plan All Active Problems Acute renal failure (Acute) Acute urinary retention (Acute) UTI (urinary tract infection) (Acute) HCAP (healthcare-associated pneumonia) (Resolved) Hyperkalemia (Acute) Hyperkalemia (Acute) Acute kidney injury superimposed on CKD (Acute) 1. Acute kidney injury on chronic kidney disease stage III. Baseline creatinine is 1.5 mg/dL in January 2020. Acute kidney injury is likely due to ATN. His creatinine peaked at 8.29 mg/dL on 02/29/2020. There has been a gradual improvement of renal function daily since then. Creatinine is 1.74 mg/dL today which is close to prior baseline. Recommend keeping I=O. Keep mean arterial pressure above 65 mmHg. Continue to follow renal function. The current medications were reviewed and are all appropriate dose for his creatinine clearance. 2. ESBL Klebsiella pneumonia. Treatment as per hospital medicine service and infectious disease service. He is on Cipro. 3. Hypertension. Blood pressure is well controlled.
--- NOTE | 2020-03-07 18:41 | PN_ITS ---
Patient Problems: Active and Suspected Problems Acute renal failure (Acute) Acute urinary retention (Acute) UTI (urinary tract infection) (Acute) Hyperkalemia (Acute) Hyperkalemia (Acute) Subjective: Patient was seen and examined today, he does not appear to be in any distress, he remains confused, he appears comfortable. Objective: General: Alert, No apparent distress, Well developed HEENT: Atraumatic, PERRLA, EOMI, Normocephalic Oral: Moist Mucosa Neck: Supple, No JVD, Trachea Midline, Thyroid Normal Size and Texture Lungs: Clear to auscultation, Normal air movement, No rhonchi, No wheeze, No ral es Cardiovascular: Regular rate, Regular Rhythm, Normal S1, Normal S2, No murmurs, PMI Normal Abdomen: Bowel Sounds Present, Soft, Non Tender Extremities: No clubbing, No cyanosis, No edema, Capillary Refill Less than 3 Seconds Skin: No rashes, No breakdown Musculoskeletal: No Tenderness to Palpation of Joints or Extremities Neurological: Cranial nerves II-XII grossly intact, Neuro grossly intact, Sensory exam intact to light touch and pain Psych/Mental Status: - - Patient is alert but confused - Physical Exam Vitals/I&O's: Vital Signs Temp Pulse Resp BP Pulse Ox 99.0 F 65 16 121/50 H 96 03/07/20 14:49 03/07/20 14:49 03/07/20 14:49 03/07/20 14:49 03/07/20 14:49 Oxygen Flow Rate (L/min) 2 Oxygen Delivery Method Room Air Weight: 106.8 kg Body Mass Index (BMI) 33.7 Intake and Output for Last 24 Hours 03/05/20 03/06/20 03/07/20 23:59 23:59 23:59 Intake Total 1715.73 / 1865.73 2000 / 2200 1680 / 1680 Output Total 2300 / 2950 1950 / 2400 1450 / 1450 Balance -584.27 / -1084.27 50 / -200 230 / 230 Microbiology Past 72 Hours 02/29/20 09:32 Blood Culture (Wb) - Left Hand Blood Culture - Final No growth in 5 days. 02/29/20 15:10 Blood Culture (Wb) - Left Forearm Blood Culture - Final No growth in 5 days. Laboratory Results 03/07/20 07:36: Sodium 137, Potassium 4.0, Chloride 104, Carbon Dioxide 28.0, Anion Gap 5, BUN 32 H, Creatinine 1.74 H, Estim Creat Clear Calc 35.54, Est GFR (MDRD) Af Amer 49 L, Est GFR (MDRD) Non-Af 40 L, BUN/Creatinine Ratio 18.4, Glucose 126 H, Calcium 8.8 Current Medications Acetaminophen (Acetaminophen 325 Mg Tablet) 650 mg PO Q6H PRN PRN PRN Reason: Pain Score 1-10/Temp > 100.7 F Apixaban (Apixaban 5 Mg Tablet) 10 mg PO BID [facility] Last Admin: 03/07/20 08:45 Dose: 10 mg Documented by: Bisacodyl (Bisacodyl 10 Mg Suppository) 10 mg RECTAL DAILY PRN PRN Reason: Constipation Calamine/Phenol (Menthol/Lanolin/Calamine/Znox 113 Gm Tube) 1 applic TOPICAL BID [facility]; Protocol Last Admin: 03/07/20 08:43 Dose: 1 applic Documented by: Carbidopa/Levodopa/Entacapone (Carbidopa/Levodopa/Entacapone 200) 2 tab PO DAILY [facility] Last Admin: 03/07/20 08:45 Dose: 2 tab Documented by: Ciprofloxacin HCl (Ciprofloxacin 500 Mg Tablet) 500 mg PO BID [facility] Last Admin: 03/07/20 08:44 Dose: 500 mg Documented by: Donepezil HCl (Donepezil Hcl 5 Mg Tablet) 5 mg PO QHS [facility] Last Admin: 03/06/20 20:59 Dose: 5 mg Documented by: Finasteride (Finasteride 5 Mg Tablet) 5 mg PO DAILY [facility] Last Admin: 03/07/20 08:45 Dose: 5 mg Documented by: Dextrose () 1,000 mls @ 50 mls/hr IV .Q20H [facility] Last Admin: 03/07/20 13:28 Dose: 50 mls/hr Documented by: Memantine (Memantine Hydrochloride 10 Mg Tablet) 10 mg PO BID [facility] Last Admin: 03/07/20 08:45 Dose: 10 mg Documented by: Nutritional Formula (Lactose Free) (Ensure Enlive 120 Ml Liquid) 120 ml PO 4X/DAY [facility] Last Admin: 03/07/20 17:33 Dose: Not Given Documented by: Nystatin (Nystatin Powder 15gm Bottle) 1 applic TOPICAL BID [facility]; Protocol Last Admin: 03/07/20 08:44 Dose: 1 applicatio Documented by: Ondansetron HCl (Ondansetron 4 Mg/2 Ml Vial) 4 mg IV Q8H PRN PRN PRN Reason: NAUSEA/VOMITING Sodium Chloride (0.9% Saline Lock 10 Ml Syringe) 10 - 40 ml IV UD PRN PRN Reason: SALINE FLUSH Last Admin: 03/06/20 16:41 Dose: 10 ml Documented by: Tamsulosin HCl (Tamsulosin Hcl 0.4 Mg Capsule) 0.8 mg PO DAILY [facility] Last Admin: 03/07/20 08:44 Dose: 0.8 mg Documented by: Verapamil HCl (Verapamil Sr 240 Mg Tablet) 240 mg PO DAILY [facility] Last Admin: 03/07/20 08:45 Dose: 240 mg Documented by: Medical Necessity - Tobacco Use Smoking Status: Former smoker Assessment/Plan All Active Problems Acute renal failure (Acute) Acute urinary retention (Acute) UTI (urinary tract infection) (Acute) HCAP (healthcare-associated pneumonia) (Resolved) Hyperkalemia (Acute) Hyperkalemia (Acute) Acute kidney injury superimposed on CKD (Acute) #1 acute kidney injury on a backdrop of chronic kidney disease stage III- patient's creatinine is stable, nephrology is participating in his care, patient's creatinine has improved to 1.74 today #2 ESBL Klebsiella pneumonia UTI-, he will remain on Cipro-total antibiotic treatment will be 7 days #3 acute metabolic encephalopathy on a backdrop of Lewy body dementia-patient has had no behavioral disturbances today #4 Lewy body dementia-chronic #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
[2020-03-07 21:30] VITALS: BP 118/50; PULSE 67; RESP 18; TEMP 36.8; O2SAT 96
[2020-03-07] MEDS: Donepezil HCl 5 MG Tablet PO (21:51)
[2020-03-08 03:48] VITALS: BP 153/50; PULSE 72; RESP 18; TEMP 36.7; O2SAT 95
[2020-03-08 07:55] LABS: Anion Gap 1 (5-15); BUN 31 mg/dL (7-18); BUN/Creat Ratio 19.7 RATIO (10-20); Calcium,Total 8.4 mg/dL (8.5-10.1); Chloride 110 mmol/L (98-107); Creatinine, Serum 1.57 mg/dL (0.70-1.30); EST Glomerular Filtration Rate 46 mL/min (>60); Est Glom Filt Rate - Afr Amer 55 mL/min (>60); Estimated Creatinine Clearance 39.39 ml/min; Glucose 93 mg/dL (74-106); Potassium 3.8 mmol/L (3.5-5.1); Sodium Level 140 mmol/L (136-145)
[2020-03-08 08:21] VITALS: BP 143/72; PULSE 71; RESP 16; TEMP 36.4; O2SAT 94
--- NOTE | 2020-03-08 09:42 | CASEMGMT ---
Addendum entered by Alexandra Louis 03/08/20 13:54: SANJANA placed another call to Winnie at [facility]. Winnie states [facility] is able to accept, will submit for pre-cert. Winnie states they will need new COVID test. SW answered Winnie's questions regarding referral. SANJANA updated [facility] that pt is medically cleared for discharge once pre-cert is obtained. SW in to speak with pt and pt's Almita. SANJANA updated Almita that [facility] is able to accept pt, pre-cert has been submitted. Pt will remain at [facility] until pre-cert is obtained. Almita states understanding. SANJANA placed a call to Vicki at [facility] [place] and updated her pt will be going to different SNF at discharge. Plan: [facility] pending pre-cert Original Note: Social Work Note SW placed a call to Winnie at [facility] and left message regarding referral. SW waiting for call back. Alexandra Louis CLINICAL EDUCATION COORDINATOR, SOFT METALS HAND ENGRAVER
--- NOTE | 2020-03-08 09:43 | NURSING ---
Addendum entered by Fara Turner 03/08/20 09:45: NO AREAS OF ACTIVE BLEEDING NOTED. Original Note: LATE ENTRY - 829 - UPON ENTERING PT ROOM, NOTICED BLOOD DRAINING DOWN L SIDE OF MOUTH. PT STATES THIS HAPPENS ALOT DUE TO BAD TEETH. MOUTH CARE PROVIDED. RED AREA NOTED ON BOTTOM LIP & ALSO REDDENED GUMS. MOUTH MOISTURIZER APPLIED. WILL MONITOR.
--- NOTE | 2020-03-08 10:38 | NURSING ---
AM MEDS BEING HELD @ THIS TIME, PT TOO DROWSY TOO SAFELY SWALLOW MEDICATIONS
[2020-03-08] MEDS: Menthol/Lanolin/Calamine/Znox 113 GM Tube 1 APPLIC TOPICAL ×2 (11:30→22:02)
[2020-03-08] MEDS: Nystatin Powder 15gm Bottle 1 APPLIC TOPICAL ×2 (11:31→22:03)
[2020-03-08 13:58] VITALS: O2SAT 93
[2020-03-08 14:30] VITALS: BP 125/68; PULSE 63; RESP 18; TEMP 36.9; O2SAT 96
--- NOTE | 2020-03-08 15:01 | PN.RENAL_ITS ---
Patient Problems: Active and Suspected Problems Acute renal failure (Acute) Acute urinary retention (Acute) UTI (urinary tract infection) (Acute) Hyperkalemia (Acute) Hyperkalemia (Acute) Subjective: no new events - Physical Exam Vitals/I&O's: Vital Signs Temp Pulse Resp BP Pulse Ox 97.6 F L 71 16 143/72 H 93 03/08/20 08:21 03/08/20 08:21 03/08/20 08:21 03/08/20 08:21 03/08/20 13:58 Oxygen Flow Rate (L/min) 2 Oxygen Delivery Method Room Air Weight: 106.8 kg Body Mass Index (BMI) 33.7 Intake and Output for Last 24 Hours 03/06/20 03/07/20 03/08/20 23:59 23:59 23:59 Intake Total 1999 / 2199 1880 / 188 1154.17 / 1154.17 Output Total 1949 / 2399 1974 / 1974 1075 / 1075 Balance 50 / -200 -95 / -95 79.17 / 79.17 General: Alert HEENT: Atraumatic, PERRLA, EOMI, Normocephalic Neck: Supple, No JVD, Negative Carotid Bruits Lungs: Clear to auscultation, Normal air movement Cardiovascular: Regular rate, No murmurs Abdomen: Bowel Sounds Present, Soft, Non Tender Extremities: No edema, Capillary Refill Less than 3 Seconds Skin: No rashes, No breakdown Musculoskeletal: No Tenderness to Palpation of Joints or Extremities Neurological: Cranial nerves II-XII grossly intact Psych/Mental Status: Normal Affect, Appropriate Microbiology Past 72 Hours 03/08/20 12:50 Mucosa - Nasopharyngeal SARS-CoV-2 Antigen (Rapid) - Final 02/29/20 09:32 Blood Culture (Wb) - Left Hand Blood Culture - Final No growth in 5 days. 02/29/20 15:10 Blood Culture (Wb) - Left Forearm Blood Culture - Final No growth in 5 days. Laboratory Results 03/08/20 07:00: Sodium 140, Potassium 3.8, Chloride 110 H, Carbon Dioxide 29.0, Anion Gap 1 L, BUN 31 H, Creatinine 1.57 H, Estim Creat Clear Calc 39.39, Est GFR (MDRD) Af Amer 55 L, Est GFR (MDRD) Non-Af 46 L, BUN/Creatinine Ratio 19.7, Glucose 93, Calcium 8.4 L Current Medications Acetaminophen (Acetaminophen 325 Mg Tablet) 650 mg PO Q6H PRN PRN PRN Reason: Pain Score 1-10/Temp > 100.7 F Apixaban (Apixaban 5 Mg Tablet) 10 mg PO BID [facility] Last Admin: 03/08/20 11:07 Dose: Not Given Documented by: Bisacodyl (Bisacodyl 10 Mg Suppository) 10 mg RECTAL DAILY PRN PRN Reason: Constipation Calamine/Phenol (Menthol/Lanolin/Calamine/Znox 113 Gm Tube) 1 applic TOPICAL BID [facility]; Protocol Last Admin: 03/08/20 11:30 Dose: 1 applic Documented by: Carbidopa/Levodopa/Entacapone (Carbidopa/Levodopa/Entacapone 200) 2 tab PO DAILY [facility] Last Admin: 03/08/20 11:08 Dose: Not Given Documented by: Ciprofloxacin HCl (Ciprofloxacin 500 Mg Tablet) 500 mg PO BID [facility] Stop: 03/10/20 13:00 Last Admin: 03/08/20 11:07 Dose: Not Given Documented by: Donepezil HCl (Donepezil Hcl 5 Mg Tablet) 5 mg PO QHS [facility] Last Admin: 03/07/20 21:51 Dose: 5 mg Documented by: Finasteride (Finasteride 5 Mg Tablet) 5 mg PO DAILY [facility] Last Admin: 03/08/20 11:08 Dose: Not Given Documented by: Dextrose () 1,000 mls @ 50 mls/hr IV .Q20H [facility] Last Admin: 03/08/20 08:33 Dose: 50 mls/hr Documented by: Memantine (Memantine Hydrochloride 10 Mg Tablet) 10 mg PO BID [facility] Last Admin: 03/08/20 11:07 Dose: Not Given Documented by: Nutritional Formula (Lactose Free) (Ensure Enlive 120 Ml Liquid) 120 ml PO 4X/DAY [facility] Last Admin: 03/08/20 11:07 Dose: Not Given Documented by: Nystatin (Nystatin Powder 15gm Bottle) 1 applic TOPICAL BID [facility]; Protocol Last Admin: 03/08/20 11:31 Dose: 1 applicatio Documented by: Ondansetron HCl (Ondansetron 4 Mg/2 Ml Vial) 4 mg IV Q8H PRN PRN PRN Reason: NAUSEA/VOMITING Sodium Chloride (0.9% Saline Lock 10 Ml Syringe) 10 - 40 ml IV UD PRN PRN Reason: SALINE FLUSH Last Admin: 03/06/20 16:41 Dose: 10 ml Documented by: Tamsulosin HCl (Tamsulosin Hcl 0.4 Mg Capsule) 0.8 mg PO DAILY [facility] Last Admin: 03/08/20 11:07 Dose: Not Given Documented by: Verapamil HCl (Verapamil Sr 240 Mg Tablet) 240 mg PO DAILY [facility] Last Admin: 03/08/20 11:07 Dose: Not Given Documented by: Medical Necessity - Tobacco Use Smoking Status: Former smoker Assessment/Plan All Active Problems Acute renal failure (Acute) Acute urinary retention (Acute) UTI (urinary tract infection) (Acute) HCAP (healthcare-associated pneumonia) (Resolved) Hyperkalemia (Acute) Hyperkalemia (Acute) Acute kidney injury superimposed on CKD (Acute) 1. Acute kidney injury on chronic kidney disease stage III. Baseline creatinine is 1.5 mg/dL in January 2020. Acute kidney injury is likely due to ATN. His creatinine peaked at 8.29 mg/dL on 02/29/2020. There has been a gradual improvement of renal function daily since then. 2. ESBL Klebsiella pneumonia. Treatment as per hospital medicine service and infectious disease service. He is on Cipro. 3. Hypertension. Blood pressure is well controlled.
[2020-03-08] MEDS: Acetaminophen 325 MG Tablet 650 MG PO (15:48)
--- NOTE | 2020-03-08 19:03 | PCM.PROGNOTE ---
Patient Problems: Active and Suspected Problems Acute renal failure (Acute) Acute urinary retention (Acute) UTI (urinary tract infection) (Acute) Hyperkalemia (Acute) Hyperkalemia (Acute) Subjective: Patient was seen and examined today, he appeared lethargic this morning but more alert this afternoon, I talked with his who is in the room today, we are currently awaiting an answer from a correction facility that we have requested take the patient for inpatient rehab services. Objective: General: Alert, No apparent distress, Well developed HEENT: Atraumatic, PERRLA, EOMI, Normocephalic Oral: Moist Mucosa Neck: Supple, No JVD, Trachea Midline, Thyroid Normal Size and Texture Lungs: Clear to auscultation, Normal air movement, No rhonchi, No wheeze, No rales Cardiovascular: Regular rate, Regular Rhythm, Normal S1, Normal S2, No murmurs, PMI Normal Abdomen: Bowel Sounds Present, Soft, Non Tender Extremities: No clubbing, No cyanosis, No edema, Capillary Refill Less than 3 Seconds Skin: No rashes, No breakdown Musculoskeletal: No Tenderness to Palpation of Joints or Extremities Neurological: Cranial nerves II-XII grossly intact, Neuro grossly intact, Sensory exam intact to light touch and pain Psych/Mental Status: - - Patient is alert but confused - Physical Exam Vitals/I&O's: Vital Signs Temp Pulse Resp BP Pulse Ox 98.5 F 63 18 125/68 H 96 03/08/20 14:30 03/08/20 14:30 03/08/20 14:30 03/08/20 14:30 03/08/20 14:30 Oxygen Flow Rate (L/min) 2 Oxygen Delivery Method Room Air Weight: 106.8 kg Body Mass Index (BMI) 33.7 Intake and Output for Last 24 Hours 03/06/20 03/07/20 03/08/20 23:59 23:59 23:59 Intake Total 1999 / 188 1634.17 / 1634.17 Output Total 1949 1475 / 1475 Balance 50 / -200 -95 / -95 159.17 / 159.17 Microbiology Past 72 Hours 03/08/20 12:50 Mucosa - Nasopharyngeal SARS-CoV-2 Antigen (Rapid) - Final 02/29/20 09:32 Blood Culture (Wb) - Left Hand Blood Culture - Final No growth in 5 days. 02/29/20 15:10 Blood Culture (Wb) - Left Forearm Blood Culture - Final No growth in 5 days. Laboratory Results 03/08/20 07:00: Sodium 140, Potassium 3.8, Chloride 110 H, Carbon Dioxide 29.0, Anion Gap 1 L, BUN 31 H, Creatinine 1.57 H, Estim Creat Clear Calc 39.39, Est GFR (MDRD) Af Amer 55 L, Est GFR (MDRD) Non-Af 46 L, BUN/Creatinine Ratio 19.7, Glucose 93, Calcium 8.4 L Current Medications Acetaminophen (Acetaminophen 325 Mg Tablet) 650 mg PO Q6H PRN PRN PRN Reason: Pain Score 1-10/Temp > 100.7 F Last Admin: 03/08/20 15:48 Dose: 650 mg Documented by: Apixaban (Apixaban 5 Mg Tablet) 10 mg PO BID [facility] Last Admin: 03/08/20 11:07 Dose: Not Given Documented by: Bisacodyl (Bisacodyl 10 Mg Suppository) 10 mg RECTAL DAILY PRN PRN Reason: Constipation Calamine/Phenol (Menthol/Lanolin/Calamine/Znox 113 Gm Tube) 1 applic TOPICAL BID [facility]; Protocol Last Admin: 03/08/20 11:30 Dose: 1 applic Documented by: Carbidopa/Levodopa/Entacapone (Carbidopa/Levodopa/Entacapone 200) 2 tab PO DAILY [facility] Last Admin: 03/08/20 11:08 Dose: Not Given Documented by: Donepezil HCl (Donepezil Hcl 5 Mg Tablet) 5 mg PO QHS [facility] Last Admin: 03/07/20 21:51 Dose: 5 mg Documented by: Finasteride (Finasteride 5 Mg Tablet) 5 mg PO DAILY [facility] Last Admin: 03/08/20 11:08 Dose: Not Given Documented by: Dextrose () 1,000 mls @ 50 mls/hr IV .Q20H [facility] Last Admin: 03/08/20 08:33 Dose: 50 mls/hr Documented by: Memantine (Memantine Hydrochloride 10 Mg Tablet) 10 mg PO BID [facility] Last Admin: 03/08/20 11:07 Dose: Not Given Documented by: Nutritional Formula (Lactose Free) (Ensure Enlive 120 Ml Liquid) 120 ml PO 4X/DAY [facility] Last Admin: 03/08/20 18:55 Dose: 120 ml Documented by: Nystatin (Nystatin Powder 15gm Bottle) 1 applic TOPICAL BID [facility]; Protocol Last Admin: 03/08/20 11:31 Dose: 1 applicatio Documented by: Ondansetron HCl (Ondansetron 4 Mg/2 Ml Vial) 4 mg IV Q8H PRN PRN PRN Reason: NAUSEA/VOMITING Sodium Chloride (0.9% Saline Lock 10 Ml Syringe) 10 - 40 ml IV UD PRN PRN Reason: SALINE FLUSH Last Admin: 03/06/20 16:41 Dose: 10 ml Documented by: Tamsulosin HCl (Tamsulosin Hcl 0.4 Mg Capsule) 0.8 mg PO DAILY [facility] Last Admin: 03/08/20 11:07 Dose: Not Given Documented by: Verapamil HCl (Verapamil Sr 240 Mg Tablet) 240 mg PO DAILY [facility] Last Admin: 03/08/20 11:07 Dose: Not Given Documented by: Medical Necessity - Tobacco Use Smoking Status: Former smoker Assessment/Plan All Active Problems Acute renal failure (Acute) Acute urinary retention (Acute) UTI (urinary tract infection) (Acute) HCAP (healthcare-associated pneumonia) (Resolved) Hyperkalemia (Acute) Hyperkalemia (Acute) Acute kidney injury superimposed on CKD (Acute) #1 acute kidney injury on a backdrop of chronic kidney disease stage III-patient's creatinine is stable, nephrology is participating in his care, patient's creatinine has improved to 1.57 today #2 ESBL Klebsiella pneumonia UTI-he has completed 7 days of treatment presently #3 acute metabolic encephalopathy on a backdrop of Lewy body dementia-patient has had no behavioral disturbances today #4 Lewy body dementia-chronic #5 history of DVT-patient is on Eliquis at this time #6 Parkinson's disease #7 chronic anemia-etiology unclear #8 Moderate oropharyngeal dysphagia-speech therapy is following the patient #9 essential hypertension #10 acute urinary retention-probably secondary to BPH, Mays cath remains in place at this time, patient is on Flomax #11 BPH-patient is on Proscar and Flomax #12 severe caloric and protein malnutrition-nutritional services is seeing patient Inpatient E&M: 88680 Subs Hosp L2
[2020-03-08 21:58] VITALS: BP 130/66; PULSE 64; RESP 16; TEMP 36.8; O2SAT 96
[2020-03-08] MEDS: APIXABAN 5 MG TABLET 10 MG PO (22:02)
[2020-03-08] MEDS: Donepezil HCl 5 MG Tablet PO (22:02)
[2020-03-08] MEDS: Memantine Hydrochloride 10 MG Tablet PO (22:03)
[2020-03-09 02:44] VITALS: BP 127/60; PULSE 64; RESP 16; TEMP 36.9; O2SAT 97
[2020-03-09 07:52] VITALS: BP 126/72; PULSE 59; RESP 18; TEMP 35.8; O2SAT 99
--- NOTE | 2020-03-09 09:08 | CASEMGMT ---
Addendum entered by Alexandra Louis 03/09/20 13:25: SANJANA updated pt's Almita on transportation time. Almita states understanding. Addendum entered by Alexandra Louis 03/09/20 12:41: SANJANA faxed completed discharge paperwork to Winnie at [facility] including transfer to extended care facility, signed medication list, any scripts, COVID test, and COVID screening tool. Original in SNF folder and copy on pts chart. SANJANA completed convalescent 7000 in [facility]. Original in SNF folder and copy on pt's chart. SANJANA spoke with RN, pt can transport via cot. SANJANA placed a call to pt's Almita. Almita states she will be at [facility] around 1:00pm and has to leave around 1:45pm to go to an appointment, requests transportation be arranged for 2:00pm. SANJANA accessed trip certified registered dental assistant and requested transportation at 2:00pm via cot. SANJANA then received call from Shaunna at [facility] stating they can transport pt at 3:00pm. Transportation arranged for 3:00pm. SANJANA completed transportation document and placed on SNF folder and copy on pt's chart. SANJANA updated Winnie at [facility] on discharge and transportation time. RN updated. Plan: Discharge to [facility] skilled with [facility] transporting pt via cot at 3:00pm Original Note: Social Work Note SANJANA received message from Winnie at [facility] stating pre-cert has been obtained, pt is able to admit to [facility] today. Alexandra Louis JAVA J2EE TECHNICAL LEAD, BUSINESS OBJECTS REPORT DEVELOPER
[2020-03-09] MEDS: Verapamil SR 240 MG Tablet PO (10:39)
[2020-03-09] MEDS: Menthol/Lanolin/Calamine/Znox 113 GM Tube 1 APPLIC TOPICAL (10:39)
[2020-03-09] MEDS: Nystatin Powder 15gm Bottle 1 APPLIC TOPICAL (10:40)
[2020-03-09] MEDS: Memantine Hydrochloride 10 MG Tablet PO (10:40)
[2020-03-09] MEDS: Tamsulosin HCl 0.4 MG Capsule 0.8 MG PO (10:40)
[2020-03-09] MEDS: Carbidopa/Levodopa/Entacapone 200 2 TAB PO (10:40)
[2020-03-09] MEDS: APIXABAN 5 MG TABLET 10 MG PO (10:40)
[2020-03-09] MEDS: Finasteride 5 MG Tablet PO (10:40)
--- NOTE | 2020-03-09 11:37 | PCM.TXEXTCAR ---
- Diet 03/05/20 12:18 Diet: Regular - No Added Salt Food consistency:: Pureed Liquid Consistency:: Regular/Thin Type of Dietary Supplement:: [place] Is pt able to select menu?: No Diet Comments: [place] 1 pkt BID w/ L&D; 1:1 Supervision; PO only when fully alert - Routine Orders/Code Status Change Mays Catheter: maintain Mays for one month-trail of discontinuation could be tried then Routine Lab Work: BMP - in one week Code Status: DNRCC-A - no intubation - Wound(s) lt Buttock Wound Type: shearing rt buttock Wound Type: shearing rt great toe Wound Type: Pressure Injury - Therapies Physical Therapy: Eval and Treat Occupational Therapy: Eval and Treat Speech Therapy: Eval and Treat - Problem/Diagnosis (1) Acute urinary retention Status: Acute Comment: probably from BPH (2) Lewy body dementia Status: Chronic (3) Parkinsons disease Status: Chronic (4) HTN (hypertension) Status: Chronic (5) Chronic renal failure, stage 3 (moderate) Status: Chronic (6) Chronic anticoagulation Status: Chronic (7) Acute kidney injury superimposed on CKD Status: Acute (8) Cystitis Status: Acute - Allergies/Procedures Done in Hospital Allergies/Adverse Reactions: Allergies Penicillins Allergy (Verified 01/17/20 00:14) Rash Procedures: None - Type of Care/Length of Stay Estimated LOS: Convalescent Care Less Than 30 days Type of Care Needed: Skilled Rehab Potential: Good Prognosis: Good - Additional Orders/Day of Discharge H&P will serve as current which was dated: 02/29/20 Day of Discharge: 03/09/20 - Dietary and Speech Recommendations Dietitian Recommendations/Changes: Will continue liberalized diet of regular/no added salt to help maximize pt po intake and continue [place] 1 pkt BID and ensure enlive w/ medpass as ordered. - Follow Up Care Primary Care Physician: Omar Peña MD [Primary Care Provider] -
[2020-03-09 13:31] VITALS: BP 130/74; PULSE 56; RESP 16; TEMP 36.9; O2SAT 95
--- NOTE | 2020-03-09 14:51 | PCM.PN.REN ---
Patient Problems: Active and Suspected Problems Acute renal failure (Acute) Acute urinary retention (Acute) probably from BPH UTI (urinary tract infection) (Acute) Cystitis (Acute) Hyperkalemia (Acute) Hyperkalemia (Acute) Acute kidney injury superimposed on CKD (Acute) Subjective: no new events - Physical Exam Vitals/I&O's: Vital Signs Temp Pulse Resp BP Pulse Ox 98.5 F 56 L 16 130/74 H 95 03/09/20 13:31 03/09/20 13:31 03/09/20 13:31 03/09/20 13:31 03/09/20 13:31 Oxygen Flow Rate (L/min) 2 Oxygen Delivery Method Room Air Weight: 106.8 kg Body Mass Index (BMI) 33.7 Intake and Output for Last 24 Hours 03/07/20 03/08/20 03/09/20 23:59 23:59 23:59 Intake Total 1880 / 1880 1784.17 / 1784.17 907.5 / 907.5 Output Total 1974 / 1974 2074 / 2074 600 / 600 Balance -95 / -95 -290.83 / -290.83 307.5 / 307.5 General: Alert, Oriented x3, Cooperative HEENT: Atraumatic, PERRLA, EOMI, Normocephalic Neck: Supple, No JVD, Negative Carotid Bruits Lungs: Clear to auscultation, Normal air movement Cardiovascular: Regular rate, No murmurs Abdomen: Bowel Sounds Present, Soft, Non Tender Extremities: No edema, Capillary Refill Less than 3 Seconds Skin: No rashes, No breakdown Musculoskeletal: No Tenderness to Palpation of Joints or Extremities Neurological: Cranial nerves II-XII grossly intact Psych/Mental Status: Normal Affect, Appropriate Microbiology Past 72 Hours 03/08/20 12:50 Mucosa - Nasopharyngeal SARS-CoV-2 Antigen (Rapid) - Final 02/29/20 09:32 Blood Culture (Wb) - Left Hand Blood Culture - Final No growth in 5 days. Current Medications Acetaminophen (Acetaminophen 325 Mg Tablet) 650 mg PO Q6H PRN PRN PRN Reason: Pain Score 1-10/Temp > 100.7 F Last Admin: 03/08/20 15:48 Dose: 650 mg Documented by: Apixaban (Apixaban 5 Mg Tablet) 10 mg PO BID [facility] Last Admin: 03/09/20 10:40 Dose: 10 mg Documented by: Bisacodyl (Bisacodyl 10 Mg Suppository) 10 mg RECTAL DAILY PRN PRN Reason: Constipation Calamine/Phenol (Menthol/Lanolin/Calamine/Znox 113 Gm Tube) 1 applic TOPICAL BID [facility]; Protocol Last Admin: 03/09/20 10:39 Dose: 1 applic Documented by: Carbidopa/Levodopa/Entacapone (Carbidopa/Levodopa/Entacapone 200) 2 tab PO DAILY [facility] Last Admin: 03/09/20 10:40 Dose: 2 tab Documented by: Donepezil HCl (Donepezil Hcl 5 Mg Tablet) 5 mg PO QHS [facility] Last Admin: 03/08/20 22:02 Dose: 5 mg Documented by: Finasteride (Finasteride 5 Mg Tablet) 5 mg PO DAILY [facility] Last Admin: 03/09/20 10:40 Dose: 5 mg Documented by: Dextrose () 1,000 mls @ 50 mls/hr IV .Q20H [facility] Last Admin: 03/09/20 02:42 Dose: 50 mls/hr Documented by: Memantine (Memantine Hydrochloride 10 Mg Tablet) 10 mg PO BID [facility] Last Admin: 03/09/20 10:40 Dose: 10 mg Documented by: Nutritional Formula (Lactose Free) (Ensure Enlive 120 Ml Liquid) 120 ml PO 4X/DAY [facility] Last Admin: 03/09/20 10:40 Dose: 120 ml Documented by: Nystatin (Nystatin Powder 15gm Bottle) 1 applic TOPICAL BID [facility]; Protocol Last Admin: 03/09/20 10:40 Dose: 1 applicatio Documented by: Ondansetron HCl (Ondansetron 4 Mg/2 Ml Vial) 4 mg IV Q8H PRN PRN PRN Reason: NAUSEA/VOMITING Sodium Chloride (0.9% Saline Lock 10 Ml Syringe) 10 - 40 ml IV UD PRN PRN Reason: SALINE FLUSH Last Admin: 03/06/20 16:41 Dose: 10 ml Documented by: Tamsulosin HCl (Tamsulosin Hcl 0.4 Mg Capsule) 0.8 mg PO DAILY [facility] Last Admin: 03/09/20 10:40 Dose: 0.8 mg Documented by: Verapamil HCl (Verapamil Sr 240 Mg Tablet) 240 mg PO DAILY [facility] Last Admin: 03/09/20 10:39 Dose: 240 mg Documented by: Medical Necessity - Tobacco Use Smoking Status: Former smoker Assessment/Plan All Active Problems Acute renal failure (Acute) Acute urinary retention (Acute) UTI (urinary tract infection) (Acute) Cystitis (Acute) HCAP (healthcare-associated pneumonia) (Resolved) Hyperkalemia (Acute) Hyperkalemia (Acute) Acute kidney injury superimposed on CKD (Acute) 1. Acute kidney injury on chronic kidney disease stage III. Baseline creatinine is 1.5 mg/dL in January 2020. Acute kidney injury is likely due to ATN. His creatinine peaked at 8.29 mg/dL on 02/29/2020. There has been a gradual improvement of renal function daily since then. dc today 2. ESBL Klebsiella pneumonia. Treatment as per hospital medicine service and infectious disease service. He is on Cipro. 3. Hypertension. Blood pressure is well controlled.
--- NOTE | 2020-03-11 07:49 | PCM.DC.SUM ---
Discharge Date and Diagnosis - Problem List Patient Problems: Active and Suspected Problems Acute renal failure (Acute) Acute urinary retention (Acute) probably from BPH UTI (urinary tract infection) (Acute) Cystitis (Acute) Hyperkalemia (Acute) Hyperkalemia (Acute) Acute kidney injury superimposed on CKD (Acute) Date of Admission: 02/29/20 Date of Discharge: 03/09/20 - Primary Discharge Diagnosis Acute Problems: Active Problems #1 acute kidney injury on a backdrop of chronic kidney disease stage III secondary to acute urinary retention #2 ESBL Klebsiella pneumonia UTI #3 acute metabolic encephalopathy on a backdrop of Lewy body dementia #4 Lewy body dementia-chronic #5 history of DVT #6 Parkinson's disease #7 chronic anemia-etiology unclear #8 Moderate oropharyngeal dysphagia probably secondary to dementia #9 essential hypertension #10 acute urinary retention- secondary to BPH #11 BPH #12 severe caloric and protein malnutrition - Secondary Discharge Diagnosis Chronic Problems: Chronic Problems Lewy body dementia (Chronic) Obesity (Chronic) Parkinsons disease (Chronic) HTN (hypertension) (Chronic) BPH (benign prostatic hyperplasia) (Chronic) Hx of recurrent transient ischemic attacks (Chronic) Chronic renal failure, stage 3 (moderate) (Chronic) Chronic anticoagulation (Chronic) Macrocytic anemia (Chronic) History of venous thromboembolism (Chronic) Hospital Course and Treatment Operations: None Procedures: None Summary of Care Provided: The patient is a 79 year old M was seen in the emergency room at [facility] after being brought in by squad from a local extended care facility due to increased confusion, patient had urinary retention the day before at the facility and a Mays catheter was placed. Patient was started on Cipro at that time for possible UTI. Evaluation of the patient in the emergency room included labs which showed a normal white blood cell count, patient's chemistry profile was remarkable for an elevated potassium at 5.2, elevated sodium at 146, elevated creatinine at 8.29, and urinalysis showed positive nitrites and over 100 WBCs. Patient was felt to be in acute renal failure/SAMMI with acute cystitis, he was admitted to [place] [id number], given IV fluids, seen by nephrology, and his urine culture was positive for ESBL Klebsiella pneumoniae. He was seen in consultation by infectious diseases who recommended continuing ciprofloxacin. Patient was seen by PT and OT as well as speech therapy, diet was adjusted due to oropharyngeal dysphagia. Patient's creatinine returned to his baseline before discharge. Discussions were carried out with the patient's , she requested the patient be transferred to a different facility at the time of discharge from the hospital and a bed was obtained at [facility]. On 03/09/2020, patient was seen and examined:General: Alert, No apparent distress, Well developed, confused HEENT: Atraumatic, PERRLA, EOMI, Normocephalic Oral: Moist Mucosa Neck: Supple, No JVD, Trachea Midline, Thyroid Normal Size and Texture Lungs: Clear to auscultation, Normal air movement, No rhonchi, No wheeze, No rales Cardiovascular: Regular rate, Regular Rhythm, Normal S1, Normal S2, No murmurs, PMI Normal Abdomen: Bowel Sounds Present, Soft, Non Tender Extremities: No clubbing, No cyanosis, No edema, Capillary Refill Less than 3 Seconds Skin: No rashes, No breakdown Musculoskeletal: No Tenderness to Palpation of Joints or Extremities Neurological: Cranial nerves II-XII grossly intact, Neuro grossly intact, Sensory exam intact to light touch and pain Psych/Mental Status: - - Patient is alert but confused On 03/09/2020, patient was seen and examined and felt to be in stable condition for discharge to an extended care facility for further inpatient rehab services. Patient Problems: Active and Suspected Problems Acute renal failure (Acute) Acute urinary retention (Acute) probably from BPH UTI (urinary tract infection) (Acute) Cystitis (Acute) Hyperkalemia (Acute) Hyperkalemia (Acute) Acute kidney injury superimposed on CKD (Acute) - Physical Exam Vitals/I&O's: Vital Signs Temp Pulse Resp BP Pulse Ox 98.5 F 56 L 16 130/74 H 95 03/09/20 13:31 03/09/20 13:31 03/09/20 13:31 03/09/20 13:31 03/09/20 13:31 Oxygen Flow Rate (L/min) 2 Oxygen Delivery Method Room Air Weight: 106.8 kg Body Mass Index (BMI) 33.7 Intake and Output for Last 24 Hours 03/09/20 03/10/20 03/11/20 23:59 23:59 23:59 Intake Total 907.5 / 907.5 Output Total 600 / 600 Balance 307.5 / 307.5 Microbiology Past 72 Hours 03/08/20 12:50 Mucosa - Nasopharyngeal SARS-CoV-2 Antigen (Rapid) - Final Home Medications: Medications to take at Discharge Cholecalciferol (Vitamin D3) [Vitamin D3] 5,000 unit PO DAILY 11/27/18 Cyanocobalamin (Vitamin B-12) [Vitamin B-12] 1,000 mcg PO DAILY 11/27/18 Finasteride [Proscar] 5 mg PO DAILY 11/27/18 Tamsulosin HCl [Flomax] 0.8 mg PO DAILY 11/27/18 Verapamil HCl [Verapamil ER] 240 mg PO DAILY 11/27/18 Carbidopa/Levodopa/Entacapone [Carbidopa-Levodopa 200 mg-Enta] 2 tab PO DAILY 02/29/20 Memantine Hydrochloride [Namenda] 10 mg PO BID 02/29/20 Acetaminophen [Tylenol Tablet] 650 mg PO Q6H PRN PRN tab 03/09/20 Apixaban [Eliquis] 10 mg PO UD #1 tab 03/09/20 Donepezil HCl [Aricept] 10 mg PO QHS #1 tab 03/09/20 Ensure Enlive 120 ml PO 4X/DAY liquid 03/09/20 Menthol/Lanolin/Calamine/Znox [Calmoseptine Ointment] 1 applic TOPICAL BID tube 03/09/20 Nystatin Powder [Mycostatin Powder] 1 applic TOPICAL BID bottle 03/09/20 Following Prescriptions Were Given to Patient: Donepezil HCl [Aricept] 10 mg PO QHS #1 tab Apixaban [Eliquis] 10 mg PO UD #1 tab Primary Care Physician: Omar Peña MD [Primary Care Provider] - Disposition: [facility] facility Minutes spent on discharge:: 33 Patient Condition:: Stable Medical Necessity - Tobacco Use Smoking Status: Former smoker Meaningful Use Info Meaningful Use Diagnoses (Choose all that apply): None applicable Inpatient E&M: 78983 Disch Hosp
== END 2020-03-09 15:12 | disposition skilled nursing facility (03) | DRG 682 ==
LOC: ED 16:42 → MS3 17:22
PROVIDERS: Family Medicine; Internal Medicine; Internal Medicine Nephrology; Physician Assistant; Admitting Provider Internal Medicine; Emergency Provider Emergency Medicine; PCP Family Medicine; Visit Provider Internal Medicine
DX: N17.0 Acute kidney failure with tubular necrosis (principal); G93.41 Metabolic encephalopathy; E43 Unspecified severe protein-calorie malnutrition; N30.00 Acute cystitis without hematuria; E87.0 Hyperosmolality and hypernatremia; Z16.12 Extended spectrum beta lactamase (ESBL) resistance; B96.1 Klebsiella pneumoniae [K. pneumoniae] as the cause of diseases classified elsewhere; I12.9 Hypertensive chronic kidney disease with stage 1 through stage 4 chronic kidney disease, or unspecified chronic kidney disease; N18.30 Chronic kidney disease, stage 3 unspecified; R33.8 Other retention of urine; E86.0 Dehydration; E87.5 Hyperkalemia; E87.8 Other disorders of electrolyte and fluid balance, not elsewhere classified; Z68.33 Body mass index [BMI] 33.0-33.9, adult; R13.12 Dysphagia, oropharyngeal phase; Z20.822 Contact with and (suspected) exposure to COVID-19; N40.1 Benign prostatic hyperplasia with lower urinary tract symptoms; G20 Parkinson's disease; F02.80 Dementia in other diseases classified elsewhere, unspecified severity, without behavioral disturbance, psychotic disturbance, mood disturbance, and anxiety; G31.83 Neurocognitive disorder with Lewy bodies; F32.9 Major depressive disorder, single episode, unspecified; E66.9 Obesity, unspecified; Z79.01 Long term (current) use of anticoagulants; Z79.899 Other long term (current) drug therapy; Z86.718 Personal history of other venous thrombosis and embolism; Z87.440 Personal history of urinary (tract) infections; Z86.73 Personal history of transient ischemic attack (TIA), and cerebral infarction without residual deficits; Z87.891 Personal history of nicotine dependence
CPT/HCPCS: 36415; 70450; 71045; 74176; 74230; 80048; 80053; 80202; 81001; 82550; 83605; 83735; 84100; 84484; 85025; 85610; 85730; 87040; 87077; 87086; 87088; 87186; 87426; 92507; 92526; 92610; 92611; 93005; 97110; 97163; 97167; 97530; 97535; 97802; 99285; J7030; J7040; A4216

== ENCOUNTER → 2020-03-16 05:00 | Outpatient (REF) | payer MEDICARE, SELFPAY ==
[2020-03-05 12:18] VITALS: BMI 33.7
[2020-03-16 08:19] LABS: Hematocrit 33.3 % (40-54); Hemoglobin 10.2 g/dL (13.0-16.5); Mean Corp Hgb Conc 30.6 g/dL (32-36); Mean Corpuscular Hgb 31.3 pg (27.0-32.0); Mean Corpuscular Volume 102.1 fL (80-94); Mean Platelet Vol. 12.2 fl (6.2-12.0); Platelet Count 229 K/mm3 (150-450); RBC Distribution Width CV 12.8 % (11.6-14.6); RBC Distribution Width SD 48.2 fl (35.1-43.9); Red Blood Count 3.26 M/mm3 (4.6-6.2); White Blood Count 6.8 K/mm3 (4.4-11.0)
[2020-03-16 08:32] LABS: Anion Gap 0 (5-15); BUN 23 mg/dL (7-18); BUN/Creat Ratio 20.9 RATIO (10-20); Calcium,Total 8.4 mg/dL (8.5-10.1); Chloride 114 mmol/L (98-107); EST Glomerular Filtration Rate 69 mL/min (>60); Est Glom Filt Rate - Afr Amer 83 mL/min (>60); Glucose 88 mg/dL (74-106); Potassium 3.8 mmol/L (3.5-5.1); Sodium Level 143 mmol/L (136-145)
== END ==
LOC: OLS.WHLTCC 05:00
PROVIDERS: PCP Family Medicine; Visit Provider Family Medicine
DX: I12.9 Hypertensive chronic kidney disease with stage 1 through stage 4 chronic kidney disease, or unspecified chronic kidney disease (principal); G20 Parkinson's disease; N17.9 Acute kidney failure, unspecified; G93.41 Metabolic encephalopathy; N39.0 Urinary tract infection, site not specified; B96.1 Klebsiella pneumoniae [K. pneumoniae] as the cause of diseases classified elsewhere
CPT/HCPCS: 36415; 80048; 85027

== ENCOUNTER → 2020-03-23 05:00 | Outpatient (REF) | payer MEDICARE, SELFPAY ==
[2020-03-05 12:18] VITALS: BMI 33.7
[2020-03-23 09:15] LABS: Hematocrit 35.6 % (40-54); Hemoglobin 11.1 g/dL (13.0-16.5); Mean Corp Hgb Conc 31.2 g/dL (32-36); Mean Corpuscular Hgb 31.9 pg (27.0-32.0); Mean Corpuscular Volume 102.3 fL (80-94); Mean Platelet Vol. 11.9 fl (6.2-12.0); Platelet Count 223 K/mm3 (150-450); RBC Distribution Width CV 13.2 % (11.6-14.6); Red Blood Count 3.48 M/mm3 (4.6-6.2); White Blood Count 6.4 K/mm3 (4.4-11.0)
[2020-03-23 09:35] LABS: Anion Gap 3 (5-15); BUN 17 mg/dL (7-18); Calcium,Total 8.3 mg/dL (8.5-10.1); Chloride 109 mmol/L (98-107); Creatinine, Serum 1.13 mg/dL (0.70-1.30); EST Glomerular Filtration Rate 66 mL/min (>60); Est Glom Filt Rate - Afr Amer 80 mL/min (>60); Glucose 71 mg/dL (74-106); Sodium Level 141 mmol/L (136-145)
== END ==
LOC: OLS.WHLTCC 05:00
PROVIDERS: PCP Family Medicine; Referring Provider Family Medicine; Visit Provider Family Medicine
DX: G20 Parkinson's disease (principal); N17.9 Acute kidney failure, unspecified; G93.41 Metabolic encephalopathy; N39.0 Urinary tract infection, site not specified; B96.1 Klebsiella pneumoniae [K. pneumoniae] as the cause of diseases classified elsewhere
CPT/HCPCS: 36415; 80048; 85027

== ENCOUNTER → 2020-03-30 05:00 | Outpatient (REF) | payer MEDICARE, SELFPAY ==
[2020-03-05 12:18] VITALS: BMI 33.7
[2020-03-30 08:15] LABS: Hematocrit 33.2 % (40-54); Hemoglobin 10.2 g/dL (13.0-16.5); Mean Corp Hgb Conc 30.7 g/dL (32-36); Mean Corpuscular Hgb 31.4 pg (27.0-32.0); Mean Corpuscular Volume 102.2 fL (80-94); Mean Platelet Vol. 11.9 fl (6.2-12.0); Platelet Count 185 K/mm3 (150-450); RBC Distribution Width CV 13.1 % (11.6-14.6); RBC Distribution Width SD 49.2 fl (35.1-43.9); Red Blood Count 3.25 M/mm3 (4.6-6.2); White Blood Count 5.7 K/mm3 (4.4-11.0)
[2020-03-30 08:32] LABS: Anion Gap 3 (5-15); BUN 24 mg/dL (7-18); BUN/Creat Ratio 20.9 RATIO (10-20); Calcium,Total 8.4 mg/dL (8.5-10.1); Chloride 114 mmol/L (98-107); Creatinine, Serum 1.15 mg/dL (0.70-1.30); EST Glomerular Filtration Rate 65 mL/min (>60); Est Glom Filt Rate - Afr Amer 79 mL/min (>60); Glucose 83 mg/dL (74-106); Potassium 3.8 mmol/L (3.5-5.1); Sodium Level 145 mmol/L (136-145)
== END ==
LOC: OLS.WHLCAR 05:00
PROVIDERS: PCP Family Medicine; Visit Provider Family Medicine
DX: I12.9 Hypertensive chronic kidney disease with stage 1 through stage 4 chronic kidney disease, or unspecified chronic kidney disease (principal); G31.83 Neurocognitive disorder with Lewy bodies; N17.9 Acute kidney failure, unspecified; G93.41 Metabolic encephalopathy; B96.1 Klebsiella pneumoniae [K. pneumoniae] as the cause of diseases classified elsewhere; R13.12 Dysphagia, oropharyngeal phase
CPT/HCPCS: 36415; 80048; 85027

== ENCOUNTER → 2020-06-15 04:30 | Outpatient (REF) | payer MEDICARE, SELFPAY ==
[2020-03-05 12:18] VITALS: BMI 33.7
[2020-06-15 08:14] LABS: Hematocrit 35.7 % (40-54); Hemoglobin 10.8 g/dL (13.0-16.5); Mean Corp Hgb Conc 30.3 g/dL (32-36); Mean Corpuscular Hgb 32.1 pg (27.0-32.0); Mean Corpuscular Volume 106.3 fL (80-94); Mean Platelet Vol. 12.1 fl (6.2-12.0); Platelet Count 214 K/mm3 (150-450); RBC Distribution Width CV 13.2 % (11.6-14.6); RBC Distribution Width SD 51.9 fl (35.1-43.9); Red Blood Count 3.36 M/mm3 (4.6-6.2); White Blood Count 6.1 K/mm3 (4.4-11.0)
[2020-06-15 08:30] LABS: Anion Gap 2 (5-15); BUN 26 mg/dL (7-18); BUN/Creat Ratio 23.9 RATIO (10-20); Calcium,Total 8.4 mg/dL (8.5-10.1); Chloride 113 mmol/L (98-107); Creatinine, Serum 1.09 mg/dL (0.70-1.30); EST Glomerular Filtration Rate 69 mL/min (>60); Est Glom Filt Rate - Afr Amer 84 mL/min (>60); Glucose 80 mg/dL (74-106); Potassium 4.4 mmol/L (3.5-5.1); Sodium Level 143 mmol/L (136-145)
== END ==
LOC: OLS.WHLCAR 04:30
PROVIDERS: PCP Family Medicine; Visit Provider Family Medicine
DX: I12.9 Hypertensive chronic kidney disease with stage 1 through stage 4 chronic kidney disease, or unspecified chronic kidney disease (principal); G31.83 Neurocognitive disorder with Lewy bodies; N18.9 Chronic kidney disease, unspecified; G93.41 Metabolic encephalopathy; B96.1 Klebsiella pneumoniae [K. pneumoniae] as the cause of diseases classified elsewhere; R13.12 Dysphagia, oropharyngeal phase
CPT/HCPCS: 36415; 80048; 85027

== ENCOUNTER → 2020-09-14 05:00 | Outpatient (REF) | payer MEDICARE, SELFPAY ==
[2020-03-05 12:18] VITALS: BMI 33.7
[2020-09-14 07:16] LABS: Hematocrit 34.9 % (40-54); Hemoglobin 11.1 g/dL (13.0-16.5); Mean Corp Hgb Conc 31.8 g/dL (32-36); Mean Corpuscular Hgb 32.7 pg (27.0-32.0); Mean Corpuscular Volume 102.9 fL (80-94); Mean Platelet Vol. 11.8 fl (6.2-12.0); Platelet Count 213 K/mm3 (150-450); RBC Distribution Width CV 12.7 % (11.6-14.6); RBC Distribution Width SD 47.7 fl (35.1-43.9); Red Blood Count 3.39 M/mm3 (4.6-6.2); White Blood Count 5.3 K/mm3 (4.4-11.0)
[2020-09-14 07:27] LABS: Anion Gap 4 (5-15); BUN 27 mg/dL (7-18); BUN/Creat Ratio 24.3 RATIO (10-20); Calcium,Total 8.6 mg/dL (8.5-10.1); Chloride 108 mmol/L (98-107); Creatinine, Serum 1.11 mg/dL (0.70-1.30); EST Glomerular Filtration Rate 68 mL/min (>60); Est Glom Filt Rate - Afr Amer 82 mL/min (>60); Glucose 86 mg/dL (74-106); Potassium 4.8 mmol/L (3.5-5.1); Sodium Level 142 mmol/L (136-145)
== END ==
LOC: OLS.WHLCAR 05:00
PROVIDERS: PCP Family Medicine; Referring Provider Family Medicine; Visit Provider Family Medicine
DX: I12.9 Hypertensive chronic kidney disease with stage 1 through stage 4 chronic kidney disease, or unspecified chronic kidney disease (principal); G31.83 Neurocognitive disorder with Lewy bodies; N17.9 Acute kidney failure, unspecified; G93.41 Metabolic encephalopathy; B96.1 Klebsiella pneumoniae [K. pneumoniae] as the cause of diseases classified elsewhere; R13.12 Dysphagia, oropharyngeal phase
CPT/HCPCS: 36415; 80048; 85027

== ENCOUNTER 2020-12-14 05:00 | Outpatient (REF) | payer MEDICARE, SELFPAY ==
[2020-12-14 07:22] LABS: Anion Gap 4 (5-15); BUN 24 mg/dL (7-18); BUN/Creat Ratio 19.8 RATIO (10-20); Calcium,Total 8.6 mg/dL (8.5-10.1); Chloride 111 mmol/L (98-107); Creatinine, Serum 1.21 mg/dL (0.70-1.30); EST Glomerular Filtration Rate 61 mL/min (>60); Est Glom Filt Rate - Afr Amer 74 mL/min (>60); Glucose 85 mg/dL (74-106); Potassium 4.3 mmol/L (3.5-5.1); Sodium Level 143 mmol/L (136-145)
== END 2020-12-14 23:59 | disposition home or self-care (01) ==
LOC: OLS.WHLCAR 05:00
PROVIDERS: PCP Family Medicine; Visit Provider Family Medicine
DX: I12.9 Hypertensive chronic kidney disease with stage 1 through stage 4 chronic kidney disease, or unspecified chronic kidney disease (principal); G31.83 Neurocognitive disorder with Lewy bodies; N18.9 Chronic kidney disease, unspecified; R13.12 Dysphagia, oropharyngeal phase
CPT/HCPCS: 36415; 80048

== ENCOUNTER 2021-02-28 04:00 | Outpatient (REF) | payer MEDICARE, SELFPAY ==
[2021-02-28 09:20] LABS: Absolute Lymphocyte Count 1.45 X10^3/uL (0.83-4.51); Absolute Neutrophil Count 2.2 X10^3/uL (2.0-7.7); Basophil# 0.02 X10^3/uL; Basophil% 0.4 % (0-1); Eosinophil# 0.62 X10^3/uL; Eosinophils% 12.8 % (0-5); Hematocrit 36.9 % (40-54); Hemoglobin 11.5 g/dL (13.0-16.5); Lymphocyte # 1.45 X10^3/ul (0.83-4.51); Lymphocyte % 29.8 % (19-41); Mean Corp Hgb Conc 31.2 g/dL (32-36); Mean Corpuscular Hgb 32.4 pg (27.0-32.0); Mean Corpuscular Volume 103.9 fL (80-94); Mean Platelet Vol. 11.7 fl (6.2-12.0); Monocyte# 0.59 X10^3/uL; Monocyte% 12.1 % (0-10); NRBC Flagged by Analyzer 0 % (0-5); Neutrophil # 2.17 X10^3/uL (2.7-7.7); Neutrophil % 44.7 % (47-70); Platelet Count 191 K/mm3 (150-450); RBC Distribution Width CV 12.4 % (11.6-14.6); RBC Distribution Width SD 47.4 fl (35.1-43.9); Red Blood Count 3.55 M/mm3 (4.6-6.2); White Blood Count 4.9 K/mm3 (4.4-11.0)
== END 2021-02-28 23:59 | disposition home or self-care (01) ==
LOC: OLS.WHLCAR 04:00
PROVIDERS: PCP Family Medicine; Referring Provider Family Medicine; Visit Provider Family Medicine
DX: G31.83 Neurocognitive disorder with Lewy bodies (principal); G20 Parkinson's disease; D63.8 Anemia in other chronic diseases classified elsewhere; R13.12 Dysphagia, oropharyngeal phase; I12.9 Hypertensive chronic kidney disease with stage 1 through stage 4 chronic kidney disease, or unspecified chronic kidney disease; N18.9 Chronic kidney disease, unspecified
CPT/HCPCS: 36415; 85025

== ENCOUNTER → 2021-04-12 | Outpatient (REF) | payer MEDICARE, SELFPAY ==
[2021-04-12 07:40] LABS: Absolute Lymphocyte Count 1.23 X10^3/uL (0.83-4.51); Absolute Neutrophil Count 3.9 X10^3/uL (2.0-7.7); Basophil# 0.02 X10^3/uL; Basophil% 0.3 % (0-1); Eosinophil# 0.55 X10^3/uL; Eosinophils% 8.5 % (0-5); Hematocrit 33.3 % (40-54); Hemoglobin 11.6 g/dL (13.0-16.5); Lymphocyte # 1.23 X10^3/ul (0.83-4.51); Mean Corp Hgb Conc 34.8 g/dL (32-36); Mean Corpuscular Hgb 37.3 pg (27.0-32.0); Mean Corpuscular Volume 107.1 fL (80-94); Mean Platelet Vol. 11.5 fl (6.2-12.0); Monocyte# 0.71 X10^3/uL; NRBC Flagged by Analyzer 0 % (0-5); Neutrophil # 3.93 X10^3/uL (2.7-7.7); Neutrophil % 60.6 % (47-70); Platelet Count 217 K/mm3 (150-450); RBC Distribution Width CV 12.5 % (11.6-14.6); RBC Distribution Width SD 47.3 fl (35.1-43.9); Red Blood Count 3.11 M/mm3 (4.6-6.2); White Blood Count 6.5 K/mm3 (4.4-11.0)
[2021-04-12 08:02] LABS: Anion Gap 3 (5-15); BUN 34 mg/dL (7-18); BUN/Creat Ratio 23.6 RATIO (10-20); Calcium,Total 8.4 mg/dL (8.5-10.1); Chloride 118 mmol/L (98-107); Creatinine, Serum 1.44 mg/dL (0.70-1.30); EST Glomerular Filtration Rate 50 mL/min (>60); Est Glom Filt Rate - Afr Amer 61 mL/min (>60); Glucose 106 mg/dL (74-106); Potassium 3.9 mmol/L (3.5-5.1); Sodium Level 148 mmol/L (136-145); Thyroid Stim Hormone (TSH) 0.89 uIU/mL (0.358-3.74)
== END | disposition home or self-care (01) ==
LOC: OLS.WHLCAR 05:00
PROVIDERS: PCP Family Medicine; Visit Provider Family Medicine
DX: G31.83 Neurocognitive disorder with Lewy bodies (principal); R13.12 Dysphagia, oropharyngeal phase; I12.9 Hypertensive chronic kidney disease with stage 1 through stage 4 chronic kidney disease, or unspecified chronic kidney disease; N18.9 Chronic kidney disease, unspecified; U09.9 Post COVID-19 condition, unspecified
CPT/HCPCS: 36415; 80048; 84443; 85025

== ENCOUNTER → 2021-06-14 | Outpatient (REF) | payer MEDICARE, SELFPAY ==
[2021-06-14 07:32] LABS: Anion Gap 3 (5-15); BUN 22 mg/dL (7-18); BUN/Creat Ratio 22.1 RATIO (10-20); Calcium,Total 8.5 mg/dL (8.5-10.1); Chloride 110 mmol/L (98-107); EST Glomerular Filtration Rate 77 mL/min (>60); Est Glom Filt Rate - Afr Amer 93 mL/min (>60); Glucose 73 mg/dL (74-106); Potassium 4.5 mmol/L (3.5-5.1); Sodium Level 139 mmol/L (136-145)
== END | disposition home or self-care (01) ==
LOC: OLS.WHLCAR 05:00
PROVIDERS: PCP Family Medicine; Visit Provider Family Medicine
DX: I12.9 Hypertensive chronic kidney disease with stage 1 through stage 4 chronic kidney disease, or unspecified chronic kidney disease (principal); G20 Parkinson's disease; R13.12 Dysphagia, oropharyngeal phase; N18.9 Chronic kidney disease, unspecified
CPT/HCPCS: 36415; 80048

== ENCOUNTER → 2021-08-30 05:00 | Outpatient (REF) | payer MEDICARE, MEDICAID, SELFPAY ==
[2021-08-30 08:29] LABS: Anion Gap 3 (5-15); BUN 17 mg/dL (7-18); BUN/Creat Ratio 15.2 RATIO (10-20); Calcium,Total 8.7 mg/dL (8.5-10.1); Chloride 110 mmol/L (98-107); Creatinine, Serum 1.12 mg/dL (0.70-1.30); EST Glomerular Filtration Rate 67 mL/min (>60); Est Glom Filt Rate - Afr Amer 81 mL/min (>60); Glucose 89 mg/dL (74-106); Potassium 4.4 mmol/L (3.5-5.1); Sodium Level 143 mmol/L (136-145)
== END ==
LOC: OLS.WHLCAR 05:00
PROVIDERS: PCP Family Medicine; Visit Provider Family Medicine
DX: I12.9 Hypertensive chronic kidney disease with stage 1 through stage 4 chronic kidney disease, or unspecified chronic kidney disease (principal); N18.9 Chronic kidney disease, unspecified; G31.83 Neurocognitive disorder with Lewy bodies; G20 Parkinson's disease; R13.12 Dysphagia, oropharyngeal phase
CPT/HCPCS: 36415; 80048

== ENCOUNTER → 2021-09-03 04:00 | Outpatient (REF) | payer MEDICARE, MEDICAID, SELFPAY ==
[2021-09-03 09:10] LABS: Absolute Lymphocyte Count 1.33 X10^3/uL (0.83-4.51); Absolute Neutrophil Count 2.7 X10^3/uL (2.0-7.7); Basophil# 0.02 X10^3/uL; Basophil% 0.4 % (0-1); Eosinophil# 0.48 X10^3/uL; Eosinophils% 9.4 % (0-5); Hematocrit 40.1 % (40-54); Hemoglobin 12.3 g/dL (13.0-16.5); Lymphocyte # 1.33 X10^3/ul (0.83-4.51); Mean Corp Hgb Conc 30.7 g/dL (32-36); Mean Corpuscular Hgb 32.1 pg (27.0-32.0); Mean Corpuscular Volume 104.7 fL (80-94); Mean Platelet Vol. 12.3 fl (6.2-12.0); Monocyte% 11.7 % (0-10); NRBC Flagged by Analyzer 0 % (0-5); Neutrophil # 2.67 X10^3/uL (2.7-7.7); Neutrophil % 52.3 % (47-70); Platelet Count 196 K/mm3 (150-450); RBC Distribution Width CV 12.8 % (11.6-14.6); RBC Distribution Width SD 49.2 fl (35.1-43.9); Red Blood Count 3.83 M/mm3 (4.6-6.2); White Blood Count 5.1 K/mm3 (4.4-11.0)
== END ==
LOC: OLS.WHLCAR 04:00
PROVIDERS: PCP Family Medicine; Referring Provider Family Medicine; Visit Provider Family Medicine
DX: G31.83 Neurocognitive disorder with Lewy bodies (principal); D63.8 Anemia in other chronic diseases classified elsewhere; R13.12 Dysphagia, oropharyngeal phase; I12.9 Hypertensive chronic kidney disease with stage 1 through stage 4 chronic kidney disease, or unspecified chronic kidney disease; N18.9 Chronic kidney disease, unspecified
CPT/HCPCS: 36415; 85025

== ENCOUNTER → 2021-09-13 05:00 | Outpatient (REF) | payer MEDICARE, SELFPAY ==
[2021-09-13 09:46] LABS: Anion Gap 2 (5-15); BUN 24 mg/dL (7-18); BUN/Creat Ratio 21.1 RATIO (10-20); Calcium,Total 8.9 mg/dL (8.5-10.1); Chloride 110 mmol/L (98-107); Creatinine, Serum 1.14 mg/dL (0.70-1.30); EST Glomerular Filtration Rate 66 mL/min (>60); Est Glom Filt Rate - Afr Amer 79 mL/min (>60); Glucose 82 mg/dL (74-106); Potassium 4.4 mmol/L (3.5-5.1); Sodium Level 143 mmol/L (136-145)
== END ==
LOC: OLS.WHLCAR 05:00
PROVIDERS: PCP Family Medicine; Visit Provider Family Medicine
DX: I12.9 Hypertensive chronic kidney disease with stage 1 through stage 4 chronic kidney disease, or unspecified chronic kidney disease (principal); N18.9 Chronic kidney disease, unspecified; G31.83 Neurocognitive disorder with Lewy bodies; G20 Parkinson's disease; R13.12 Dysphagia, oropharyngeal phase
CPT/HCPCS: 36415; 80048

== ENCOUNTER → 2021-12-20 | Outpatient (REF) | payer MEDICARE, MEDICAID, SELFPAY ==
[2021-12-20 09:00] LABS: Anion Gap 3 (5-15); BUN 22 mg/dL (7-18); BUN/Creat Ratio 20.4 RATIO (10-20); Calcium,Total 8.8 mg/dL (8.5-10.1); Chloride 110 mmol/L (98-107); Creatinine, Serum 1.08 mg/dL (0.70-1.30); EST Glomerular Filtration Rate 70 mL/min (>60); Est Glom Filt Rate - Afr Amer 84 mL/min (>60); Glucose 86 mg/dL (74-106); Potassium 4.3 mmol/L (3.5-5.1); Sodium Level 142 mmol/L (136-145)
== END ==
LOC: OLS.WHLCAR 05:00
PROVIDERS: PCP Family Medicine; Visit Provider Family Medicine
DX: I12.9 Hypertensive chronic kidney disease with stage 1 through stage 4 chronic kidney disease, or unspecified chronic kidney disease (principal); N18.9 Chronic kidney disease, unspecified; G31.83 Neurocognitive disorder with Lewy bodies; G20 Parkinson's disease
CPT/HCPCS: 36415; 80048

== ENCOUNTER → 2022-03-04 | Outpatient (REF) | payer MEDICARE, SELFPAY ==
[2022-03-04 09:32] LABS: Absolute Lymphocyte Count 0.96 X10^3/uL (0.83-4.51); Absolute Neutrophil Count 2.2 X10^3/uL (2.0-7.7); Basophil# 0.02 X10^3/uL; Basophil% 0.5 % (0-1); Eosinophil# 0.44 X10^3/uL; Eosinophils% 10.2 % (0-5); Hematocrit 36.9 % (40-54); Hemoglobin 11.5 g/dL (13.0-16.5); Lymphocyte # 0.96 X10^3/ul (0.83-4.51); Lymphocyte % 22.2 % (19-41); Mean Corp Hgb Conc 31.2 g/dL (32-36); Mean Corpuscular Hgb 32.8 pg (27.0-32.0); Mean Corpuscular Volume 105.1 fL (80-94); Mean Platelet Vol. 11.8 fl (6.2-12.0); Monocyte# 0.66 X10^3/uL; Monocyte% 15.3 % (0-10); NRBC Flagged by Analyzer 0 % (0-5); Neutrophil # 2.23 X10^3/uL (2.7-7.7); Neutrophil % 51.6 % (47-70); Platelet Count 170 K/mm3 (150-450); RBC Distribution Width CV 12.4 % (11.6-14.6); RBC Distribution Width SD 47.8 fl (35.1-43.9); Red Blood Count 3.51 M/mm3 (4.6-6.2); White Blood Count 4.3 K/mm3 (4.4-11.0)
[2022-03-04 10:31] LABS: Anion Gap 4 (5-15); BUN 30 mg/dL (7-18); BUN/Creat Ratio 24.2 RATIO (10-20); Calcium,Total 8.5 mg/dL (8.5-10.1); Chloride 109 mmol/L (98-107); Creatinine, Serum 1.24 mg/dL (0.70-1.30); EST Glomerular Filtration Rate 59 mL/min (>60); Est Glom Filt Rate - Afr Amer 72 mL/min (>60); Glucose 84 mg/dL (74-106); Potassium 4.1 mmol/L (3.5-5.1); Sodium Level 143 mmol/L (136-145)
== END | disposition home or self-care (01) ==
LOC: OLS.WHLCAR 05:00
PROVIDERS: PCP Family Medicine; Visit Provider Internal Medicine
DX: E87.5 Hyperkalemia (principal); G31.83 Neurocognitive disorder with Lewy bodies; G20 Parkinson's disease; R13.12 Dysphagia, oropharyngeal phase; I12.9 Hypertensive chronic kidney disease with stage 1 through stage 4 chronic kidney disease, or unspecified chronic kidney disease; N18.9 Chronic kidney disease, unspecified
CPT/HCPCS: 36415; 80048; 85025

== ENCOUNTER → 2022-03-21 | Outpatient (REF) | payer MEDICARE, MEDICAID, SELFPAY ==
[2022-03-21 09:07] LABS: Anion Gap 2 (5-15); BUN 21 mg/dL (7-18); BUN/Creat Ratio 18.6 RATIO (10-20); Calcium,Total 8.5 mg/dL (8.5-10.1); Chloride 109 mmol/L (98-107); Creatinine, Serum 1.13 mg/dL (0.70-1.30); EST Glomerular Filtration Rate 66 mL/min (>60); Est Glom Filt Rate - Afr Amer 80 mL/min (>60); Glucose 84 mg/dL (74-106); Potassium 4.6 mmol/L (3.5-5.1); Sodium Level 143 mmol/L (136-145)
== END ==
LOC: OLS.WHLCAR 05:15
PROVIDERS: PCP Family Medicine; Visit Provider Internal Medicine
DX: I12.9 Hypertensive chronic kidney disease with stage 1 through stage 4 chronic kidney disease, or unspecified chronic kidney disease (principal); N18.9 Chronic kidney disease, unspecified; G31.83 Neurocognitive disorder with Lewy bodies; G20 Parkinson's disease; R13.12 Dysphagia, oropharyngeal phase
CPT/HCPCS: 36415; 80048

== ENCOUNTER → 2022-06-20 | Outpatient (REF) | payer MEDICARE, MEDICAID, SELFPAY ==
[2022-06-20 08:35] LABS: Anion Gap 1 (5-15); BUN 22 mg/dL (7-18); Calcium,Total 8.5 mg/dL (8.5-10.1); Chloride 112 mmol/L (98-107); Creatinine, Serum 1.22 mg/dL (0.70-1.30); EST Glomerular Filtration Rate 61 mL/min (>60); Est Glom Filt Rate - Afr Amer 73 mL/min (>60); Glucose 83 mg/dL (74-106); Potassium 4.5 mmol/L (3.5-5.1); Sodium Level 142 mmol/L (136-145)
== END ==
LOC: OLS.WHLCAR 05:00
PROVIDERS: PCP Family Medicine; Visit Provider Internal Medicine
DX: I12.9 Hypertensive chronic kidney disease with stage 1 through stage 4 chronic kidney disease, or unspecified chronic kidney disease (principal); G31.83 Neurocognitive disorder with Lewy bodies; R13.12 Dysphagia, oropharyngeal phase; N18.9 Chronic kidney disease, unspecified
CPT/HCPCS: 36415; 80048

== ENCOUNTER → 2022-09-03 | Outpatient (REF) | payer MEDICARE, MEDICAID, SELFPAY ==
[2022-09-03 10:43] LABS: Absolute Lymphocyte Count 1.14 X10^3/uL (0.83-4.51); Absolute Neutrophil Count 3.5 X10^3/uL (2.0-7.7); Basophil# 0.03 X10^3/uL; Basophil% 0.5 % (0-1); Eosinophil# 0.41 X10^3/uL; Eosinophils% 7.2 % (0-5); Hematocrit 42.8 % (40-54); Lymphocyte # 1.14 X10^3/ul (0.83-4.51); Lymphocyte % 20.1 % (19-41); Mean Corp Hgb Conc 30.4 g/dL (32-36); Mean Corpuscular Hgb 32.7 pg (27.0-32.0); Mean Corpuscular Volume 107.8 fL (80-94); Mean Platelet Vol. 11.7 fl (6.2-12.0); Monocyte# 0.52 X10^3/uL; Monocyte% 9.2 % (0-10); NRBC Flagged by Analyzer 0 % (0-5); Neutrophil # 3.54 X10^3/uL (2.7-7.7); Neutrophil % 62.6 % (47-70); Platelet Count 198 K/mm3 (150-450); RBC Distribution Width CV 12.8 % (11.6-14.6); RBC Distribution Width SD 50.7 fl (35.1-43.9); Red Blood Count 3.97 M/mm3 (4.6-6.2); White Blood Count 5.7 K/mm3 (4.4-11.0)
[2022-09-03 10:51] LABS: Anion Gap 1 (5-15); BUN 20 mg/dL (7-18); Calcium,Total 8.6 mg/dL (8.5-10.1); Chloride 115 mmol/L (98-107); Creatinine, Serum 1.11 mg/dL (0.70-1.30); EST Glomerular Filtration Rate 67 mL/min (>60); Est Glom Filt Rate - Afr Amer 82 mL/min (>60); Glucose 106 mg/dL (74-106); Potassium 4.7 mmol/L (3.5-5.1); Sodium Level 145 mmol/L (136-145)
== END ==
LOC: OLS.WHLCAR 05:00
PROVIDERS: PCP Family Medicine; Visit Provider Internal Medicine
DX: I12.9 Hypertensive chronic kidney disease with stage 1 through stage 4 chronic kidney disease, or unspecified chronic kidney disease (principal); N18.9 Chronic kidney disease, unspecified
CPT/HCPCS: 36415; 80048; 85025

== ENCOUNTER → 2022-12-03 | Outpatient (REF) | payer MEDICARE, MEDICAID, SELFPAY ==
[2022-12-03 10:06] LABS: Anion Gap 2 (5-15); BUN 17 mg/dL (7-18); BUN/Creat Ratio 15.3 RATIO (10-20); Calcium,Total 8.9 mg/dL (8.5-10.1); Chloride 106 mmol/L (98-107); Creatinine, Serum 1.11 mg/dL (0.70-1.30); EST Glomerular Filtration Rate 67 mL/min (>60); Est Glom Filt Rate - Afr Amer 82 mL/min (>60); Glucose 100 mg/dL (74-106); Potassium 4.5 mmol/L (3.5-5.1); Sodium Level 138 mmol/L (136-145)
== END ==
LOC: OLS.WHLCAR 06:10
PROVIDERS: PCP Family Medicine; Visit Provider Internal Medicine
DX: I12.9 Hypertensive chronic kidney disease with stage 1 through stage 4 chronic kidney disease, or unspecified chronic kidney disease (principal); R13.12 Dysphagia, oropharyngeal phase; N18.9 Chronic kidney disease, unspecified
CPT/HCPCS: 36415; 80048

== ENCOUNTER → 2023-03-04 | Outpatient (REF) | payer MEDICARE, MEDICAID, SELFPAY ==
[2023-03-04 10:01] LABS: Absolute Lymphocyte Count 1.53 X10^3/uL (0.83-4.51); Absolute Neutrophil Count 3.1 X10^3/uL (2.0-7.7); Basophil# 0.04 X10^3/uL; Basophil% 0.7 % (0-1); Eosinophil# 0.43 X10^3/uL; Eosinophils% 7.5 % (0-5); Hematocrit 41.8 % (40-54); Hemoglobin 12.8 g/dL (13.0-16.5); Lymphocyte # 1.53 X10^3/ul (0.83-4.51); Lymphocyte % 26.6 % (19-41); Mean Corp Hgb Conc 30.6 g/dL (32-36); Mean Corpuscular Hgb 32.5 pg (27.0-32.0); Mean Corpuscular Volume 106.1 fL (80-94); Mean Platelet Vol. 11.8 fl (6.2-12.0); Monocyte# 0.66 X10^3/uL; Monocyte% 11.5 % (0-10); NRBC Flagged by Analyzer 0 % (0-5); Neutrophil # 3.09 X10^3/uL (2.7-7.7); Neutrophil % 53.5 % (47-70); Platelet Count 183 K/mm3 (150-450); RBC Distribution Width CV 12.7 % (11.6-14.6); RBC Distribution Width SD 49.7 fl (35.1-43.9); Red Blood Count 3.94 M/mm3 (4.6-6.2); White Blood Count 5.8 K/mm3 (4.4-11.0)
[2023-03-04 10:18] LABS: Anion Gap 4 (5-15); BUN 20 mg/dL (7-18); BUN/Creat Ratio 19.8 RATIO (10-20); Chloride 112 mmol/L (98-107); Creatinine, Serum 1.01 mg/dL (0.70-1.30); EST Glomerular Filtration Rate 75 mL/min (>60); Est Glom Filt Rate - Afr Amer 91 mL/min (>60); Glucose 87 mg/dL (74-106); Potassium 4.5 mmol/L (3.5-5.1); Sodium Level 141 mmol/L (136-145)
== END ==
LOC: OLS.WHLCAR 05:00
PROVIDERS: PCP Family Medicine; Visit Provider Internal Medicine
DX: I12.9 Hypertensive chronic kidney disease with stage 1 through stage 4 chronic kidney disease, or unspecified chronic kidney disease (principal); N18.9 Chronic kidney disease, unspecified; D63.8 Anemia in other chronic diseases classified elsewhere
CPT/HCPCS: 36415; 80048; 85025

== ENCOUNTER → 2023-06-03 | Outpatient (REF) | payer MEDICARE, MEDICAID, SELFPAY ==
[2023-06-03 08:40] LABS: Anion Gap 2 (5-15); BUN 17 mg/dL (7-18); Calcium,Total 8.7 mg/dL (8.5-10.1); Chloride 113 mmol/L (98-107); EST Glomerular Filtration Rate 76 mL/min (>60); Est Glom Filt Rate - Afr Amer 92 mL/min (>60); Glucose 75 mg/dL (74-106); Potassium 4.5 mmol/L (3.5-5.1); Sodium Level 142 mmol/L (136-145)
== END ==
LOC: OLS.WHLCAR 04:00
PROVIDERS: PCP Family Medicine; Referring Provider Internal Medicine; Visit Provider Internal Medicine
DX: I12.9 Hypertensive chronic kidney disease with stage 1 through stage 4 chronic kidney disease, or unspecified chronic kidney disease (principal); N18.9 Chronic kidney disease, unspecified
CPT/HCPCS: 36415; 80048

== ENCOUNTER → 2023-09-02 | Outpatient (REF) | payer MEDICARE, MEDICAID, SELFPAY ==
[2023-09-02 07:15] LABS: Absolute Lymphocyte Count 1.49 X10^3/uL (0.83-4.51); Absolute Neutrophil Count 2.1 X10^3/uL (2.0-7.7); Basophil# 0.02 X10^3/uL; Basophil% 0.4 % (0-1); Eosinophils% 6.7 % (0-5); Hematocrit 38.3 % (40-54); Hemoglobin 11.8 g/dL (13.0-16.5); Lymphocyte # 1.49 X10^3/ul (0.83-4.51); Lymphocyte % 33.1 % (19-41); Mean Corp Hgb Conc 30.8 g/dL (32-36); Mean Corpuscular Hgb 32.8 pg (27.0-32.0); Mean Corpuscular Volume 106.4 fL (80-94); Mean Platelet Vol. 11.5 fl (6.2-12.0); Monocyte# 0.57 X10^3/uL; Monocyte% 12.7 % (0-10); NRBC Flagged by Analyzer 0 % (0-5); Neutrophil # 2.12 X10^3/uL (2.7-7.7); Neutrophil % 47.1 % (47-70); Platelet Count 190 K/mm3 (150-450); RBC Distribution Width CV 12.6 % (11.6-14.6); RBC Distribution Width SD 50.4 fl (35.1-43.9); White Blood Count 4.5 K/mm3 (4.4-11.0)
[2023-09-02 08:09] LABS: Anion Gap 3 (5-15); BUN 23 mg/dL (7-18); BUN/Creat Ratio 19.3 RATIO (10-20); Calcium,Total 8.6 mg/dL (8.5-10.1); Chloride 108 mmol/L (98-107); Creatinine, Serum 1.19 mg/dL (0.70-1.30); EST Glomerular Filtration Rate 62 mL/min (>60); Est Glom Filt Rate - Afr Amer 75 mL/min (>60); Glucose 80 mg/dL (74-106); Potassium 4.6 mmol/L (3.5-5.1); Sodium Level 141 mmol/L (136-145)
== END ==
LOC: OLS.WHLCAR 05:00
PROVIDERS: PCP Family Medicine; Visit Provider Internal Medicine
DX: I12.9 Hypertensive chronic kidney disease with stage 1 through stage 4 chronic kidney disease, or unspecified chronic kidney disease (principal); G20.A1 Parkinson's disease without dyskinesia, without mention of fluctuations; G31.83 Neurocognitive disorder with Lewy bodies; N18.9 Chronic kidney disease, unspecified; D63.1 Anemia in chronic kidney disease
CPT/HCPCS: 36415; 80048; 85025

== ENCOUNTER → 2023-12-02 | Outpatient (REF) | payer MEDICARE, MEDICAID, SELFPAY ==
[2023-12-02 08:01] LABS: Anion Gap 4 (5-15); BUN 17 mg/dL (7-18); BUN/Creat Ratio 15.2 RATIO (10-20); Calcium,Total 8.8 mg/dL (8.5-10.1); Chloride 111 mmol/L (98-107); Creatinine, Serum 1.12 mg/dL (0.70-1.30); EST Glomerular Filtration Rate 67 mL/min (>60); Est Glom Filt Rate - Afr Amer 81 mL/min (>60); Glucose 85 mg/dL (74-106); Potassium 3.9 mmol/L (3.5-5.1); Sodium Level 143 mmol/L (136-145)
== END ==
LOC: OLS.WHLCAR 05:00
PROVIDERS: PCP Family Medicine; Visit Provider Internal Medicine
DX: I12.9 Hypertensive chronic kidney disease with stage 1 through stage 4 chronic kidney disease, or unspecified chronic kidney disease (principal); N18.9 Chronic kidney disease, unspecified; G31.83 Neurocognitive disorder with Lewy bodies
CPT/HCPCS: 36415; 80048

== ENCOUNTER → 2024-06-01 | Outpatient (REF) | payer MEDICARE, MEDICAID, SELFPAY ==
[2024-06-01 09:49] LABS: Anion Gap 10 (5-15); BUN 19 mg/dL (4-19); BUN/Creat Ratio 18.5 RATIO (10-20); Calcium,Total 8.7 mg/dL (7.6-11.0); Chloride 108 mmol/L (98-108); Creatinine, Serum 1.03 mg/dL (0.70-1.20); EST Glomerular Filtration Rate 72 (>60); Glucose 81 mg/dL (70-99); Potassium 4.3 mmol/L (3.3-5.1); Sodium Level 142 mmol/L (133-145)
== END ==
LOC: OLS.WHLCAR 05:00
PROVIDERS: PCP Family Medicine; Visit Provider Internal Medicine
DX: I12.9 Hypertensive chronic kidney disease with stage 1 through stage 4 chronic kidney disease, or unspecified chronic kidney disease (principal); N18.9 Chronic kidney disease, unspecified
CPT/HCPCS: 36415; 80048

== ENCOUNTER → 2024-08-31 | Outpatient (REF) | payer MEDICARE, MEDICAID, SELFPAY ==
--- OUTSIDE RECORDS SUMMARY | 2024-08-31 04:45 | XMS RPT_ITS | CCD ---
Author Organization [facility] CliniSyin Care Team Providers Care Movie Star Name Role Phone SUE MCKEON JR. Unavailable Unavailable SUE MCKEON JR. Unavailable Unavailable SUE MCKEON JR. Unavailable Unavailable SUE MCKEON JR. Unavailable Unavailable KALPESH DEY Unavailable UnavailKALPESH Zhang Unavailable Unavailabl e MICHELLE PEÑA Unavailable Unavailable ANUM, POLLY W Unavailable Unavailable ANUM, POLLY W Unavailable Unavailable NATHALIE SINGLETON Unavailable Unavailable SELINA LIVE Unavailable Unavailable MICHELLE PEÑA Unavailable Unavailable MICHELLE PEÑA Unavailable Unavailable ANUM, POLLY W Unavailable Unavailable ANUM, POLLY W Unavailable Unavailable ANUM, POLLY W Unavailable Unavailable REBECCA ANDERSON Unavailable Unavailable MICHELLE PEÑA Unavailable Unavailable Kalpesh Dey DO Unavailable UnavailKalpesh Zhang Unavailable Unavailable Dr. Michelle Peña Primary Care Provider Aric ELLIOTT NP-C Norah Attending Provider Dr. Michelle Carpio Primary Care Provider Aric ELLIOTT NP-Judy Almazan Attending Provider Dr. Jeanmarie Bruce Attending Provider [phone] Dr. Michelle Peña Primary Care Provider Dr. Michelle Peña Primary Care Provider Aric ELLIOTT NP-Judy Almazan Attending Provider Dr. Michelle Carpio Primary Care Provider Aric ELLIOTT, EARL-C Norah Attending Provider Dr. Jeanmarie Bruce Attending Provider [phone] Dr. Michelle Peña Primary Care Provider Aric COMMERCIAL LINES ACCOUNT EXECUTIVE, COMMERCIAL LINES ACCOUNT EXECUTIVE-C Norah Attending Provider Unav Dr. Jeanmarie Montgomery Attending Provider [phone] Casey, Dr. Nelson Primary Care Provider Aric COMMERCIAL LINES ACCOUNT EXECUTIVE, COMMERCIAL LINES ACCOUNT EXECUTIVE-C Norah Attending Provider Unav ailDr. Jeanmarie Arnold Attending Provider [phone] Casey, Dr. Nelson Primary Care Provider Dr. Jeanmarie Cardona Attending Provider [phone] Fabiana VALDES, KEISHA Stoddard Attending Provider [phone] Casey GLEASON, Dr. Nelson Primary Care Provider [phone] Dulce GLEASON, Dr. Murry Attending Provider [phone] Jeanmarie Cardona MD Attending Provider Unavaila ble Aric COMMERCIAL LINES ACCOUNT EXECUTIVE-C, Norah Attending Provider Erroloff, Michelle Primary Care Unavailable OleLaury Tavaresbe Attending Unavailabl e Naumoff, Michelle Primary Care Unavailable Oleghe OLSRomuloongbe Attending Unavailabl e Naumoff, Michelle Primary Care Unavailable Oleghe Romulo LAINEZongbe Attending Unavailabl e Oleghruel Efewongbe Attending Unavailable Naumoff, Michelle Primary Care Unavailable Naumoff, Michelle Primary Care Unavailable [place] COMMERCIAL LINES ACCOUNT EXECUTIVE, Norah Attending Unavailable [place] COMMERCIAL LINES ACCOUNT EXECUTIVE, Norah Attending Unavailable Naumoff, Michelle Primary Care Unavailable Oleamber Efewongbe Attending Unavailable Naumoff, Michelle Primary Care Unavailable Oleghruel Efewongbe Attending Unavailable Naumoff, Michelle Primary Care Unavailable [place] COMMERCIAL LINES ACCOUNT EXECUTIVE, Norah Attending Unavailable Naumoff, Michelle Primary Care Unavailable Oleghe, Efewongbe Attending Unavailable Naumoff, Michelle Primary Care Unavailable Naumoff, Michelle Primary Care Unavailable [place] COMMERCIAL LINES ACCOUNT EXECUTIVE, Norah Attending Unavailable Naumoff, Michelle Primary Care Unavailable [place] COMMERCIAL LINES ACCOUNT EXECUTIVE, Norah Attending Unavailable Naumoff, Michelle Primary Care Unavailable [place] COMMERCIAL LINES ACCOUNT EXECUTIVE, Norah Attending Unavailable Dulce Efewongbe Attending Unavailable Naumoff, Michelle Primary Care Unavailable Naumoff, Michelle Primary Care Unavailable [place] COMMERCIAL LINES ACCOUNT EXECUTIVE, Norah Attending Unavailable Michelle Peña Primary Care Unavailable Aric COMMERCIAL LINES ACCOUNT EXECUTIVE, Norah Attending Unavailable Michelle Peña Primary Care Unavailable Aric COMMERCIAL LINES ACCOUNT EXECUTIVE, Norah Attending Unavailable Allergies Allergy Classification Reported Allergen(s) Allergy Type Date of Onset Reaction(s) Facility (5 sources) Penicillins; Translations: [Penicillins] Allergy to drug (finding) 01-17-2020 [facility] [place] Work Phone: (10 sources) Penicillins Allergy to substance 01-17-2020 [facility] (1 source) Penicillins Drug allergy (disorder) 01-17-2020 [facility] Repository Medications Current Medications Medication Drug Class(es) Dates Sig (Normalized) Sig (Original) acetaminophen 325 mg oral tablet (14 sources) Start: 03-09-2020 Acetaminophen 325 MG tablet Active 650 mg PO EVERY 6 HOURS NEEDED as needed for Pain Score 1-10/Temp > 100.7 F March 09, 2020 1:00am Start: 03-09-2020 take 650 mg by mouth every six hours as needed Acetaminophen Active 650 MG PO EVERY 6 HOURS NEEDED March 09, 2020 1:00am apixaban 5 mg oral tablet (20 sources) Factor Xa Inhibitor Start: 03-09-2020 take 2 tablets by mouth twice daily, then take 1 tablet by mouth twice daily Apixaban 5 MG tablet Active 10 mg PO DIRECTED March 09, 2020 1:00am 10 mg twice a day through 03/11/20, then 5 mg twice a day thereafter Start: 03-09-2020 take 10 mg by mouth twice daily, then take 5 mg by mouth twice daily Apixaban Active 10 MG PO DIRECTED March 09, 2020 1:00am 10 mg twice a day through 03/11/20, then 5 mg twice a day thereafter Start: 01-19-2020 End: 03-09-2020 take 1 tablet by mouth twice daily Apixaban 5 MG tablet Discontinued 5 mg PO TWICE A DAY February 29, 2020 6:17pm March 09, 2020 12:27pm carbidopa 50 mg / entacapone 200 mg / levodopa 200 mg oral tablet (14 sources) Aromatic Amino Acid Decarboxylation Inhibitor, Wtjwpqhn-P-Ovwobuhvsjsdufdtd Inhibitor, Aromatic Amino Acid Start: 02-29-2020 take 1 tablet by mouth once daily Nswsbpccq-Hqcwxyel-Hwiuxbdxov 1 EACH tablet Active 2 {tbl} PO DAILY February 29, 2020 1:00am Start: 02-29-2020 take 2 tablets by mo uth once daily Xpkgyskrl-Cniajkdk-Jduoeucxcs Active 2 TABLET PO DAILY February 29, 2020 1:00am cholecalciferol 0.125 mg oral capsule (15 sources) Vitamin D Start: 11-27-2018 take 1 capsule by mouth once daily Cholecalciferol (Vitamin D3) 5,000 UNIT capsule Active 5000 U PO DAILY November 27, 2018 12:00am Start: 10-21-2016 take 1 tablet by zulay th once daily Vitamin D3 125 MCG (5000 UT) Oral Tablet Take 1 tablet daily Quantity: 90 Refills: 3 Start : 21-Oct-2016 Active donepezil hydrochloride 5 mg oral tablet (14 sources) Start: 03-09-2020 take 2 tablets by mouth at bedtime Donepezil 5 MG tablet Active 10 mg PO AT BEDTIME March 09, 2020 1:00am Start: 03-09-2020 take 10 mg by mouth at bedtime Donepezil Active 10 MG PO AT BEDTIME March 09, 2020 1:00am finasteride 5 mg oral tablet (15 sources) 5-alpha Reductase Inhibitor Start: 10-21-2016 take 1 tablet by mouth once daily Finasteride 5 MG tablet Active 5 mg PO DAILY November 27, 2018 12:00am Food Supplemt, Lactose-Reduced (20 sources) Start: 03-09-2020 take 1 mL by mouth four times daily Food Supplemt, Lactose-Reduced Active 120 ML PO 4 TIMES DAILY March 09, 2020 12:23pm Start: 03-09-2020 take 1 mL by mouth f our times daily Food Supplemt, Lactose-Reduced Active 120 ML PO 4 TIMES DAILY March 09, 2020 1:00am Start: 03-09-2020 take 1 mL by mouth f our times daily Food Supplemt, Lactose-Reduced Active 120 ML PO 4 TIMES DAILY March 09, 2020 12:00am Start: 02-29-2020 End: 03-09-2020 take 1 mL by mouth three times daily Food Supplemt, Lactose-Reduced Discontinued 237 ML PO THREE TIMES A DAY February 29, 2020 6:08pm March 09, 2020 12:27pm Start: 02-29-2020 End: 03-09-2020 take 1 mL by mouth three times daily Food Supplemt, Lactose-Reduced Discontinued 237 ML PO THREE TIMES A DAY February 29, 2020 1:00am March 09, 2020 12:27pm Start: 02-29-2020 End: 03-09-2020 take 1 mL by mouth three times daily Food Supplemt, Lactose-Reduced Discontinued 237 ML PO THREE TIMES A DAY February 29, 2020 12:00am March 09, 2020 11:27am Food Supplemt, Lactose-Reduced 120 ML liquid (2 sources) Start: 03-09-2020 take 1 mL by mouth four times daily Food Supplemt, Lactose-Reduced 120 ML liquid Active 120 mL PO 4 TIMES DAILY March 09, 2020 1:00am memantine hydrochloride 10 mg oral tablet (20 sources) S-cdtmkg-M-aspar troy Receptor Antagonist Start: 01-19-2020 End: 02-29-2020 take 1 tablet by mouth twice daily Memantine 10 MG tablet Active 10 mg PO TWICE A DAY February 29, 2020 6:17pm Start: 11-27-2018 End: 01-19-2020 take 20 mg by mouth once daily Memantine Discontinued 20 MG PO DAILY November 27, 2018 12:00am January 19, 2020 11:06am Start: 10-21-2016 End: 01-19-2020 take 2 tablets by mouth once daily Memantine 10 MG tablet Discontinued 20 mg PO DAILY November 27, 2018 12:00am January 19, 2020 11:06am menthol 0.0044 mg/mg / zinc oxide 0.206 mg/mg topical ointment (14 sources) Start: 03-09-2020 Menthol-Zinc O xide 1 APPLIC ointment Active 1 NMA TOPICAL TWICE A DAY March 09, 2020 1:00am Please contact the information source for Protocol details. Start: 03-09-2020 Menthol-Zinc O xide Active 1 APPLIC TOPICAL TWICE A DAY March 09, 2020 1:00am nystatin 100 unt/mg topical powder (14 sources) Polyene Antifungal Start: 03-09-2020 Nystatin 1 APPLIC bottle Active 1 NMA TOPICAL TWICE A DAY March 09, 2020 1:00am Please contact the information source for Protocol details. Start: 03-09-2020 Nystatin Activ e 1 APPLIC TOPICAL TWICE A DAY March 09, 2020 1:00am tamsulosin hydrochloride 0.4 mg oral capsule (15 sources) alpha-Adrenergic Hannah Start: 11-27-2018 take 0.8 mg by mouth once daily Tamsulosin Active 0.8 MG PO DAILY November 27, 2018 12:00am Start: 10-21-2016 take 2 capsules by m out once daily Tamsulosin 0.4 MG capsule Active 0.8 mg PO DAILY November 27, 2018 12:00am verapamil hydrochloride 240 mg extended release oral tablet (15 sources) Calcium Channel Hannah Start: 10-21-2016 take 1 tablet by mouth once daily Verapamil 240 MG tablet extended release Active 240 mg PO DAILY November 27, 2018 12:00am vitamin b12 1 mg oral capsule (15 sources) Vitamin B12 Start: 11-27-2018 take 1 capsule by mouth once daily Cyanocobalamin (Vitamin B-12) 1,000 MCG capsule Active 1000 ug PO DAILY November 27, 2018 12:00am Start: 10-21-2016 take 1 tablet by zulay once daily Vitamin B-12 1000 MCG Oral Tablet TAKE 1 TABLET DAILY DIRECTED. Quantity: 90 Refills: 3 Start : 21-Oct-2016 Active Completed/Discontinued Medications Medication Drug Class(es) Dates Sig (Normalized) Sig (Original) [id number] 200 actuat albuterol 0.09 mg/actuat metered dose inhaler (1 source) beta2-Adrenergic Agonist Start: 05-20-2017 take 2 puff(s) by inhalation every four hours as needed for wheezing ProAir HFA 108 (90 Base) MCG/ACT Inhalation Aerosol Solution INHALE 2 PUFFS Every 4 hours PRN SOB,Wheezing Quantity: 1 Refills: 1 Kalpesh Dey DO Start : 20-May-2017 Active 8.5 GM Inhaler carbidopa 50 mg / levodopa 200 mg extended release oral tablet (1 source) Aromatic Amino Acid Decarboxylation Inhibitor, Aromatic Amino Acid Start: 10-21-2016 take 2 tablets by mouth once daily Carbidopa-Levodopa ER 50-200 MG Oral Tablet Extended Release TAKE 2 TABLET Daily Refills: 0 Start : 21-Oct-2016 Active chondroitin sulfates 200 mg / glucosamine hydrochloride 250 mg oral tablet (1 source) Start: 10-21-2016 take 2 tablets by mouth once daily Osteo Bi-Flex Regular Strength 250-200 MG Oral Tablet TAKE 2 TABLET Daily Refills: 0 Start : 21-Oct-2016 Active ciprofloxacin 500 mg oral tablet (14 sources) Quinolone Antimicrobial Start: 02-29-2020 End: 03-09-2020 take 1 tablet by mouth twice daily Ciprofloxacin Hcl 500 MG tablet Discontinued 500 mg PO TWICE A DAY February 29, 2020 1:00am March 09, 2020 12:27pm doxycycline hyclate 100 mg oral capsule (1 source) Tetracycline-class Drug Start: 05-20-2017 take 1 capsule by mouth once daily Doxycycline Hyclate 100 MG Oral Capsule TAKE 1 CAPSULE EVERY 12 HOURS DAILY. Quantity: 20 Refills: 0 Reij Dey DOumu Start : 20-May-2017 Active Food Supplemt, Lactose-Reduced 237 ML liquid (2 sources) Start: 02-29-2020 End: 03-09-2020 take 1 mL by mouth three times daily Food Supplemt, Lactose-Reduced 237 ML liquid Discontinued 237 mL PO THREE TIMES A DAY February 29, 2020 1:00am March 09, 2020 12:27pm furosemide 20 mg oral tablet (14 sources) Loop Diuretic Start: 11-27-2018 End: 01-19-2020 take 1 tablet by mouth once daily Furosemide 20 MG tablet Discontinued 20 mg PO DAILY November 27, 2018 12:00am January 19, 2020 11:05am gabapentin 100 mg oral capsule (20 sources) Anti-epileptic Agent Start: 01-19-2020 End: 03-09-2020 take 1 capsule by mouth twice daily at mealtime Gabapentin 100 MG capsule Discontinued 100 mg PO TWICE DAILY WITH MEALS February 29, 2020 6:17pm March 09, 2020 12:27pm Start: 10-21-2016 End: 01-19-2020 take 1 capsule by mouth three times daily Gabapentin 400 MG capsule Discontinued 400 mg PO THREE TIMES A DAY November 27, 2018 12:00am January 19, 2020 11:24am Zomaedcdeaw-U1-Mflmclvht Ser r (12 sources) Start: 11-27-2018 End: 03-09-2020 Zvofwhdirmt-E3-Auqwdgtnd Ser r Discontinued 1 EACH PO DAILY November 27, 2018 12:54pm March 09, 2020 12:27pm Start: 11-27-2018 End: 03-09-2020 Hzpqipshslo-W4-Uomkwtwfd Ser r Discontinued 1 EACH PO DAILY November 27, 2018 12:00am March 09, 2020 12:27pm Start: 11-27-2018 End: 03-09-2020 Aknlacxjvfx-T3-Yziywrojf Ser r Discontinued 1 EACH PO DAILY November 26, 2018 11:00pm March 09, 2020 11:27am Nuhdddpplby-L7-Qdqigcioj Serr 1 EACH tablet (2 sources) Start: 11-27-2018 End: 03-09-2020 take 1 tablet by mouth once daily Uayfslrdrcr-D4-Vnnmjabew Serr 1 EACH tablet Discontinued 1 NMA PO DAILY November 27, 2018 12:00am March 09, 2020 12:27pm lidocaine 0.04 mg/mg medicated patch (14 sources) Antiarrhythm ic, Amide Local Anesthetic Start: 11-27-2018 End: 03-09-2020 apply 1 dose transdermal route once daily Lidocaine 1 EACH adhesive patch,medicated Discontinued 1 NMA TP DAILY November 27, 2018 12:00am March 09, 2020 12:27pm put patch on 8am and remove 8pm lisinopril 40 mg oral tablet (15 sources) Angiotensin Converting Enzyme Inhibitor Start: 10-21-2016 End: 01-19-2020 take 1 tablet by mouth once daily Lisinopril 40 MG tablet Discontinued 40 mg PO DAILY November 27, 2018 12:00am January 19, 2020 11:12am LORazepam 0.5 mg oral tablet (20 sources) Benzodiazepi ne Start: 07-15-2024 End: 08-09-2024 take 1 tablet by mouth at bedtime Lorazepam 1 mg tablet Active 1 mg PO AT BEDTIME August 09, 2024 10:37am September 07, 2024 12:00am Start: 06-13-2024 End: 07-13-2024 take 1 tablet by mouth at bedtime Lorazepam 1 mg tablet Discontinued 1 mg PO AT BEDTIME June 13, 2024 10:28am July 12, 2024 12:00am July 13, 2024 12:08am Start: 03-23-2024 End: 08-09-2024 take 1 tablet by mouth once daily Lorazepam 0.5 mg tablet Discontinued 0.5 mg PO As Directed July 23, 2024 1:46pm August 21, 2024 12:00am August 09, 2024 10:38am One and one half tab (0.75mg) p.o. daily at 3pm. Start: 03-18-2024 End: 06-04-2024 take 1 tablet by mouth at bedtime Lorazepam 1 mg tablet Discontinued 1 mg PO AT BEDTIME May 05, 2024 9:55am June 03, 2024 12:00am June 04, 2024 12:22am Start: 10-08-2023 End: 03-18-2024 take 1 tablet by mouth at bedtime as needed for anxiety Lorazepam 0.5 mg tablet Discontinued 0.5 mg PO AT BEDTIME as needed for anxiety October 08, 2023 7:23pm March 18, 2024 5:13pm Start: 09-04-2023 End: 10-08-2023 take 1 tablet by mouth at bedtime as needed for anxiety Lorazepam 1 mg tablet Discontinued 1 mg PO AT BEDTIME as needed for anxiety September 04, 2023 12:00am October 08, 2023 7:23pm Start: 04-03-2022 End: 05-03-2022 take 1 tablet by mouth twice daily as needed for anxiety Lorazepam 0.5 mg tablet Discontinued 0.5 mg PO TWICE A DAY as needed for anxiety 60 April 03, 2022 1:00am May 02, 2022 1:00am May 03, 2022 1:12am nitrofurantoin, macrocrystals 25 mg / nitrofurantoin, monohydrate 75 mg oral capsule (14 sources) Nitrofuran Antibacterial Start: 12-02-2018 End: 01-19-2020 take 1 capsule by mouth twice daily Nitrofurantoin Monohyd/M-Cryst 100 MG capsule Discontinued 100 mg PO TWICE A DAY December 02, 2018 12:00am January 19, 2020 11:11am 3 more doses 24 hr oxybutynin chloride 10 mg extended release oral tablet (14 sources) Cholinergic Muscarinic Antagonist Start: 02-29-2020 End: 03-09-2020 take 1 tablet by mouth every twenty-four hours at bedtime Oxybutynin Chloride 10 MG tablet extended release 24hr Discontinued 10 mg PO AT BEDTIME February 29, 2020 1:00am March 09, 2020 12:28pm potassium citrate 10 meq extended release oral tablet (15 sources) Start: 11-27-2018 End: 01-19-2020 take 3 tablets by mouth twice daily Potassium Citrate 10 MEQ tablet extended release Discontinued 30 meq PO TWICE A DAY November 27, 2018 12:00am January 19, 2020 11:11am Start: 10-21-2016 End: 01-19-2020 take 30 mEq by mouth twice daily Potassium Citrate Discontinued 30 MEQ PO TWICE A DAY November 27, 2018 12:00am January 19, 2020 11:11am predniSONE 20 mg oral tablet (14 sources) Start: 12-02-2018 End: 01-19-2020 take 2 tablets by mouth once daily Prednisone 20 MG tablet Discontinued 40 mg PO DAILY@799December 02, 2018 12:00am January 19, 2020 11:10am for 5 more days Start: 12-02-2018 End: 01-19-2020 take 40 mg by mouth once daily Prednisone Discontinued 40 MG PO DAILY@799December 02, 2018 12:00am January 19, 2020 11:10am for 5 more days rivaroxaban 20 mg oral tablet (16 sources) Factor Xa Inhibitor Start: 01-28-2017 End: 01-19-2020 take 1 tablet by mouth once daily Rivaroxaban 20 MG tablet Discontinued 20 mg PO DAILY November 27, 2018 12:00am January 19, 2020 11:07am sulfamethoxazole 800 mg / trimethoprim 160 mg oral tablet (14 sources) Dihydrofolate Reductase Inhibitor Antibacterial, Sulfonamide Antimicrobial Start: 01-16-2020 End: 01-19-2020 Sulfamethoxazole- Trimethoprim 1 TABLET tablet Discontinued 1 {tbl} PO DAILY January 16, 2020 1:00am January 19, 2020 11:09am Start: 01-16-2020 End: 01-19-2020 take 1 tablet by mouth once daily Sulfamethoxazole-Trimethoprim Discontinu ed 1 TABLET PO DAILY January 16, 2020 1:00am January 19, 2020 11:09am traMADol hydrochloride 50 mg oral tablet (20 sources) Opioid Agonist Start: 03-18-2024 End: 08-18-2024 take 1 tablet by mouth three times daily Tramadol 50 mg tablet Discontinued 50 mg PO THREE TIMES A DAY July 20, 2024 12:00am August 18, 2024 12:00am August 18, 2024 12:26pm Start: 05-14-2023 take 1 tablet by zulay th once daily as needed for pain Tramadol 50 mg tablet Active 50 mg PO DAILY as needed for pain May 14, 2023 12:00am Give at least 6-8 hours apart from routine Tramadol. Start: 05-14-2023 End: 03-18-2024 take 1 tablet by mouth twice daily Tramadol 50 mg tablet Discontinued 50 mg PO TWICE A DAY 60 November 09, 2023 12:27pm March 18, 2024 5:12pm Start: 05-14-2023 Tramadol Activ e 50 MG PO DAILY May 14, 2023 12:00am Give at least 6-8 hours apart from routine Tramadol. Start: 07-12-2022 End: 08-11-2022 take 1 tablet by mouth three times daily Tramadol 50 mg tablet Discontinued 50 mg PO THREE TIMES A DAY July 12, 2022 12:00am August 10, 2022 12:00am August 11, 2022 12:04am Start: 11-27-2018 End: 03-09-2020 take 1 tablet by mouth three times daily Tramadol 50 MG tablet Discontinued 50 mg PO THREE TIMES A DAY 12 02December 02, 2018 1:26pm March 09, 2020 12:28pm Start: 10-21-2016 take 2 tablets by mo uth once daily traMADol HCl - 50 MG Oral Tablet TAKE 2 TABLET Daily Refills: 0 Start : 21-Oct-2016 Active traZODone hydrochloride 50 mg oral tablet (1 source) Serotonin Reuptake Inhibitor Start: 04-22-2016 traZODone HCl - 50 MG Oral Tablet Quantity: 180 Refills: 0 Start : 22-Apr-2016 Active 24 hr trospium chloride 60 mg extended release oral capsule (1 source) Cholinergic Muscarinic Antagonist Start: 10-21-2016 take 1 capsule by mouth once daily in the morning Trospium Chloride ER 60 MG Oral Capsule Extended Release 24 Hour TAKE 1 CAPSULE Every morning Refills: 0 Start : 21-Oct-2016 Active Problems Active Problems Problem Classification Problem Date Documented Da te Episodic/Chronic Acute and unspecified renal failure (20 sources) Acute renal failure syndrome; Translations: [Acute kidney failure, unspecified] 02-29-2020 Episodic Anxiety disorders (2 sources) Anxiety; Translations: [Anxiety disorder, unspecified] 09-04-2023 Chronic Asthma (1 source) Asthmatic bronchitis; Translations: [Asthma, unspecified type, unspecified] Chronic Chronic kidney disease (14 sources) Chronic renal failure; Translations: [Chronic renal failure, stage 3 (moderate)] 01-17-2020 Chronic Deficiency and other anemia (14 sources) Macrocytic anemia; Translations: [Nutritional anemia, unspecified] 01-16-2020 Episodic Delirium, dementia, and amnestic and other cognitive disorders (16 sources) 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; Translations: [Dementia with lewy bodies] Onset: 10-02-2023 01-17-2020 Chronic Essential hypertension (15 sources) Hypertensive disorder; Translations: [Unspecified essential hypertension] 01-17-2020 Chronic Fluid and electrolyte disorders (20 sources) Hyperkalemia; Translations: [Hyperkalemia] 01-16-2020 Episodic Genitourinary symptoms and ill-defined conditions (1 source) Urge incontinence of urine; Translations: [Urge incontinence] Chronic Genitourinary symptoms and ill-defined conditions (14 sources) Acute retention of urine ; Translations: [Other retention of urine] 03-09-2020 Episodic Comment on above: probably from BPH Hyperplasia of prostate (15 sources) Benign prostatic hyperplasia; Translations: [Hypertrophy (benign) of prostate without urinary obstruction and other lower urinary tract symptom (LUTS)] 01-17-2020 Chronic Hypertension with complications and secondary hypertension (1 source) Hypertensive chronic kidney disease with stage 1 through stage 4 chronic kidney disease, or unspecified chronic kidney disease; Translations: [Hypertensive chronic kidney disease with stage 1 through stage 4 chronic kidney disease, or unspecified chronic kidney disease] Onset: 06-21-2024 Chronic Osteoarthritis (1 source) Degenerative joint disease involving multiple joints; Translations: [Osteoarthrosis, generalized, site unspecified] Chronic Other aftercare (14 sources) Long-term current use of anticoagulant; Translations: [[facility] (current) use of anticoagulants] 11-27-2018 Episodic Other circulatory disease (14 sources) History of transient ischemic attack; Translations: [Personal history of transient ischemic attack (TIA), and cerebral infarction without residual deficits] 11-27-2018 Episodic Other nervous system disorders (1 source) Carpal tunnel syndrome; Translations: [Carpal tunnel syndrome] Chronic Other nervous system disorders (2 sources) Chronic pain; Translations: [Other chronic pain] 11-09-2023 Chronic Other nutritional; endocrine; and metabolic disorders (14 sources) Obesity; Translations: [Obesity, unspecified] 01-17-2020 Chronic Parkinson`s disease (15 sources) Parkinson's disease; Translations: [Paralysis agitans] 11-27-2018 Chronic Parkinson`s disease (1 source) Parkinson`s disease; Translations: [Parkinson's disease without dyskinesia, without mention of fluctuations] Onset: 10-02-2023 Phlebitis; thrombophlebitis and thromboembolism (14 sources) History of thromboembolism of vein; Translations: [Personal history of other venous thrombosis and embolism] 01-17-2020 Episodic Pneumonia (except that caused by tuberculosis or sexually transmitted disease) (14 sources) Infective pneumonia; Translations: [Pneumonia, unspecified organism] 01-17-2020 Episodic Residual codes; unclassified (2 sources) Hallucinations; Translations: [Hallucinations, unspecified] 09-04-2023 Episodic Unclassified (1 source) Unknown / UNK(Unknown) Onset: 09-01-2016 Urinary tract infections (20 sources) Urinary tract infectious disease; Translations: [Urinary tract infection, site not specified] 02-29-2020 Episodic Past or Other Problems Problem Classification Problem Date Documented Da te Episodic/Chronic Diabetes mellitus without complication (2 sources) Hyperglycemia; Translations: [Other abnormal glucose] Episodic Immunizations and screening for infectious disease (1 source) Requires vaccination; Translations: [Need for prophylactic vaccination and inoculation against unspecified single disease] Episodic Other gastrointestinal disorders (1 source) Dysphagia, oropharyngeal phase; Translations: [Dysphagia, oropharyngeal phase] Onset: 10-02-2023 Episodic Other screening for suspected conditions (not mental disorders or infectious disease) (2 sources) INR raised; Translations: [Abnormal coagulation profile] Episodic Pulmonary heart disease (1 source) Pulmonary embolism; Translations: [Other pulmonary embolism and infarction] Episodic Residual codes; unclassified (1 source) Edema of lower leg ; Translations: [Edema] Episodic Unclassified (1 source) I26.99 Onset: 09-01-2016 NEGATED: Highlighted row has not occurred!Residual codes; unclassified (1 source) Disease Episodic Results Test Name Value Interpretation Reference Range Facility Anion gap in Serum or Plasma Ordered By: Jeanmarie Cardona on 06-01-2024 Anion gap [Moles/Vol] 10 mmol/L 5- [facility] BUN/creatinine ratioOrdered By: Jeanmarie aCrdona on 06-01-2024 Urea nitrogen/Creatinine [Mass ratio] 18.5 mg/mg - [facility] Carbon dioxide, total [Moles /volume] in Central venous bloodOrdered By: Jeanmarie Cardona on 06-01-2024 CO2 [Moles/Vol] 24.0 mmol/L 21.0-32.0 [facility] Chloride assayOrdered By: Su Cardona on 06-01-2024 Chloride [Moles/Vol] 108 mmol/L 98-108 [facility] Glomerular filtration rate ( GFR) estimation/1.73 sq m using serum, plasma, or whole bOrdered By: Jeanmarie Cardona on 06-01-2024 GFR/1.73 sq M.predicted among non-blacks MDRD (S/P/Bld) [Vol rate/Area] 72 mL/min/{1.73_m2} >60 [facility] Comment on above: mL/min/1.73m2 CKD-EP I Creatinine Equation (2020) Potassium measurement (mass/ volume)Ordered By: Jeanmarie Cardona on 06-01-2024 Potassium (Unsp spec) [Mass/Vol] 4.3 mmol/L 3.3-5.1 [facility] Serum creatinine measurement (mass/volume)Ordered By: Jeanmarie Cardona on 06-01-2024 Creatinine [Mass/Vol] 1.03 mg/dL 0.70-1.20 [facility] Serum glucose measurement (m ass/volume)Ordered By: Jeanmarie Cardona on 06-01-2024 Glucose [Mass/Vol] 81 mg/dL 70-99 [facility] Serum or plasma calcium zoe urement (mass/volume)Ordered By: Jeanmarie Cardona on 06-01-2024 Calcium [Mass/Vol] 8.7 mg/dL 7.6-11.0 [facility] Serum or plasma urea nitroge n measurement (mass/volume)Ordered By: Jeanmarie Cardona on 06-01-2024 Urea nitrogen [Mass/Vol] 19 mg/dL 4-19 [facility] Sodium levelOrdered By: Romulo Cardona on 06-01-2024 Sodium [Moles/Vol] 142 mmol/L 133-145 [facility] Basophil percentageOrdered B y: Jeanmarie Cardona on 06-03-2023 Chloride [Moles/Vol] 113 mmol/L 98-107 [facility] Glucose [Mass/Vol] 75 mg/dL 74-106 [facility] Potassium [Moles/Vol] 4.5 mmol/L 3.5-5.1 [facility] Sodium [Moles/Vol] 142 mmol/L 136-145 [facility] Laboratory - Chemistry and C hemistry - challengeOrdered By: Jeanmarie Cardona on 06-03-2023 CO2 [Moles/Vol] 27.0 mmol/L 21.0-32.0 [facility] Urea nitrogen/Creatinine [Mass ratio] 17.0 mg/mg 10-20 [facility] No Panel InformationOrdered By: Jeanmarie Cardona on 06-03-2023 Estimated GFR (MDRD) Amer 92 mL/min >60 [facility] Comment on above: GFR Calc Estimated GFR (MDRD) Non-Af Amer 76 mL/min >60 [facility] Comment on above: Non- GFR Calc Serum or plasma calcium zoe urement (mass/volume)Ordered By: Jeanmarie Cardona on 06-03-2023 Calcium [Mass/Vol] 8.7 mg/dL 8.5-10.1 [facility] Serum or plasma creatinine m easurement (mass/volume)Ordered By: Jeanmarie Cardona on 06-03-2023 Creatinine [Mass/Vol] 1.00 mg/dL 0.70-1.30 [facility] Comment on above: The validity of the calculated GFR & GFRAA in patients over 70 years has not been determined. Clinical correlation is essential. Serum or plasma urea nitroge n measurement (mass/volume)Ordered By: Jeanmarie Cardona on 06-03-2023 Urea nitrogen [Mass/Vol] 17 mg/dL 7-18 [facility] Thin prep Papanicolaou smear with manual screeningOrdered By: Jeanmarie Cardona on 06-03-2023 Thin prep Papanicolaou smear with manual screening 2 5-15 [facility] Absolute lymphocyte countOrd ered By: Jeanmarie Cardona on 01-03-2024 Lymphocytes Auto (Unsp spec) [#/Vol] 1.53 10*3/uL 0.83-4.51 [facility] Basophil percentageOrdered B y: Jeanmarie Cardona on 03-04-2023 Basophils/100 WBC (Bld) 0.7 % 0-1 [facility] Chloride [Moles/Vol] 112 mmol/L 98-107 [facility] Eosinophils/100 WBC (Bld) 7.5 % 0-5 [facility] Glucose [Mass/Vol] 87 mg/dL 74-106 [facility] Neutrophils (Bld) [#/Vol] 3.1 10*3/uL 2.0-7.7 [facility] Neutrophils/100 WBC (Bld) 53.5 % 47-70 [facility] Potassium [Moles/Vol] 4.5 mmol/L 3.5-5.1 [facility] Comment on above: Slight Hemolysis, Re sult may be falsely increased. Sodium [Moles/Vol] 141 mmol/L 136-145 [facility] WBC (Bld) [#/Vol] 5.8 10*3/uL 4.4-11.0 [facility] Blood erythrocytes count (nu mber/volume)Ordered By: Jeanmarie Cardona on 03-04-2023 RBC (Bld) [#/Vol] 3.94 10*6/uL 4.6-6.2 [facility] Blood hemoglobin measurement (mass/volume)Ordered By: Jeanmarie Cardona on 03-04-2023 Hemoglobin (Bld) [Mass/Vol] 12.8 g/dL 13.0-16.5 [facility] Blood lymphocytes/100 leukoc ytesOrdered By: Jeanmarie Cardona on 03-04-2023 Lymphocytes/100 WBC (Bld) 26.6 % 19-41 [facility] Blood monocytes/100 leukocyt esOrdered By: Jeanmarie Cardona on 03-04-2023 Monocytes/100 WBC (Bld) 11.5 % 0-10 [facility] Blood platelet mean volumeOr dered By: Jeanmarie Cardona on 03-04-2023 Platelet mean volume (Bld) [Entitic vol] 11.8 fL 6.2-12.0 [facility] Determination of erythrocyte mean corpuscular volume (MCV)Ordered By: Jeanmarie Cardona on 03-04-2023 MCV (RBC) [Entitic vol] 106.1 fL 80-94 [facility] Hematocrit Auto (Bld) [Volum e fraction]Ordered By: Jeanmarie Cardona on 03-04-2023 Hematocrit (Bld) [Volume fraction] 41.8 % 40-54 [facility] - Chemistry and C hemistry - challengeOrdered By: Jeanmarie Cardona on 03-04-2023 CO2 [Moles/Vol] 25.0 mmol/L 21.0-32.0 [facility] Urea nitrogen/Creatinine [Mass ratio] 19.8 mg/mg 10-20 [facility] - Hematology and Cell countsOrdered By: Jeanmarie Cardona on 03-04-2023 Erythrocyte distribution width (RBC) [Entitic vol] 49.7 fL 35.1-43.9 [facility] Erythrocyte distribution width (RBC) [Ratio] 12.7 % 11.6-14.6 [facility] Immature granulocytes/100 WBC (Bld) 0.200 % 0.0-0.9 [facility] Comment on above: IG% - Immature Granu locytes (promyelocytes, myelocytes and metamyelocytes) > 1% indicates that a LEFT SHIFT is Present. MCH (RBC) [Entitic mass] 32.5 pg 27.0-32.0 [facility] Nucleated RBC/100 WBC (Bld) [Ratio] 0 % 0-5 [facility] MCHC Auto (RBC) [Mass/Vol]Or dered By: Jeanmarie Cardona on 03-04-2023 MCHC (RBC) [Mass/Vol] 30.6 g/dL 32-36 [facility] No Panel InformationOrdered By: Jeanmarie Cardona on 03-04-2023 Estimated GFR (MDRD) Amer 91 mL/min >60 [facility] Comment on above: GFR Calc Estimated GFR (MDRD) Non-Af Amer 75 mL/min >60 [facility] Comment on above: Non- GFR Calc Platelets bldOrdered By: Sam Cardona on 03-04-2023 Platelets (Bld) [#/Vol] 183 10*3/uL 150-450 [facility] Serum or plasma calcium zoe urement (mass/volume)Ordered By: Jeanmarie Cardona on 03-04-2023 Calcium [Mass/Vol] 9.0 mg/dL 8.5-10.1 [facility] Serum or plasma creatinine m easurement (mass/volume)Ordered By: Jeanmarie Cardona on 03-04-2023 Creatinine [Mass/Vol] 1.01 mg/dL 0.70-1.30 [facility] Comment on above: The validity of the calculated GFR & GFRAA in patients over 70 years has not been determined. Clinical correlation is essential. Serum or plasma urea nitroge n measurement (mass/volume)Ordered By: Jeanmarie Cardona on 03-04-2023 Urea nitrogen [Mass/Vol] 20 mg/dL 7-18 [facility] Thin prep Papanicolaou smear with manual screeningOrdered By: Jeanmarie Cardona on 03-04-2023 Thin prep Papanicolaou smear with manual screening 4 5-15 [facility] Basophil percentageOrdered B y: Jeanmarie Cardona on 12-03-2022 Chloride [Moles/Vol] 106 mmol/L 98-107 [facility] Glucose [Mass/Vol] 100 mg/dL 74-106 [facility] Comment on above: Fasting Glucose resu lt from 100 to 125 mg/dL suggests IMPAIRED HOMEOSTASIS per A.D.A. criteria. Potassium [Moles/Vol] 4.5 mmol/L 3.5-5.1 [facility] Sodium [Moles/Vol] 138 mmol/L 136-145 [facility] - Chemistry and C hemistry - challengeOrdered By: Jeanmarie Cardona on 12-03-2022 CO2 [Moles/Vol] 30.0 mmol/L 21.0-32.0 [facility] Urea nitrogen/Creatinine [Mass ratio] 15.3 mg/mg 10-20 [facility] No Panel InformationOrdered By: Jeanmarie Cardona on 12-03-2022 Estimated GFR (MDRD) Amer 82 mL/min >60 [facility] Comment on above: GFR Calc Estimated GFR (MDRD) Non-Af Amer 67 mL/min >60 [facility] Comment on above: Non- GFR Calc Serum or plasma calcium zoe urement (mass/volume)Ordered By: Jeanmarie Cardona on 12-03-2022 Calcium [Mass/Vol] 8.9 mg/dL 8.5-10.1 [facility] Serum or plasma creatinine m easurement (mass/volume)Ordered By: Jeanmarie Cardona on 12-03-2022 Creatinine [Mass/Vol] 1.11 mg/dL 0.70-1.30 [facility] Comment on above: The validity of the calculated GFR & GFRAA in patients over 70 years has not been determined. Clinical correlation is essential. Serum or plasma urea nitroge n measurement (mass/volume)Ordered By: griseldabergerjayne Cardona on 12-03-2022 Urea nitrogen [Mass/Vol] 17 mg/dL 7-18 [facility] Thin prep Papanicolaou smear with manual screeningOrdered By: griseldabergerjayne Cardona on 12-03-2022 Thin prep Papanicolaou smear with manual screening 2 5-15 [facility] Absolute lymphocyte countOrd ered By: [facility] on 09-03-2022 Lymphocytes Auto (Unsp spec) [#/Vol] 1.14 10*3/uL 0.83-4.51 [facility] Basophil percentageOrdered B y: lay Cardona on 09-03-2022 Basophils/100 WBC (Bld) 0.5 % 0-1 [facility] Chloride [Moles/Vol] 115 mmol/L 98-107 [facility] Eosinophils/100 WBC (Bld) 7.2 % 0-5 [facility] Glucose [Mass/Vol] 106 mg/dL 74-106 [facility] Comment on above: Fasting Glucose resu lt from 100 to 125 mg/dL suggests IMPAIRED HOMEOSTASIS per A.D.A. criteria. Neutrophils (Bld) [#/Vol] 3.5 10*3/uL 2.0-7.7 [facility] Neutrophils/100 WBC (Bld) 62.6 % 47-70 [facility] Potassium [Moles/Vol] 4.7 mmol/L 3.5-5.1 [facility] Sodium [Moles/Vol] 145 mmol/L 136-145 [facility] WBC (Bld) [#/Vol] 5.7 10*3/uL 4.4-11.0 [facility] Blood erythrocytes count (nu mber/volume)Ordered By: Jeanmarie Cardona on 09-03-2022 RBC (Bld) [#/Vol] 3.97 10*6/uL 4.6-6.2 [facility] Blood hemoglobin measurement (mass/volume)Ordered By: Jeanmarie Cardona on 09-03-2022 Hemoglobin (Bld) [Mass/Vol] 13.0 g/dL 13.0-16.5 [facility] Blood lymphocytes/100 leukoc ytesOrdered By: Jeanmarie Cardona on 09-03-2022 Lymphocytes/100 WBC (Bld) 20.1 % 19-41 [facility] Blood monocytes/100 leukocyt esOrdered By: Jeanmarie Cardona on 09-03-2022 Monocytes/100 WBC (Bld) 9.2 % 0-10 [facility] Blood platelet mean volumeOr dered By: Jeanmarie Cardona on 09-03-2022 Platelet mean volume (Bld) [Entitic vol] 11.7 fL 6.2-12.0 [facility] Determination of erythrocyte mean corpuscular volume (MCV)Ordered By: Jeanmarie Cardona on 09-03-2022 MCV (RBC) [Entitic vol] 107.8 fL 80-94 [facility] Hematocrit Auto (Bld) [Volum e fraction]Ordered By: Jeanmarie Cardona on 09-03-2022 Hematocrit (Bld) [Volume fraction] 42.8 % 40-54 [facility] - Chemistry and C hemistry - challengeOrdered By: Jeanmarie Cardona on 09-03-2022 CO2 [Moles/Vol] 29.0 mmol/L 21.0-32.0 [facility] Urea nitrogen/Creatinine [Mass ratio] 18.0 mg/mg 10-20 [facility] - Hematology and Cell countsOrdered By: Jeanmarie Cardona on 09-03-2022 Erythrocyte distribution width (RBC) [Entitic vol] 50.7 fL 35.1-43.9 [facility] Erythrocyte distribution width (RBC) [Ratio] 12.8 % 11.6-14.6 [facility] Immature granulocytes/100 WBC (Bld) 0.400 % 0.0-0.9 [facility] Comment on above: IG% - Immature Granu locytes (promyelocytes, myelocytes and metamyelocytes) > 1% indicates that a LEFT SHIFT is Present. MCH (RBC) [Entitic mass] 32.7 pg 27.0-32.0 [facility] Nucleated RBC/100 WBC (Bld) [Ratio] 0 % 0-5 [facility] MCHC Auto (RBC) [Mass/Vol]Or dered By: Jeanmarie Cardona on 09-03-2022 MCHC (RBC) [Mass/Vol] 30.4 g/dL 32-36 [facility] No Panel InformationOrdered By: Jeanmarie Cardona on 09-03-2022 Estimated GFR (MDRD) Amer 82 mL/min >60 [facility] Comment on above: GFR Calc Estimated GFR (MDRD) Non-Af Amer 67 mL/min >60 [facility] Comment on above: Non- GFR Calc Platelets bldOrdered By: Sam Cardona on 09-03-2022 Platelets (Bld) [#/Vol] 198 10*3/uL 150-450 [facility] Serum or plasma calcium zoe urement (mass/volume)Ordered By: Jeanmarie Cardona on 09-03-2022 Calcium [Mass/Vol] 8.6 mg/dL 8.5-10.1 [facility] Serum or plasma creatinine m easurement (mass/volume)Ordered By: Jeanmarie Cardona on 09-03-2022 Creatinine [Mass/Vol] 1.11 mg/dL 0.70-1.30 [facility] Comment on above: The validity of the calculated GFR & GFRAA in patients over 70 years has not been determined. Clinical correlation is essential. Serum or plasma urea nitroge n measurement (mass/volume)Ordered By: Jeanmarie Cardona on 09-03-2022 Urea nitrogen [Mass/Vol] 20 mg/dL 09-16 [facility] Thin prep Papanicolaou smear with manual screeningOrdered By: Jeanmarie Cardona on 09-03-2022 Thin prep Papanicolaou smear with manual screening 1 5-15 [facility] Basophil percentageOrdered B y: Jeanmarie Cardona on 06-20-2022 Chloride [Moles/Vol] 112 mmol/L 98-107 [facility] Glucose [Mass/Vol] 83 mg/dL 74-106 [facility] Potassium [Moles/Vol] 4.5 mmol/L 3.5-5.1 [facility] Sodium [Moles/Vol] 142 mmol/L 136-145 [facility] - Chemistry and C hemistry - challengeOrdered By: Jeanmarie Cardona on 06-20-2022 CO2 [Moles/Vol] 29.0 mmol/L 21.0-32.0 [facility] Urea nitrogen/Creatinine [Mass ratio] 18.0 mg/mg 10- [facility] No Panel InformationOrdered By: Jeanmarie Cardona on 06-20-2022 Estimated GFR (MDRD) Amer 73 mL/min >60 [facility] Comment on above: GFR Calc Estimated GFR (MDRD) Non-Af Amer 61 mL/min >60 [facility] Comment on above: Non- GFR Calc Serum or plasma calcium zoe urement (mass/volume)Ordered By: Jeanmarie Cardona on 06-20-2022 Calcium [Mass/Vol] 8.5 mg/dL 8.5-10.1 [facility] Serum or plasma creatinine m easurement (mass/volume)Ordered By: Jeanmarie Cardona on 06-20-2022 Creatinine [Mass/Vol] 1.22 mg/dL 0.70-1.30 [facility] Comment on above: The validity of the calculated GFR & GFRAA in patients over 70 years has not been determined. Clinical correlation is essential. Serum or plasma urea nitroge n measurement (mass/volume)Ordered By: Jeanmarie Cardona on 06-20-2022 Urea nitrogen [Mass/Vol] 22 mg/dL 09-16 [facility] Thin prep Papanicolaou smear with manual screeningOrdered By: Jeanmarie Cardona on 06-20-2022 Thin prep Papanicolaou smear with manual screening 1 5-15 [facility] Basophil percentageOrdered B y: Jeanmarie Cardona on 03-21-2022 Chloride [Moles/Vol] 109 mmol/L 98-107 [facility] Glucose [Mass/Vol] 84 mg/dL 74-106 [facility] Potassium [Moles/Vol] 4.6 mmol/L 3.5-5.1 [facility] Sodium [Moles/Vol] 143 mmol/L 136-145 [facility] - Chemistry and C hemistry - challengeOrdered By: Jeanmarie Cardona on 03-21-2022 CO2 [Moles/Vol] 32.0 mmol/L 21.0-32.0 [facility] Urea nitrogen/Creatinine [Mass ratio] 18.6 mg/mg 10- [facility] No Panel InformationOrdered By: Jeanmarie Cardona on 03-21-2022 Estimated GFR (MDRD) Amer 80 mL/min >60 [facility] Comment on above: GFR Calc Estimated GFR (MDRD) Non-Af Amer 66 mL/min >60 [facility] Comment on above: Non- GFR Calc Serum or plasma calcium zoe urement (mass/volume)Ordered By: Jeanmarie Cardona on 03-21-2022 Calcium [Mass/Vol] 8.5 mg/dL 8.5-10.1 [facility] Serum or plasma creatinine m easurement (mass/volume)Ordered By: Jeanmarie Cardona on 03-21-2022 Creatinine [Mass/Vol] 1.13 mg/dL 0.70-1.30 [facility] Comment on above: The validity of the calculated GFR & GFRAA in patients over 70 years has not been determined. Clinical correlation is essential. Serum or plasma urea nitroge n measurement (mass/volume)Ordered By: Jeanmarie Cardona on 03-21-2022 Urea nitrogen [Mass/Vol] 21 mg/dL 7-18 [facility] Thin prep Papanicolaou smear with manual screeningOrdered By: Jeanmarie Cardona on 03-21-2022 Thin prep Papanicolaou smear with manual screening 2 5-15 [facility] Absolute lymphocyte countOrd ered By: Jeanmarie Cardona on 03-04-2022 Lymphocytes Auto (Unsp spec) [#/Vol] 0.96 10*3/uL 0.83-4.51 [facility] Basophil percentageOrdered B y: Jeanmarie Cardona on 03-04-2022 Basophils/100 WBC (Bld) 0.5 % 0-1 [facility] Chloride [Moles/Vol] 109 mmol/L 98-107 [facility] Eosinophils/100 WBC (Bld) 10.2 % 0-5 [facility] Glucose [Mass/Vol] 84 mg/dL 74-106 [facility] Neutrophils (Bld) [#/Vol] 2.2 10*3/uL 2.0-7.7 [facility] Neutrophils/100 WBC (Bld) 51.6 % 47-70 [facility] Potassium [Moles/Vol] 4.1 mmol/L 3.5-5.1 [facility] Sodium [Moles/Vol] 143 mmol/L 136-145 [facility] WBC (Bld) [#/Vol] 4.3 10*3/uL 4.4-11.0 [facility] Blood erythrocytes count (nu mber/volume)Ordered By: Jeanmarie Cardona on 03-04-2022 RBC (Bld) [#/Vol] 3.51 10*6/uL 4.6-6.2 [facility] Blood hemoglobin measurement (mass/volume)Ordered By: Jeanmarie Cardona on 03-04-2022 Hemoglobin (Bld) [Mass/Vol] 11.5 g/dL 13.0-16.5 [facility] Blood lymphocytes/100 leukoc ytesOrdered By: Jeanmarie Cardona on 03-04-2022 Lymphocytes/100 WBC (Bld) 22.2 % 19-41 [facility] Blood monocytes/100 leukocyt esOrdered By: Jeanmarie Cardona on 03-04-2022 Monocytes/100 WBC (Bld) 15.3 % 0-10 [facility] Blood platelet mean volumeOr dered By: Jeanmarie Cardona on 03-04-2022 Platelet mean volume (Bld) [Entitic vol] 11.8 fL 6.2-12.0 [facility] Determination of erythrocyte mean corpuscular volume (MCV)Ordered By: Jeanmarie Cardona on 03-04-2022 MCV (RBC) [Entitic vol] 105.1 fL 80-94 [facility] Hematocrit Auto (Bld) [Volum e fraction]Ordered By: Jeanmarie Cardona on 03-04-2022 Hematocrit (Bld) [Volume fraction] 36.9 % 40-54 [facility] - Chemistry and C hemistry - challengeOrdered By: lay Cardona on 03-04-2022 CO2 [Moles/Vol] 30.0 mmol/L 21.0-32.0 [facility] Urea nitrogen/Creatinine [Mass ratio] 24.2 mg/mg 10-20 [facility] - Hematology and Cell countsOrdered By: Jeanmarie Cardona on 03-04-2022 Erythrocyte distribution width (RBC) [Entitic vol] 47.8 fL 35.1-43.9 [facility] Erythrocyte distribution width (RBC) [Ratio] 12.4 % 11.6-14.6 [facility] Immature granulocytes/100 WBC (Bld) 0.200 % 0.0-0.9 [facility] Comment on above: IG% - Immature Granu locytes (promyelocytes, myelocytes and metamyelocytes) > 1% indicates that a LEFT SHIFT is Present. MCH (RBC) [Entitic mass] 32.8 pg 27.0-32.0 [facility] Nucleated RBC/100 WBC (Bld) [Ratio] 0 % 0-5 [facility] MCHC Auto (RBC) [Mass/Vol]Or dered By: Jeanmarie Cardona on 03-04-2022 MCHC (RBC) [Mass/Vol] 31.2 g/dL 32-36 [facility] No Panel InformationOrdered By: Jeanmarie Cardona on 03-04-2022 Estimated GFR (MDRD) Amer 72 mL/min >60 [facility] Comment on above: GFR Calc Estimated GFR (MDRD) Non-Af Amer 59 mL/min >60 [facility] Comment on above: Non- GFR Calc Platelets bldOrdered By: Sam Cardona on 03-04-2022 Platelets (Bld) [#/Vol] 170 10*3/uL 150-450 [facility] Serum or plasma calcium zoe urement (mass/volume)Ordered By: Jeanmarie Cardona on 03-04-2022 Calcium [Mass/Vol] 8.5 mg/dL 8.5-10.1 [facility] Serum or plasma creatinine m easurement (mass/volume)Ordered By: Jeanmarie Cardona on 03-04-2022 Creatinine [Mass/Vol] 1.24 mg/dL 0.70-1.30 [facility] Comment on above: The validity of the calculated GFR & GFRAA in patients over 70 years has not been determined. Clinical correlation is essential. Serum or plasma urea nitroge n measurement (mass/volume)Ordered By: Jeanmarie Cardona on 03-04-2022 Urea nitrogen [Mass/Vol] 30 mg/dL 7-18 [facility] Thin prep Papanicolaou smear with manual screeningOrdered By: Jeanmarie Cardona on 03-04-2022 Thin prep Papanicolaou smear with manual screening 4 5-15 [facility] Basophil percentageOrdered B y: Manish Anderson on 12-20-2021 Chloride [Moles/Vol] 110 mmol/L 98-107 [facility] Glucose [Mass/Vol] 86 mg/dL 74-106 [facility] Potassium [Moles/Vol] 4.3 mmol/L 3.5-5.1 [facility] Sodium [Moles/Vol] 142 mmol/L 136-145 [facility] Laboratory - Chemistry and C hemistry - challengeOrdered By: Manish Anderson on 12-20-2021 CO2 [Moles/Vol] 29.0 mmol/L 21.0-32.0 [facility] Urea nitrogen/Creatinine [Mass ratio] 20.4 mg/mg 10- [facility] No Panel InformationOrdered By: Manish Anderson on 12-20-2021 Estimated GFR (MDRD) Amer 84 mL/min >60 [facility] Comment on above: GFR Calc Estimated GFR (MDRD) Non-Af Amer 70 mL/min >60 [facility] Comment on above: Non- GFR Calc Serum or plasma calcium zoe urement (mass/volume)Ordered By: Manish Anderson on 12-20-2021 Calcium [Mass/Vol] 8.8 mg/dL 8.5-10.1 [facility] Serum or plasma creatinine m easurement (mass/volume)Ordered By: Manish Anderson on 12-20-2021 Creatinine [Mass/Vol] 1.08 mg/dL 0.70-1.30 [facility] Comment on above: The validity of the calculated GFR & GFRAA in patients over 70 years has not been determined. Clinical correlation is essential. Serum or plasma urea nitroge n measurement (mass/volume)Ordered By: Manish Anderson on 12-20-2021 Urea nitrogen [Mass/Vol] 22 mg/dL 7-18 [facility] Thin prep Papanicolaou smear with manual screeningOrdered By: Manish Anderson on 12-20-2021 Thin prep Papanicolaou smear with manual screening 3 5-15 [facility] Basophil percentageon 2021 Chloride [Moles/Vol] 110 mmol/L 98-107 [facility] Work Phone: Glucose [Mass/Vol] 82 mg/dL 74-106 [facility] Work Phone: Potassium [Moles/Vol] 4.4 mmol/L 3.5-5.1 [facility] Work Phone: Sodium [Moles/Vol] 143 mmol/L 136-145 [facility] Work Phone: Laboratory - Chemistry and C hemistry - challengeon 09-13-2021 CO2 [Moles/Vol] 31.0 mmol/L 21.0-32.0 [facility] Work Phone: Urea nitrogen/Creatinine [Mass ratio] 21.1 mg/mg 10- [facility] Work Phone: No Panel Informationon 09-13 Estimated GFR (MDRD) Amer 79 mL/min >60 [facility] Work Phone: Comment on above: GFR Calc Estimated GFR (MDRD) Non-Af Amer 66 mL/min >60 [facility] Work Phone: Comment on above: Non- GFR Calc Serum or plasma calcium zoe urement (mass/volume)on 09-13-2021 Calcium [Mass/Vol] 8.9 mg/dL 8.5-10.1 [facility] Work Phone: Serum or plasma creatinine m easurement (mass/volume)on 09-13-2021 Creatinine [Mass/Vol] 1.14 mg/dL 0.70-1.30 [facility] Work Phone: Comment on above: The validity of the calculated GFR & GFRAA in patients over 70 years has not been determined. Clinical correlation is essential. Serum or plasma urea nitroge n measurement (mass/volume)on 09-13-2021 Urea nitrogen [Mass/Vol] 24 mg/dL 7-18 [facility] Work Phone: Thin prep Papanicolaou smear with manual screeningon 09-13-2021 Thin prep Papanicolaou smear with manual screening 2 5-15 [facility] Work Phone: Basophil percentageon 2021 Chloride [Moles/Vol] 110 mmol/L 98-107 [facility] Work Phone: Glucose [Mass/Vol] 73 mg/dL 74-106 [facility] Work Phone: Potassium [Moles/Vol] 4.5 mmol/L 3.5-5.1 [facility] Work Phone: Sodium [Moles/Vol] 139 mmol/L 136-145 [facility] Work Phone: Laboratory - Chemistry and C hemistry - challengeon 06-14-2021 CO2 [Moles/Vol] 26.0 mmol/L 21.0-32.0 [facility] Work Phone: Urea nitrogen/Creatinine [Mass ratio] 22.1 mg/mg 10-20 [facility] Work Phone: No Panel Informationon 06-14 Estimated GFR (MDRD) Amer 93 mL/min >60 [facility] Work Phone: Comment on above: GFR Calc Estimated GFR (MDRD) Non-Af Amer 77 mL/min >60 [facility] Work Phone: Comment on above: Non- GFR Calc Serum or plasma calcium zoe urement (mass/volume)on 06-14-2021 Calcium [Mass/Vol] 8.5 mg/dL 8.5-10.1 [facility] Work Phone: Serum or plasma creatinine m easurement (mass/volume)on 06-14-2021 Creatinine [Mass/Vol] 1.00 mg/dL 0.70-1.30 [facility] Work Phone: Comment on above: The validity of the calculated GFR & GFRAA in patients over 70 years has not been determined. Clinical correlation is essential. Serum or plasma urea nitroge n measurement (mass/volume)on 06-14-2021 Urea nitrogen [Mass/Vol] 22 mg/dL 7-18 [facility] Work Phone: Thin prep Papanicolaou smear with manual screeningon 06-14-2021 Thin prep Papanicolaou smear with manual screening 3 -15 [facility] Work Phone: Absolute lymphocyte counton 04-12-2021 Lymphocytes Auto (Unsp spec) [#/Vol] 1.23 10*3/uL 0.83-4.51 [facility] Work Phone: Basophil percentageon 2021 Basophils/100 WBC (Bld) 0.3 % 0-1 [facility] Work Phone: Chloride [Moles/Vol] 118 mmol/L 98-107 [facility] Work Phone: Eosinophils/100 WBC (Bld) 8.5 % 0-5 [facility] Work Phone: Glucose [Mass/Vol] 106 mg/dL 74-106 [facility] Work Phone: Comment on above: Fasting Glucose resu lt from 100 to 125 mg/dL suggests IMPAIRED HOMEOSTASIS per A.D.A. criteria. Neutrophils (Bld) [#/Vol] 3.9 10*3/uL 2.0-7.7 [facility] Work Phone: [phone] Neutrophils/100 WBC (Bld) 60.6 % 47-70 [facility] Work Phone: [phone] Potassium [Moles/Vol] 3.9 mmol/L 3.5-5.1 [facility] Work Phone: [phone] Sodium [Moles/Vol] 148 mmol/L 136-145 [facility] Work Phone: [phone] WBC (Bld) [#/Vol] 6.5 10*3/uL 4.4-11.0 [facility] Work Phone: [phone] Blood erythrocytes count (nu mber/volume)on 04-12-2021 RBC (Bld) [#/Vol] 3.11 10*6/uL 4.6-6.2 [facility] [place] Work Phone: [phone] Blood hemoglobin measurement (mass/volume)on 04-12-2021 Hemoglobin (Bld) [Mass/Vol] 11.6 g/dL 13.0-16.5 [facility] Work Phone: [phone] Blood lymphocytes/100 leukoc yteson 04-12-2021 Lymphocytes/100 WBC (Bld) 19.0 % 19-41 [facility] Work Phone: [phone] Blood monocytes/100 leukocyt eson 04-12-2021 Monocytes/100 WBC (Bld) 11.0 % 0-10 [facility] Work Phone: [phone] Blood platelet mean volumeon 04-12-2021 Platelet mean volume (Bld) [Entitic vol] 11.5 fL 6.2-12.0 [facility] Work Phone: [phone] Determination of erythrocyte mean corpuscular volume (MCV)on 04-12-2021 MCV (RBC) [Entitic vol] 107.1 fL 80-94 [facility] Work Phone: [phone] Hematocrit Auto (Bld) [Volum e fraction]on 04-12-2021 Hematocrit (Bld) [Volume fraction] 33.3 % 40-54 [facility] Work Phone: [phone] Laboratory - Chemistry and C hemistry - challengeon 04-12-2021 CO2 [Moles/Vol] 27.0 mmol/L 21.0-32.0 [facility] Work Phone: [phone] Urea nitrogen/Creatinine [Mass ratio] 23.6 mg/mg 10-20 [facility] Work Phone: [phone] Laboratory - Hematology and Cell countson 04-12-2021 Erythrocyte distribution width (RBC) [Entitic vol] 47.3 fL 35.1-43.9 [facility] Work Phone: [phone] Erythrocyte distribution width (RBC) [Ratio] 12.5 % 11.6-14.6 [facility] Work Phone: [phone] Immature granulocytes/100 WBC (Bld) 0.600 % 0.0-0.9 [facility] Work Phone: [phone] Comment on above: IG% - Immature Granu locytes (promyelocytes, myelocytes and metamyelocytes) > 1% indicates that a LEFT SHIFT is Present. MCH (RBC) [Entitic mass] 37.3 pg 27.0-32.0 [facility] Work Phone: [phone] Nucleated RBC/100 WBC (Bld) [Ratio] 0 % 0-5 [facility] Work Phone: [phone] MCHC Auto (RBC) [Mass/Vol]on 04-12-2021 MCHC (RBC) [Mass/Vol] 34.8 g/dL 32-36 [facility] Work Phone: [phone] Panel Informationon 04-12 Estimated GFR (MDRD) Amer 61 mL/min >60 [facility] Work Phone: [phone] Comment on above: GFR Calc Estimated GFR (MDRD) Non-Af Amer 50 mL/min >60 [facility] Work Phone: [phone] Comment on above: Non- GFR Calc Thyroid Stimulating Hormone (TSH) 0.89 uIU/mL 0.358-3.74 [facility] Work Phone: [phone] Platelets bldon 04-12-2021 Platelets (Bld) [#/Vol] 217 10*3/uL 150-450 [facility] Work Phone: [phone] Serum or plasma calcium zoe urement (mass/volume)on 04-12-2021 Calcium [Mass/Vol] 8.4 mg/dL 8.5-10.1 [facility] Work Phone: [phone] Serum or plasma creatinine m easurement (mass/volume)on 04-12-2021 Creatinine [Mass/Vol] 1.44 mg/dL 0.70-1.30 [facility] Work Phone: [phone] Comment on above: The validity of the calculated GFR & GFRAA in patients over 70 years has not been determined. Clinical correlation is essential. Serum or plasma urea nitroge n measurement (mass/volume)on 04-12-2021 Urea nitrogen [Mass/Vol] 34 mg/dL 7-18 [facility] Work Phone: [phone] Thin prep Papanicolaou smear with manual screeningon 04-12-2021 Thin prep Papanicolaou smear with manual screening 3 5-15 [facility] Work Phone: [phone] Absolute lymphocyte counton 02-28-2021 Lymphocytes Auto (Unsp spec) [#/Vol] 1.45 10*3/uL 0.83-4.51 [facility] Work Phone: [phone] Basophil percentageon 2020 Eosinophils/100 WBC (Bld) 12.8 % 0-5 [facility] Work Phone: [phone] Neutrophils (Bld) [#/Vol] 2.2 10*3/uL 2.0-7.7 [facility] Work Phone: [phone] WBC (Bld) [#/Vol] 4.9 10*3/uL 4.4-11.0 [facility] Work Phone: [phone] Blood erythrocytes count (nu mber/volume)on 02-28-2021 RBC (Bld) [#/Vol] 3.55 10*6/uL 4.6-6.2 [facility] Work Phone: [phone] Blood hemoglobin measurement (mass/volume)on 02-28-2021 Hemoglobin (Bld) [Mass/Vol] 11.5 g/dL 13.0-16.5 [facility] Work Phone: Blood lymphocytes/100 leukoc yteson 02-28-2021 Lymphocytes/100 WBC (Bld) 29.8 % 19-41 [facility] Work Phone: [phone] Blood monocytes/100 leukocyt eson 02-28-2021 Monocytes/100 WBC (Bld) 12.1 % 0-10 [facility] Work Phone: Blood platelet mean volumeon 02-28-2021 Platelet mean volume (Bld) [Entitic vol] 11.7 fL 6.2-12.0 [facility] Work Phone: Determination of erythrocyte mean corpuscular volume (MCV)on 02-28-2021 MCV (RBC) [Entitic vol] 103.9 fL 80-94 [facility] Work Phone: Hematocrit Auto (Bld) [Volum e fraction]on 02-28-2021 Hematocrit (Bld) [Volume fraction] 36.9 % 40-54 [facility] Work Phone: Laboratory - Hematology and Cell countson 02-28-2021 Basophils/100 WBC (Unsp spec) 0.4 % 0-1 [facility] Work Phone: Erythrocyte distribution width (RBC) [Entitic vol] 47.4 fL 35.1-43.9 [facility] Work Phone: [phone] Erythrocyte distribution width (RBC) [Ratio] 12.4 % 11.6-14.6 [facility] Work Phone: Immature granulocytes/100 WBC (Bld) 0.200 % 0.0-0.9 [facility] Work Phone: Comment on above: IG% - Immature Granu locytes (promyelocytes, myelocytes and metamyelocytes) > 1% indicates that a LEFT SHIFT is Present. MCH (RBC) [Entitic mass] 32.4 pg 27.0-32.0 [facility] Work Phone: Neutrophils/100 WBC (Bld) 44.7 % 47-70 [facility] Work Phone: Nucleated RBC/100 WBC (Bld) [Ratio] 0 % 0-5 [facility] Work Phone: MCHC Auto (RBC) [Mass/Vol]on 02-28-2021 MCHC (RBC) [Mass/Vol] 31.2 g/dL 32-36 [facility] Work Phone: Platelets bldon 02-28-2021 Platelets (Bld) [#/Vol] 191 10*3/uL 150-450 [facility] Work Phone: CBC W/DIFFon 01-09-2020 BASO ABS 0.00 K/CU MM Normal 0-0.2 [facility] Comment on above: Performed By: #### L [id number] #### [facility] [address] [place] [address] 23956 Basophils/100 WBC (Bld) 0.4 % Normal 0-2 [facility] Comment on above: Performed By: #### L [id number] #### [facility] [address] [place] [address] 10933 EOS ABS 0.20 K/CU MM Normal 0-0.5 [facility] Comment on above: Performed By: #### L 200.41755 #### [facility] [address] [place] [address] 53526 Eosinophils/100 WBC (Bld) 4.2 % Normal 0-5 [facility] Comment on above: Performed By: #### L 200.14653 #### [facility] [address] [place] [address] 00722 Erythrocyte distribution width (RBC) [Ratio] 12.5 % Normal 11-14.5 [facility] Comment on above: Performed By: #### L 200.19888 #### [facility] [address] [place] [address] Hematocrit (Bld) [Volume fraction] 35.8 % Low 41.0-53.0 [facility] Comment on above: Performed By: #### L 200.13175 #### [facility] [address] [place] [address] Hemoglobin (Bld) [Mass/Vol] 11.2 g/dL Low 13.5-17.5 [facility] Comment on above: Performed By: #### L 200.95586 #### [facility] [address] [place] [address] IMMATR GRAN ABS 0.00 K/CU MM Normal Less than 2 [facility] Comment on above: Performed By: #### L 200.32320 #### [facility] [address] [place] [address] IMMATURE GRAN % 0.4 % Normal Less than 2 [facility] Comment on above: Performed By: #### L [id number] #### [facility] [address] [place] [address] Lymphocytes (Bld) [#/Vol] 1.30 K/CU MM Normal 0.9-4.4 [facility] Comment on above: Performed By: #### L 200.86644 #### [facility] [address] [place] [address] Lymphocytes/100 WBC (Bld) 26.3 % Normal 20-40 [facility] Comment on above: Performed By: #### L 200.04871 #### [facility] [address] [place] [address] MCHC (RBC) [Mass/Vol] 31.3 g/dL Low 32.0-36.0 [facility] Comment on above: Performed By: #### L 200.37537 #### [facility] [place] [address] MCV (RBC) [Entitic vol] 108.5 fL High 80.0-99.0 [facility] Comment on above: Performed By: #### L 200.19843 #### [facility] [address] [place] [address] MONO ABS 0.70 K/CU MM Normal 0.1-1.1 [facility] Comment on above: Performed By: #### L 200.74132 #### [facility] [address] [place] [address] Monocytes/100 WBC (Bld) 13.5 % High 2-10 [facility] Comment on above: Performed By: #### L 200.57643 #### [facility] [address] [place] [address] NEUTROPHIL ABS 2.80 K/CU MM Normal 2.0-8.3 [facility] Comment on above: Performed By: #### L 200.97506 #### [facility] [address] [place] [address] Neutrophils/100 WBC (Bld) 55.2 % Normal 45-75 [facility] Comment on above: Performed By: #### L 200.20079 #### [facility] [address] [place] [address] Nucleated RBC/100 WBC (Bld) [Ratio] 0.0 % Normal Less than 1 [facility] Comment on above: Performed By: #### L 200.12943 #### [facility] [address] [place] [address] Platelet mean volume (Bld) [Entitic vol] 11.5 fL Normal 9.4-12.4 [facility] Comment on above: Performed By: #### L 200.42270 #### [facility] [address] [place] [address] Platelets (Bld) [#/Vol] 184 K/CU MM Normal 150-450 [facility] Comment on above: Performed By: #### L 200.17517 #### [facility] [address] [place] [address] 62877 RBC (Bld) [#/Vol] 3.30 M/CU MM Low 4.50-6.00 [facility] Comment on above: Performed By: #### L 200.16694 #### [facility] [address] [place] [address]17 WBC (Bld) [#/Vol] 5.1 K/CUMM Normal 4.5-11.0 [facility] Comment on above: Performed By: #### L 200.81046 #### [facility] [address] [place] [address] 47865 CMPon 01-09-2020 Albumin [Mass/Vol] 3.3 g/dL Normal 3.2-5.0 [facility] Comment on above: Performed By: #### L 500.51771, L500.53274 #### [facility] [address] [place] [address] 19444 Albumin/Globulin [Mass ratio] 1.2 {ratio} Normal 0.8-2.0 [facility] Comment on above: Performed By: #### L 500.46244, L500.58916 #### [facility] [address] [place] [address] 57999 ALK PHOS 130 U/L High 45-117 [facility] Comment on above: Performed By: #### L 500.32237, L500.83419 #### [facility] [place] [address] ALT [Catalytic activity/Vol] 7 U/L Low 13-61 [facility] Comment on above: Result Comment: RESU LTS MAY BE FALSELY DEPRESSED AFTER THE ADMINISTRATION OF SULFASALAZINE AND/OR SULFAPYRIDINE. Performed By: #### L 500.24329, L500.05155 #### [facility] [place] [address] Anion gap [Moles/Vol] 3 mmol/L Low 5-16 [facility] Comment on above: Performed By: #### L 500.65946, L500.75698 #### [facility] [address] [place] [address] BILI TOTAL 0.30 MG/DL Normal 0.2-1.0 [facility] Comment on above: Performed By: #### L 500.97791, L500.31262 #### [facility] [address] [place] [address] Calcium [Mass/Vol] 9.4 mg/dL Normal 8.5-10.5 [facility] Comment on above: Result Comment: NOTE NEW NORMAL RANGE DUE TO REAGENT CHANGE Performed By: #### L 500.45593, L500.30935 #### [facility] [address] [place] [address] Chloride [Moles/Vol] 108 mmol/L High 98-107 [facility] Comment on above: Performed By: #### L 500.91816, L500.93273 #### [facility] [address] [place] [address] CO2 [Moles/Vol] 33.0 mmol/L High 21-32 [facility] Comment on above: Performed By: #### L 500.58760, L500.17040 #### [facility] [address] [place] [address]00 Creatinine [Mass/Vol] 1.54 mg/dL High 0.5-1.4 [facility] Comment on above: Result Comment: NOTE NEW NORMAL RANGE DUE TO REAGENT CHANGE Patients receiving either N-Acetylcysteine (NAC) or Metamizole prior to venipuncture, may have falsely depressed results. Performed By: #### L 500.32766, L500.91853 #### [facility] [address] [place] [address] Globulin (S) [Mass/Vol] 2.7 g/dL Normal 2.2-4.2 [facility] Comment on above: Performed By: #### L 500.24094, L500.36820 #### [facility] [address] [place] [address] Glucose [Mass/Vol] 88 mg/dL Normal 70-100 [facility] Comment on above: Result Comment: 70-1 00- Normal Fasting; 100-125 Impaired Fasting; greater than 126 on more than one result- Diabetes. ADA guidelines. Results may be falsely elevated after the administration of Sulfapyridine. Results may be falsely depressed after the administration of Sulfasalazine. Performed By: #### L 500.31756, L500.67849 #### [facility] [address] [place] [address] Potassium [Moles/Vol] 5.1 mmol/L Normal 3.5-5.1 [facility] Comment on above: Performed By: #### L 500.15834, L500.37233 #### [facility] [address] [place] [address] Protein [Mass/Vol] 6.0 g/dL Normal 6.0-8.5 [facility] Comment on above: Performed By: #### L 500.90281, L500.51340 #### [facility] [address] [place], [place] [id number] SGOT (AST) 12 U/L Normal 8-34 [facility] Comment on above: Result Comment: RESU LTS MAY BE FALSELY DEPRESSED AFTER THE ADMINISTRATION OF SULFASALAZINE AND/OR SULFAPYRIDINE. Performed By: #### L 500.71724, L500.21827 #### [facility] [address] [place], [place] [address] Sodium [Moles/Vol] 143 mmol/L Normal 136-145 [facility] Comment on above: Performed By: #### L 500.38670, L500.95004 #### [facility] [address] [place], [place] [address] Urea nitrogen [Mass/Vol] 34 mg/dL High 7-26 [facility] Comment on above: Performed By: #### L 500.42549, L500.29862 #### [facility] [address] [place] [address] Urea nitrogen/Creatinine [Mass ratio] 22 mg/mg Normal 15-24 [facility] Comment on above: Performed By: #### L 500.44045, L500.83990 #### [facility] [address] [place] [address] GFR ESTon 01-09-2020 IF AMER 53 Normal [facility] Comment on above: Performed By: #### L 500.70612, L500.28633 #### [facility] [address] [place] [address] IF non-AFR AMER 44 Normal [facility] Comment on above: Performed By: #### L 500.50114, L500.49610 #### [facility] [address] [place] [address] UA COMPLETEon 01-09-2020 Color (U) Yellow Normal [facility] Comment on above: Performed By: #### L 600.81416 #### [facility] [address] [place], [place] [address] Glucose (U) [Mass/Vol] Negative Normal NORMAL [facility] Comment on above: Performed By: #### L 600.69607 #### [facility] [address] [place] [address] HYALINE CAST 5 /LPF High 0-1 [facility] Comment on above: Performed By: #### L 600.07495 #### [facility] [address] [place] [address] Mucus Ql (Urine sed) TRACE Normal NEGATIVE [facility] Comment on above: Performed By: #### L 600.64327 #### [facility] [address] [place] [address] SQUAMOUS EPIS 1 EPI/HPF Normal 0-5 [facility] Comment on above: Performed By: #### L 600.85463 #### [facility] [address] [place] [address] UA APPEARANCE Hazy Normal CLEAR [facility] Comment on above: Performed By: #### L 600.15338 #### [facility] [address] [place] [address] UA BACTERIA 1+ /HPF Normal NONE [facility] Comment on above: Performed By: #### L 600.94917 #### [facility] [address] [place] [address] UA BILIRUBIN Negative Normal NEGATIVE [facility] Comment on above: Performed By: #### L 600.49675 #### [facility] [address] [place] [address] UA BLOOD SMALL Normal NEGATIVE [facility] Comment on above: Performed By: #### L 600.09795 #### [facility] [address] [place] [address] UA KETONE Negative Normal NEGATIVE [facility] Comment on above: Performed By: #### L 600.70310 #### [facility] [address] [place] [address] UA LK ESTERASE 500 Normal NEGATIVE [facility] Comment on above: Performed By: #### L 600.82708 #### [facility] [place] [address] UA NITRITE Negative Normal NEGATIVE [facility] Comment on above: Performed By: #### L 600.52484 #### [facility] [address] [place], [place] [address] UA PH 7.0 Normal 5-6 [facility] Comment on above: Performed By: #### L 600.54778 #### [facility] [address] [place] [address] UA PROTEIN Negative Normal NEGATIVE [facility] Comment on above: Performed By: #### L 600.48070 #### [facility] [address] [place] [address] UA RBC 7 RBC/HPF High 0-3 [facility] Comment on above: Performed By: #### L 600.57323 #### [facility] [address] [place] [address] UA SPEC GRAV 1.014 Normal 1.005-1.030 [facility] Comment on above: Performed By: #### L 600.71646 #### [facility] [address] [place], [place] [address] UA UROBILINOGEN Negative Normal NORMAL [facility] Comment on above: Performed By: #### L 600.74994 #### [facility] [address] [place], [place] [address] UA WBC 123 WBC/HPF High 0-5 [facility] Comment on above: Performed By: #### L 600.89706 #### [facility] [address] [place], [place] [address] WBC CLUMPS OCC Normal [facility] Comment on above: Performed By: #### L 600.65974 #### [facility] [address] [place] [address] .Urinalysis Microscopic (AO) on 01-14-2018 RBC Test strip #/vol (U) 0-5 Invalid Interpretation Code None Seen [facility] ([place]) Comment on above: Performed By: #### C BC, ADIFF, ANEU, GFR, BMP ####[address] [place], [place] [address] UA Squam Epithelial None Seen Normal None Seen [facility] ([place]) Comment on above: Performed By: #### C BC, ADIFF, ANEU, GFR, BMP ####[address] [place], [place] [address] UA WBC 5-10 Invalid Interpretation Code None Seen [facility] ([place]) Comment on above: Performed By: #### C BC, ADIFF, ANEU, GFR, BMP ####[address] [place], [place] [address] UAon 01-14-2018 Color Nom (U) Yellow Normal [facility] ([place]) Comment on above: Performed By: #### C BC, ADIFF, ANEU, GFR, BMP ####[address] [place], [place] [address] Glucose mass conc (U) Negative Normal Negative [facility] ([place]) Comment on above: Performed By: #### C BC, ADIFF, ANEU, GFR, BMP ####[address] [place], [place] [address] Ketones Ql (U) Negative Normal Negative [facility] ([place]) Comment on above: Performed By: #### C BC, ADIFF, ANEU, GFR, BMP ####[address] [place], [place] [address] UA Appear Clear Normal Clear [facility] ([place]) Comment on above: Performed By: #### C BC, ADIFF, ANEU, GFR, BMP ####[address] [place], [place] [address] UA Blood Negative Normal Negative [facility] ([place]) Comment on above: Performed By: #### C BC, ADIFF, ANEU, GFR, BMP ####[address] [place], [place] [address] UA Leuk Est Trace Invalid Interpretation Code Negative [facility] ([place]) Comment on above: Performed By: #### C BC, ADIFF, ANEU, GFR, BMP ####[address] [place], [place] [address] UA Nitrite Negative Normal Negative [facility] ([place]) Comment on above: Performed By: #### C BC, ADIFF, ANEU, GFR, BMP ####[address] [place], [place] [address] UA pH 7.5 Normal [facility] ([place]) Comment on above: Performed By: #### C BC, ADIFF, ANEU, GFR, BMP ####[address] [place], [place] [address] UA Protein Negative Normal Negative [facility] ([place]) Comment on above: Performed By: #### C BC, ADIFF, ANEU, GFR, BMP ####[address] [place], [place] [address] UA Spec Grav 1.010 Invalid Interpretation Code [facility] ([place]) Comment on above: Performed By: #### C BC, ADIFF, ANEU, GFR, BMP ####[address] [place], [place] [address] UA Specimen Type Clean Catch Normal [facility] ([place]) Comment on above: Performed By: #### C BC, ADIFF, ANEU, GFR, BMP ####[address] [place], [place] [address] UA Urobilinogen 0.2 E.U./dL Normal [facility] ([place]) Comment on above: Performed By: #### C BC, ADIFF, ANEU, GFR, BMP ####[address] [place], [place] [address] Urobilinogen Test strip Qn (U) Negative Normal Negative [facility] ([place]) Comment on above: Performed By: #### C BC, ADIFF, ANEU, GFR, BMP ####[address] [place], [place] [address] Brigitte 11-10-2017 CUR . MICRO - MicrobiologyPROCEDURE: Urine Culture [*1] Urine, Clean Catch BODY SITE:COLLECTED DATE/TIME: 11/07/2017 20:37 EDT RECEIVED DATE/TIME: 11/08/2017 20:21 EDTSTART DATE/TIME: 11/08/2017 20:22 EDT FREE TEXT SOURCE:FINAL REPORTSFinal Report []Verified Date/Time/Personnel: 11/10/2017 10:48 EDT3,000 organisms per mLMixed without predominant isolate(s). SensitivityTesting not indicated. Probably contamination. Repeatculture suggested.PRELIMINARY REPORTSPreliminary Report []Verified Date/Time/Personnel: 11/09/2017 06:59 EDTNo growth to datePerforming Locations*1: This test was performed at: [facility], [address] [place] [address], [address] [place] [address] Normal [facility] ([place]) Comment on above: Performed By: #### C BC, ADIFF, ANEU, GFR, BMP ####[address]na [address] [place], [place] [address] .Auto Diffon 11-08-2017 Ammonia mass conc (P) 0.60 10 3/mcL Normal 0.15-1.00 [facility] ([place]) Comment on above: Performed By: #### GUANAKITO GaxiolaMICAMADOU ####[address] [place], [place] [address] Basophils Auto #/vol (Bld) 0.00 10 3/mcL Normal 0.00-0.19 [facility] ([place]) Comment on above: Performed By: #### Jessica Ackerman UAMICAMADOU ####[address] [place], [place] [address] Basophils/100 WBC Auto (Bld) 1.0 % Normal 0.0-2.5 [facility] ([place]) Comment on above: Performed By: #### GUANAKITO GaxiolaMICAMADOU ####[address] [place], [place] [address] Eosinophils Auto #/vol (Bld) 0.30 10 3/mcL Normal 0.00-0.40 [facility] ([place]) Comment on above: Performed By: #### U HIRAM AckermanAO ####[address] [place], [place] [address] Eosinophils/100 WBC Auto (Bld) 6.6 % Normal 0.0-7.0 [facility] ([place]) Comment on above: Performed By: #### U A, UAMICAO ####[address] [place], [place] [address] Lymphocytes Auto #/vol (Bld) 1.40 10 3/mcL Normal 0.77-3.85 [facility] ([place]) Comment on above: Performed By: #### U A, UAMICAO ####[address] [place], [place] [address] Lymphocytes/100 WBC Auto (Bld) 29.3 % Normal 10.0-50.0 [facility] ([place]) Comment on above: Performed By: #### U A, UAMICAO ####[address] [place], [place] [address] Monocytes/100 WBC Auto (Bld) 13.4 % High 1.7-13.0 [facility] ([place]) Comment on above: Performed By: #### U A, UAMICAO ####[address] [place], [place] [address] Neutrophils/100 WBC Auto (Bld) 49.7 % Normal 37.0-80.0 [facility] ([place]) Comment on above: Performed By: #### U A, UAMICAO ####[address] [place], [place] [address] .GFRon 11-08-2017 GFR Non- 54 ml/min/1.73sqm Normal [facility] ([place]) Comment on above: Result Comment: GFR Population mean for , Non- Americans Ages 20-29 = 116 mL/min/1.73 sq.m. Ages 30-39 = 107 mL/min/1.73 sq.m. Ages 40-49 = 99 mL/min/1.73 sq.m. Ages 50-59 = 93 mL/min/1.73 sq.m. Ages 60-69 = 85 mL/min/1.73 sq.m. Ages 70+ = 75 mL/min/1.73 sq.m.Chronic Kidney Disease: Less than 60 mL/min/1.73 square metersEnd Stage Renal Disease: Less than 15 mL/min/1.73 square meters Performed By: #### C BC, ADIFF, ANEU, GFR, BMP ####[address] [place], [place] [address] GFR 65 ml/min/1.73sqm Normal [facility] ([place]) Comment on above: Result Comment: GFR Population mean for , Non- Americans Ages 20-29 = 116 mL/min/1.73 sq.m. Ages 30-39 = 107 mL/min/1.73 sq.m. Ages 40-49 = 99 mL/min/1.73 sq.m. Ages 50-59 = 93 mL/min/1.73 sq.m. Ages 60-69 = 85 mL/min/1.73 sq.m. Ages 70+ = 75 mL/min/1.73 sq.m.Chronic Kidney Disease: Less than 60 mL/min/1.73 square metersEnd Stage Renal Disease: Less than 15 mL/min/1.73 square meters Performed By: #### C RENATA GUERRERO, ANEU, GFR, BMP ###[address] [place], [place] [address] .NEUABSon 11-08-2017 Neutrophil, Absolute 2.40 10 3/mcL Low 2.85-6.16 A [facility] ([place]) Comment on above: Performed By: #### GUANAKITO GaxiolaMICAMADOU ####[address] [place], [place] [address] BMPon 11-08-2017 Calcium mass conc 8.5 mg/dL Normal 8.4-10.2 [facility] ([place]) Comment on above: Performed By: #### C BC ADIFF, ANEU, GFR, BMP ####[address] [place], [place] [address] Chloride molar conc 105 mmol/L Normal 98-107 [facility] ([place]) Comment on above: Performed By: #### C BC ADIFF, ANEU, GFR, BMP ####[address] [place], [place] [address] CO2 molar conc 29 mmol/L Normal 23-31 [facility] ([place]) Comment on above: Performed By: #### C BC, ADIFF, ANEU, GFR, BMP ####[address] [place], [place] [address] Creatinine mass conc 1.29 mg/dL Normal 0.70-1.30 [facility] ([place]) Comment on above: Performed By: #### C BC, ADIFF, ANEU, GFR, BMP ####[address] [place], [place] [address] Electrolyte Balance 9.0 mEq/L Normal [facility] ([place]) Comment on above: Performed By: #### C BC, ADIFF, ANEU, GFR, BMP ####[address] [place], [place] [address] Glucose mass conc 87 mg/dL Normal 83-110 [facility] ([place]) Comment on above: Performed By: #### C BC, ADIFF, ANEU, GFR, BMP ####[address] [place], [place] [address] Potassium molar conc 5.0 mmol/L Normal 3.5-5.1 [facility] ([place]) Comment on above: Performed By: #### C BC, ADIFF, ANEU, GFR, BMP ####[address] [place], [place] [address] Sodium molar conc 143 mmol/L Normal 136-145 [facility] ([place]) Comment on above: Performed By: #### C BC, ADIFF, ANEU, GFR, BMP ####[address] [place], [place] [address] Urea nitrogen mass conc 21 mg/dL High 7-18 [facility] ([place]) Comment on above: Performed By: #### C BC, ADIFF, ANEU, GFR, BMP ####[address] [place], [place] [address] Urea nitrogen/Creatinine mass ratio 16 ratio Normal 7-27 [facility] ([place]) Comment on above: Performed By: #### C BC, ADIFF, ANEU, GFR, BMP ####[address] [place], [place] [address] CBCon 11-08-2017 Erythrocyte distribution width Auto Ratio (RBC) 13.2 % Normal 11.5-14.5 [facility] ([place]) Comment on above: Performed By: #### U A UAMICAO ####[address] [place], [place] [address] Hematocrit Auto Volume Fraction (Bld) 37.1 % Low 42.0-52.0 [facility] ([place]) Comment on above: Performed By: #### U A UAMICAO ####[address] [place], [place] [address] Hemoglobin mass conc (Bld) 12.5 G/dL Low 14.0-18.0 [facility] ([place]) Comment on above: Performed By: #### U A UAMICAO ####[address] [place], [place] [address] MCH Auto Entitic mass (RBC) 34.3 pg High 27.0-31.2 [facility] ([place]) Comment on above: Performed By: #### U A UAMICAMADOU ####[address] [place], [place] [address] MCHC Auto mass conc (RBC) 33.8 G/dL Normal 31.8-35.4 [facility] ([place]) Comment on above: Performed By: #### U A UAMICAO ####[address] [place], [place] [address] MCV Auto Entitic volume (RBC) 101.3 fL High 80.0-94.0 [facility] ([place]) Comment on above: Performed By: #### U A UAMICAO ####[address] [place], [place] [address] Platelet mean volume Auto Entitic volume (Bld) 9.9 fL Normal 7.4-10.4 [facility] ([place]) Comment on above: Performed By: #### U A, UAMICAO ####[address] [place], [place] [address] Platelets Auto #/vol (Bld) 187 10 3/mcL Normal 130-400 [facility] ([place]) Comment on above: Performed By: #### GUANAKITO GaxiolaMICAMADOU ####[address] [place], [place] [address] RBC Auto #/vol (Bld) 3.66 10 6/mcL Low 4.04-6.13 A [facility] ([place]) Comment on above: Performed By: #### Jessica Ackerman UAMICAO ####[address] [place], [place] [address] WBC Auto #/vol (Bld) 4.80 10 3/mcL Normal 4.60-10.80 A [facility] ([place]) Comment on above: Performed By: #### KEYON Gaxiola ####[address] [place], [place] [address] MGon 11-08-2017 Magnesium mass conc 2.0 mg/dL Normal 1.8-2.4 [facility] ([place]) Comment on above: Performed By: #### C BC, ADIFF, ANEU, GFR, BMP ####[address] [place], [place] [address] .Auto Diffon 11-07-2017 Ammonia mass conc (P) 0.70 10 3/mcL Normal 0.15-1.00 [facility] ([place]) Comment on above: Performed By: #### Jessica Ackerman UAMICAMADOU ####[address] [place], [place] [address] Basophils Auto #/vol (Bld) 0.10 10 3/mcL Normal 0.00-0.19 [facility] ([place]) Comment on above: Performed By: #### GUANAKITO GaxiolaMICAMADOU ####[address] [place], [place] [address] Basophils/100 WBC Auto (Bld) 1.1 % Normal 0.0-2.5 [facility] ([place]) Comment on above: Performed By: #### Jessica Ackerman UAMICAMADOU ####[address] [place], [place] [address] Eosinophils Auto #/vol (Bld) 0.20 10 3/mcL Normal 0.00-0.40 [facility] ([place]) Comment on above: Performed By: #### GUANAKITO GaxiolaMICAMADOU ####[address] [place], [place] [address] Eosinophils/100 WBC Auto (Bld) 4.4 % Normal 0.0-7.0 [facility] ([place]) Comment on above: Performed By: #### Jessica Ackerman UAMICAO ####[address] [place], [place] [address] Lymphocytes Auto #/vol (Bld) 1.20 10 3/mcL Normal 0.77-3.85 [facility] ([place]) Comment on above: Performed By: #### GUANAKITO GaxiolaMICAMADOU ####[address] [place], [place] [address] Lymphocytes/100 WBC Auto (Bld) 22.7 % Normal 10.0-50.0 [facility] ([place]) Comment on above: Performed By: #### Jessica Ackerman UAMICAMADOU ####[address] [place], [place] [address] Monocytes/100 WBC Auto (Bld) 12.1 % Normal 1.7-13.0 [facility] ([place]) Comment on above: Performed By: #### Jessica Ackerman UAMICAMADOU ####[address] [place], [place] [address] Neutrophils/100 WBC Auto (Bld) 59.7 % Normal 37.0-80.0 [facility] ([place]) Comment on above: Performed By: #### Jessica Ackerman UAMICAMADOU ####[address] [place], [place] [address] .GFRon 11-07-2017 GFR 55 ml/min/1.73sqm Normal [facility] ([place]) Comment on above: Result Comment: GFR Population mean for , Non- Americans Ages 20-29 = 116 mL/min/1.73 sq.m. Ages 30-39 = 107 mL/min/1.73 sq.m. Ages 40-49 = 99 mL/min/1.73 sq.m. Ages 50-59 = 93 mL/min/1.73 sq.m. Ages 60-69 = 85 mL/min/1.73 sq.m. Ages 70+ = 75 mL/min/1.73 sq.m.Chronic Kidney Disease: Less than 60 mL/min/1.73 square metersEnd Stage Renal Disease: Less than 15 mL/min/1.73 square meters Performed By: #### U A, UAMICAO ####[address] [place], [place] [address] GFR Non- 45 ml/min/1.73sqm Normal [facility] ([place]) Comment on above: Result Comment: GFR Population mean for , Non- Americans Ages 20-29 = 116 mL/min/1.73 sq.m. Ages 30-39 = 107 mL/min/1.73 sq.m. Ages 40-49 = 99 mL/min/1.73 sq.m. Ages 50-59 = 93 mL/min/1.73 sq.m. Ages 60-69 = 85 mL/min/1.73 sq.m. Ages 70+ = 75 mL/min/1.73 sq.m.Chronic Kidney Disease: Less than 60 mL/min/1.73 square metersEnd Stage Renal Disease: Less than 15 mL/min/1.73 square meters Performed By: #### U A, UAMICAO ####[address] [place], [place] [address] .NEUABSon 11-07-2017 Neutrophil, Absolute 3.20 10 3/mcL Normal 2.85-6.16 A [facility] ([place]) Comment on above: Performed By: #### U A UAMICAO ####[address] [place], [place] [address] .Urinalysis Microscopic (AO) on 11-07-2017 RBC Test strip #/vol (U) 0-5 Invalid Interpretation Code None Seen [facility] ([place]) Comment on above: Performed By: #### U A, UAMICAO ####[address] [place], [place] [address] UA Squam Epithelial None Seen Normal None Seen [facility] ([place]) Comment on above: Performed By: #### U A UAMICAO ####[address] [place], [place] [address] UA WBC LOADED Invalid Interpretation Code None Seen [facility] ([place]) Comment on above: Performed By: #### U A UAMICAO ####[address] [place], [place] [address] CBCon 11-07-2017 Erythrocyte distribution width Auto Ratio (RBC) 13.5 % Normal 11.5-14.5 [facility] ([place]) Comment on above: Performed By: #### U A UAMICAO ####[address] [place] [address] Hematocrit Auto Volume Fraction (Bld) 37.7 % Low 42.0-52.0 [facility] ([place]) Comment on above: Performed By: #### U Tyron UAMICAO ####[address] [place] [address] Hemoglobin mass conc (Bld) 12.7 G/dL Low 14.0-18.0 [facility] ([place]) Comment on above: Performed By: #### U A UAMICAO ####[address] [place] [id number] MCH Auto Entitic mass (RBC) 34.0 pg High 27.0-31.2 [facility] ([place]) Comment on above: Performed By: #### U A UAMICAO ####[address] [place] [address] MCHC Auto mass conc (RBC) 33.7 G/dL Normal 31.8-35.4 [facility] ([place]) Comment on above: Performed By: #### U A UAMICAO ####[address] [place] [id number] MCV Auto Entitic volume (RBC) 101.0 fL High 80.0-94.0 [facility] ([place]) Comment on above: Performed By: #### U A UAMICAO ####[address] [place] [id number] Platelet mean volume Auto Entitic volume (Bld) 9.8 fL Normal 7.4-10.4 [facility] ([place]) Comment on above: Performed By: #### KEYON Gaxiola ####[address] [place], [place] [address] Platelets Auto #/vol (Bld) 208 10 3/mcL Normal 130-400 [facility] ([place]) Comment on above: Performed By: #### KEYON Gaxiola ####[address] [place], [place] [address] RBC Auto #/vol (Bld) 3.73 10 6/mcL Low 4.04-6.13 A [facility] ([place]) Comment on above: Performed By: #### KEYON Gaxiola ####[address] [place], [place] [address] WBC Auto #/vol (Bld) 5.40 10 3/mcL Normal 4.60-10.80 A [facility] ([place]) Comment on above: Performed By: #### KEYON Gaxiola ####[address] [place], [place] [address] CMPon 11-07-2017 Albumin mass conc 3.4 G/dL Normal 3.4-4.8 [facility] ([place]) Comment on above: Performed By: #### KEYON Gaxiola ####[address] [place], [place] [address] Albumin/Globulin mass ratio 0.8 {ratio} Low 1.1-2.5 [facility] ([place]) Comment on above: Performed By: #### KEYON Gaxiola ####[address] [place], [place] [address] ALP enzyme act/vol 132 U/L Normal 40-135 [facility] ([place]) Comment on above: Performed By: #### Jessica Ackerman UAFAYE ####[address] [place], [place] [address] ALT enzyme act/vol 12 U/L Normal 10-35 [facility] ([place]) Comment on above: Performed By: #### U A, UAMICAO ####[address] [place], [place] [address] AST enzyme act/vol 17 U/L Normal 10-40 [facility] ([place]) Comment on above: Performed By: #### U Tyron, UAMICAO ####[address] [place], [place] [address] Bili Total 0.2 mg/dL Normal 0.2-1.0 [facility] ([place]) Comment on above: Performed By: #### U Tyron, UAMICAO ####[address] [place], [place] [address] Calcium mass conc 8.7 mg/dL Normal 8.4-10.2 [facility] ([place]) Comment on above: Performed By: #### U Tyron, UAMICAO ####[address] [place], [place] [address] Chloride molar conc 104 mmol/L Normal 98-107 [facility] ([place]) Comment on above: Performed By: #### U Tyron, UAMICAO ####[address] [place], [place] [address] CO2 molar conc 31 mmol/L Normal 23-31 [facility] ([place]) Comment on above: Performed By: #### U Tyron, UAMICAO ####[address] [place], [place] [address] Creatinine mass conc 1.51 mg/dL High 0.70-1.30 [facility] ([place]) Comment on above: Performed By: #### U Tyron, UAMICAO ####[address] [place], [place] [address] Electrolyte Balance 7.0 mEq/L Normal [facility] ([place]) Comment on above: Performed By: #### U A, UAMICAO ####[address] [place], [place] [address] Globulin Calculated mass conc (S) 4.0 G/dL Normal [facility] ([place]) Comment on above: Performed By: #### U A, UAMICAO ####[address] [place] [phone] Glucose mass conc 110 mg/dL Normal 83-110 [facility] ([place]) Comment on above: Performed By: #### U Tyron UAMICAO ####[address] [place], [place] [address] Potassium molar conc 4.6 mmol/L Normal 3.5-5.1 [facility] ([place]) Comment on above: Performed By: #### U A UAMICAO ####[address] [place], [place] [address] Protein mass conc 7.4 G/dL Normal 6.4-8.2 [facility] ([place]) Comment on above: Performed By: #### U Tyron UAMICAO ####[address] [place], [place] [address] Sodium molar conc 142 mmol/L Normal 136-145 [facility] ([place]) Comment on above: Performed By: #### U Tyron UAMICAO ####[address] [place], [place] [address] Urea nitrogen mass conc 24 mg/dL High 7-18 [facility] ([place]) Comment on above: Performed By: #### U Tyron UAMICAO ####[address] [place], [place] [address] Urea nitrogen/Creatinine mass ratio 16 ratio Normal 7-27 [facility] ([place]) Comment on above: Performed By: #### U A UAMICAO ####[address] [place], [place] [address] LIPon 11-07-2017 Lipase Level 88 U/L Normal 73-393 [facility] ([place]) Comment on above: Performed By: #### U A UAMICAO ####[address] [place], [place] [address] TROPon 11-07-2017 Troponin I.cardiac mass conc ng/mL Normal 0.000-0.040 [facility] ([place]) Comment on above: Result Comment: Trop onin I reference range: 0.00-0.040 ng/mL Negative and non-diagnostic. >0.040 ng/mL Consistent with cardiac damage, increased clinical risk and possibility of myocardial infarction. Serial measurements, a rise & fall in test results, clinical history, appropriate symptoms and/or ECG changes may help assess possibility of TN. *Other non-acute coronary syndrome conditions such as CHF, myocarditis, pulmonary emboli, sepsis and cardiac surgery could result in myocardial damage and increased troponin levels. Performed By: #### U A, UAMICAO ####[address] [place], [place] [address] UAon 11-07-2017 Color Nom (U) Yellow Normal [facility] ([place]) Comment on above: Performed By: #### U A, UAMICAO ####[address] [place] [phone] Glucose mass conc (U) Negative Normal Negative [facility] ([place]) Comment on above: Performed By: #### U A, UAMICAO ####[address] [place] [phone] Ketones Ql (U) Negative Normal Negative [facility] ([place]) Comment on above: Performed By: #### U A, UAMICAO ####[address] [place], [place] [address] UA Appear Clear Normal Clear [facility] ([place]) Comment on above: Performed By: #### U A, UAMICAO ####[address] [place], [place] [address] UA Blood Small Invalid Interpretation Code Negative [facility] ([place]) Comment on above: Performed By: #### U A, UAMICAO ####[address] [place], [place] [address] UA Leuk Est Moderate Invalid Interpretation Code Negative [facility] ([place]) Comment on above: Performed By: #### U A, UAMICAO ####[address] [place], [place] [address] UA Nitrite Negative Normal Negative [facility] ([place]) Comment on above: Performed By: #### U A, UAMICAO ####[address] [place], [place] [address] UA pH 6.5 Normal [facility] ([place]) Comment on above: Performed By: #### U A, UAMICAO ####Day[address] [place], [place] [address] UA Protein Negative Normal Negative [facility] ([place]) Comment on above: Performed By: #### U A, UAMICAO ####Day[address] [place], [place] [address] UA Spec Grav 1.010 Invalid Interpretation Code [facility] ([place]) Comment on above: Performed By: #### U A, UAMICAO ####Dayna [address] [place], [place] [address] UA Specimen Type Void Normal [facility] ([place]) Comment on above: Performed By: #### U A, UAMICAO ####Dayna [address] [place], [place] [address] UA Urobilinogen 0.2 E.U./dL Normal [facility] ([place]) Comment on above: Performed By: #### U A, UAMICAO ####[address] [place], [place] [address] Urobilinogen Test strip Qn (U) Small Invalid Interpretation Code Negative [facility] ([place]) Comment on above: Performed By: #### U A, UAMICAO ####Dayna [address] [place], [place] [address] XR CHEST 2 VIEWSon 8 XR CHEST 2 VIEWS ORIGINALXR CHEST 2 V IEWS CLINICAL STATEMENT: SOB, N/V, pain behind sternum COMPARISON: Chest radiograph 06/18/2017 FINDINGS: The cardiomediastinal contours are difficult to evaluate due to the LEFT basilar opacification from presumed chronic LEFT hemidiaphragm elevation. There is tenting present at the LEFT hemidiaphragm suggestive of underlying atelectasis/volume loss. There is no focal consolidation, vascular congestion, pleural effusion, or pneumothorax. Osseous structures demonstrate no acute abnormalities. IMPRESSION: LEFT lower lobe atelectasis. The RIGHT lung is clear. I have personally reviewed the images of this examination and agree with the resident's findings and interpretation. Interpreted By: Carlitos Streeter DOPreliminary Report By: Norma Barba MDElectronically Signed By: Carlitos Streeter DO Dictated Date: 11/07/2017 8:02:26 PM Prelim Date: 11/07/2017 8:07:18 PM Sign Date: 11/07/2017 8:18:06 PM Normal [facility] ([place]) CURon 06-11-2017 ISAIAH Mckinney MICRO - MicrobiologyPROCEDURE: Urine Culture [*1] Urine, Clean Catch BODY SITE:COLLECTED DATE/TIME: 06/08/2017 18:25 EDT RECEIVED DATE/TIME: 06/09/2017 14:38 EDTSTART DATE/TIME: 06/09/2017 14:38 EDT FREE TEXT SOURCE:FINAL REPORTSFinal Report []Verified Date/Time/Personnel: 06/11/2017 07:45 EDT>100,000 organisms per mL Escherichia coliPRELIMINARY REPORTSPreliminary Report []Verified Date/Time/Personnel: 06/10/2017 08:45 EDT>100,000 organisms per mL Gram Negative RodsFinal identification and MICHELLE to follow.SUSCEPTIBILITY RESULTS Escherichia coliAntibiotic MICHELLE Dilutn MICHELLE InterpAmpicillin >16 ResistantCefazolin <=8 SusceptibleCiprofloxacin <=1 SusceptibleGentamicin <=4 SusceptibleLevofloxacin <=2 SusceptibleMeropenem <=1 SusceptibleNitrofurantoin <=32 SusceptiblePiperacillin/ <=16 SusceptibleTazobactamTrime thoprim/ >2/38 ResistantSulfaPerforming Locations*1: This test was performed at: [facility], [address] [place] [address], [id number] [place] [address] Normal [facility] ([place]) Comment on above: Performed By: #### U A UAMICAO ####[address] [place], [place] [address] .Auto Diffon 06-10-2017 Ammonia mass conc (P) 0.80 10 3/mcL Normal 0.15-1.00 [facility] ([place]) Comment on above: Performed By: #### U A, UAMICAO ####[address] [place], [place] [address] Basophils Auto #/vol (Bld) 0.00 10 3/mcL Normal 0.00-0.19 [facility] ([place]) Comment on above: Performed By: #### KEYON Gaxiola ####[address] [place], [place] [address] Basophils/100 WBC Auto (Bld) 0.6 % Normal 0.0-2.5 [facility] ([place]) Comment on above: Performed By: #### KEYON Gaxiola ####[address] [place], [place] [address] Eosinophils Auto #/vol (Bld) 0.20 10 3/mcL Normal 0.00-0.40 [facility] ([place]) Comment on above: Performed By: #### KEYON Gaxiola ####[address] [place], [place] [address] Eosinophils/100 WBC Auto (Bld) 2.7 % Normal 0.0-7.0 [facility] ([place]) Comment on above: Performed By: #### KEYON Gaxiola ####[address] [place], [place] [address] Lymphocytes Auto #/vol (Bld) 1.20 10 3/mcL Normal 0.77-3.85 [facility] ([place]) Comment on above: Performed By: #### GUANAKITO GaxiolaMICAMADOU ####[address] [place], [place] [address] Lymphocytes/100 WBC Auto (Bld) 20.2 % Normal 10.0-50.0 [facility] ([place]) Comment on above: Performed By: #### Jessica Ackerman UAMICAMADOU ####[address] [place], [place] [address] Monocytes/100 WBC Auto (Bld) 14.0 % High 1.7-13.0 [facility] ([place]) Comment on above: Performed By: #### Jessica Ackerman UAMICAMADOU ####[address] [place], [place] [address] Neutrophils/100 WBC Auto (Bld) 62.5 % Normal 37.0-80.0 [facility] ([place]) Comment on above: Performed By: #### Jessica Tyron UAMICAMADOU ####[address] [place], [place] [address] .GFRon 06-10-2017 GFR Non- 59 ml/min/1.73sqm Normal [facility] ([place]) Comment on above: Result Comment: GFR Population mean for , Non- Americans Ages 20-29 = 116 mL/min/1.73 sq.m. Ages 30-39 = 107 mL/min/1.73 sq.m. Ages 40-49 = 99 mL/min/1.73 sq.m. Ages 50-59 = 93 mL/min/1.73 sq.m. Ages 60-69 = 85 mL/min/1.73 sq.m. Ages 70+ = 75 mL/min/1.73 sq.m.Chronic Kidney Disease: Less than 60 mL/min/1.73 square metersEnd Stage Renal Disease: Less than 15 mL/min/1.73 square meters Performed By: #### Jessica Ackerman, UAMICAMADOU ####[address] [place], [place] [address] GFR 72 ml/min/1.73sqm Normal [facility] ([place]) Comment on above: Result Comment: GFR Population mean for , Non- Americans Ages 20-29 = 116 mL/min/1.73 sq.m. Ages 30-39 = 107 mL/min/1.73 sq.m. Ages 40-49 = 99 mL/min/1.73 sq.m. Ages 50-59 = 93 mL/min/1.73 sq.m. Ages 60-69 = 85 mL/min/1.73 sq.m. Ages 70+ = 75 mL/min/1.73 sq.m.Chronic Kidney Disease: Less than 60 mL/min/1.73 square metersEnd Stage Renal Disease: Less than 15 mL/min/1.73 square meters Performed By: #### U Tyron, UAMICAMADOU ####[address] [place], [place] [address] .NEUABSon 06-10-2017 Neutrophil, Absolute 3.70 10 3/mcL Normal 2.85-6.16 A [facility] ([place]) Comment on above: Performed By: #### U Tyron UAMICAO ####[address] [place], [place] [address] BMPon 06-10-2017 Calcium mass conc 8.6 mg/dL Normal 8.4-10.2 [facility] ([place]) Comment on above: Performed By: #### U Tyron, UAMICAO ####[address] [place], [place] [address] Chloride molar conc 108 mmol/L High 98-107 [facility] ([place]) Comment on above: Performed By: #### U Tyron UAMICAO ####[address] [place], [place] [address] CO2 molar conc 26 mmol/L Normal 23-31 [facility] ([place]) Comment on above: Performed By: #### Jessica Ackerman UAMICAO ####[address] [place], [place] [address] Creatinine mass conc 1.2 mg/dL Normal 0.6-1.2 [facility] ([place]) Comment on above: Performed By: #### Jessica Ackerman UAMICAO ####[address] [place], [place] [address] Electrolyte Balance 8.0 mEq/L Normal [facility] ([place]) Comment on above: Performed By: #### Jessica Ackerman, UAMICAO ####[address] [place], [place] [address] Glucose mass conc 94 mg/dL Normal 83-110 [facility] ([place]) Comment on above: Performed By: #### U Tyron UAMICAO ####[address] [place], [place] [address] Potassium molar conc 4.3 mmol/L Normal 3.5-5.1 [facility] ([place]) Comment on above: Performed By: #### U Tyron, UAMICAO ####[address] [place], [place] [address] Sodium molar conc 142 mmol/L Normal 136-146 [facility] ([place]) Comment on above: Performed By: #### U A, UAMICAO ####[address] [place], [place] [address] Urea nitrogen mass conc 11.7 mg/dL Normal 7.0-18.0 [facility] ([place]) Comment on above: Performed By: #### U GUANAKITO AckemranMICAMADOU ####[address] [place], [place] [address] Urea nitrogen/Creatinine mass ratio 10 ratio Normal 7-27 [facility] ([place]) Comment on above: Performed By: #### U KEYON Ackerman ####[address] [place], [place] [address] CBCon 06-10-2017 Erythrocyte distribution width Auto Ratio (RBC) 13.7 % Normal 11.5-14.5 [facility] ([place]) Comment on above: Performed By: #### KEYON Gaxiola ####[address] [place], [place] [address] Hematocrit Auto Volume Fraction (Bld) 32.3 % Low 42.0-52.0 [facility] ([place]) Comment on above: Performed By: #### KEYON Gaxiola ####[address] [place], [place] [address] Hemoglobin mass conc (Bld) 11.1 G/dL Low 14.0-18.0 [facility] ([place]) Comment on above: Performed By: #### KEYON Gaxiola ####[address] [place], [place] [address] MCH Auto Entitic mass (RBC) 34.9 pg High 27.0-31.2 [facility] ([place]) Comment on above: Performed By: #### U A, UAMICAMADOU ####[address] [place], [place] [address] MCHC Auto mass conc (RBC) 34.2 G/dL Normal 31.8-35.4 [facility] ([place]) Comment on above: Performed By: #### U A, UAMICAMADOU ####[address] [place], [place] [address] MCV Auto Entitic volume (RBC) 101.9 fL High 80.0-94.0 [facility] ([place]) Comment on above: Performed By: #### Jessica Ackerman UAMICAO ####[address] [place], [place] [address] Platelet mean volume Auto Entitic volume (Bld) 10.2 fL Normal 7.4-10.4 [facility] ([place]) Comment on above: Performed By: #### Jessica Ackerman UAMICAO ####[address] [place], [place] [address] Platelets Auto #/vol (Bld) 189 10 3/mcL Normal 130-400 [facility] ([place]) Comment on above: Performed By: #### GUANAKITO GaxiolaMICAMADOU ####[address] [place], [place] [address] RBC Auto #/vol (Bld) 3.17 10 6/mcL Low 4.04-6.13 A [facility] ([place]) Comment on above: Performed By: #### GUANAKITO GaxiolaMICAMADOU ####[address] [place], [place] [address] WBC Auto #/vol (Bld) 5.90 10 3/mcL Normal 4.60-10.80 A [facility] ([place]) Comment on above: Performed By: #### KEYON Gaxiola ####[address] [place], [place] [address] .Auto Diffon 06-08-2017 Ammonia mass conc (P) 0.80 10 3/mcL Normal 0.15-1.00 [facility] ([place]) Comment on above: Performed By: #### C BC, ADIFF, ANEU, GFR, BMP ####[address] [place], [place] [address] Basophils Auto #/vol (Bld) 0.00 10 3/mcL Normal 0.00-0.19 [facility] ([place]) Comment on above: Performed By: #### C BC, ADIFF, ANEU, GFR, BMP ####[address] [place], [place] [address] Basophils/100 WBC Auto (Bld) 0.7 % Normal 0.0-2.5 [facility] ([place]) Comment on above: Performed By: #### C BC, ADIFF, ANEU, GFR, BMP ####[address] [place], [place] [address] Eosinophils Auto #/vol (Bld) 0.20 10 3/mcL Normal 0.00-0.40 [facility] ([place]) Comment on above: Performed By: #### C BC, ADIFF, ANEU, GFR, BMP ####[address] [place], [place] [address] Eosinophils/100 WBC Auto (Bld) 2.7 % Normal 0.0-7.0 [facility] ([place]) Comment on above: Performed By: #### C BC, ADIFF, ANEU, GFR, BMP ####[address] [place], [place] [address] Lymphocytes Auto #/vol (Bld) 1.20 10 3/mcL Normal 0.77-3.85 [facility] ([place]) Comment on above: Performed By: #### C BC, ADIFF, ANEU, GFR, BMP ####[address] [place], [place] [address] Lymphocytes/100 WBC Auto (Bld) 19.6 % Normal 10.0-50.0 [facility] ([place]) Comment on above: Performed By: #### C BC, ADIFF, ANEU, GFR, BMP ####[address] [place], [place] [address] Monocytes/100 WBC Auto (Bld) 13.0 % Normal 1.7-13.0 [facility] ([place]) Comment on above: Performed By: #### C BC, ADIFF, ANEU, GFR, BMP ####[address] [place], [place] [address] Neutrophils/100 WBC Auto (Bld) 64.0 % Normal 37.0-80.0 [facility] ([place]) Comment on above: Performed By: #### C BC, ADIFF, ANEU, GFR, BMP ####[address] [place], [place] [address] .GFRon 06-08-2017 GFR 63 ml/min/1.73sqm Normal [facility] ([place]) Comment on above: Result Comment: GFR Population mean for , Non- Americans Ages 20-29 = 116 mL/min/1.73 sq.m. Ages 30-39 = 107 mL/min/1.73 sq.m. Ages 40-49 = 99 mL/min/1.73 sq.m. Ages 50-59 = 93 mL/min/1.73 sq.m. Ages 60-69 = 85 mL/min/1.73 sq.m. Ages 70+ = 75 mL/min/1.73 sq.m.Chronic Kidney Disease: Less than 60 mL/min/1.73 square metersEnd Stage Renal Disease: Less than 15 mL/min/1.73 square meters Performed By: #### C BC, ADIFF, ANEU, GFR, BMP ####[address] [place], [place] [address] GFR Non- 52 ml/min/1.73sqm Normal [facility] ([place]) Comment on above: Result Comment: GFR Population mean for , Non- Americans Ages 20-29 = 116 mL/min/1.73 sq.m. Ages 30-39 = 107 mL/min/1.73 sq.m. Ages 40-49 = 99 mL/min/1.73 sq.m. Ages 50-59 = 93 mL/min/1.73 sq.m. Ages 60-69 = 85 mL/min/1.73 sq.m. Ages 70+ = 75 mL/min/1.73 sq.m.Chronic Kidney Disease: Less than 60 mL/min/1.73 square metersEnd Stage Renal Disease: Less than 15 mL/min/1.73 square meters Performed By: #### C BC, ADIFF, ANEU, GFR, BMP ####[address] [place], [place] [address] .NEUABSon 06-08-2017 Neutrophil, Absolute 3.80 10 3/mcL Normal 2.85-6.16 A [facility] ([place]) Comment on above: Performed By: #### C BC, ADIFF, ANEU, GFR, BMP ####[address] [place], [place] [address] .Urinalysis Microscopic (AO) on 06-08-2017 RBC Test strip #/vol (U) LOADED Abnormal None Seen [facility] ([place]) Comment on above: Performed By: #### U A, UAMICAO ####[address] [place], [place] [address] UA Amorphus 2+ /hpf Normal [facility] ([place]) Comment on above: Performed By: #### U A, UAMICAO ####[address] [place], [place] [address] UA Bacteria 3+ /hpf Abnormal [facility] ([place]) Comment on above: Performed By: #### U A, UAMICAO ####[address] [place] [address] UA Squam Epithelial None Seen Normal None Seen [facility] ([place]) Comment on above: Performed By: #### U A, UAMICAO ####[address] [place] [address] UA WBC LOADED Abnormal None Seen [facility] ([place]) Comment on above: Performed By: #### U A, UAMICAO ####[address] [place], [place] [address] BMPon 06-08-2017 Glucose mass conc 142 mg/dL High 83-110 [facility] ([place]) Comment on above: Performed By: #### C BC, ADIFF, ANEU, GFR, BMP ####[address] [place], [place] [address] Creatinine mass conc 1.3 mg/dL High 0.6-1.2 [facility] ([place]) Comment on above: Performed By: #### C BC, ADIFF, ANEU, GFR, BMP ####[address] [place] [address] Urea nitrogen/Creatinine mass ratio 12 ratio Normal 7-27 [facility] ([place]) Comment on above: Performed By: #### C BC, ADIFF, ANEU, GFR, BMP ####[address] [place] [address] CO2 molar conc 29 mmol/L Normal 23-31 [facility] ([place]) Comment on above: Performed By: #### C BC, ADIFF, ANEU, GFR, BMP ####[address] [place], [place] [address] Electrolyte Balance 7.0 mEq/L Normal [facility] ([place]) Comment on above: Performed By: #### C BC, ADIFF, ANEU, GFR, BMP ####[address] [place], [place] [address] Calcium mass conc 9.0 mg/dL Normal 8.4-10.2 [facility] ([place]) Comment on above: Performed By: #### C BC, ADIFF, ANEU, GFR, BMP ####[address] [place], [place] [address] Urea nitrogen mass conc 15.3 mg/dL Normal 7.0-18.0 [facility] ([place]) Comment on above: Performed By: #### C BC, ADIFF, ANEU, GFR, BMP ####[address] [place], [place] [address] Chloride molar conc 105 mmol/L Normal 98-107 [facility] ([place]) Comment on above: Performed By: #### C BC, ADIFF, ANEU, GFR, BMP ####[address] [place], [place] [address] Potassium molar conc 4.6 mmol/L Normal 3.5-5.1 [facility] ([place]) Comment on above: Performed By: #### C BC, ADIFF, ANEU, GFR, BMP ####[address] [place], [place] [address] Sodium molar conc 141 mmol/L Normal 136-146 [facility] ([place]) Comment on above: Performed By: #### C BC, ADIFF, ANEU, GFR, BMP ####[address] [place], [place] [address] CBCon 06-08-2017 Erythrocyte distribution width Auto Ratio (RBC) 13.9 % Normal 11.5-14.5 [facility] ([place]) Comment on above: Performed By: #### C BC, ADIFF, ANEU, GFR, BMP ####[address] [place], [place] [address] Hematocrit Auto Volume Fraction (Bld) 33.6 % Low 42.0-52.0 [facility] ([place]) Comment on above: Performed By: #### C BC, ADIFF, ANEU, GFR, BMP ####[address] [place], [place] [address] Hemoglobin mass conc (Bld) 11.1 G/dL Low 14.0-18.0 [facility] ([place]) Comment on above: Performed By: #### C BC, ADIFF, ANEU, GFR, BMP ####[address] [place], [place] [address] MCH Auto Entitic mass (RBC) 33.9 pg High 27.0-31.2 [facility] ([place]) Comment on above: Performed By: #### C BC, ADIFF, ANEU, GFR, BMP ####[address] [place], [place] [address] MCHC Auto mass conc (RBC) 33.2 G/dL Normal 31.8-35.4 [facility] ([place]) Comment on above: Performed By: #### C BC, ADIFF, ANEU, GFR, BMP ####[address] [place], [place] [address] MCV Auto Entitic volume (RBC) 102.2 fL High 80.0-94.0 [facility] ([place]) Comment on above: Performed By: #### C BC, ADIFF, ANEU, GFR, BMP ####[address] [place], [place] [address] Platelet mean volume Auto Entitic volume (Bld) 10.3 fL Normal 7.4-10.4 [facility] ([place]) Comment on above: Performed By: #### C BC, ADIFF, ANEU, GFR, BMP ####[address] [place], [place] [address] Platelets Auto #/vol (Bld) 205 10 3/mcL Normal 130-400 [facility] ([place]) Comment on above: Performed By: #### C BC, ADIFF, ANEU, GFR, BMP ####[address] [place], [place] [address] RBC Auto #/vol (Bld) 3.28 10 6/mcL Low 4.04-6.13 A [facility] ([place]) Comment on above: Performed By: #### C BC, ADIFF, ANEU, GFR, BMP ####[address] [place], [place] [address] WBC Auto #/vol (Bld) 6.00 10 3/mcL Normal 4.60-10.80 A [facility] ([place]) Comment on above: Performed By: #### C BC, ADIFF, ANEU, GFR, BMP ####[id number] [place], [place] [address] CT HEAD OR BRAIN W/O CONTRAS Ton 06-08-2017 CT HEAD OR BRAIN W/O CONTRAST ORIGINALCT HEAD OR BRAIN W/O CONTRAST Clinical Statement: Change in mental status, confusion TECHNIQUE: Axial CT images from skull base to vertex without IV contrast. This exam was performed according to our departmental dose optimization program, and includes the following measures where applicable: automated exposure control, adjustment of the mAs and/or kVp according to patient size and/or exam, and an iterative reconstruction algorithm. COMPARISON: None. FINDINGS: There is no intracranial hemorrhage, mass, mass effect, or abnormal extra-axial fluid collection. Lee-white differentiation is maintained. An area of encephalomalacia is seen at the junction of the frontoparietal lobes on the right superiorly, which could be related to remote trauma or infarct. There is age-related involution with commensurate dilation of the ventricles, basal cisterns, and subarachnoid spaces. 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 The skull base and calvarium demonstrate no acute abnormality. There is evidence of prior craniotomy overlying the site of encephalomalacia in the right frontoparietal lobe. Minimal mucosal thickening is seen in the bilateral maxillary sinuses. IMPRESSION: 1. No acute intracranial hemorrhage.2. 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 I have personally reviewed the images of this examination and agree with the resident's findings and interpretation. Interpreted By: Wale Duke MDPreliminary Report By: Reno Xiao DOElectronically Signed By: Wale Duke MD Dictated Date: 06/08/2017 6:47:17 PM Prelim Date: 06/08/2017 6:53:30 PM Sign Date: 06/08/2017 7:04:55 PM Normal [facility] ([place]) PROon 06-08-2017 INR Coag RelTime (PPP) 1.8 {INR} High 0.9-1.2 [facility] ([place]) Comment on above: Result Comment: Darrel dard Dose 2.0 - 3.0High Dose 2.5 - 3.5The recommended therapeutic range for oral anticoagulanttherapy is:LOW RISK: Prophylaxis of venous thrombosis INR: 2.0 - 3.0 Treatment of pulmonary embolism 2.0 - 3.0 Prevention of systemic embolism 2.0 - 3.0HIGH RISK: Mechanical prosthetic valves 2.5 - 3.5 Performed By: #### U A UAMICAO ####[address] [place], [place] [address] Prothrombin time (PT) Coag time (PPP) 18.5 s High 9.8-13.5 [facility] ([place]) Comment on above: Performed By: #### U A UAMICAO ####[address] [place], [place] [address] UAon 06-08-2017 Color Nom (U) YELLOW Normal [facility] ([place]) Comment on above: Performed By: #### U A UAMICAO ####[id number] [place], [place] [address] Glucose mass conc (U) Negative Normal [facility] ([place]) Comment on above: Performed By: #### U A UAMICAO ####[address] [place], [place] [address] Ketones Ql (U) Negative Normal [facility] ([place]) Comment on above: Performed By: #### U A UAMICAO ####[address] [place], [place] [address] UA Appear SL CLOUDY [facility] ([place]) Comment on above: Performed By: #### U A, UAMICAO ####[address] [place], [place] [address] UA Blood MODERATE [facility] ([place]) Comment on above: Performed By: #### U A, UAMICAO ####[address] [place], [place] [address] UA Leuk Est LARGE [facility] ([place]) Comment on above: Performed By: #### U A, UAMICAO ####[address] [place] [address] UA Nitrite Positive [facility] ([place]) Comment on above: Performed By: #### U A, UAMICAO ####[address] [place] [address] UA pH 7.0 [facility] ([place]) Comment on above: Performed By: #### U A, UAMICAO ####[address] [place], [place] [address] UA Protein Negative [facility] ([place]) Comment on above: Performed By: #### U A, UAMICAO ####[address] [place], [place] [address] UA Spec Grav 1.020 [facility] ([place]) Comment on above: Performed By: #### U A, UAMICAO ####[address] [place], [place] [address] UA Specimen Type Catheter [facility] ([place]) Comment on above: Performed By: #### U A, UAMICAO ####[address] [place] [address] UA Urobilinogen 0.2 E.U./dL [facility] ([place]) Comment on above: Performed By: #### U A, UAMICAO ####[address] [place] [address] Urobilinogen Test strip Qn (U) Negative [facility] ([place]) Comment on above: Performed By: #### U A, UAMICAO ####[address] [place], [place] [address] XR CHEST 1 VIEWon 06-08-2017 XR CHEST 1 VIEW ORIGINALXR CHEST 1 V IEW Upright portable chest at 6:36 PM. CLINICAL STATEMENT: Shortness of breath COMPARISON: None FINDINGS: The examination is limited secondary to lordotic positioning. Cardiac contour is suboptimally visualized, within normal limits. Mediastinal silhouette is normal. Minimal calcific atherosclerosis is seen along the aorta. Lung volumes are low. There is elevation of the left hemidiaphragm. No pleural effusion, pneumothorax, or vascular congestion is seen. Slight haziness overlying the right upper and mid lung could represent right upper lobe atelectasis or consolidation. There are no acute osseous findings. IMPRESSION: Limited exam secondary to patient body habitus and lordotic positioning. Questionable right upper lobe atelectasis or consolidation. Confirmation with PA and lateral chest films is recommended when patient's condition permits. I have personally reviewed the images of this examination and agree with the resident's findings and interpretation. Interpreted By: Wale Duke MDPreliminary Report By: Reno Xiao DOElectronically Signed By: Wale Duke MD Dictated Date: 06/08/2017 6:57:22 PM Prelim Date: 06/08/2017 7:00:40 PM Sign Date: 06/08/2017 7:08:34 PM Normal [facility] ([place]) PROon 02-09-2017 INR Coag RelTime (PPP) 1.9 {INR} High 0.9-1.2 [facility] ([place]) Comment on above: Result Comment: Darrel dard Dose 2.0 - 3.0High Dose 2.5 - 3.5The recommended therapeutic range for oral anticoagulanttherapy is:LOW RISK: Prophylaxis of venous thrombosis INR: 2.0 - 3.0 Treatment of pulmonary embolism 2.0 - 3.0 Prevention of systemic embolism 2.0 - 3.0HIGH RISK: Mechanical prosthetic valves 2.5 - 3.5 Performed By: #### P RO ####[address] [place], [place] [address] Prothrombin time (PT) Coag time (PPP) 19.4 s High 9.8-13.5 [facility] ([place]) Comment on above: Performed By: #### P RO ####[address] [place], [place] [address] Protimeon 09-01-2016 INR Coag RelTime (PPP) 2.0 {INR} High 0.9-1.2 [facility] Comment on above: Result Comment: Darrel dard Dose 2.0 - 3.0High Dose 2.5 - 3.5The recommended therapeutic range for oral anticoagulanttherapy is:LOW RISK: Prophylaxis of venous thrombosis INR: 2.0 - 3.0 Treatment of pulmonary embolism 2.0 - 3.0 Prevention of systemic embolism 2.0 - 3.0HIGH RISK: Mechanical prosthetic valves 2.5 - 3.5 Performed By: #### P RO ####Dayna [address] [address] Prothrombin time (PT) Coag time (PPP) 20.6 s High 10.3-14.3 [facility] Comment on above: Performed By: #### P RO ####Dayna [address] [address] Encounters Encounter Date Encounter Type Care Provider Facility Start: 06-06-2024 End: 06-06-[address] Michelle Peña MD Work Phone: [facility] Work Phone: Start: 06-06-2024 End: 06-06-2024 Patient encounter procedure Norah CONLEY [facility] Work Phone: Start: 06-03-2024 End: 06-03-[address] Michelle Peña MD Work Phone: [facility] Work Phone: Start: 06-03-2024 End: 06-03-2024 Patient encounter procedure Norah CONLEY -[facility] Work Phone: Start: 06-01-2024 End: 06-01-2024 Departed Referred Jeanmarie Cardona MD [facility] Start: 06-01-2024 End: 06-01-2024 ambulatory Michelle Naumoff Facility:[facility] Start: 05-03-2024 End: 05-03-2024 ambulatory Romulodinojayne Cardona Facility:[facility] Start: 05-03-2024 End: 05-03-[address] Jeanmarie Cardona MD -[facility] Work Phone: Start: 03-08-2024 End: 03-08-2024 ambulatory Jeanmarie Cardona Facility:[facility] Start: 02-22-2024 End: 02-22-2024 ambulatory Norah Corbett EARL Facility:[facility] Start: 01-12-2024 End: 01-12-2024 ambulatory Jeanmarie Cardona Facility:[facility] Start: 01-11-2024 End: 01-11-2024 ambulatory Michelle Anumoff Facility:[facility] Start: 12-15-2023 End: 12-15-2023 ambulatory Michelle Naumoff Facility:[facility] Start: 12-02-2023 End: 12-02-2023 ambulatory Michelle Naumoff Facility:[facility] Start: 11-16-2023 End: 11-16-2023 ambulatory Michelle Naumoff Facility:[facility] Start: 11-03-2023 End: 11-03-2023 ambulatory Jeanmarie Cardona Facility:[facility] Start: 10-23-2023 End: 10-23-2023 ambulatory Michelle Naumoff Facility:[facility] Start: 10-20-2023 End: 10-20-2023 ambulatory Michelle Naumoff Facility:[facility] Start: 10-15-2023 End: 10-15-2023 ambulatory Michelle Naumoff Facility:[facility] Start: 09-01-2023 End: 09-02-2023 ambulatory Michelle Nortonoff Facility:[facility] Start: 06-03-2023 End: 06-03-[address] Michelle Peña Work Phone: [facility] Work Phone: Start: 06-03-2023 End: 06-03-[address] [facility] Start: 05-12-2023 End: 05-12-[address] Michelle Peña Work Phone: [facility] Work Phone: Start: 04-09-2023 End: 04-09-[address] Michelle Peña Work Phone: [facility] Work Phone: Start: 03-10-2023 End: 03-10-[address] Michelle Peña Work Phone: [facility] Work Phone: Start: 03-04-2023 End: 03-04-[address] Michelle Peña Work Phone: [facility] Work Phone: Start: 03-04-2023 End: 03-04-[address] [facility] Peña [facility] Start: 01-06-2023 End: 01-06-[address] Michelle Peña Work Phone: [facility] Work Phone: Start: 12-12-2022 End: 12-12-[address] Michelle Peña Work Phone: [facility] Work Phone: Start: 12-03-2022 End: 12-03-[address] Michelle Peña Work Phone: [facility] Work Phone: Start: 12-03-2022 End: 12-03-[address] [facility] Peña [facility] Phone[facility] Start: 11-11-2022 End: 11-11-[address] Michelle Peña Work Phone: [facility] Work Phone: Start: 10-25-2022 End: 10-25-[address] Michelle Peña Work Phone: [facility] Work Phone: Start: 09-09-2022 End: 09-09-[address] Michelle Peña Work Phone: [facility] Work Phone: Start: 09-03-2022 End: 09-03-[address] Michelle Peña Work Phone: [facility] Work Phone: Start: 09-03-2022 End: 09-03-[address] [facility] Peña [facility] Phone[facility] Start: 2022 End: [address] Michelle Peña Work Phone: [facility] Work Phone: Start: 07-08-2022 End: 07-08-[address] Michelle Peña Work Phone: [facility] Work Phone: Start: 06-20-2022 End: 06-20-[address] Michelle Peña Work Phone: [facility] Start: 06-20-2022 End: 06-20-[address] Michelle Peña Work Phone: [facility] Work Phone: Start: 06-20-2022 End: 06-20-[address] [facility] Start: 04-07-2022 End: 04-07-[address] Michelle Peña Work Phone: [facility] Start: 03-21-2022 End: 03-21-[address] Michelle Peña Work Phone: [facility] Work Phone: Start: 03-21-2022 End: 03-21-[address] Michelle Peña Work Phone[facility] Start: 03-21-[address] Michelle Peña Work Phone: [facility] Start: 03-04-2022 End: 03-04-[address] Michelle Peña Work Phone: [facility] Work Phone: Start: 03-04-2022 End: 03-04-[address] Michelle Peña Work Phone[facility] Start: 12-31-2021 End: 12-31-[address] Michelle Peña Work Phone: [facility] Start: 12-20-2021 End: 12-20-[address] Michelle Peña Work Phone: [facility] Work Phone: Start: 12-20-2021 End: 12-20-[address] Michelle Peña Work Phone: [facility] Start: 12-03-2021 End: 12-03-[address] Michelle Peña Work Phone: [facility] Start: 09-13-[address] Michelle Peña Work Phone[facility] Start: 06-14-2021 End: 06-14-[address] Michelle Peña Work Phone[facility] Start: 06-14-[address] Michelle Peña Work Phone: [facility] Start: 04-12-2021 End: 04-12-[address] Michelle Peña Work Phone: [facility] Start: 04-12-[address] Michelle Peña Work Phone[facility] Start: 03-08-2021 End: 03-08-[address] Michelle Peña Work Phone: [facility] Start: 02-28-2021 End: 02-28-[address] Michelle Peña Work Phone[facility] Start: 02-28-[address] [facility] Peña Work Phone[facility] Start: 01-14-2018 End: 01-14-2018 Emergency department patient visit REBECCA ANDERSON Facility:[facility] Start: 11-07-2017 End: 11-08-2017 Patient encounter procedure MICHELLE PEÑA Facility:[facility] Start: 11-01-2017 End: 11-01-2017 Emergency department patient visit SELINA LandonHank LIVE Facility:[facility] Start: 06-08-2017 End: 06-11-2017 Evaluation and management of inpatient MICHELLE PEÑA Facility:[facility] Start: 02-09-2017 Patient encounter procedure SUE MCKEON Facility:[facility] Start: 09-01-2016 Ambulatory SUE MCKEON Fac ility:[facility] Procedures Date Procedure Procedure Detail Performing Clinician History of Back Surgery Diamond Dey DO History of Craniotomy (Diagnostic) Kalpesh Dey DO Tonsillectomy Kalpesh Weber DO Total replacement of hip Chr beena Dey DO Immunizations Immunization Date Immunization Notes Care Provider [facility] 12-13-[address] Michelle Peña Work Phone: [facility] 12-09-2016 pneumococcal conjuga te vaccine, 13 valent; Translations: [Prevnar 13 Intramuscular Suspension] Kalpesh Dey DO [facility] Work Phone: Payers Date Payer Category Payer Medicaid [id number] 2023 Self-pay [id number] 2023 Unknown [id number] 2017 Medicare [id number] 2013 Private Health Insurance [id number] 1940 Unknown [id number] 2.16.8 [id number] 1940 Unknown [id number] 2.16.8 40.1.298783.3.579.2.627 1940 Unknown [id number] 2.16.8 40.1.915986.3.579.2.627 1940 Unknown [id number] 2.16.8 40.1.559071.3.579.2.627 1940 Unknown [id number] 2.16.8 40.1.756103.3.579.2.627 Unknown [id number] 2.16.8 40.1.716211.3.579.2.462 Unknown [id number] 2.16.8 40.1.932856.3.579.2.462 Unknown [id number] 2.16.8 40.1.103887.3.579.2.462 Unknown [id number] 2.16.8 40.1.587392.3.579.2.462 Unknown [id number] 2.16.8 40.1.439282.3.579.2.462 Unknown [id number] 2.16.8 40.1.437316.3.579.2.462 Unknown [id number] 2.16.8 40.1.650290.3.579.2.462 Unknown [id number] 2.16.8 40.1.732542.3.579.2.462 Unknown [id number] 2.16.8 40.1.331625.3.579.2.462 Unknown [id number] 2.16.8 40.1.428574.3.579.2.462 Unknown [id number] 2.16.8 40.1.382312.3.579.2.462 Unknown [id number] 2.16.8 40.1.263617.3.579.2.462 Unknown [id number] 2.16.8 40.1.560352.3.579.2.462 Unknown [id number] 2.16.8 40.1.061666.3.579.2.462 Unknown [id number] 2.16.8 40.1.016246.3.579.2.462 Unknown [id number] 2.16.8 40.1.306708.3.579.2.462 Unknown [id number] 2.16.8 40.1.750064.3.579.2.462 Social History Date Type Detail Facility Start: 02-29-2020 End: 01-01-2023 Tobacco smoking status NHIS Unknown if ever smoked [facility] Start: 02-29-2020 None [facility] Start: 02-29-2020 Fpc [facility] Start: 01-17-2020 Non-smoker [facility] Start: 1940 Sex Assigned At Male [facility] Start: 01-01-2023 Tobacco smoking status NHIS Ex-smoker (finding) [facility] NEGATED: Highlighted row - - - [facility] Work Phone: Functional Status Date Assessment Result Facility NEGATED: Highlighted row Functional performance Functional status health issues are not documented Disease [facility] Work Phone: Mental Status Date Assessment Result Facility NEGATED: Highlighted row Cognitive function [Interpretation] Cognitive status health issues are not documented Disease [facility] Work Phone: Evaluation note Note Date & Type Note Facility [facility] Instructions Note Date & Type Note Facility Instructions Name Instructions not documented [facility] Work Phone: Reason for referral (narrative) Note Date & Type Note Facility Reason for referral (narrative) No reason for referral information available [facility] Work Phone: Summary Purpose Family History No Family History Records Found Grandmother Name Dates Details Family history of diabetes jean hall(V18.0, Z83.3) Status:Active Relationship Condition Age at Onset Recorded Date/T sabas Unknown Family History?- Unknown January 162019 2:18am Family History?- Unknown January 162019 2:18am Relationship Condition Age at Onset Recorded Date/T sabas Unknown Family History?- Unknown January 162019 1:18am Family History?- Unknown January 162019 1:18am Relationship Condition Age at Onset Recorded Date/T sabas Unknown Family History?- Unknown January 162019 1:18am Family History?- Unknown January 162019 1:18am Family History?- Unknown December 8:18am Relationship Condition Age at Onset Recorded Date/T sabas Unknown Family History?- Unknown January 162019 2:18am Family History?- Unknown January 162019 2:18am Family History?- Unknown December 9:18am Advance Directives No Advanced Directives Records Found Advance Directive Response Recorded Date/ Time Living Will Yes February 28, 020 6:18pm Power of Braided Rug Maker Yes February 29, 2020 6:18pm Advance Directive Response Recorded Date/ Time Living Will Yes February 28, 2 020 5:18pm Power of Braided Rug Maker Yes February 29, 2020 5:18pm Advance Directive Response Recorded Date/ Time Living Will Yes January 01 8:18am Power of Braided Rug Maker Yes January 01, 2023 8:18am Advance Directive Response Recorded Date/ Time Living Will Yes January 01 9:18am Power of Braided Rug Maker Yes January 01, 2023 9:18am Chief Complaint and Reason for Visit Chief Complaint PRISON LAB WOR K admission exam PRISON LABWORK Chief Complaint admission exam PRISON LABWORK Chief Complaint LABWORK MONTHLY EXAM LABWORK Chief Complaint MONTHLY EXAM LABWORK MONTHLY EXAM LABWORK Chief Complaint LABWORK MONTHLY EXAM LABWORK PRISON LABWORK Chief Complaint PRISON LABWORK MONTHLY EXAM PRISON LABWORK MONTHLY EXAM Chief Complaint PRISON LABWORK MONTHLY EXAM MONTHLY EXAM MONTHLY EXAM PRISON LAB WORK MONTHLY EXAM Chief Complaint MONTHLY EXAM PRISON LAB WORK MONTHLY EXAM MONTHLY EXAM MONTHLY EXAM PRISON LAB WORK Chief Complaint PRISON LAB WOR K MONTHLY EXAM MONTHLY EXAM LABWORK Chief Complaint LABWORK MONTHLY EXAM- MD MONTHLY EXAM PA MONTHLY EXAM MD PRISON LAB WORK Chief Complaint Admit Date MONTHLY EXAM May 03, 2024 5:27 pm LABWORK June 01, 2024 5:00 am Monthly June 03, 2024 2:13 pm Chief Complaint Admit Date MONTHLY EXAM May 03, 2024 5:27 pm LABWORK June 01, 2024 5:00 am Monthly June 03, 2024 2:13 pm New Concern June 06, 2024 4:39 pm Additional Source Comments (unrecognized sect ion and content) No Status Records FoundNo Status Records FoundNo Status Records FoundNo Status Records Found INFORMATION SOURCE (unrecogn ized section and content) DATE CREATED AUTHOR 2017 [facility] [employer] [facility] [employer] DATE CREATED AUTHOR AUTHOR'S ORGANIZ ATION 02/08/2018 [facility] [employer] [facility] ([place]) DATE CREATED AUTHOR AUTHOR'S ORGANIZ ATION 01/10/2020 [facility] Autumn Veronica DATE CREATED AUTHOR AUTHOR'S ORGANIZ ATION 08/21/2024 [place] [facility] y [facility] Goals (unrecognized section and content) Goals may be documented in a n alternate sectionGoals may be documented in an alternate sectionGoals may be documented in an alternate sectionGoals may be documented in an alternate sectionGoals may be documented in an alternate sectionGoals may be documented in an alternate sectionGoals may be documented in an alternate sectionGoals may be documented in an alternate sectionGoals may be documented in an alternate sectionGoals may be documented in an alternate sectionGoals may be documented in an alternate sectionGoals may be documented in an alternate sectionGoals may be documented in an alternate sectionGoals may be documented in an alternate section Care Teams (unrecognized sec tion and content) Team Status: Active Member Role Status Dates Michelle Peña MD Family Provider Active Dr. Michelle Peña MD Primary Care Provider Active Team Status: Inactive Member Role Status Dates Dr. Michelle Peña MD Primary Care Provider Active Norah Corbett COMMERCIAL LINES ACCOUNT EXECUTIVE, COMMERCIAL LINES ACCOUNT EXECUTIVE-C Attending Provider Active Team Status: Inactive Member Role Status Dates Dr. Michelle Peña MD Primary Care Provider Active Dr. Jeanmarie Cardona MD Attending Provider Active Team Status: Inactive Member Role Status Dates Dr. Michelle Peña MD Primary Care Provider Active Manish Anderson MD Attending Provider Active Team Status: Inactive Member Role Status Dates Dr. Michelle Peña MD Primary Care Provider Active Jeanmarie Cardona MD Attending Provider Active Team Status: Active Member Role Status Dates Dr. Michelle Peña MD Primary Care Provider Active Jeanmarie Cardona MD Attending Provider Active Team Status: Active Member Role Status Dates Michelle LAINEZ MD Family Provider Active Dr. Michelle Peña MD Primary Care Provider Active Team Status: Inactive Member Role Status Dates Dr. Michelle Peña MD Primary Care Provider Active Jeanmarie LAINEZ MD Attending Provider Active Team Status: Inactive Member Role Status Dates Dr. Michelle Peña MD Primary Care Provider Active Richi VALDES PA Attending Provider Active Team Status: Inactive Member Role Status Dates Dr. Michelle Peña MD Primary Care Provider Active Jeanmarie LAINEZ MD Attending Provider, Referring Provider Active Team Status: Inactive Member Role Status Dates Dr. Michelle Peña MD Primary Care Provider Active Start: May 03, 2024 End: May 03, 2024 Dr. Jeanmarie Cardona MD Attending Provider Active Start: May 03, 2024 End: May 03, 2024 Team Status: Inactive Member Role Status Dates Dr. Michelle Peña MD Primary Care Provider Active Start: June 01, 2024 End: June 01, 2024 Jeanmarie LAINEZ MD Attending Provider Active Start: June 01, 2024 End: June 01, 2024 Team Status: Inactive Member Role Status Dates Dr. Michelle Peña MD Primary Care Provider Active Start: June 03, 2024 End: June 03, 2024 JARVIS Perkins NP Attending Provider Active Start: June 03, 2024 End: June 03, 2024 Team Status: Inactive Member Role Status Dates Dr. Michelle Peña MD Primary Care Provider Active Start: June 06, 2024 End: June 06, 2024 JARVIS Perkins NP Attending Provider Active Start: June 06, 2024 End: June 06, 2024 FOR RECORDS PERTAINING TO PATIENTS WHO ARE OR HAVE BEEN ENROLLED IN A CHEMICAL DEPENDENCY/SUBSTANCEABUSE PROGRAM, SOME INFORMATION MAY BE OMITTED. This clinical summary was aggregated from multiple sources. Caution should be exercised in using it in the provision of clinical care. This summary normalizes information from multiple sources, and as a consequence, information in this document may materially change the coding, format and clinical context of patient data. In addition, data may be omitted in some cases. CLINICAL DECISIONS SHOULD BE BASED ON THE PRIMARY CLINICAL RECORDS. [facility] [employer] provides no warranty or guarantee of the accuracy or completeness of information in this document.
[2024-08-31 08:35] LABS: Hematocrit 39.3 % (40-54); Hemoglobin 12.7 g/dL (13.0-16.5); Immature Granulocytes Count 0.000 X10^3/uL (0.0-0.0); Mean Corp Hgb Conc 32.3 g/dL (32-36); Mean Corpuscular Volume 104.2 fL (80-94); Mean Platelet Vol. 12.9 fl (6.2-12.0); NRBC Flagged by Analyzer 0 % (0-5); Platelet Count 155 K/mm3 (150-450); RBC Distribution Width CV 12.6 % (11.6-14.6); RBC Distribution Width SD 47.8 fl (35.1-43.9); Red Blood Count 3.77 M/mm3 (4.6-6.2); White Blood Count 4.4 K/mm3 (4.4-11.0)
[2024-08-31 08:44] LABS: Anion Gap 10 (5-15); BUN 17 mg/dL (4-19); BUN/Creat Ratio 16.5 RATIO (10-20); Calcium,Total 8.7 mg/dL (7.6-11.0); Carbon Dioxide 21.8 mmol/L (21.0-32.0); Chloride 111 mmol/L (98-108); Glucose 83 mg/dL (70-99); Potassium 4.6 mmol/L (3.3-5.1)
== END ==
LOC: OLS.WHLCAR 05:00
PROVIDERS: PCP Family Medicine; Visit Provider Internal Medicine
DX: I12.9 Hypertensive chronic kidney disease with stage 1 through stage 4 chronic kidney disease, or unspecified chronic kidney disease (principal); N18.9 Chronic kidney disease, unspecified
CPT/HCPCS: 36415; 80048; 85025

== ENCOUNTER → 2024-11-30 05:50 | Outpatient (REF) | payer MEDICARE, MEDICAID, SELFPAY ==
[2024-11-30 10:06] LABS: Anion Gap 9 (5-15); BUN 22 mg/dL (4-19); BUN/Creat Ratio 21.9 RATIO (10-20); Calcium,Total 8.7 mg/dL (7.6-11.0); Carbon Dioxide 25.7 mmol/L (21.0-32.0); Chloride 113 mmol/L (98-108); Glucose 79 mg/dL (70-99); Potassium 4.9 mmol/L (3.3-5.1)
== END ==
LOC: OLS.WHLCAR 05:50
PROVIDERS: PCP Family Medicine; Visit Provider Internal Medicine
DX: I12.9 Hypertensive chronic kidney disease with stage 1 through stage 4 chronic kidney disease, or unspecified chronic kidney disease (principal); N18.9 Chronic kidney disease, unspecified
CPT/HCPCS: 36415; 80048